=== PATIENT | male | born 1935 | race Caucasian/White ===

== ENCOUNTER 2021-04-05 08:14 | Outpatient (REF) | payer MEDICARE, SELFPAY ==
[2021-04-05 11:16] LABS: MANUAL DIFF FLAG NO
[2021-04-05 11:41] LABS: Basophils Absolute Auto 0.1 X10*3/uL (0.0-0.2); Basophils Percent Auto 0.8 % (0-2); Eosinophils Absolute Auto 0.3 X10*3/uL (0.0-0.4); Eosinophils Percent Auto 4.5 % (0-4); Hematocrit 37.7 % (42-52); Hemoglobin 12.7 g/dl (14.0-18.0); Imm Gran Abs Auto 0.01 X10*3/uL (0.00-0.03); Imm Gran Pct Auto 0.2 % (0.0-0.4); Lymphocytes Absolute Auto 1.7 X10*3/uL (1.2-4.9); Lymphocytes Percent Auto 27.6 % (20-40); Mean Corpuscular HGB Conc 33.7 g/dl (31.0-36.0); Mean Corpuscular Hemoglobin 31.8 pg (27.0-33.0); Mean Corpuscular Volume 94.5 fL (80-98); Mean Platelet Volume 10.9 fL (9.4-12.4); Monocytes Absolute Auto 0.6 X10*3/uL (0.1-1.2); Monocytes Percent Auto 9.4 % (2-11); Neutrophils Absolute Auto 3.6 X10*3/uL (2.0-8.3); Neutrophils Percent Auto 57.5 % (45-73); Platelet Count 252 X10*3/uL (160-400); Red Blood Count 3.99 X10*6/uL (4.60-5.80); White Blood Count 6.2 X10*3/uL (4.8-10.8)
[2021-04-05 12:04] LABS: Alanine Aminotransferase 12 U/L (0-40); Alkaline Phosphatase 57 U/L (39-117); Anion Gap 13 (12-20); Aspartate Amino Transferase 16 U/L (5-37); Bilirubin Total 0.7 mg/dL (0.0-1.0); Blood Urea Nitrogen 16 mg/dL (9-16); Calcium 9.2 mg/dL (8.4-10.2); Carbon Dioxide 24 mmol/L (22-29); Chloride 109 mmol/L (96-108); Cholesterol 197 mg/dL; Estimated Glomerular Filt Rate > 60; Glucose Fasting 86 mg/dL (60-99); HDL Cholesterol 75 mg/dL; LDL Cholesterol Calculated 116 mg/dl; Potassium 4.3 mmol/L (3.3-5.1); Sodium 142 mmol/L (135-145); Total Protein 6.5 g/dL (6.5-8.0); Triglycerides 33 mg/dL
[2021-04-05 12:09] LABS: TSH reflex Free T4 1.92 uIU/mL (0.32-4.0)
[2021-04-05 12:52] LABS: Folate 11.7 ng/mL (> or = 4.0); Vitamin B12 210 pg/mL (200-900)
== END 2021-04-05 08:15 | disposition home or self-care (01) ==
LOC: HO.HMGCLDS 08:14
PROVIDERS: Physician Assistant; PCP Internal Medicine; Visit Provider Internal Medicine
DX: K21.9 Gastro-esophageal reflux disease without esophagitis (principal); I10 Essential (primary) hypertension
CPT/HCPCS: 36415; 80053; 80061; 82607; 82746; 84443; 85025

== ENCOUNTER 2021-04-07 09:27 | Outpatient (REF) | payer MEDICARE, SELFPAY ==
[2021-04-07 11:39] LABS: Creatinine Urine 160.85 mg/dL
== END 2021-04-07 09:28 | disposition home or self-care (01) ==
LOC: HO.HMGCLNP 09:27
PROVIDERS: Visit Provider Physician Assistant
DX: I10 Essential (primary) hypertension (principal)
CPT/HCPCS: 82043

== ENCOUNTER 2021-05-22 13:28 | Outpatient (REF) | payer MEDICARE, SELFPAY ==
[2021-05-22 16:35] LABS: Folate 18.5 ng/mL (> or = 4.0); Vitamin B12 456 pg/mL (200-900)
== END 2021-05-22 13:29 | disposition home or self-care (01) ==
LOC: HO.HMGCLDS 13:28
PROVIDERS: PCP Internal Medicine; Visit Provider Internal Medicine
DX: C18.9 Malignant neoplasm of colon, unspecified (principal)
CPT/HCPCS: 36415; 82607; 82746

== ENCOUNTER 2021-11-16 14:30 | Outpatient (REF) | payer MEDICARE, SELFPAY ==
[2021-11-16 14:55] LABS: MANUAL DIFF FLAG NO
[2021-11-16 15:02] LABS: Basophils Absolute Auto 0.1 X10*3/uL (0.0-0.2); Basophils Percent Auto 0.6 % (0-2); Eosinophils Absolute Auto 0.2 X10*3/uL (0.0-0.4); Eosinophils Percent Auto 2.6 % (0-4); Hematocrit 38.5 % (42.0-52.0); Hemoglobin 12.8 g/dl (14.0-18.0); Imm Gran Abs Auto 0.02 X10*3/uL (0.00-0.03); Imm Gran Pct Auto 0.3 % (0.0-0.4); Immature Retic Fraction 6.4 % (2.3-13.4); Lymphocytes Percent Auto 25.3 % (20-40); Mean Corpuscular HGB Conc 33.2 g/dl (31.0-36.0); Mean Corpuscular Hemoglobin 32.5 pg (27.0-33.0); Mean Corpuscular Volume 97.7 fL (80.0-98.0); Mean Platelet Volume 10.1 fL (9.4-12.4); Monocytes Absolute Auto 0.7 X10*3/uL (0.1-1.2); Monocytes Percent Auto 9.2 % (2-11); Neutrophils Absolute Auto 4.8 x10*3/uL (2.0-8.3); Platelet Count 229 X10*3/uL (160-400); Red Blood Count 3.94 X10*6/uL (4.60-5.80); Red Cell Distribution Width 14.6 % (11.0-16.0); Reticulocyte Percent 1.4 % (0.5-1.8); Reticulocytes Absolute 0.054 X10*6/uL (0.026-0.095); White Blood Count 7.7 X10*3/uL (4.8-10.8)
[2021-11-16 15:34] LABS: Iron 70 mcg/dL (45-160); Percent Iron Saturation 21 % (15-50); Total Iron Binding Capacity 326 mcg/dL (228-428); Unsaturated Iron Binding 256 ug/dL
[2021-11-16 15:55] LABS: Ferritin 54 ng/mL (20-250)
[2021-11-16 16:22] LABS: Folate 12.4 ng/mL (> or = 4.0); Vitamin B12 871 pg/mL (200-900)
== END 2021-11-16 14:31 | disposition home or self-care (01) ==
LOC: HO.LAB 14:30
PROVIDERS: PCP Internal Medicine; Visit Provider Internal Medicine
DX: D64.9 Anemia, unspecified (principal); C18.9 Malignant neoplasm of colon, unspecified
CPT/HCPCS: 36415; 82378; 82607; 82728; 82746; 83540; 85025; 85045

== ENCOUNTER 2022-01-01 15:44 | Outpatient (REF) | payer MEDICARE, SELFPAY ==
--- NOTE | ~2022-01-01 | XR_ITS ---
EXAMINATION: XR CHEST CLINICAL INFORMATION: Shortness of breath COMPARISON: None TECHNIQUE: 2 views of the chest were obtained. FINDINGS: No significant abnormality is noted involving the heart, lungs, mediastinum, bony thorax or soft tissues. There is a right azygos lobe noted. XR/XR chest 2V IMPRESSION: Unremarkable chest examination.
[2022-01-01 16:50] LABS: Hematocrit 38.4 % (42.0-52.0); Hemoglobin 12.7 g/dl (14.0-18.0); Mean Corpuscular HGB Conc 33.1 g/dl (31.0-36.0); Mean Corpuscular Hemoglobin 32.1 pg (27.0-33.0); Mean Platelet Volume 10.6 fL (9.4-12.4); Platelet Count 245 X10*3/uL (160-400); Red Blood Count 3.96 X10*6/uL (4.60-5.80); Red Cell Distribution Width 14.6 % (11.0-16.0); White Blood Count 7.1 X10*3/uL (4.8-10.8)
[2022-01-01 17:25] LABS: Anion Gap 14 (12-20); Blood Urea Nitrogen 20 mg/dL (9-16); Calcium 9.5 mg/dL (8.4-10.2); Carbon Dioxide 25 mmol/L (22-29); Chloride 106 mmol/L (96-108); Estimated Glomerular Filt Rate > 60; Glucose Random 87 mg/dL (60-115); Iron 71 mcg/dL (45-160); Potassium 4.6 mmol/L (3.3-5.1); Sodium 140 mmol/L (135-145)
[2022-01-01 17:55] LABS: Percent Iron Saturation 22 % (15-50); Total Iron Binding Capacity 328 mcg/dL (228-428); Unsaturated Iron Binding 257 ug/dL
== END 2022-01-01 15:45 | disposition home or self-care (01) ==
LOC: HO.XRAY 15:44
PROVIDERS: PCP Internal Medicine; Visit Provider Physician Assistant
DX: R06.02 Shortness of breath (principal); R07.89 Other chest pain; D50.9 Iron deficiency anemia, unspecified
CPT/HCPCS: 36415; 71046; 80048; 83540; 85027

== ENCOUNTER 2022-10-24 10:21 | Outpatient (REF) | payer MEDICARE, SELFPAY ==
--- NOTE | ~2022-10-24 | XR_ITS ---
EXAMINATION: XR CHEST CLINICAL INFORMATION: Wheezing COMPARISON: 01/01/2022 TECHNIQUE: 2 views of the chest were obtained. FINDINGS: There is a new rounded area of patchy density seen in the right upper lobe along with some more prominent tree-in-bud type opacities in the right upper lobe just superior and medial to this. Findings suggest inflammatory disease. Heart size normal. No pleural effusions. No evidence of CHF. Bilateral pleural-parenchymal scarring is again seen. XR/XR chest 2V IMPRESSION: Right upper lobe inflammatory disease. Follow-up after treatment is recommended to document resolution.
== END 2022-10-24 10:22 | disposition home or self-care (01) ==
LOC: HO.HMGCX 10:21
PROVIDERS: PCP Internal Medicine; Visit Provider Nurse Practitioner Family
DX: R05.9 Cough, unspecified (principal); R06.2 Wheezing
CPT/HCPCS: 71046

== ENCOUNTER 2023-05-08 10:57 | Outpatient (AMB) | payer MEDICARE, SELFPAY ==
--- NOTE | 2023-05-08 11:01 | MHC.OFFVIS ---
Intake Vital Signs 05/08/23 11:02 Height 5 ft 11 in Weight 150 lb 5.684 oz BMI 21.0 BP 122/70 Blood Pressure Location Lt brachial Position Sitting Pulse 66 Intake Visit Reasons: [employer]/ Po/ Cardiomyopathy, unspecified Intake Note: NPV w/ EKG Cab Driver Required: No Accompanied by: Self / Same As Patient Allergies No Known Allergies [No Known Allergies*] Allergy (Verified 05/08/23 11:04) Medication List - Last Reconciled 05/08/23 by Edmundo Basurto MD carvedilol 3.125 mg PO BID clotrimazole-betamethasone 1-0.05 % 1 appl topical BID lisinopril 40 mg PO DAILY omeprazole 20 mg PO DAILY spironolactone 25 mg PO DAILY vitamins A,C,O-eyzo-rreduy 2,148 mcg-113 mg-45 mg-17.4mg (PreserVision AREDS) 1 tab PO BID 90 days HPI HPI Comments History of Present Illness Details Andrés is here for consultation regarding coronary artery disease. It seems that he has been seen at [facility] a few times but would like to switch. History of type 2 NSTEMI few months back in the setting of pneumonia. 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 he seems to be on reasonable medications for this. From the cardiac standpoint, he has got absolutely no symptoms. Denies any chest pains or shortness of breath or in fact anything cardiac sounding. States he is feeling fine. [facility] Medical History (Updated 05/08/23 @ 11:31 by Edmundo Basurto MD) Atherosclerotic cardiovascular disease BPH (benign prostatic hyperplasia) Colon cancer GERD (gastroesophageal reflux disease) Heart failure with reduced ejection fraction Hypercholesterolemia Hypertension Thoracic cyst TIA (transient ischemic attack) Vitamin D deficiency Wheezing Surgical History History of cholecystectomy History of colectomy Family History Father Medical history unknown Mother Hypertension Sister Breast cancer Social History (Updated 05/08/23 @ 11:06 by Judie Diana) Housing: House Alcohol intake: current Alcohol intake frequency: 0-2 drinks per day Patient Tobacco Use Status: Former Tobacco user Tobacco use type: Cigarette Years Smoked: Quit 21 years old e-Cigarette/Vaping Use: Never Used Second Hand Smoke Exposure: No Current occupational status: retired Cognitive needs: No Hearing needs: No Vision needs: Yes Review of Systems Const Denies weakness Eyes Denies loss of vision ENT Denies dizziness Card Denies chest pain, Denies chest pain with activity, Denies syncope, Denies rapid heart rate, Denies pedal edema, Denies edema, Denies leg edema, Denies lightheadedness, Denies palpitations, Denies dyspnea, Denies dyspnea on exertion and Denies orthopnea Resp Denies cough, Denies dyspnea, Denies dyspnea on exertion and Denies wheezing GI Denies hematochezia and Denies change in stool character Denies hematuria, Denies dysuria and Denies urinary frequency Musc Denies abnormal gait, Denies muscle cramps, Denies muscle weakness, Denies numbness, Denies radiating pain into limb and Denies tingling Skin/Breast Denies nail changes and Denies rash Neuro Denies Abnormal speech present, Denies abnormal gait, Denies dizziness, Denies syncope, Denies loss of vision, Denies memory loss, Denies numbness, Denies tingling and Denies weakness Psych Denies depression and Denies memory loss Endo Denies palpitations Aller/Immun Denies wheezing Physical Exam Vital Signs: Last Vital Signs Pulse 66 05/08/23 11:02 BP 122/70 05/08/23 11:02 BMI result Body Mass Index 21.0 Const General: comfortable and no acute distress Orientation/consciousness: patient oriented x3 HEENT Other: Unremarkable Head: Yes normal to inspection Neck Neck: Yes normal visual inspection Chest Chest palpation & inspection: normal inspection of the chest Resp Auscultation: clear to auscultation bilaterally Cardio Palpation: normal PMI Heart sounds: S1 normal heart sound present, S2 normal heart sound present, no gallops, no murmurs and no rubs GI Palpation (GI): Soft to palpation Back/Spine/Pelvis Other: unremarkable Skin General skin exam: no rashes or lesions noted Neuro General: patient oriented x3 Speech: No Abnormal speech present Extrem General: Yes normal to inspection Psych Mental Status: mental status grossly normal Office Procedures EKG Details: EKG with sinus rhythm; 66/Min; old inferior and lateral infarct; right bundle-branch block. [id number], Complete Assessment & Plan Assessment & Plan (1) Atherosclerotic cardiovascular disease: Code(s): I25.10 - Atherosclerotic heart disease of [place] coronary artery without angina pectoris (2) Cardiomyopathy: Code(s): I42.9 - Cardiomyopathy, unspecified Plan Echocardiogram from [facility] with severely reduced LVEF; inferolateral as well as basal inferior aneurysmal; lateral wall akinetic. Remaining segments moderate to severely hypokinetic. Mild mitral regurgitation. Does not appear that he underwent any ischemic workup as patient apparently did not want cardiac catheterization. With regard to medications, he is on carvedilol and lisinopril but the doses seem to be different. The last office note from [facility] shows carvedilol 12.5 mg without frequency but today's dosage shows 3.125 b.i.d.. Also the [facility] no shows atorvastatin 80 mg but nothing in today's list. They need to be reconciled. Will need to get a repeat echocardiogram. Then need to discuss ischemic evaluation. Follow-up in a few weeks time. Coding Level of Care Code New Pt Level 4 (51817) Diagnoses Atherosclerotic cardiovascular disease I25.10 Cardiomyopathy I42.9 CPT Codes EKG - CPT: 98964-[id number], Complete ([id number])
[2023-05-08 11:02] VITALS: BP 122/70; PULSE 66; BMI 21.0
== END 2023-05-08 11:38 | disposition home or self-care (01) ==
PROVIDERS: Visit Provider Internal Medicine
DX: I25.10 Atherosclerotic heart disease of native coronary artery without angina pectoris (principal); I42.9 Cardiomyopathy, unspecified
CPT/HCPCS: 93010; 99204

== ENCOUNTER → 2023-05-08 10:57 | Outpatient (BNVA) | payer MEDICARE, SELFPAY | PROVIDERS: Visit Provider Internal Medicine | DX: I25.10 Atherosclerotic heart disease of native coronary artery without angina pectoris (principal); I42.9 Cardiomyopathy, unspecified | CPT/HCPCS: 93005; 99202 ==

== ENCOUNTER 2023-05-10 08:29 | Outpatient (REF) | payer MEDICARE, SELFPAY ==
[2023-05-10 11:09] LABS: MANUAL DIFF FLAG NO
[2023-05-10 11:31] LABS: Basophils Absolute Auto 0.1 X10*3/uL (0.0-0.2); Basophils Percent Auto 0.9 % (0-2); Eosinophils Absolute Auto 0.4 X10*3/uL (0.0-0.4); Eosinophils Percent Auto 6.9 % (0-4); Hematocrit 37.5 % (42.0-52.0); Hemoglobin 12.8 g/dl (14.0-18.0); Imm Gran Abs Auto 0.02 X10*3/uL (0.00-0.03); Imm Gran Pct Auto 0.3 % (0.0-0.4); Lymphocytes Absolute Auto 1.7 X10*3/uL (1.2-4.9); Lymphocytes Percent Auto 29.4 % (20-40); Mean Corpuscular HGB Conc 34.1 g/dl (31.0-36.0); Mean Corpuscular Hemoglobin 33.2 pg (27.0-33.0); Mean Corpuscular Volume 97.2 fL (80.0-98.0); Mean Platelet Volume 11.5 fL (9.4-12.4); Monocytes Absolute Auto 0.6 X10*3/uL (0.1-1.2); Monocytes Percent Auto 10.6 % (2-11); Neutrophils Percent Auto 51.9 % (45-73); Platelet Count 199 X10*3/uL (160-400); Red Blood Count 3.86 X10*6/uL (4.60-5.80); White Blood Count 5.8 X10*3/uL (4.8-10.8)
[2023-05-10 11:37] LABS: Estimated Average Glucose 100 mg/dL; Hemoglobin A1c % 5.1 %
[2023-05-10 12:13] LABS: Alanine Aminotransferase 15 U/L (0-40); Albumin Level 4.1 g/dL (3.5-5.0); Alkaline Phosphatase 52 U/L (39-117); Anion Gap 18 (12-20); Aspartate Amino Transferase 18 U/L (5-37); B Type Natriuretic Peptide 467 pg/mL (<100); Bilirubin Total 0.6 mg/dL (0.0-1.0); Blood Urea Nitrogen 20 mg/dL (9-16); Calcium 9.8 mg/dL (8.4-10.2); Carbon Dioxide 21 mmol/L (22-29); Chloride 105 mmol/L (96-108); Cholesterol 188 mg/dL; Estimated Glomerular Filt Rate > 60; Free T4 (Free Thyroxine) 0.82 ng/dL (0.71-1.85); Glucose Random 91 mg/dL (60-115); HDL Cholesterol 71 mg/dL; LDL Cholesterol Calculated 110 mg/dl; Magnesium 2.1 mg/dL (1.6-2.6); Phosphorus 3.4 mg/dL (2.7-4.5); Potassium 4.7 mmol/L (3.3-5.1); Sodium 139 mmol/L (135-145); Thyroid Stimulating Hormone 2.35 uIU/mL (0.32-4.0); Total Protein 7.1 g/dL (6.5-8.0); Triglycerides 38 mg/dL
[2023-05-10 12:24] LABS: Folate 9.1 ng/mL (> or = 4.0); Vitamin B12 370 pg/mL (200-900)
== END 2023-05-10 08:30 | disposition home or self-care (01) ==
LOC: HO.HMGCLDS 08:29
PROVIDERS: PCP Internal Medicine; Visit Provider Internal Medicine
DX: E78.00 Pure hypercholesterolemia, unspecified (principal); I50.20 Unspecified systolic (congestive) heart failure; R73.9 Hyperglycemia, unspecified
CPT/HCPCS: 36415; 80053; 80061; 82607; 82746; 83036; 83735; 83880; 84100; 84439; 84443; 85025

== ENCOUNTER 2023-05-14 09:40 | Outpatient (AMB) | payer MEDICARE, SELFPAY ==
[2023-05-14 09:45] VITALS: BP 120/68; PULSE 67; O2SAT 98; BMI 21.4
--- NOTE | 2023-05-14 09:45 | MHC.PC.OV ---
Vital Signs 05/14/23 09:45 Height 5 ft 10 in Weight 149 lb BMI 21.4 BP 120/68 Blood Pressure Location Lt brachial Position Sitting Pulse 67 Pulse Source Pulse Oximeter Pulse Oximetry (%) 98 Oxygen Delivery Method Room Air Intake Visit Reasons: Cardiomyopathy. Allergies No Known Allergies [No Known Allergies*] Allergy (Verified 05/14/23 09:45) Medication List - Last Reconciled 05/14/23 by Js Allison MD atorvastatin 40 mg PO QPM carvedilol 12.5 mg PO BID clotrimazole-betamethasone 1-0.05 % 1 appl topical BID lisinopril 40 mg PO DAILY omeprazole 20 mg PO DAILY spironolactone 25 mg PO DAILY vitamins A,C,V-jsfp-bqfzfh 2,148 mcg-113 mg-45 mg-17.4mg (PreserVision AREDS) 1 tab PO BID 90 days Tobacco use date assessed: 12/07/22 Fall risk assessment: 2 + Falls in past year Last assessed Fall Risk: 05/14/23 Dental Screening Dental Screen Date: 05/14/23 Did you have a dental visit in the last 12 months?: Yes Did you have a dental problem in the last 6 months where you did not have access to dental care?: No Was dental information given to patient?: Patient has dentist HPI Cardiomyopathy. HPI Details 88-year-old male with a history of cardiomyopathy congestive heart failure hypercholesterolemia hypertension GERD last seen in March 2023 patient is here for follow-up patient has met with cardiology May 08 history of coronary artery disease in the setting of pneumonia from the cardiology notes confusion regarding medications.PAtient has fallen a few times blames sneakers, decline cane. as for cholesterol was just started on lipitor 40 mg - will need retesting cholesterol 3 months. ecvho repeat under cardiolkogy [facility] Medical History (Updated 05/08/23 @ 11:31 by Edmundo Basurto MD) Atherosclerotic cardiovascular disease BPH (benign prostatic hyperplasia) Colon cancer GERD (gastroesophageal reflux disease) Heart failure with reduced ejection fraction Hypercholesterolemia Hypertension Thoracic cyst TIA (transient ischemic attack) Vitamin D deficiency Wheezing Surgical History History of cholecystectomy History of colectomy Family History Father Medical history unknown Mother Hypertension Sister Breast cancer Social History (Updated 05/08/23 @ 11:06 by Judie Diana) Housing: House Alcohol intake: current Alcohol intake frequency: 0-2 drinks per day Patient Tobacco Use Status: Former Tobacco user Tobacco use type: Cigarette Years Smoked: Quit 21 years old e-Cigarette/Vaping Use: Never Used Second Hand Smoke Exposure: No Current occupational status: retired Cognitive needs: No Hearing needs: No Vision needs: Yes Questionnaire PHQ-9 Over the last 2 weeks, how often have you been bothered by any of the following problems? 1. Little interest or pleasure in doing things: not at all 2. Feeling down, depressed, or hopeless: not at all 3. Trouble falling or staying asleep, or sleeping too much: not at all 4. Feeling tired or having little energy: not at all 5. Poor appetite or overeating: not at all 6. Feeling bad about yourself - or that you are a failure or have let yourself or your family down: not at all 7. Trouble concentrating on things, such as reading the newspaper or watching television: not at all 8. Moving or speaking so slowly that other people could have noticed. Or the opposite - being so fidgety or restless that you have been moving around a lot more than usual: not at all 9. Thoughts that you would be better off or of hurting yourself in some way: not at all Total score: 0 Depression Screening Interpretation: Negative Source: Developed by Drs. Walter Forrester, Nichole Amaral, Jaylen Morris and colleagues, with an educational kannan from [employer]. Thrive Questionnaire Date Thrive assessed: 12/07/22 AUDIT C Alcohol Use Questionnaire (AUDIT-C) 1. How often do you have a drink containing alcohol?: 4 or more times a week 2. How many drinks containing alcohol do you have on a typical day when you are drinking?: 1 or 2 3. How often do you have six or more drinks on one occasion?: Never Total Score: 4 DAVID-7 AMB Questionnaire DAVID-7 Date DAVID - 7 assessed: 12/07/22 Source: Developed by Drs. Walter Forrester, Nichole Amaral, Jaylen Morris and colleagues, with an educational kannan from [employer]. Physical exam (Primary Care) Vital Signs: Last Vital Signs Pulse 67 05/14/23 09:45 BP 120/68 05/14/23 09:45 Pulse Ox 98 05/14/23 09:45 Oxygen Delivery Method Room Air 05/14/23 09:45 BMI result Body Mass Index 21.4 Tobacco/Smoking Status: Tobacco use Status Tobacco use date assessed 12/07/22 05/14/23 09:46 Patient Tobacco Use Status Former Tobacco user 05/14/23 09:46 Tobacco use type Cigarette 05/14/23 09:46 e-Cigarette/Vaping Use Never Used 05/14/23 09:46 PHQ-9: PHQ-9 Score PHQ-9: Total score 0 05/14/23 09:46 Depression Screening Interpretation: Negative Thrive Assessment: Date of Thrive Assessment Date Thrive assessed 12/07/22 05/14/23 09:46 Const General: alert; No acute distress Eyes Conjunctivae: conjunctivae normal Resp Auscultation: clear to auscultation bilaterally Cardio Rate: regular rate Rhythm: regular rhythm GI Inspection: Yes normal to inspection Extrem General: Yes normal to inspection and No edema Assessment and Plan Assessment & Plan (1) Atherosclerotic cardiovascular disease: Code(s): I25.10 - Atherosclerotic heart disease of [place] coronary artery without angina pectoris Plan: Control the cholesterol, weight, blood pressure (2) Cardiomyopathy: Code(s): I42.9 - Cardiomyopathy, unspecified Plan: Continue with present medication (3) Heart failure with reduced ejection fraction: Code(s): I50.20 - Unspecified systolic (congestive) heart failure Plan: Weigh daily and continue with present medication (4) Anemia: Code(s): D64.9 - Anemia, unspecified Plan: Stable (5) Hypercholesterolemia: Code(s): E78.00 - Pure hypercholesterolemia, unspecified Plan: Avoid fried foods, chicken skin, eggs, butter margarine, pastries and meat. Be it pork or beef they have a lot of cholesterol LDL goal of less than 70 and triglyceride of less than 150 (6) BPH (benign prostatic hyperplasia): Code(s): N40.0 - Benign prostatic hyperplasia without lower urinary tract symptoms Qualifiers: Lower urinary tract symptom presence: symptoms absent Qualified Code(s): N40.0 - Benign prostatic hyperplasia without lower urinary tract symptoms Plan: Continue to monitor (7) Hypertension: Code(s): I10 - Essential (primary) hypertension Qualifiers: Hypertension type: essential hypertension Qualified Code(s): I10 - Essential (primary) hypertension Plan: Continue with blood pressure medication. Decrease salt intake and exercise patient is on lisinopril 40 mg once a day spironolactone 25 mg once a day carvedilol 12.5 mg twice a day (8) GERD (gastroesophageal reflux disease): Code(s): K21.9 - Gastro-esophageal reflux disease without esophagitis Qualifiers: Esophagitis presence: without esophagitis Qualified Code(s): K21.9 - Gastro-esophageal reflux disease without esophagitis Plan: Avoid the foods that causes that usually spicy foods, tomato products, juices, coffee, soda and foods that your sensitive to. After eating do not lie down, allow 3-4 hours before in lie down. And keep the head of bed above 30 degrees to avoid the acid from going up. Orders: Orders Comprehensive Met. Panel 3 Months E78.00 - Pure hypercholesterolemia, unspecified Lipid Panel 3 Months E78.00 - Pure hypercholesterolemia, unspecified Coding Level of Care Code Est Pt Level 4 (59697) Diagnoses Atherosclerotic cardiovascular disease I25.10 Cardiomyopathy I42.9 Heart failure with reduced ejection fraction I50.20 Anemia D64.9 Hypercholesterolemia E78.00 BPH (benign prostatic hyperplasia) N40.0 Lower urinary tract symptom presence: symptoms absent Hypertension I10 Hypertension type: essential hypertension GERD (gastroesophageal reflux disease) K21.9 Esophagitis presence: without esophagitis
== END 2023-05-14 10:46 | disposition home or self-care (01) ==
PROVIDERS: PCP Internal Medicine; Visit Provider Internal Medicine
DX: I42.9 Cardiomyopathy, unspecified (principal); I50.20 Unspecified systolic (congestive) heart failure; I10 Essential (primary) hypertension; K21.9 Gastro-esophageal reflux disease without esophagitis; I25.10 Atherosclerotic heart disease of native coronary artery without angina pectoris; D64.9 Anemia, unspecified; E78.00 Pure hypercholesterolemia, unspecified; N40.0 Benign prostatic hyperplasia without lower urinary tract symptoms
CPT/HCPCS: 99214

== ENCOUNTER 2023-07-04 08:34 | Outpatient (AMB) | payer MEDICARE, SELFPAY ==
[2023-07-04 08:40] VITALS: BP 136/62; PULSE 61; BMI 22.0
--- NOTE | 2023-07-04 08:40 | MHC.OFFVIS ---
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 Locking Required: No Accompanied by: Self / Same As Patient Allergies No Known Allergies [No Known Allergies*] Allergy (Verified 07/04/23 08:42) Medication List - Last Reconciled 07/04/23 by Edmundo Basurto MD aspirin 81 mg PO DAILY atorvastatin 40 mg PO QPM carvedilol 12.5 mg PO BID clotrimazole-betamethasone 1-0.05 % 1 appl topical BID lisinopril 40 mg PO DAILY omeprazole 20 mg PO DAILY spironolactone 25 mg PO DAILY vitamins A,C,A-fjlb-bllrar 2,148 mcg-113 mg-45 mg-17.4mg (PreserVision AREDS) 1 tab PO BID 90 days HPI HPI Comments History of Present Illness Details Andrés returns for follow-up. Recently seen in consultation regarding coronary disease. It seems that he has been seen at [facility] a few times but would like to switch. History of type 2 NSTEMI few months back in the setting of pneumonia. 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 he seems to be on reasonable medications for this. From the cardiac standpoint, he has got absolutely no symptoms. Denies any chest pains or shortness of breath or in fact anything cardiac sounding. States he is feeling fine. Per notes, he was recommended cardiac catheterization but patient was not willing at the time. When I have discussed about that today he states he does not recall that and if necessary he may consider pursuing. [facility] Medical History (Updated 07/04/23 @ 08:51 by Edmundo Basurto MD) Atherosclerotic cardiovascular disease Heart failure with reduced ejection fraction Wheezing Vitamin D deficiency Thoracic cyst TIA (transient ischemic attack) Colon cancer Hypercholesterolemia BPH (benign prostatic hyperplasia) Hypertension GERD (gastroesophageal reflux disease) Surgical History History of colectomy History of cholecystectomy Family History Father Medical history unknown Mother Hypertension Sister Breast cancer Social History Housing: House Alcohol intake: current Alcohol intake frequency: 0-2 drinks per day Patient Tobacco Use Status: Former Tobacco user Tobacco use type: Cigarette Years Smoked: Quit 21 years old e-Cigarette/Vaping Use: Never Used Second Hand Smoke Exposure: No Current occupational status: retired Cognitive needs: No Hearing needs: No Vision needs: Yes Review of Systems Const Denies weakness ENT Denies dizziness Card Denies chest pain, Denies chest pain with activity, Denies syncope, Denies rapid heart rate, Denies pedal edema, Denies edema, Denies leg edema, Denies lightheadedness, Denies palpitations, Denies dyspnea, Denies dyspnea on exertion and Denies orthopnea Resp Denies cough, Denies dyspnea and Denies dyspnea on exertion GI Denies hematochezia and Denies change in stool character Musc Denies abnormal gait, Denies muscle cramps, Denies muscle weakness, Denies numbness, Denies radiating pain into limb and Denies tingling Neuro Denies abnormal gait, Denies dizziness, Denies syncope, Denies numbness, Denies tingling and Denies weakness Endo Denies palpitations Physical Exam Vital Signs: Last Vital Signs Pulse 61 07/04/23 08:40 BP 136/62 07/04/23 08:40 BMI result Body Mass Index 22.0 Const General: comfortable and no acute distress Orientation/consciousness: patient oriented x3 HEENT Other: Unremarkable Head: Yes normal to inspection Neck Neck: Yes normal visual inspection Chest Chest palpation & inspection: normal inspection of the chest Resp Auscultation: clear to auscultation bilaterally Cardio Palpation: normal PMI Heart sounds: S1 normal heart sound present, S2 normal heart sound present, no gallops, no murmurs and no rubs GI Palpation (GI): Soft to palpation Back/Spine/Pelvis Other: unremarkable Skin General skin exam: no rashes or lesions noted Neuro General: patient oriented x3 Extrem General: Yes normal to inspection Psych Mental Status: mental status grossly normal Assessment & Plan Assessment & Plan (1) Atherosclerotic cardiovascular disease: Code(s): I25.10 - Atherosclerotic heart disease of [place] coronary artery without angina pectoris (2) Cardiomyopathy: Code(s): I42.9 - Cardiomyopathy, unspecified Qualifiers: Cardiomyopathy type: ischemic Qualified Code(s): I25.5 - Ischemic cardiomyopathy Plan Echocardiogram from [facility] with severely reduced LVEF; inferolateral as well as basal inferior aneurysmal; lateral wall akinetic. Remaining segments moderate to severely hypokinetic. Mild mitral regurgitation. Does not appear that he underwent any ischemic workup as patient apparently did not want cardiac catheterization at that time. Would like to repeat echocardiogram to reassess. Unless there is any major improvement from that time, still think cardiac catheterization is very reasonable. We discussed about this today and he is more amenable. If not at least stress perfusion imaging. For medication, he is listed to be on carvedilol, lisinopril, spironolactone and statins. S reasonable regimen for his age and may continue. Will review the repeat echocardiogram and plan further care. Coding Level of Care Code Est Pt Level 4 (88771) Diagnoses Atherosclerotic cardiovascular disease I25.10 Ischemic cardiomyopathy I25.5 Cardiomyopathy type: ischemic
== END 2023-07-04 08:56 | disposition home or self-care (01) ==
PROVIDERS: PCP Internal Medicine; Visit Provider Internal Medicine
DX: I25.10 Atherosclerotic heart disease of native coronary artery without angina pectoris (principal); I25.5 Ischemic cardiomyopathy
CPT/HCPCS: 99214

== ENCOUNTER → 2023-07-04 08:34 | Outpatient (BNVA) | payer MEDICARE, SELFPAY | PROVIDERS: PCP Internal Medicine; Visit Provider Internal Medicine | DX: I25.10 Atherosclerotic heart disease of native coronary artery without angina pectoris (principal); I25.5 Ischemic cardiomyopathy | CPT/HCPCS: 99212 ==

== ENCOUNTER → 2023-07-30 14:46 | Outpatient (REF) | payer MEDICARE, SELFPAY ==
--- NOTE | 2023-07-30 14:48 | CA_ITS ---
Transthoracic Echocardiogram Patient (Last, First, Middle): Andrés Garcia A Gender: Male Date of : 1935 Age: 88 Procedure Date: 07/30/2023 Procedure Type: Transthoracic Echocardiogram Location: OP Height: 177.8 cm Weight: 68.04 kg BSA: 1.85 m2 Heart Rate: 64 bpm BP: 136 / 72 mmHg Steel Burner: SB Referring MD: Edmundo Basurto MD Symptoms: I42.9 - Cardiomyopathy, unspecified Study Quality: Adequate ECG Rhythm: Sinus Conclusions: - The left ventricular systolic function is severely decreased. The calculated ejection fraction is 26% by biplane method. - The basal inferior, mid inferior, mid anterolateral, and mid inferolateral segments are akinetic. - The basal inferolateral segment is dyskinetic. - No obvious valvular pathology seen on this study. Findings Procedure Information Contrast agent, definity, is being given per protocol without apparent complications. Left Ventricle Normal left ventricular cavity size. The left ventricular systolic function is severely decreased. The calculated ejection fraction is 26% by biplane method. There is evidence of regional wall motion abnormalities. Evidence suggests grade I (mild) diastolic dysfunction. There is moderate septal and moderate basal asymmetric hypertrophy. Wall Motion Rest Echo Findings The basal inferior, mid inferior, mid anterolateral, and mid inferolateral segments are akinetic. The basal inferolateral segment is dyskinetic. Atria Both atria are normal in size. Aortic Valve There is a normal trileaflet aortic valve. There is mild calcification of the aortic valve. There is no aortic valve stenosis. There is trace (trivial) aortic valve regurgitation. Mitral Valve The mitral valve appears normal. There is no mitral valve regurgitation. There is no mitral valve stenosis. Pulmonic Valve The pulmonic valve is likely normal. There is trace pulmonic valve regurgitation. Tricuspid Valve There is trace tricuspid valve regurgitation. There is no evidence of pulmonary hypertension. Great Vessels The asc aorta is normal in size. Small plaque is seen in the sino tubular ridge. Venous The inferior vena cava is normal in size and collapses greater than 50% with inspiration. Pericardium/Pleural There is no evidence of pericardial effusion. Prior Study Comparison No prior study available for comparison. Recommendations, Care & Conclusions No obvious valvular pathology seen on this study. Measurements 2D Linear Measurements IVSd: 1.32 0.6-0.9/0.6-1.0 cm LVIDd: 5.29 3.9-5.3/4.2-5.9 cm LVIDd Index: 2.86 2.4-3.2/2.2-3.1 cm/m2 LVIDs: 4.46 2.0-3.6 cm LVPWd: 0.48 0.7-1.1 cm Ao Root: 3.30 2.1-3.5 cm LA Diam: 4.50 2.7-3.8/3.0-4.0 cm LAIDs Index: 2.43 1.5-2.3 cm/m2 LV Mass: 216.23 67-162/88-224 g LV Mass Index: 116.88 43-95/49-115 g/m2 LVOT Diam: 2.00 3.0+(-)1.3 cm 2D Systolic Function EF 4C: 27.00 >55% EF 2C: 22.50 >55% EF BiP: 26.30 >55% Mitral Valve MV VTI: 0.30 MV Pk Toby: 0.88 MV Mn Toby: 0.60 MV Pk Grad: 3.00 MV Mn Grad: 2.00 MV Pk E: 0.86 MV PK A: 0.82 MV Decel Time: 175.00 E/A: 1.00 E'Lateral: 5.00 E'Medial: 4.46 E/E' Med: 19.20 E/E' Lat: 17.10 PHT: 51.00 MVA PHT: 4.31 MVA Continuity: 2.00 Decel [place]: 4.89 Aortic Valve AoV Pk Toby: 1.32 AoV Mn Toby: 0.92 AoV VTI: 0.29 AoV Pk Grad: 7.00 Aov Mn Grad: 4.00 MARGARET Cont.VTI: 2.10 LVOT LVOT Pk Toby: 0.95 LVOT Mn Toby: 0.60 LVOT VTI: 0.19 LVOT Pk Grad: 4.00 LVOT Mn Grad: 2.00 LVOT Diam: 2.00 LVOT Area: 3.14 Diastolic Function MV Pk E: 0.86 MV Pk A: 0.82 E/A: 1.00 E'Medial: 4.46 E/E' Med: 19.20 E' Laterial: 5.00 E/E' Lat: 17.10 Right Ventricle TAPSE (mm): 15.30 TVS' Toby: 9.79 Tricuspid Valve RA Press: 8.00 Great Vessels Aorta Ao Root-2D: 3.30 2.0-3.7 cm Ao Asc: 3.70 2.1-3.4 cm Pulmonary Veins Pulm Vein S/D 1.40 Pulmonary Valve PV Pk Toby: 0.67 Peak PV Grad: 2.00 Updated in Other Vendor System with Status of Final Edmundo Basurto MD electronically signed on 08/01/2023 3:14:44 PM with status of Final
== END ==
LOC: HO.CARD 14:46
PROVIDERS: PCP Internal Medicine; Visit Provider Internal Medicine
DX: I42.9 Cardiomyopathy, unspecified (principal)
CPT/HCPCS: 93306; Q9957

== ENCOUNTER → 2023-07-30 14:48 | Outpatient (BNV) | payer MEDICARE, SELFPAY | PROVIDERS: PCP Internal Medicine; Visit Provider Internal Medicine | DX: I35.8 Other nonrheumatic aortic valve disorders (principal); I42.9 Cardiomyopathy, unspecified | CPT/HCPCS: 93306 ==

== ENCOUNTER 2023-08-13 08:23 | Outpatient (AMB) | payer MEDICARE, SELFPAY ==
--- NOTE | 2023-08-13 08:37 | A.OFFVIS_ITS ---
Intake Vital Signs 08/13/23 08:49 Height 5 ft 10 in Weight 155 lb 3.287 oz BMI 22.3 BP 126/68 Blood Pressure Location Lt brachial Position Sitting Pulse 70 Pulse Source Pulse Oximeter Pulse Oximetry (%) 98 Oxygen Delivery Method Room Air Intake Visit Reasons: f/u after echo Intake Note: Pt presents to the office today for a follow up after echo. Pt states he is feeling well. Pt denies any chest pain or shortness of breath. Allergies No Known Allergies [No Known Allergies*] Allergy (Verified 08/13/23 08:52) Medication List - Last Reconciled 08/13/23 by Belia Bolaños NP-C aspirin 81 mg PO DAILY atorvastatin 40 mg PO QPM carvedilol 12.5 mg PO BID clotrimazole-betamethasone 1-0.05 % 1 appl topical BID lisinopril 40 mg PO DAILY omeprazole 20 mg PO DAILY spironolactone 25 mg PO DAILY vitamins A,C,Y-vpgx-mybvmr 2,148 mcg-113 mg-45 mg-17.4mg (PreserVision AREDS) 1 tab PO BID 90 days HPI f/u after echo HPI Details Andrés is an 88-year-old male with past medical history of hypertension, hyperlipidemia, cardiomyopathy, coronary artery disease who presents for follow-up after recent echocardiogram. Today he reports that he has been feeling generally well. He denies having any chest discomfort at rest or with a activity. No shortness of breath, PND, orthopnea or edema. No lightheadedness, presyncope, syncope, falls. He does all the housework as his is disabled. He is taking his medications as directed. [facility] Medical History Atherosclerotic cardiovascular disease Heart failure with reduced ejection fraction Wheezing Vitamin D deficiency Thoracic cyst TIA (transient ischemic attack) Colon cancer Hypercholesterolemia BPH (benign prostatic hyperplasia) Hypertension GERD (gastroesophageal reflux disease) Surgical History History of colectomy History of cholecystectomy Family History Father Medical history unknown Mother Hypertension Sister Breast cancer Social History Housing: House Alcohol intake: current Alcohol intake frequency: 0-2 drinks per day Patient Tobacco Use Status: Former Tobacco user Tobacco use type: Cigarette Years Smoked: Quit 21 years old e-Cigarette/Vaping Use: Never Used Second Hand Smoke Exposure: No Current occupational status: retired Cognitive needs: No Hearing needs: No Vision needs: Yes Review of Systems Const Details: takes a nap each day All systems reviewed & are unremarkable except as noted in HPI and below Card Denies chest pain and Denies dyspnea on exertion Resp Denies dyspnea on exertion Physical Exam Vital Signs: Last Vital Signs Pulse 70 08/13/23 08:49 BP 126/68 08/13/23 08:49 Pulse Ox 98 08/13/23 08:49 Oxygen Delivery Method Room Air 08/13/23 08:49 BMI result Body Mass Index 22.3 Const General: cooperative, healthy appearing, comfortable and no acute distress Orientation/consciousness: patient oriented x3 Neck Neck: Yes normal visual inspection Resp Effort & Inspection: normal respiratory effort Auscultation: clear to auscultation bilaterally, no crackles, no rales, no rhonchi and no wheezes Cardio Jugular venous distension: no JVD Rate: regular rate Rhythm: regular rhythm Heart sounds: S1 normal heart sound present, S2 normal heart sound present, no murmurs and no rubs Neuro General: patient oriented x3 Extrem General: Yes normal to inspection Psych Appearance: grossly normal Mental Status: mental status grossly normal Speech and movement: Normal speech and movement present Assessment & Plan Assessment & Plan (1) Atherosclerotic cardiovascular disease: Code(s): I25.10 - Atherosclerotic heart disease of [place] coronary artery without angina pectoris Plan: History of secondary NSTEMI several months ago in the setting of pneumonia. 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 cardiac catheterization was recommended however notes indicate he was not willing at that time. He recently was seen for cardiology consult in our office. A repeat echocardiogram was done on 07/30/2023 showing EF 26%, basal inferior, mid inferior, mid anterior lateral and mid inferior lateral segments are akinetic, basal inferior lateral segment is dyskinetic. On examination today he does not appear to have decompensated heart failure. He denies symptoms of chest discomfort and shortness of breath. With his wall motion abnormality in reduced EF he has presumed coronary artery disease. He is on daily aspirin, moderate dose statin, carvedilol, lisinopril and Aldactone. Benefits of cardiac catheterization reviewed with him. Risks of the procedure including ME, stroke, CLAIRE, bleeding, infection discussed. He is willing to proceed at this time. Will order preprocedure labs, diagnostic cardiac catheterization. Signs and symptoms of angina reviewed. Cardiology follow-up 2 weeks post procedure. (2) Cardiomyopathy: Code(s): I42.9 - Cardiomyopathy, unspecified Qualifiers: Cardiomyopathy type: ischemic Qualified Code(s): I25.5 - Ischemic cardiomyopathy Plan: Ischemic cardiomyopathy. No signs of heart failure on examination. Cardiac catheterization being planned as above. Continue carvedilol and lisinopril for neurohormonal modulation. He is on Aldactone. Not requiring other diuretics at this time. (3) Heart failure with reduced ejection fraction: Code(s): I50.20 - Unspecified systolic (congestive) heart failure Plan: As above (4) Hypertension: Code(s): I10 - Essential (primary) hypertension Qualifiers: Hypertension type: essential hypertension Qualified Code(s): I10 - Essential (primary) hypertension Plan: Well controlled at present. No med changes made today Orders: Orders Complete Blood Count Auto Diff Today I25.10 - Atherosclerotic heart disease of [place] coronary artery without angina pectoris, I42.9 - Cardiomyopathy, unspecified, I50.20 - Unspecified systolic (congestive) heart failure Cardiac Cath LT Diagnostic Today I25.10 - Atherosclerotic heart disease of [place] coronary artery without angina pectoris, I42.9 - Cardiomyopathy, unspecified, I50.20 - Unspecified systolic (congestive) heart failure Basic Metabolic Panel Today I25.10 - Atherosclerotic heart disease of [place] coronary artery without angina pectoris, I42.9 - Cardiomyopathy, unspecified, I50.20 - Unspecified systolic (congestive) heart failure Prothrombin Time INR Today I25.10 - Atherosclerotic heart disease of [place] coronary artery without angina pectoris, I42.9 - Cardiomyopathy, unspecified, I50.20 - Unspecified systolic (congestive) heart failure Coding Level of Care Code Est Pt Level 4 (10441) Diagnoses Atherosclerotic cardiovascular disease I25.10 Ischemic cardiomyopathy I25.5 Cardiomyopathy type: ischemic Heart failure with reduced ejection fraction I50.20 Essential hypertension I10 Hypertension type: essential hypertension Time Spent (min) 30
[2023-08-13 08:49] VITALS: BP 126/68; PULSE 70; O2SAT 98; BMI 22.3
== END 2023-08-13 09:28 | disposition home or self-care (01) ==
PROVIDERS: PCP Internal Medicine; Visit Provider Nurse Practitioner Family
DX: I25.10 Atherosclerotic heart disease of native coronary artery without angina pectoris (principal); I25.5 Ischemic cardiomyopathy; I50.20 Unspecified systolic (congestive) heart failure; I10 Essential (primary) hypertension
CPT/HCPCS: 99214

== ENCOUNTER 2023-08-13 08:23 | Outpatient (REF) | payer MEDICARE, SELFPAY ==
[2023-08-13 09:48] LABS: MANUAL DIFF FLAG NO
[2023-08-13 09:50] LABS: Basophils Absolute Auto 0.1 X10*3/uL (0.0-0.2); Basophils Percent Auto 0.8 % (0-2); Eosinophils Absolute Auto 0.3 X10*3/uL (0.0-0.4); Eosinophils Percent Auto 4.7 % (0-4); Hematocrit 38.2 % (42.0-52.0); Hemoglobin 13.2 g/dl (14.0-18.0); Imm Gran Abs Auto 0.02 X10*3/uL (0.00-0.03); Imm Gran Pct Auto 0.3 % (0.0-0.4); Lymphocytes Absolute Auto 1.7 X10*3/uL (1.2-4.9); Lymphocytes Percent Auto 26.4 % (20-40); Mean Corpuscular HGB Conc 34.6 g/dl (31.0-36.0); Mean Corpuscular Hemoglobin 33.2 pg (27.0-33.0); Mean Corpuscular Volume 96.2 fL (80.0-98.0); Mean Platelet Volume 10.4 fL (9.4-12.4); Monocytes Absolute Auto 0.7 X10*3/uL (0.1-1.2); Monocytes Percent Auto 10.6 % (2-11); Neutrophils Absolute Auto 3.7 x10*3/uL (2.0-8.3); Neutrophils Percent Auto 57.2 % (45-73); Platelet Count 172 X10*3/uL (160-400); Red Blood Count 3.97 X10*6/uL (4.60-5.80); Red Cell Distribution Width 14.4 % (11.0-16.0); White Blood Count 6.4 X10*3/uL (4.8-10.8)
[2023-08-13 10:04] LABS: Alanine Aminotransferase 24 U/L (0-40); Albumin Level 4.3 g/dL (3.5-5.0); Alkaline Phosphatase 87 U/L (39-117); Anion Gap 16 (12-20); Aspartate Amino Transferase 26 U/L (5-37); Bilirubin Total 0.6 mg/dL (0.0-1.0); Blood Urea Nitrogen 12 mg/dL (9-16); Calcium 9.8 mg/dL (8.4-10.2); Carbon Dioxide 22 mmol/L (22-29); Chloride 108 mmol/L (96-108); Cholesterol 149 mg/dL (<200); Estimated Glomerular Filt Rate > 60; Glucose Random 92 mg/dL (60-115); HDL Cholesterol 74 mg/dL (>40); LDL Cholesterol Calculated 66 mg/dL (<100); Potassium 3.8 mmol/L (3.3-5.1); Sodium 142 mmol/L (135-145); Total Protein 7.4 g/dL (6.5-8.0); Triglycerides 47 mg/dL (<150)
[2023-08-13 10:09] LABS: Prothrombin Time 12.3 SEC (11.1-13.3)
== END 2023-08-13 08:24 | disposition home or self-care (01) ==
LOC: HO.LAB 08:23
PROVIDERS: PCP Internal Medicine; Visit Provider Nurse Practitioner Family
DX: I25.10 Atherosclerotic heart disease of native coronary artery without angina pectoris (principal); I25.5 Ischemic cardiomyopathy; I11.0 Hypertensive heart disease with heart failure; I50.20 Unspecified systolic (congestive) heart failure; E78.00 Pure hypercholesterolemia, unspecified; Z79.82 Long term (current) use of aspirin; Z79.899 Other long term (current) drug therapy
CPT/HCPCS: 36415; 80053; 80061; 85025; 85610; 99212

== ENCOUNTER 2023-08-20 08:23 | Outpatient (AMB) | payer MEDICARE, SELFPAY ==
[2023-08-20 08:38] VITALS: BP 108/58; PULSE 59; O2SAT 97; BMI 21.4
--- NOTE | 2023-08-20 08:38 | A.OFFPC_ITS ---
Vital Signs 08/20/23 08:38 Height 5 ft 10 in Weight 149 lb BMI 21.4 BP 108/58 L Blood Pressure Location Lt brachial Position Sitting Pulse 59 Pulse Source Pulse Oximeter Pulse Oximetry (%) 97 Oxygen Delivery Method Room Air Intake Visit Reasons: Cardiomyopathy, hypertension CHD/CAD Allergies No Known Allergies [No Known Allergies*] Allergy (Verified 08/20/23 08:38) Medication List - Last Reconciled 08/20/23 by Js Allison MD aspirin 81 mg PO DAILY atorvastatin 40 mg PO QPM carvedilol 12.5 mg PO BID clotrimazole-betamethasone 1-0.05 % 1 appl topical BID lisinopril 40 mg PO DAILY omeprazole 20 mg PO DAILY spironolactone 25 mg PO DAILY tamsulosin (Flomax) 0.4 mg PO BEDTIME vitamins A,C,V-wbry-juinyb 2,148 mcg-113 mg-45 mg-17.4mg (PreserVision AREDS) 1 tab PO BID 90 days Tobacco use date assessed: 12/07/22 Fall risk assessment: No Falls in past year Last assessed Fall Risk: 08/20/23 Dental Screening Dental Screen Date: 08/20/23 Did you have a dental visit in the last 12 months?: Yes Did you have a dental problem in the last 6 months where you did not have access to dental care?: No Was dental information given to patient?: Patient has dentist HPI Cardiomyopathy, hypertension CHD/CAD HPI Details 88-year-old male with atherosclerotic ca rdiovascular disease with cardiomyopathy congestive heart failure chronic anemia hypercholesterolemia BPH hypertension GERD last seen in May 2023. Seen cardiology 08/13/2023 after echo 07/30/2023 EF 26% basal inferior mid inferior mid anterior lateral and mid inferior lateral segments akinetic basal inferior lateral segment dyskinetic. With reduced EF cardiac catheterization is planned. Patient also follows up with urology for the BPH and urinary retention on Flomax- states has a schedule patient has been doing fine with no nausea no vomiting no chest pains no shortness of breath no bowel bladder symptoms. [facility] Medical History Atherosclerotic cardiovascular disease Heart failure with reduced ejection fraction Wheezing Vitamin D deficiency Thoracic cyst TIA (transient ischemic attack) Colon cancer Hypercholesterolemia BPH (benign prostatic hyperplasia) Hypertension GERD (gastroesophageal reflux disease) Surgical History History of colectomy History of cholecystectomy Family History Father Medical history unknown Mother Hypertension Sister Breast cancer Social History Housing: House Alcohol intake: current Alcohol intake frequency: 0-2 drinks per day Patient Tobacco Use Status: Former Tobacco user Tobacco use type: Cigarette Years Smoked: Quit 21 years old e-Cigarette/Vaping Use: Never Used Second Hand Smoke Exposure: No Current occupational status: retired Cognitive needs: No Hearing needs: No Vision needs: Yes Questionnaire PHQ-9 Over the last 2 weeks, how often have you been bothered by any of the following problems? 1. Little interest or pleasure in doing things: not at all 2. Feeling down, depressed, or hopeless: not at all 3. Trouble falling or staying asleep, or sleeping too much: not at all 4. Feeling tired or having little energy: not at all 5. Poor appetite or overeating: not at all 6. Feeling bad about yourself - or that you are a failure or have let yourself or your family down: not at all 7. Trouble concentrating on things, such as reading the newspaper or watching television: not at all 8. Moving or speaking so slowly that other people could have noticed. Or the opposite - being so fidgety or restless that you have been moving around a lot more than usual: not at all 9. Thoughts that you would be better off or of hurting yourself in some way: not at all Total score: 0 Depression Screening Interpretation: Negative Depression Screening Done: Yes Source: Developed by Drs. Walter Forrester, Nichole Amaral, Jaylen Morris and colleagues, with an educational kannan from [employer]. Thrive Questionnaire Date Thrive assessed: 12/07/22 AUDIT C Alcohol Use Questionnaire (AUDIT-C) 1. How often do you have a drink containing alcohol?: 4 or more times a week 2. How many drinks containing alcohol do you have on a typical day when you are drinking?: 1 or 2 3. How often do you have six or more drinks on one occasion?: Never Total Score: 4 DAVID-7 AMB Questionnaire DAVID-7 Date DAVID - 7 assessed: 12/07/22 Source: Developed by Drs. Walter Forrester, Nichole Amaral, Jaylen Morris and colleagues, with an educational kannan from [employer]. Physical exam (Primary Care) Vital Signs: Last Vital Signs Pulse 59 08/20/23 08:38 BP 108/58 L 08/20/23 08:38 Pulse Ox 97 08/20/23 08:38 Oxygen Delivery Method Room Air 08/20/23 08:38 BMI result Body Mass Index 21.4 Tobacco/Smoking Status: Tobacco use Status Tobacco use date assessed 12/07/22 08/20/23 08:43 Patient Tobacco Use Status Former Tobacco user 08/20/23 08:43 Tobacco use type Cigarette 08/20/23 08:43 e-Cigarette/Vaping Use Never Used 08/20/23 08:43 PHQ-9: PHQ-9 Score PHQ-9: Total score 0 08/20/23 08:43 Depression Screening Interpretation: Negative Thrive Assessment: Date of Thrive Assessment Date Thrive assessed 12/07/22 08/20/23 08:43 Const General: alert; No acute distress Eyes Conjunctivae: conjunctivae normal Resp Auscultation: clear to auscultation bilaterally Cardio Rate: regular rate Rhythm: regular rhythm GI Inspection: Yes normal to inspection Extrem General: Yes normal to inspection and No edema Assessment and Plan Assessment & Plan (1) Cardiomyopathy: Code(s): I42.9 - Cardiomyopathy, unspecified Qualifiers: Cardiomyopathy type: ischemic Qualified Code(s): I25.5 - Ischemic cardiomyopathy Plan: Patient has a planned cardiac catheterization and follows up with Cardiology (2) Atherosclerotic cardiovascular disease: Code(s): I25.10 - Atherosclerotic heart disease of [place] coronary artery without angina pectoris Plan: Control the cholesterol, weight, blood pressure continue with aspirin 81 mg once a day (3) Heart failure with reduced ejection fraction: Code(s): I50.20 - Unspecified systolic (congestive) heart failure Plan: Stable on spironolactone 25 mg once a day carvedilol 12.5 mg twice a day (4) Anemia: Code(s): D64.9 - Anemia, unspecified Plan: Stable (5) Hypercholesterolemia: Code(s): E78.00 - Pure hypercholesterolemia, unspecified Plan: Avoid fried foods, chicken skin, eggs, butter margarine, pastries and meat. Be it pork or beef they have a lot of cholesterol LDL goal of less than 70 and triglyceride of less than 150. Patient on atorvastatin 40 mg once a day (6) BPH (benign prostatic hyperplasia): Code(s): N40.0 - Benign prostatic hyperplasia without lower urinary tract symptoms Qualifiers: Lower urinary tract symptom presence: symptoms absent Qualified Code (s): N40.0 - Benign prostatic hyperplasia without lower urinary tract symptoms Plan: Patient follows up with urology (7) Hypertension: Code(s): I10 - Essential (primary) hypertension Qualifiers: Hypertension type: essential hypertension Qualified Code(s): I10 - Essential (primary) hypertension Plan: Continue with blood pressure medication. Decrease salt intake and exercise on spironolactone lisinopril carvedilol (8) GERD (gastroesophageal reflux disease): Code(s): K21.9 - Gastro-esophageal reflux disease without esophagitis Qualifiers: Esophagitis presence: without esophagitis Qualified Code(s): K21.9 - Gastro-esophageal reflux disease without esophagitis Plan: Avoid the foods that causes that usually spicy foods, tomato products, juices, coffee, soda and foods that your sensitive to. After eating do not lie down, allow 3-4 hours before in lie down. And keep the head of bed above 30 degrees to avoid the acid from going up. Medications: New tamsulosin (Flomax) 0.4 mg PO BEDTIME 30 caps 0RF N40.0 - Benign prostatic hyperplasia without lower urinary tract symptoms Coding Level of Care Code Est Pt Level 4 (01881) Diagnoses Ischemic cardiomyopathy I25.5 Cardiomyopathy type: ischemic Atherosclerotic cardiovascular disease I25.10 Heart failure with reduced ejection fraction I50.20 Anemia D64.9 Hypercholesterolemia E78.00 Benign prostatic hyperplasia without lower urinary tract symptoms N40.0 Lower urinary tract symptom presence: symptoms absent Essential hypertension I10 Hypertension type: essential hypertension Gastroesophageal reflux disease without esophagitis K21.9 Esophagitis presence: without esophagitis
== END 2023-08-20 08:59 | disposition home or self-care (01) ==
PROVIDERS: PCP Internal Medicine; Visit Provider Internal Medicine
DX: I25.5 Ischemic cardiomyopathy (principal); I25.10 Atherosclerotic heart disease of native coronary artery without angina pectoris; I11.0 Hypertensive heart disease with heart failure; I50.20 Unspecified systolic (congestive) heart failure; D64.9 Anemia, unspecified; E78.00 Pure hypercholesterolemia, unspecified; N40.0 Benign prostatic hyperplasia without lower urinary tract symptoms; K21.9 Gastro-esophageal reflux disease without esophagitis
CPT/HCPCS: 99214

== ENCOUNTER → 2023-08-29 23:59 | Outpatient (BNV) | payer MEDICARE, SELFPAY | PROVIDERS: PCP Internal Medicine; Visit Provider Internal Medicine Cardiovascular Disease | DX: I20.89 Other forms of angina pectoris (principal); I42.9 Cardiomyopathy, unspecified | CPT/HCPCS: 92928; 92929; 92978; 93458; 99152 ==

== ENCOUNTER 2023-09-12 12:52 | Outpatient (AMB) | payer MEDICARE, SELFPAY ==
[2023-09-12 13:09] VITALS: BP 120/62; PULSE 64; BMI 22.1
--- NOTE | 2023-09-12 13:09 | A.OFFVIS_ITS ---
Intake Vital Signs 09/12/23 13:09 Height 5 ft 10 in Weight 154 lb 5.177 oz BMI 22.1 BP 120/62 Blood Pressure Location Lt brachial Position Sitting Pulse 64 Pulse Source Pulse Oximeter Intake Visit Reasons: 2 wk s/p cath Allergies No Known Allergies [No Known Allergies*] Allergy (Verified 09/12/23 13:11) Medication List - Last Reconciled 09/12/23 by Belia Bolaños NP-C aspirin 81 mg PO DAILY atorvastatin 40 mg PO QPM carvedilol 12.5 mg PO BID clotrimazole-betamethasone 1-0.05 % 1 appl topical BID lisinopril 40 mg PO DAILY meclizine 25 mg PO TID omeprazole 20 mg PO DAILY spironolactone 25 mg PO DAILY tamsulosin (Flomax) 0.4 mg PO BEDTIME vitamins A,C,U-ehkz-uldwjw 2,148 mcg-113 mg-45 mg-17.4mg (PreserVision AREDS) 1 tab PO BID 90 days HPI 2 wk s/p cath HPI Details Andrés is an 88-year-old male with past medical history of hypertension, hyperlipidemia, cardiomyopathy, CAD who presents for follow-up after recent cardiac catheterization and stenting. Today he reports he has been feeling well since his procedure. His right radial catheterization site feels good. He has not had any chest discomfort at rest or with activity. No shortness of breath, PND, orthopnea or edema. No lightheadedness, presyncope, syncope, falls. Taking medications as directed. No bleeding issues reported. His is disabled so he does most of the housework which he is tolerating well. He declines cardiac rehab [facility] Medical History Atherosclerotic cardiovascular disease Heart failure with reduced ejection fraction Wheezing Vitamin D deficiency Thoracic cyst TIA (transient ischemic attack) Colon cancer Hypercholesterolemia BPH (benign prostatic hyperplasia) Hypertension GERD (gastroesophageal reflux disease) Surgical History History of colectomy History of cholecystectomy Family History Father Medical history unknown Mother Hypertension Sister Breast cancer Social History Housing: House Alcohol intake: current Alcohol intake frequency: 0-2 drinks per day Patient Tobacco Use Status: Former Tobacco user Tobacco use type: Cigarette Years Smoked: Quit 21 years old e-Cigarette/Vaping Use: Never Used Second Hand Smoke Exposure: No Current occupational status: retired Cognitive needs: No Hearing needs: No Vision needs: Yes Review of Systems Const All systems reviewed & are unremarkable except as noted in HPI and below ENT Denies dizziness Card Denies chest pain, Denies chest pain at rest, Denies chest pain with activity, Denies rapid heart rate, Denies pedal edema, Denies edema, Denies leg edema, Denies lightheadedness, Denies palpitations, Denies dyspnea, Denies dyspnea on exertion and Denies orthopnea Resp Denies cough, Denies dyspnea and Denies dyspnea on exertion GI Denies hematochezia and Denies change in stool character Musc Denies abnormal gait, Denies limited range of motion, Denies muscle cramps, Denies muscle weakness, Denies numbness, Denies radiating pain into limb, Denies stiffness and Denies tingling Neuro Denies abnormal gait, Denies dizziness, Denies numbness and Denies tingling Endo Denies palpitations Physical Exam Vital Signs: Last Vital Signs Pulse 64 09/12/23 13:09 BP 120/62 09/12/23 13:09 BMI result Body Mass Index 22.1 Const General: cooperative, healthy appearing, comfortable and no acute distress Orientation/consciousness: patient oriented x3 Neck Neck: Yes normal visual inspection Resp Effort & Inspection: normal respiratory effort Auscultation: clear to auscultation bilaterally, no crackles, no rales, no rhonchi and no wheezes Cardio Jugular venous distension: no JVD Rate: regular rate Rhythm: regular rhythm Heart sounds: S1 normal heart sound present, S2 normal heart sound present, no murmurs and no rubs Neuro General: patient oriented x3 Extrem Other: right radial cath site healing well. Easily palp radial pulse. Hand assessment normal. General: Yes normal to inspection Psych Appearance: grossly normal Mental Status: mental status grossly normal Speech and movement: Normal speech and movement present Assessment & Plan Assessment & Plan (1) Atherosclerotic cardiovascular disease: Code(s): I25.10 - Atherosclerotic heart disease of [place] coronary artery without angina pectoris Plan: History of secondary NSTEMI several months ago in the setting of pneumonia. Echocardiogram at that time showed significant abnormalities including severe LV dysfunction, inferior and inferior lateral aneurysmal changes suggesting prior [place]. cardiac catheterization was recommended however notes indicate he was not willing at that time. He recently was seen for cardiology consult in our office. A repeat echocardiogram was done on 07/30/2023 showing EF 26%, basal inferior, mid inferior, mid anterior lateral and mid inferior lateral segments are akinetic, basal inferior lateral segment is dyskinetic. He then underwent cardiac catheterization on 08/29/2023 showing significant multivessel coronary artery disease. He did receive stents to the left main into the LAD and 1st diagonal. He has residual [employer] of the left circumflex and residual proximal RCA 80% stenosis. Today he denies any anginal sounding symptoms. He reports good activity tolerance with his normal ADLs and housework. Right radial catheterization site healing well. He declines cardiac rehab. He will continue on daily aspirin indefinitely. Continue Brilinta uninterrupted for at least 1 year. If co-pay on Brilinta becomes too high will plan to change him to Plavix following loading dose. Continue atorvastatin with ideal LDL goal less than 70. Continue carvedilol, lisinopril and Aldactone. Signs and symptoms of angina reviewed. Cardiology follow-up 2 months, sooner if needed (2) Cardiomyopathy: Code(s): I42.9 - Cardiomyopathy, unspecified Qualifiers: Cardiomyopathy type: ischemic Qualified Code(s): I25.5 - Ischemic cardiomyopathy Plan: Ischemic cardiomyopathy. No signs of heart failure on examination. Cardiac catheterization as above. Continue carvedilol and lisinopril for neurohormonal modulation. He is on Aldactone. Not requiring other diuretics at this time. Will plan for limited echo in a few months to reassess EF. (3) Heart failure with reduced ejection fraction: Code(s): I50.20 - Unspecified systolic (congestive) heart failure Plan: As above (4) Hypertension: Code(s): I10 - Essential (primary) hypertension Qualifiers: Hypertension type: essential hypertension Qualified Code(s): I10 - Essential (primary) hypertension Plan: Well controlled at present. No med changes made today Coding Level of Care Code Est Pt Level 4 (74892) Diagnoses Atherosclerotic cardiovascular disease I25.10 Ischemic cardiomyopathy I25.5 Cardiomyopathy type: ischemic Heart failure with reduced ejection fraction I50.20 Essential hypertension I10 Hypertension type: essential hypertension Time Spent (min) 28
== END 2023-09-12 13:41 | disposition home or self-care (01) ==
PROVIDERS: PCP Internal Medicine; Visit Provider Nurse Practitioner Family
DX: I25.10 Atherosclerotic heart disease of native coronary artery without angina pectoris (principal); I25.5 Ischemic cardiomyopathy; I50.20 Unspecified systolic (congestive) heart failure; I10 Essential (primary) hypertension
CPT/HCPCS: 99214

== ENCOUNTER → 2023-09-12 12:52 | Outpatient (BNVA) | payer MEDICARE, SELFPAY | PROVIDERS: PCP Internal Medicine; Visit Provider Nurse Practitioner Family | DX: I25.10 Atherosclerotic heart disease of native coronary artery without angina pectoris (principal); I25.5 Ischemic cardiomyopathy; I11.0 Hypertensive heart disease with heart failure; I50.20 Unspecified systolic (congestive) heart failure; E78.5 Hyperlipidemia, unspecified; Z98.890 Other specified postprocedural states; Z95.5 Presence of coronary angioplasty implant and graft | CPT/HCPCS: 99212 ==

== ENCOUNTER 2023-09-24 08:37 | Outpatient (AMB) | payer MEDICARE, SELFPAY ==
[2023-09-24 08:41] VITALS: BP 122/68; PULSE 65; O2SAT 100; BMI 21.7
--- NOTE | 2023-09-24 08:41 | A.OFFVIS_ITS ---
Intake Vital Signs 09/24/23 08:41 Height 5 ft 10 in Weight 151 lb 0.8 oz BMI 21.7 BP 122/68 Blood Pressure Location Lt brachial Position Sitting Pulse 65 Pulse Source Pulse Oximeter Pulse Oximetry (%) 100 Oxygen Delivery Method Room Air Intake Visit Reasons: [facility] G0439 Gm/[employer] Required: No Allergies No Known Allergies [No Known Allergies*] Allergy (Verified 09/24/23 09:06) Medication List - Last Reconciled 09/24/23 by BENITO Friend aspirin 81 mg PO DAILY atorvastatin 40 mg PO QPM carvedilol 12.5 mg PO BID clotrimazole-betamethasone 1-0.05 % 1 appl topical BID lisinopril 40 mg PO DAILY meclizine 25 mg PO TID omeprazole 20 mg PO DAILY spironolactone 25 mg PO DAILY tamsulosin (Flomax) 0.4 mg PO BEDTIME vitamins A,C,E-dfde-mrbdtu 2,148 mcg-113 mg-45 mg-17.4mg (PreserVision AREDS) 1 tab PO BID 90 days HPI V G0439 HPI Details Patient is an 88-year-old male who presents today for subsequent wellness visit. Patient of Dr. Allison. Patient is up-to-date with his health preventative screenings and immunizations. [place] of care was reviewed with the patient and he was provided with a scree rose marie schedule. End of life planning was discussed with the patient and he was provided with healthcare proxy and MOLST forms. [facility] Medical History (Updated 09/24/23 @ 09:19 by BENITO Friend) Medicare annual wellness visit, initial Atherosclerotic cardiovascular disease Heart failure with reduced ejection fraction Wheezing Vitamin D deficiency Thoracic cyst TIA (transient ischemic attack) Colon cancer Hypercholesterolemia BPH (benign prostatic hyperplasia) Hypertension GERD (gastroesophageal reflux disease) Surgical History History of colectomy History of cholecystectomy Family History Father Medical history unknown Mother Hypertension Sister Breast cancer Social History Housing: House Alcohol intake: current Alcohol intake frequency: 0-2 drinks per day Patient Tobacco Use Status: Former Tobacco user Tobacco use type: Cigarette Years Smoked: Quit 21 years old e-Cigarette/Vaping Use: Never Used Second Hand Smoke Exposure: No Current occupational status: retired Cognitive needs: No Hearing needs: No Vision needs: Yes Questionnaire Medicare Wellness Checkup What is your age?: 80 or older What gender do you identify with?: male During the past 4 weeks, how much have you been bothered by emotional problems such as feeling anxious, depressed, irritable, sad or downhearted, and blue?: not at all During the past 4 weeks, has your physical & emotional health limited your social activities with family, friends, neighbors, or groups?: not at all During the past 4 weeks, how much bodily pain have you generally had?: no pain During the past 4 weeks, was someone available to help you if you needed & wanted help?: yes, as much as I wanted During the past 4 weeks, what was the hardest physical activity you could do for at least 2 minutes?: moderate Can you get to places out of walking distance without help? (For eg., can you travel alone on buses, taxis or drive your car?): Yes Can you go shopping for groceries or clothes without someone's help?: Yes Can you prepare your own meals?: Yes Can you do your housework without help?: Yes Because of any health problems, do you need the help of another person with your personal care needs such as eating, bathing, dressing or getting around the house?: No Can you handle your own money without help?: Yes During the past 4 weeks, how would you rate your health in general?: very good During the past 4 weeks how have things been going for you?: very well; could hardly better Are you having difficulties driving your car?: no Do you always fasten your seat belt when you are in a car?: yes, usually During past 4 weeks, have you been bothered by the following: never: Sexual problems?, Trouble eating well?, Teeth or denture problems? and Problems using the telephone?, seldom: Falling or dizzy when standing up and sometimes: Tiredness or fatigue? Have you fallen 2 or more times in the past year?: Yes Are you afraid of falling?: No Are you a smoker?: no During the past 4 weeks, how many drinks of wine, beer, or other alcoholic beverages did you have?: 10 or more per week Do you exercise for about 20 minutes 3 or more times a week?: no, I usually do not exercise this much Have you been given information to help with the following?: no: Hazards in your house that might hurt you? and no: Keeping track of your medications? How often do you have trouble taking medicines the way you have been told to take them?: I always take medicine as prescribed How confident are you that you can control & manage most of your health problems?: very confident What is your race?: White Mini Mental State Exam (MMSE) Orientation What is the (year) (season) (date) (day) (month)?: year, season, date, day and month Score Score: 5 Activity of Daily Living Bathing - sponge bath, tub bath or shower: receives no assistance (gets in/out by self, if usual bathing means Dressing - getting clothes from closets & drawers, including inner/outer garments & fasteners.: gets clothes & gets completely dressed without help Toileting - going to the 'toilet room' for urine/bowel elimination & cleaning self/arranging clothes: goes to toilet room, cleans self, arranges clothes without help Transfer: moves in & out of bed and chair without help (may use support object) Continence: controls urination/bowel movements completely by self Feeding: feeds self without help Total Score: 0 Information obtained from: patient Using telephone: independent Traveling: independent Shopping: independent Preparing meals: independent Housework: independent Taking medicine: independent Managing money: independent PHQ-9 Over the last 2 weeks, how often have you been bothered by any of the following problems? 1. Little interest or pleasure in doing things: not at all 2. Feeling down, depressed, or hopeless: not at all 3. Trouble falling or staying asleep, or sleeping too much: not at all 4. Feeling tired or having little energy: not at all 5. Poor appetite or overeating: not at all 6. Feeling bad about yourself - or that you are a failure or have let yourself or your family down: not at all 7. Trouble concentrating on things, such as reading the newspaper or watching television: not at all 8. Moving or speaking so slowly that other people could have noticed. Or the opposite - being so fidgety or restless that you have been moving around a lot more than usual: not at all 9. Thoughts that you would be better off or of hurting yourself in some way: not at all Total score: 0 Depression Screening Interpretation: Negative Depression Screening Done: Yes 75308 - PHQ-9 Billing: Yes Source: Developed by Drs. Walter Forrester, Nichole Amaral, Jaylen Morris and colleagues, with an educational kannan from [employer]. Physical Exam Vital Signs: Last Vital Signs Pulse 65 09/24/23 08:41 BP 122/68 09/24/23 08:41 Pulse Ox 100 09/24/23 08:41 Oxygen Delivery Method Room Air 09/24/23 08:41 BMI result Body Mass Index 21.7 Const General: cooperative and no acute distress Orientation/consciousness: patient oriented x3 HEENT Other: Whisper test: pass Neuro Other: Balance: Normal Get up and walk: able to Romberg: negative Tandem gait: unable to General: patient oriented x3 Assessment & Plan Assessment & Plan (1) Hypercholesterolemia: Code(s): E78.00 - Pure hypercholesterolemia, unspecified Plan: Low-cholesterol diet Continue current treatment (2) BPH (benign prostatic hyperplasia): Code(s): N40.0 - Benign prostatic hyperplasia without lower urinary tract symptoms Qualifiers: Lower urinary tract symptom presence: symptoms absent Qualified Code(s): N40.0 - Benign prostatic hyperplasia without lower urinary tract symptoms Plan: Continue to follow-up with urology On tamsulosin 0.4 mg at bedtime (3) Hypertension: Code(s): I10 - Essential (primary) hypertension Qualifiers: Hypertension type: essential hypertension Qualified Code(s): I10 - Essential (primary) hypertension Plan: Goal BP equal or less than 140/90 Continue current treatment Low-sodium diet (4) GERD (gastroesophageal reflux disease): Code(s): K21.9 - Gastro-esophageal reflux disease without esophagitis Qualifiers: Esophagitis presence: without esophagitis Qualified Code(s): K21.9 - Gastro-esophageal reflux disease without esophagitis Plan: Omeprazole 20 mg daily Avoid GERD trigger foods Do not lay down 2-3 hours after evening meal (5) Adult general medical exam: Code(s): Z00.00 - Encounter for general adult medical examination without abnormal findings Plan: Repeat in 1 year (6) Atherosclerotic cardiovascular disease: Code(s): I25.10 - Atherosclerotic heart disease of [place] coronary artery without angina pectoris Plan: Continue to follow-up with [facility] (7) Cardiomyopathy: Code(s): I42.9 - Cardiomyopathy, unspecified Qualifiers: Cardiomyopathy type: ischemic Qualified Code(s): I25.5 - Ischemic cardiomyopathy Plan: Same as above (8) Heart failure with reduced ejection fraction: Code(s): I50.20 - Unspecified systolic (congestive) heart failure Plan: Same as above (9) Colon cancer: Comment: 2007 Dr. Freddy Payne 2014, December 2015, January 2017 Code(s): C18.9 - Malignant neoplasm of colon, unspecified Plan: Continue to follow-up with surgeon Dr. Hayes Quality Reporting (2019) Depression/Bipolar (159/160/161/177) PHQ-9: Total score: 0 Coding Level of Care Code Medicare Subsequent (G0439) Diagnoses Hypercholesterolemia E78.00 Benign prostatic hyperplasia without lower urinary tract symptoms N40.0 Lower urinary tract symptom presence: symptoms absent Essential hypertension I10 Hypertension type: essential hypertension Gastroesophageal reflux disease without esophagitis K21.9 Esophagitis presence: without esophagitis Adult general medical exam Z00.00 Atherosclerotic cardiovascular disease I25.10 Ischemic cardiomyopathy I25.5 Cardiomyopathy type: ischemic Heart failure with reduced ejection fraction I50.20 Colon cancer C18.9 CPT Codes Advance Care Planning - Time spent: 1-15 minutes, not on file ([id number]) Advance Care Planning Advance Care Planning discussion: Exists, not on file Date of discussion: 09/24/23 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
== END 2023-09-24 09:19 | disposition home or self-care (01) ==
PROVIDERS: Visit Provider Nurse Practitioner Family
DX: Z00.00 Encounter for general adult medical examination without abnormal findings (principal); I50.20 Unspecified systolic (congestive) heart failure; C18.9 Malignant neoplasm of colon, unspecified; E78.00 Pure hypercholesterolemia, unspecified; N40.0 Benign prostatic hyperplasia without lower urinary tract symptoms; I10 Essential (primary) hypertension; K21.9 Gastro-esophageal reflux disease without esophagitis; I25.10 Atherosclerotic heart disease of native coronary artery without angina pectoris; I25.5 Ischemic cardiomyopathy
CPT/HCPCS: 1124F; G0439

== ENCOUNTER 2023-11-26 08:11 | Outpatient (AMB) | payer MEDICARE, SELFPAY ==
--- NOTE | 2023-11-26 08:33 | MHC.PC.OV ---
Vital Signs 11/26/23 08:34 Height 5 ft 10 in Weight 158 lb BMI 22.7 BP 110/72 Blood Pressure Location Lt brachial Position Sitting Pulse 61 Pulse Source Pulse Oximeter Pulse Oximetry (%) 99 Oxygen Delivery Method Room Air Intake Visit Reasons: cad [employer] Required: No Allergies No Known Allergies [No Known Allergies*] Allergy (Verified 11/26/23 08:35) Tobacco use date assessed: 11/26/23 Fall risk assessment: No Falls in past year Last assessed Fall Risk: 11/26/23 Dental Screening Dental Screen Date: 11/26/23 HPI cad HPI Details 88-year-old male with a history of coronary artery disease cardiomyopathy congestive heart failure chronic anemia hypercholesterolemia hypertension GERD BPH last seen in August 2023 patient is here for follow-up. Review of the notes in September was seen by the nurse practitioner for an annual well visit. August though was seen by Cardiology status post catheterization July 2023 echocardiogram EF 26% basal inferior mid inferior mid anterolateral and mid inferior lateral segments akinetic basal inferior lateral segment is dyskinetic. Cardiac catheterization August 2023 multivessel coronary artery disease stents to the left main into the LAD and 1st diagonal. Residual chronic total occlusion of the left circumflex and proximal residual RCA 80% stenosis. Declines cardiac rehab on aspirin continued Brilinta continue with carvedilol lisinopril and Aldactone. [facility] Medical History (Updated 11/26/23 @ 08:41 by Js lAlison MD) Medicare annual wellness visit, initial Atherosclerotic cardiovascular disease Heart failure with reduced ejection fraction Wheezing Vitamin D deficiency Thoracic cyst TIA (transient ischemic attack) Colon cancer Hypercholesterolemia BPH (benign prostatic hyperplasia) Hypertension GERD (gastroesophageal reflux disease) Surgical History History of colectomy History of cholecystectomy Family History Father Medical history unknown Mother Hypertension Sister Breast cancer Social History Housing: House Alcohol intake: current Alcohol intake frequency: 0-2 drinks per day Patient Tobacco Use Status: Former Tobacco user Tobacco use type: Cigarette Years Smoked: Quit 21 years old e-Cigarette/Vaping Use: Never Used Second Hand Smoke Exposure: No Current occupational status: retired Cognitive needs: No Hearing needs: No Vision needs: Yes Questionnaire PHQ-9 Over the last 2 weeks, how often have you been bothered by any of the following problems? 1. Little interest or pleasure in doing things: not at all 2. Feeling down, depressed, or hopeless: not at all 3. Trouble falling or staying asleep, or sleeping too much: not at all 4. Feeling tired or having little energy: not at all 5. Poor appetite or overeating: not at all 6. Feeling bad about yourself - or that you are a failure or have let yourself or your family down: not at all 7. Trouble concentrating on things, such as reading the newspaper or watching television: not at all 8. Moving or speaking so slowly that other people could have noticed. Or the opposite - being so fidgety or restless that you have been moving around a lot more than usual: not at all 9. Thoughts that you would be better off or of hurting yourself in some way: not at all Total score: 0 Depression Screening Interpretation: Negative Depression Screening Done: Yes 89507 - PHQ-9 Billing: Yes Source: Developed by Drs. Walter Forrester, Nichole Amaral, Jaylen Morris and colleagues, with an educational kannan from [employer]. Thrive Questionnaire Date Thrive assessed: 11/26/23 I am a: Patient What is your living situation today?: I have a steady place to live Within the past 12 months, did the food you bought not last and you didn't have the money to get more?: Never true Within the past 12 months, did you worry whether your food would run out before you got money to buy more?: Never true Do you have trouble paying for medicines?: No Do you have trouble getting transportation to medical appointments?: No Do you have trouble paying your heating and electricity bill?: No Do you have trouble taking care of your child, family member or friend?: No Do you have trouble with day-to-day activities such as bathing, preparing meals, shopping, managing finances, etc.?: No Are you currently unemployed and looking for a job?: No Are you interested in more education?: No Please select the resources that you would like help with: None THRIVE Score: 0 AUDIT C Alcohol Use Questionnaire (AUDIT-C) 1. How often do you have a drink containing alcohol?: 4 or more times a week 2. How many drinks containing alcohol do you have on a typical day when you are drinking?: 1 or 2 3. How often do you have six or more drinks on one occasion?: Never Total Score: 4 DAVID-7 AMB Questionnaire DAVID-7 Date DAVID - 7 assessed: 11/26/23 Source: Developed by Drs. Walter Forrester, Nichole Amaral, Jaylen Morris and colleagues, with an educational kannan from [employer]. Physical exam (Primary Care) Vital Signs: Last Vital Signs Pulse 61 11/26/23 08:34 BP 110/72 11/26/23 08:34 Pulse Ox 99 11/26/23 08:34 Oxygen Delivery Method Room Air 11/26/23 08:34 BMI result Body Mass Index 22.7 Tobacco/Smoking Status: Tobacco use Status Tobacco use date assessed 11/26/23 11/26/23 08:38 Patient Tobacco Use Status Former Tobacco user 11/26/23 08:38 Tobacco use type Cigarette 11/26/23 08:38 e-Cigarette/Vaping Use Never Used 11/26/23 08:38 PHQ-9: PHQ-9 Score PHQ-9: Total score 0 11/26/23 08:38 Depression Screening Interpretation: Negative Thrive Assessment: Date of Thrive Assessment Date Thrive assessed 11/26/23 11/26/23 08:38 Const General: alert; No acute distress Eyes Conjunctivae: conjunctivae normal Resp Auscultation: clear to auscultation bilaterally Cardio Rate: regular rate Rhythm: regular rhythm GI Inspection: Yes normal to inspection Extrem General: Yes normal to inspection and No edema Assessment and Plan Assessment & Plan (1) Atherosclerotic cardiovascular disease: Comment: Cardiac catheterization August 2023 Code(s): I25.10 - Atherosclerotic heart disease of [place] coronary artery without angina pectoris Plan: Control the cholesterol, weight, blood pressure, continue with aspirin 81 mg once a day and August started on Brilinta 1 year (2) Cardiomyopathy: Code(s): I42.9 - Cardiomyopathy, unspecified Qualifiers: Cardiomyopathy type: ischemic Qualified Code(s): I25.5 - Ischemic cardiomyopathy Plan: Continue to follow up with Cardiology continue with spironolactone 25 mg once a day furosemide 20 mg once a day (3) Hypercholesterolemia: Code(s): E78.00 - Pure hypercholesterolemia, unspecified Plan: Avoid fried foods, chicken skin, eggs, butter margarine, pastries and meat. Be it pork or beef they have a lot of cholesterol LDL goal of less than July last blood work presently on atorvastatin 40 mg once a day (4) Hypertension: Code(s): I10 - Essential (primary) hypertension Qualifiers: Hypertension type: essential hypertension Qualified Code(s): I10 - Essential (primary) hypertension Plan: Continue with blood pressure medication. Decrease salt intake and exercise patient takes carvedilol 12.5 mg twice a day lisinopril 40 mg once a day (5) GERD (gastroesophageal reflux disease): Code(s): K21.9 - Gastro-esophageal reflux disease without esophagitis Qualifiers: Esophagitis presence: without esophagitis Qualified Code(s): K21.9 - Gastro-esophageal reflux disease without esophagitis Plan: Avoid the foods that causes that usually spicy foods, tomato products, juices, coffee, soda and foods that your sensitive to. After eating do not lie down, allow 3-4 hours before in lie down. And keep the head of bed above 30 degrees to avoid the acid from going up. (6) BPH (benign prostatic hyperplasia): Code(s): N40.0 - Benign prostatic hyperplasia without lower urinary tract symptoms Qualifiers: Lower urinary tract symptom presence: symptoms absent Qualified Code(s): N40.0 - Benign prostatic hyperplasia without lower urinary tract symptoms Plan: Continue with tamsulosin Orders: Orders Magnesium Today I25.10 - Atherosclerotic heart disease of [place] coronary artery without angina pectoris IRON PROFILE Today I25.10 - Atherosclerotic heart disease of [place] coronary artery without angina pectoris Ferritin Today I25.10 - Atherosclerotic heart disease of [place] coronary artery without angina pectoris Complete Blood Count Auto Diff Today I25.10 - Atherosclerotic heart disease of [place] coronary artery without angina pectoris Comprehensive Met. Panel Today I25.10 - Atherosclerotic heart disease of [place] coronary artery without angina pectoris Free T4 (Free Thyroxine) Today I25.10 - Atherosclerotic heart disease of [place] coronary artery without angina pectoris Thyroid Stimulating Hormone Today I25.10 - Atherosclerotic heart disease of [place] coronary artery without angina pectoris Vitamin B12 and Folate Today I25.10 - Atherosclerotic heart disease of [place] coronary artery without angina pectoris Reticulocyte Count Today I25.10 - Atherosclerotic heart disease of [place] coronary artery without angina pectoris Lipid Panel Today E78.00 - Pure hypercholesterolemia, unspecified, I25.10 - Atherosclerotic heart disease of [place] coronary artery without angina pectoris Medications: New ticagrelor (Brilinta) 90 mg PO BID 180 tabs 0RF I25.10 - Atherosclerotic heart disease of [place] coronary artery without angina pectoris Refilled furosemide 20 mg PO DAILY 90 tabs 2RF I25.10 - Atherosclerotic heart disease of [place] coronary artery without angina pectoris Coding Level of Care Code Est Pt Level 4 (59737) Diagnoses Atherosclerotic cardiovascular disease I25.10 Ischemic cardiomyopathy I25.5 Cardiomyopathy type: ischemic Hypercholesterolemia E78.00 Essential hypertension I10 Hypertension type: essential hypertension Gastroesophageal reflux disease without esophagitis K21.9 Esophagitis presence: without esophagitis Benign prostatic hyperplasia without lower urinary tract symptoms N40.0 Lower urinary tract symptom presence: symptoms absent
[2023-11-26 08:34] VITALS: BP 110/72; PULSE 61; O2SAT 99; BMI 22.7
== END 2023-11-26 09:00 | disposition home or self-care (01) ==
PROVIDERS: PCP Internal Medicine; Visit Provider Internal Medicine
DX: I25.10 Atherosclerotic heart disease of native coronary artery without angina pectoris (principal); I25.5 Ischemic cardiomyopathy; E78.00 Pure hypercholesterolemia, unspecified; I10 Essential (primary) hypertension; K21.9 Gastro-esophageal reflux disease without esophagitis; N40.0 Benign prostatic hyperplasia without lower urinary tract symptoms
CPT/HCPCS: 99214

== ENCOUNTER 2023-12-10 12:50 | Outpatient (AMB) | payer MEDICARE, SELFPAY ==
[2023-12-10 13:09] VITALS: BP 120/62; PULSE 58; BMI 22.6
--- NOTE | 2023-12-10 13:09 | MHC.OFFVIS ---
Intake Vital Signs 12/10/23 13:09 Height 5 ft 10 in Weight 157 lb 6.561 oz BMI 22.6 BP 120/62 Blood Pressure Location Lt brachial Position Sitting Pulse 58 Pulse Source Pulse Oximeter Intake Visit Reasons: 3 mth fu Wiring Technician Required: No Allergies No Known Allergies [No Known Allergies*] Allergy (Verified 12/10/23 13:12) Medication List - Last Reconciled 12/10/23 by CHRISSY Abel aspirin 81 mg PO DAILY atorvastatin 40 mg PO QPM carvedilol 12.5 mg PO BID clotrimazole-betamethasone 1-0.05 % 1 appl topical BID furosemide 20 mg PO DAILY lisinopril 40 mg PO DAILY meclizine 25 mg PO TID omeprazole 20 mg PO DAILY spironolactone 25 mg PO DAILY tamsulosin (Flomax) 0.4 mg PO BEDTIME ticagrelor (Brilinta) 90 mg PO BID vitamins A,C,Z-kyck-bhtyri 2,148 mcg-113 mg-45 mg-17.4mg (PreserVision AREDS) 1 tab PO BID 90 days HPI 3 mth fu HPI Details Andrés is an 88-year-old male with past medical history of hypertension, hyperlipidemia, cardiomyopathy, CAD, stents to the left main into the LAD and 1st diagonal with residual proximal RCA stenosis and 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 Today he reports he has been doing well since his last visit in August. Denies any chest discomfort at rest or with activity. No shortness of breath, palpitations, lightheadedness, presyncope, syncope, PND, orthopnea or edema. Reports good activity tolerance. He continues all normal ADLs. 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 Takes all his meds as directed. [facility] Medical History (Updated 11/26/23 @ 08:41 by Js Allison MD) Medicare annual wellness visit, initial Atherosclerotic cardiovascular disease Heart failure with reduced ejection fraction Wheezing Vitamin D deficiency Thoracic cyst TIA (transient ischemic attack) Colon cancer Hypercholesterolemia BPH (benign prostatic hyperplasia) Hypertension GERD (gastroesophageal reflux disease) Surgical History History of colectomy History of cholecystectomy Family History Father Medical history unknown Mother Hypertension Sister Breast cancer Social History Housing: House Alcohol intake: current Alcohol intake frequency: 0-2 drinks per day Patient Tobacco Use Status: Former Tobacco user Tobacco use type: Cigarette Years Smoked: Quit 21 years old e-Cigarette/Vaping Use: Never Used Second Hand Smoke Exposure: No Current occupational status: retired Cognitive needs: No Hearing needs: No Vision needs: Yes Review of Systems Const All systems reviewed & are unremarkable except as noted in HPI and below ENT Denies dizziness Card Denies chest pain, Denies chest pain at rest, Denies chest pain with activity, Denies rapid heart rate, Denies pedal edema, Denies edema, Denies leg edema, Denies lightheadedness, Denies palpitations, Denies dyspnea, Denies dyspnea on exertion and Denies orthopnea Resp Denies cough, Denies dyspnea and Denies dyspnea on exertion GI Denies hematochezia and Denies change in stool character Musc Denies abnormal gait, Denies limited range of motion, Denies muscle cramps, Denies muscle weakness, Denies numbness, Denies radiating pain into limb, Denies stiffness and Denies tingling Neuro Denies abnormal gait, Denies dizziness, Denies numbness and Denies tingling Endo Denies palpitations Physical Exam Vital Signs: Last Vital Signs Pulse 58 12/10/23 13:09 BP 120/62 12/10/23 13:09 BMI result Body Mass Index 22.6 Const General: cooperative, healthy appearing, comfortable and no acute distress Orientation/consciousness: patient oriented x3 Neck Neck: Yes normal visual inspection and Yes no JVD Resp Effort & Inspection: normal respiratory effort Auscultation: clear to auscultation bilaterally, no crackles, no rales, no rhonchi and no wheezes Cardio Jugular venous distension: no JVD Rate: regular rate Rhythm: regular rhythm Heart sounds: S1 normal heart sound present, S2 normal heart sound present, no murmurs and no rubs Neuro General: patient oriented x3 Extrem General: Yes normal to inspection, No no pedal edema and No calf tenderness Psych Appearance: grossly normal Mental Status: mental status grossly normal Speech and movement: Normal speech and movement present Assessment & Plan Assessment & Plan (1) Atherosclerotic cardiovascular disease: Comment: Cardiac catheterization August 2023 Code(s): I25.10 - Atherosclerotic heart disease of [place] coronary artery without angina pectoris Plan: [place] of secondary [place] [facility] [place] the setting of [place]. 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 Cardiac catheterization was recommended however notes indicate he was not willing at that time. A repeat echocardiogram was done on 07/30/2023 showing EF 26%, basal inferior, mid inferior, mid anterior lateral and mid inferior lateral segments are akinetic, basal inferior lateral segment is dyskinetic. He then underwent cardiac catheterization on 08/29/2023 showing significant multivessel coronary artery disease. He did receive stents to the left main into the LAD and 1st diagonal. He has residual KEY WORKER of the left circumflex and residual proximal RCA 80% stenosis. He has done well since that time. Today he denies any anginal sounding symptoms. He reports good activity tolerance with his normal ADLs and housework. He will continue on daily aspirin indefinitely. Continue Brilinta uninterrupted for at least 1 year. Continue atorvastatin with ideal LDL goal less than 70. Labs done 08/13/2023 showed LDL 66. Continue carvedilol, lisinopril and Aldactone. Signs and symptoms of angina reviewed. Cardiology follow-up 4 months, sooner if needed (2) Cardiomyopathy: Code(s): I42.9 - Cardiomyopathy, unspecified Qualifiers: Cardiomyopathy type: ischemic Qualified Code(s): I25.5 - Ischemic cardiomyopathy Plan: Ischemic cardiomyopathy. No signs of heart failure on examination. Cardiac catheterization as above. Continue carvedilol and lisinopril for neurohormonal modulation. He is on Aldactone. Vital signs well controlled. Not requiring other diuretics at this time. Labs 08/13/2023 showed potassium 3.8, creatinine 0.72. Will check limited echo to re-evaluate EF and wall motion. Plan to call him with results (3) Heart failure with reduced ejection fraction: Code(s): I50.20 - Unspecified systolic (congestive) heart failure Plan: As above. Stable at present (4) Hypertension: Code(s): I10 - Essential (primary) hypertension Qualifiers: Hypertension type: essential hypertension Qualified Code(s): I10 - Essential (primary) hypertension Plan: Well controlled at present. No med changes made today Plan Time spent on chart review, documentation, interview and assessment Orders: Orders CA echo limited Today I42.9 - Cardiomyopathy, unspecified Coding Level of Care Code Est Pt Level 4 (72245) Diagnoses Atherosclerotic cardiovascular disease I25.10 Ischemic cardiomyopathy I25.5 Cardiomyopathy type: ischemic Heart failure with reduced ejection fraction I50.20 Essential hypertension I10 Hypertension type: essential hypertension Time Spent (min) 28
== END 2023-12-10 13:33 | disposition home or self-care (01) ==
PROVIDERS: PCP Internal Medicine; Visit Provider Nurse Practitioner Family
DX: I25.10 Atherosclerotic heart disease of native coronary artery without angina pectoris (principal); I25.5 Ischemic cardiomyopathy; I50.20 Unspecified systolic (congestive) heart failure; I10 Essential (primary) hypertension
CPT/HCPCS: 99214

== ENCOUNTER → 2023-12-10 12:50 | Outpatient (BNVA) | payer MEDICARE, SELFPAY | PROVIDERS: PCP Internal Medicine; Visit Provider Nurse Practitioner Family | DX: I25.10 Atherosclerotic heart disease of native coronary artery without angina pectoris (principal); I11.0 Hypertensive heart disease with heart failure; I50.20 Unspecified systolic (congestive) heart failure; I25.5 Ischemic cardiomyopathy | CPT/HCPCS: 99212 ==

== ENCOUNTER → 2024-01-20 09:48 | Outpatient (REF) | payer MEDICARE, SELFPAY ==
--- NOTE | 2024-01-20 10:15 | CA_ITS ---
Transthoracic Echocardiogram Patient (Last, First, Middle): Andrés Garcia A Gender: Male Date of : 1935 Age: 88 Procedure Date: 01/20/2024 Procedure Type: Transthoracic Echocardiogram Location: OP Height: 177.8 cm Weight: 69.4 kg BSA: 1.86 m2 Heart Rate: bpm BP: 130 / 70 mmHg Doctor Osteopathic: WING Saavedra MD: Belia LOWE Drug Clerk: Rick Redd MD Symptoms: I42.9 - Cardiomyopathy, unspecified Study Quality: Fair w/Contrast ECG Rhythm: Bradycardia Conclusions: - Zfuf-ge-xxzyjouy LV systolic dysfunction with LVEF of 40-45% with underlying regional wall motion abnormality consistent with ischemic cardiomyopathy Findings Procedure Information Contrast agent, definity, is being given per protocol without apparent complications. Left Ventricle Normal left ventricular cavity size. The left ventricular systolic function is mild to moderately decreased. The visually estimated ejection fraction is between 40-45%. Spectral Doppler is indicative of an impaired relaxation filling pattern. Wall Motion Rest Echo Findings The basal inferior, mid inferior, apical septum, and basal inferoseptal segments are hypokinetic. The inferolateral wall and basal anterolateral segment are akinetic. All other scored wall segments showed normal motion. Prior Study Comparison Changes noted compared to prior study dated: 07/30/2023. LV systolic function has improved Measurements 2D Linear Measurements IVSd: 1.01 0.6-0.9/0.6-1.0 cm LVIDd: 5.54 3.9-5.3/4.2-5.9 cm LVIDd Index: 2.98 2.4-3.2/2.2-3.1 cm/m2 LVIDs: 4.79 2.0-3.6 cm LVPWd: 0.85 0.7-1.1 cm LV Mass: 243.92 67-162/88-224 g LV Mass Index: 131.14 43-95/49-115 g/m2 LVOT Diam: 2.00 3.0+(-)1.3 cm 2D Systolic Function EF 4C: 52.20 >55% EF 2C: 31.90 >55% EF BiP: 42.00 >55% Mitral Valve MV Pk E: 0.78 MV PK A: 0.89 MV Decel Time: 226.00 E/A: 0.90 E'Lateral: 5.22 E'Medial: 5.00 E/E' Med: 15.60 E/E' Lat: 14.90 PHT: 66.00 MVA PHT: 3.33 Decel Pender: 3.45 LVOT LVOT Pk Toby: 0.80 LVOT Mn Toby: 0.52 LVOT VTI: 0.20 LVOT Pk Grad: 3.00 LVOT Mn Grad: 1.00 LVOT Diam: 2.00 LVOT Area: 3.14 Diastolic Function MV Pk E: 0.78 MV Pk A: 0.89 E/A: 0.90 E'Medial: 5.00 E/E' Med: 15.60 E' Laterial: 5.22 E/E' Lat: 14.90 Updated in Other Vendor System with Status of Final Rick Redd MD electronically signed on 01/20/2024 2:36:54 PM with status of Final
== END ==
LOC: HO.CARD 09:48
PROVIDERS: PCP Internal Medicine; Visit Provider Nurse Practitioner Family
DX: I42.9 Cardiomyopathy, unspecified (principal)
CPT/HCPCS: 93308; Q9957

== ENCOUNTER → 2024-01-20 10:15 | Outpatient (BNV) | payer MEDICARE, SELFPAY | PROVIDERS: PCP Internal Medicine; Visit Provider Internal Medicine Cardiovascular Disease | DX: I25.5 Ischemic cardiomyopathy (principal) | CPT/HCPCS: 93308; 93321 ==

== ENCOUNTER 2024-03-04 08:35 | Outpatient (AMB) | payer MEDICARE, SELFPAY ==
[2024-03-04 08:39] VITALS: BP 110/62; PULSE 59; O2SAT 96; BMI 22.7
--- NOTE | 2024-03-04 08:39 | A.OFFPC_ITS ---
Vital Signs 03/04/24 08:39 Height 5 ft 10 in Weight 158 lb BMI 22.7 BP 110/62 Blood Pressure Location Lt brachial Position Sitting Pulse 59 Pulse Source Pulse Oximeter Pulse Oximetry (%) 96 Oxygen Delivery Method Room Air Intake Visit Reasons: cardiomyopathy, cad Allergies No Known Allergies [No Known Allergies*] Allergy (Verified 03/04/24 08:39) Medication List - Last Reconciled 03/04/24 by Js Allison MD aspirin 81 mg PO DAILY atorvastatin 40 mg PO QPM carvedilol 12.5 mg PO BID clotrimazole-betamethasone 1-0.05 % 1 appl topical BID furosemide 20 mg PO DAILY lisinopril 40 mg PO DAILY meclizine 25 mg PO TID 90 days omeprazole 20 mg PO DAILY spironolactone 25 mg PO DAILY tamsulosin (Flomax) 0.4 mg PO BEDTIME ticagrelor (Brilinta) 90 mg PO BID vitamins A,C,Y-dbfb-cabvmy 2,148 mcg-113 mg-45 mg-17.4mg (PreserVision AREDS) 1 tab PO BID 90 days Tobacco use date assessed: 11/26/23 Fall risk assessment: 1 Fall in past year Last assessed Fall Risk: 03/04/24 Dental Screening Dental Screen Date: 03/04/24 Did you have a dental visit in the last 12 months?: Yes Did you have a dental problem in the last 6 months where you did not have access to dental care?: No Was dental information given to patient?: Patient has dentist HPI cardiomyopathy, cad HPI Details 88-year-old male with coronary artery di sease cardiomyopathy hypertension hypercholesterolemia BPH last seen in November 2023. History of colon cancer hemicolectomy in 2017, coronary artery disease with heart failure ejection fraction 15 20% drug-eluting stent LAD coming in transient right arm weakness CTA 25% stenosis right internal carotid 40% stenosis left internal probable 50% stenosis and dominant left vertebral diagnosis of TIA left middle cerebral artery advised continue with aspirin and Plavix followed by aspirin after 30 days. Echocardiogram January 2024- [id number] LV systolic dysfunction with LVEF of 40-45% with underlying regional wall motion abnormality consistent with ischemic cardiomyopathy Cardiology notes November 2023 non-STEMI November in the setting of pneumonia was advised to have an catheterization 4 weeks ago fell fell back on the stairs backwards complains still having R shoulder pain. PFSH Medical History (Updated 03/04/24 @ 09:27 by Js Allison MD) Medicare annual wellness visit, initial Atherosclerotic cardiovascular disease Heart failure with reduced ejection fraction Wheezing Vitamin D deficiency Thoracic cyst TIA (transient ischemic attack) Colon cancer Hypercholesterolemia BPH (benign prostatic hyperplasia) Hypertension GERD (gastroesophageal reflux disease) Surgical History History of colectomy History of cholecystectomy Family History Father Medical history unknown Mother Hypertension Sister Breast cancer Social History Housing: House Alcohol intake: current Alcohol intake frequency: 0-2 drinks per day Patient Tobacco Use Status: Former Tobacco user Tobacco use type: Cigarette Years Smoked: Quit 21 years old e-Cigarette/Vaping Use: Never Used Second Hand Smoke Exposure: No Current occupational status: retired Cognitive needs: No Hearing needs: No Vision needs: Yes Questionnaire PHQ-9 Over the last 2 weeks, how often have you been bothered by any of the following problems? 1. Little interest or pleasure in doing things: not at all 2. Feeling down, depressed, or hopeless: not at all 3. Trouble falling or staying asleep, or sleeping too much: not at all 4. Feeling tired or having little energy: not at all 5. Poor appetite or overeating: not at all 6. Feeling bad about yourself - or that you are a failure or have let yourself or your family down: not at all 7. Trouble concentrating on things, such as reading the newspaper or watching television: not at all 8. Moving or speaking so slowly that other people could have noticed. Or the opposite - being so fidgety or restless that you have been moving around a lot more than usual: not at all 9. Thoughts that you would be better off or of hurting yourself in some way: not at all Total score: 0 Depression Screening Interpretation: Negative Depression Screening Done: Yes 75176 - PHQ-9 Billing: Yes Source: Developed by Drs. Walter Forrester, Nichole Amaral, Jaylen Morris and colleagues, with an educational kannan from [employer]. Thrive Questionnaire Date Thrive assessed: 11/26/23 AUDIT C Alcohol Use Questionnaire (AUDIT-C) 1. How often do you have a drink containing alcohol?: 4 or more times a week 2. How many drinks containing alcohol do you have on a typical day when you are drinking?: 1 or 2 3. How often do you have six or more drinks on one occasion?: Never Total Score: 4 DAVID-7 AMB Questionnaire DAVID-7 Date DAVID - 7 assessed: 11/26/23 Source: Developed by Drs. Walter Forrester, Nichole Amaral, Jaylen Morris and colleagues, with an educational kannan from [employer]. Physical exam (Primary Care) Vital Signs: Last Vital Signs Pulse 59 03/04/24 08:39 BP 110/62 03/04/24 08:39 Pulse Ox 96 03/04/24 08:39 Oxygen Delivery Method Room Air 03/04/24 08:39 BMI result Body Mass Index 22.7 Tobacco/Smoking Status: Tobacco use Status Tobacco use date assessed 11/26/23 03/04/24 08:46 Patient Tobacco Use Status Former Tobacco user 03/04/24 08:46 Tobacco use type Cigarette 03/04/24 08:46 e-Cigarette/Vaping Use Never Used 03/04/24 08:46 PHQ-9: PHQ-9 Score PHQ-9: Total score 0 03/04/24 08:46 Depression Screening Interpretation: Negative Thrive Assessment: Date of Thrive Assessment Date Thrive assessed 11/26/23 03/04/24 08:46 Const General: alert; No acute distress Eyes Conjunctivae: conjunctivae normal Resp Auscultation: clear to auscultation bilaterally Cardio Rate: regular rate Rhythm: regular rhythm GI Inspection: Yes normal to inspection Neuro Other: Right arm elevation limited to 90 degrees patient does have complain on the an lateral posterior area but no swelling no redness patient is not able to elevate the right leg due to pain on the groin area no swelling or redness noted Extrem General: Yes normal to inspection and No edema Assessment and Plan Assessment & Plan (1) Atherosclerotic cardiovascular disease: Comment: Cardiac catheterization August 2023 Code(s): I25.10 - Atherosclerotic heart disease of [place] coronary artery without angina pectoris Plan: Control the cholesterol, weight, blood pressure continue with aspirin and patient has been placed on Brilinta(concern that this was held by patient) (2) TIA (transient ischemic attack): Comment: December 2023 right arm weakness Code(s): G45.9 - Transient cerebral ischemic attack, unspecified Plan: Continue with aspirin and Plavix(for 30 days) then aspirin every day indefinitely (3) Cardiomyopathy: Code(s): I42.9 - Cardiomyopathy, unspecified Qualifiers: Cardiomyopathy type: ischemic Qualified Code(s): I25.5 - Ischemic cardiomyopathy Plan: Continue to follow-up with cardiology EF from last echocardiogram 40-45%. (4) Hypercholesterolemia: Code(s): E78.00 - Pure hypercholesterolemia, unspecified Plan: Avoid fried foods, chicken skin, eggs, butter margarine, pastries and meat. Be it pork or beef they have a lot of cholesterol LDL goal of less than 60 October last blood work (5) Hypertension: Code(s): I10 - Essential (primary) hypertension Qualifiers: Hypertension type: essential hypertension Qualified Code(s): I10 - Essential (primary) hypertension Plan: Continue with blood pressure medication. Decrease salt intake and exercise spironolactone 25 mg once a day lisinopril 40 mg once a day carvedilol 12.5 mg twice a day (6) GERD (gastroesophageal reflux disease): Code(s): K21.9 - Gastro-esophageal reflux disease without esophagitis Qualifiers: Esophagitis presence: without esophagitis Qualified Code(s): K21.9 - Gastro-esophageal reflux disease without esophagitis Plan: Avoid the foods that causes that usually spicy foods, tomato products, juices, coffee, soda and foods that your sensitive to. After eating do not lie down, allow 3-4 hours before in lie down. And keep the head of bed above 30 degrees to avoid the acid from going up. (7) Right leg weakness: Code(s): R29.898 - Other symptoms and signs involving the musculoskeletal system (8) Shoulder pain, right: Code(s): M25.511 - Pain in right shoulder Orders: Orders XR shoulder RT min 2V Today M25.511 - Pain in right shoulder XR hip RT w PEL1V Today R29.898 - Other symptoms and signs involving the musculoskeletal system PT Evaluation and Treatment Today M25.511 - Pain in right shoulder, R29.898 - Other symptoms and signs involving the musculoskeletal system Medications: Refilled ticagrelor (Brilinta) 90 mg PO BID 180 tabs 0RF I25.10 - Atherosclerotic heart disease of [place] coronary artery without angina pectoris ticagrelor (Brilinta) 90 mg PO BID 180 tabs 0RF I25.10 - Atherosclerotic heart disease of [place] coronary artery without angina pectoris Coding Level of Care Code Est Pt Level 4 (14772) Diagnoses Atherosclerotic cardiovascular disease I25.10 TIA (transient ischemic attack) G45.9 Ischemic cardiomyopathy I25.5 Cardiomyopathy type: ischemic Hypercholesterolemia E78.00 Essential hypertension I10 Hypertension type: essential hypertension Gastroesophageal reflux disease without esophagitis K21.9 Esophagitis presence: without esophagitis Right leg weakness R29.898 Shoulder pain, right M25.511
== END 2024-03-04 09:39 | disposition home or self-care (01) ==
PROVIDERS: PCP Internal Medicine; Visit Provider Internal Medicine
DX: I25.10 Atherosclerotic heart disease of native coronary artery without angina pectoris (principal); G45.9 Transient cerebral ischemic attack, unspecified; I25.5 Ischemic cardiomyopathy; E78.00 Pure hypercholesterolemia, unspecified; I10 Essential (primary) hypertension; K21.9 Gastro-esophageal reflux disease without esophagitis; R29.898 Other symptoms and signs involving the musculoskeletal system; M25.511 Pain in right shoulder
CPT/HCPCS: 99214

== ENCOUNTER 2024-03-04 09:48 | Outpatient (REF) | payer MEDICARE, SELFPAY ==
--- NOTE | ~2024-03-04 | XR_ITS ---
EXAMINATION: XR SHOULDER, RIGHT CLINICAL INFORMATION: Pain in right shoulder, patient states he fell down stairs. COMPARISON: Chest 10/24/2022. TECHNIQUE: Four views of the right shoulder. FINDINGS: The bones are diffusely demineralized. Degenerative changes on limited views of the upper thoracic spine. Acromioclavicular and glenohumeral alignment is preserved. Evaluation of the acromioclavicular joint limited due to overlying bony structures. Mild hypertrophic change along the inferior aspect of the glenohumeral joint. No abnormal soft tissue calcifications identified adjacent to the humeral head to suggest rotator cuff pathology. XR/XR shoulder RT min 2V IMPRESSION: Mild degenerative changes. Additional imaging with CT scan or MRI should be considered for better visualization as these modalities are much more sensitive for detection of fracture or other underlying pathology.
--- NOTE | ~2024-03-04 | XR_ITS ---
EXAMINATION: XR HIP, RIGHT CLINICAL INFORMATION: Patient states he fell down the stairs, pain COMPARISON: None available. TECHNIQUE: 2 AP views of the pelvis as well as AP and lateral views of the right FINDINGS: The bones are diffusely demineralized. Degenerative changes in the imaged spine. Bilateral sacroiliac joints are maintained. Mild degenerative changes in the right hip with joint space narrowing and hypertrophic change. Left hip joint preserved on AP views. XR/XR hip RT w PEL1V IMPRESSION: Mild degenerative changes in the right hip . Additional imaging with CT scan or MRI should be considered for further evaluation if there is clinical concern for fracture or other underlying pathology.
== END 2024-03-04 09:49 | disposition home or self-care (01) ==
LOC: HO.XRAY 09:48
PROVIDERS: PCP Internal Medicine; Visit Provider Internal Medicine
DX: M25.511 Pain in right shoulder (principal); R29.898 Other symptoms and signs involving the musculoskeletal system
CPT/HCPCS: 73030; 73502

== ENCOUNTER 2024-03-15 18:47 | Inpatient (IN) | payer MEDICARE, SELFPAY ==
--- NOTE | ~2024-03-15 | MR_ITS ---
EXAMINATION: MR BRAIN WITHOUT CONTRAST CLINICAL INFORMATION: Question transient ischemic attack. COMPARISON: CT angiogram of the head and neck 03/15/2024. TECHNIQUE: MRI of the brain was obtained using routine sequences without contrast. FINDINGS: There numerous foci of T2 FLAIR signal hyperintensity within the periventricular white matter. No acute territorial infarct. No pathological magnetic susceptibility artifact. Intracranial vascular flow voids are grossly maintained. There is no intracranial mass effect or midline shift. No abnormal extra-axial collection. Lateral and third ventricles are proportionate to the subarachnoid spaces. No hydrocephalus. Midline structures including the cervicomedullary junction are normal. No acute bone marrow signal changes. There is no mastoid middle ear effusion. No active paranasal sinus disease. Globes and orbits are symmetric. MR/MR head/brain wo con IMPRESSION: There are numerous chronic small vessel ischemic changes within the periventricular white matter. Otherwise unremarkable examination. No evidence of acute territorial infarct or hemorrhage.
--- NOTE | ~2024-03-15 | CT_ITS ---
EXAMINATION: CT HEAD WITHOUT CONTRAST CT ANGIOGRAM HEAD CT ANGIOGRAM NECK CLINICAL INFORMATION: Reason for Exam aphasia, R Mouth droop, R arm weakness, resolved COMPARISON: None. TECHNIQUE: Initial noncontrast gas substation operator imaging of the head and neck was performed. Noncontrast head CT was also performed. Test bolus sequences followed by intravenous administration 70 mL of Omnipaque 350. Helical imaging was performed in the axial plane from the aortic arch to the skull vertex. Delayed postcontrast imaging of the head was also performed. The data was processed at the hyperbaric technologist's workstation for generation of MIP sequences. Angled MIPs and volume rendered reformatted images were also generated at an offline 3D workstation. Stenoses are assessed in accordance with Jain et al. Quantification of Carotid Stenosis on CT Angiography. AJR 2006. 27(1):13-19. [address] CT examination was performed using dose optimization techniques as appropriate, variously including the following: *Automated exposure control *Adjustment of mA and/or kV according to patient size (this includes techniques or standardized protocols for targeted exams where dose is matched to indication/reason for exam; i.e. extremities or head) *Use of iterative reconstruction technique DLP: 2568 mGy-cm FINDINGS: CT HEAD: There is no evidence of acute intracranial hemorrhage. No mass-effect or ventricular shift is noted. No acute, territorial loss of clifford-white differentiation. No abnormal intracranial enhancement is visualized. Generalized cerebral volume loss with associated ventricular and sulcal prominence. Periventricular and subcortical white matter hypodensity is nonspecific but likely represents chronic microvascular ischemic change. No depressed calvarial fracture. Bilateral intraocular lens replacements. The paranasal sinuses are essentially clear. Soft tissue in the left external auditory canal, likely cerumen. The mastoid air cells are well-aerated. Intracranial atherosclerotic calcification is noted. CTA HEAD: Anterior circulation: Right internal carotid artery: Atherosclerosis without flow-limiting stenosis. Right middle cerebral artery: No hemodynamically significant stenosis. Right anterior cerebral artery: No hemodynamically significant stenosis. Left internal carotid artery: Atherosclerosis without flow-limiting stenosis. Left middle cerebral artery: No hemodynamically significant stenosis. Left anterior cerebral artery: No hemodynamically significant stenosis. Posterior circulation: Right vertebral artery: Hypoplastic. Mild stenosis in the distal V4 segment with preserved flow. Left vertebral artery: Dominant. Patent. Basilar artery: No hemodynamically significant stenosis. Right posterior cerebral artery: origin. Patent. Left posterior cerebral artery: Mild to moderate narrowing in the P3 segment. No high flow vascular malformation or significant aneurysmal dilatation is visualized. The major dural venous sinuses are grossly within normal limits given arterial technique. CTA NECK: Aortic arch: Normal anatomy. Right common carotid artery: No hemodynamically significant stenosis. Right proximal internal carotid artery: Atherosclerosis without flow-limiting stenosis. Right mid/distal internal carotid artery: No hemodynamically significant stenosis. Left common carotid artery: No hemodynamically significant stenosis. Left proximal internal carotid artery: Calcified and noncalcified atherosclerosis with up to 55-60% luminal narrowing. Left mid/distal internal carotid artery: No hemodynamically significant stenosis. Right vertebral artery: No hemodynamically significant stenosis. Left vertebral artery: Dominant. Prominent tortuosity in the proximal V1 segment with moderate stenosis. Otherwise patent. CT NECK: Right upper lobe azygos fissure. Degenerative changes of the cervical spine. CT/CT angio head neck IMPRESSION: CT HEAD: No acute intracranial hemorrhage or territorial loss of clifford-white differentiation. CTA NECK: Calcified and noncalcified atherosclerosis in the proximal left internal carotid artery with up to 55-60% luminal narrowing. Prominent tortuosity of the dominant left vertebral artery proximal V1 segment with moderate stenosis. CTA HEAD: No proximal vessel occlusion or high-grade stenosis.
--- NOTE | 2024-03-15 18:56 | ECG_ITS ---
Test Reason : QUESTION OF STROKE Blood Pressure : / mmHG Vent. Rate : 072 BPM Atrial Rate : 072 BPM P-R Int : 142 ms QRS Dur : 138 ms QT Int : 442 ms P-R-T Axes : 036 043 060 degrees QTc Int : 483 ms Normal sinus rhythm Right bundle branch block Possible Lateral infarct , age undetermined Inferior infarct , age undetermined Abnormal ECG When compared with ECG of 06-JUN-2010 10:08, QRS voltage has decreased Borderline criteria for Lateral infarct are now Present Inferior infarct is now Present Nonspecific T wave abnormality now evident in Anterolateral leads Referred By: Natividad Randall Electronically Signed By:NICHOLE BELLO MD
--- NOTE | 2024-03-15 18:57 | ED.NEUROSD ---
HPI - Neuro Symptoms/Deficit General Chief Complaint: Neuro Symptoms/Deficit Stated Complaint: Stroke alert, was a 2 and now a zero, LKWT 1820 Time Seen by Provider: 03/15/24 18:53 Source: patient and EMS Mode of arrival: EMS Limitations: no limitations History of Present Illness ED Provider: Dr. Natividad Randall HPI Narrative: Patient comes to the emergency room by ambulance. About 30 minutes prior to arrival, patient was in a restaurant with his , patient had sudden onset of right-sided mouth drooping, unable to move his right arm, aphasia. According to EMS, patient's symptoms resolved within 10 minutes. By the time that the patient arrived to the ED, patient was completely asymptomatic. Patient states he has had TIAs in the past. Patient is not on blood thinners but does take Brilinta for coronary stents that he had placed a few weeks ago. Related Data Home Medications ?Medication ?Instructions ?Recorded ?Confirmed spironolactone 25 mg tablet 25 mg PO DAILY 03/18/23 03/04/24 aspirin 81 mg chewable tablet 81 mg PO DAILY 07/04/23 03/04/24 Previous Rx's ?Medication ?Instructions ?Recorded vitamins A,C,U-qkyr-slyxnt 2,148 1 tab PO BID 90 days #180 tabs 05/17/21 mcg-113 mg-45 mg-17.4 mg tablet (PreserVision AREDS) clotrimazole-betamethasone 1 1 appl topical BID #15 grams 11/14/22 %-0.05 % topical cream atorvastatin 40 mg tablet 40 mg PO QPM #90 tabs 05/08/23 tamsulosin 0.4 mg capsule (Flomax) 0.4 mg PO BEDTIME #30 caps 08/20/23 omeprazole 20 mg capsule,delayed 20 mg PO DAILY #90 caps 08/21/23 release furosemide 20 mg tablet 20 mg PO DAILY #90 tabs 11/26/23 lisinopril 40 mg tablet 40 mg PO DAILY #90 tabs 01/07/24 meclizine 25 mg tablet 25 mg PO TID 90 days #270 tabs 01/29/24 carvedilol 12.5 mg tablet 12.5 mg PO BID #180 tabs 02/27/24 ticagrelor 90 mg tablet (Brilinta) 90 mg PO BID #180 tabs 03/04/24 Allergies Allergy/AdvReac Type Severity Reaction Status Date / Time No Known Allergies Allergy Verified 03/15/24 19:46 [No Known Allergies*] Review of Systems Review of Systems: Constitutional : No Weight loss, No Fever, No Chills, No Night Sweats, No Fatigue, No Malaise ENT/Mouth : No Hearing loss, No Ear Pain, No Nasal Congestion, No Sinus Pain, No Hoarseness, No sore throat, No Rhinorrhea, No Swallowing Difficulty Eyes: No Eye Pain, No Swelling, No Redness, No Foreign Body, No Discharge, No Vision Changes Cardiovascular : No Chest Pain, No SOB, No Dyspnea on Exertion, No Orthopnea, No Edema, No Palpitations Respiratory : No Cough, No Sputum, No Wheezing, No Smoke Exposure, No Dyspnea Gastrointestinal : No Nausea, No Vomiting, No Diarrhea, No Constipation, No abdominal Pain, No Hematochezia, No Melena Genitourinary : no irregular bleeding, No Dysuria, No Urinary Frequency, No Hematuria, No Urinary Incontinence, No Urgency, No Flank Pain, No Urinary Flow Changes, No Hesitancy Musculoskeletal : No joint pain, No Myalgias, No Joint Swelling Skin : No Skin Lesions, No rash Neuro : Earlier today, patient had right-sided mouth droop, right arm weakness, resolved within 10 minutes Psych : No Anxiety/Panic, No Depression, No SI/HI/AH/VH, No Social Issues, Heme/Lymph: No Bruising, No Bleeding,No Lymphadenopathy Endocrine : No Polyuria, No Polydipsia, No Temperature Intolerance PMFSH Past Medical History Medical History Medicare annual wellness visit, initial Atherosclerotic cardiovascular disease Heart failure with reduced ejection fraction Wheezing Vitamin D deficiency Thoracic cyst TIA (transient ischemic attack) Colon cancer Hypercholesterolemia BPH (benign prostatic hyperplasia) Hypertension GERD (gastroesophageal reflux disease) Surgical History History of colectomy History of cholecystectomy Family History Family History Father Medical history unknown Mother Hypertension Sister Breast cancer Social History Social History Housing: House Alcohol intake: current Alcohol intake frequency: 0-2 drinks per day Patient Tobacco Use Status: Former Tobacco user Tobacco use type: Cigarette Years Smoked: Quit 21 years old Smoked in Last 30 Days: No e-Cigarette/Vaping Use: Never Used Second Hand Smoke Exposure: No Use of substances other than those prescribed or required for medical reasons: No Advance Directives: No Advance Directives Information Provided: No Do you have a plan to hurt others: No Plan Current occupational status: retired Cognitive needs: No Hearing needs: No Vision needs: Yes Physical Exam Vital Signs: Vital Signs: Last Vital Signs Temp 97.4 F 03/15/24 19:41 Pulse 71 03/15/24 20:03 Resp 20 03/15/24 20:03 BP 100/46 L 03/15/24 20:03 Pulse Ox 98 03/15/24 20:03 O2 Del Method Room Air 03/15/24 20:03 BMI result Body Mass Index 24.9 Const: Other: Appearance: Alert. Oriented X3. No acute distress. Eyes: Pupils equal, round and reactive to light. ENT: Pharynx normal. Neck: Normal inspection. Neck supple. No lymph nodes noted. No crepitus CVS: Normal heart rate and rhythm. Pulses normal. Normal S1 and S2 Respiratory: No respiratory distress. Breath sounds normal. No Wheezing. No rales Abdomen: Soft and nontender. No rigidity. No distention. Skin: Skin warm and dry. Normal skin color. Normal skin turgor. Extremities: No lower extremity edema. No Lacerations. No Rash Neuro: Oriented X 3. No motor deficit. No sensory deficit. Moving all extremities. No slurred speech. CN 2 through 12 grossly intact Psych: calm, cooperative, normal affect Course Course Course Narrative: -given the patient's descriptions of events, patient likely had a TIA. -NIH score 0 on arrival -patient's CT and CTA pending. -patient is not a thrombolytic candidate since patient is asymptomatic with an NIH score of 0 Medications Administered Discontinued Medications Generic Name Dose Route Start Last Admin Trade Name Freq PRN Reason Stop Dose Admin Iohexol 70 ml 03/15/24 19:10 03/15/24 19:11 Iohexol 350 Mg/Ml 100 Ml Infus..Btl IV 03/15/24 19:11 70 ml ONCE ONE Administration Medical Decision Making Medical Decision Making [facility] Narrative: -my interpretation of labs: No significant abnormalities in hematology and chemistry, troponin negative -my interpretation of CT scan, no obvious bleeding or thrombus -radiology report, no acute intracranial hemorrhage or territorial loss of clifford water differentiation, no vessel occlusion or high-grade stenosis. CTA of the neck shows calcified and noncalcified atherosclerosis in the proximal left internal carotid artery with up to 55-60% luminal narrowing -vitals are stable -I discussed the patient with Dr. Ramírez, patient being admitted Differential Diagnosis Differential Diagnoses: The differential diagnosis associated with the presentation includes (TIA, CVA, hypoglycemia) Admission/Observation Consideration of admission/observation: Escalation of care including admission/observation considered Consult Healthcare Provider Management of the patient was discussed with: Hospitalist Lab Data MDM Lab Attestation statement: I reviewed the patient's lab results. 03/15/24 19:34 03/15/24 19:34 Labs: Lab Results 03/15/24 Range/Units 19:34 WBC 5.5 (4.8-10.8) X10*3/uL RBC 3.26 L (4.60-5.80) X10*6/uL Hgb 10.5 L D (14.0-18.0) g/dl Hct 31.4 L (42.0-52.0) % MCV 96.3 (80.0-98.0) fL MCH 32.2 (27.0-33.0) pg MCHC 33.4 (31.0-36.0) g/dl RDW 14.3 (11.0-16.0) % Plt Count 304 D (160-400) X10*3/uL MPV 9.8 (9.4-12.4) fL Immature Gran % (Auto) 0.2 (0.0-0.4) % Neut % (Auto) 62.6 (45-73) % Lymph % (Auto) 20.7 (20-40) % [place] % (Auto) 12.0 H (2-11) % Eos % (Auto) 3.6 (0-4) % Baso % (Auto) 0.9 (0-2) % Lymph # (Auto) 1.1 L (1.2-4.9) X10*3/uL [place] # (Auto) 0.7 (0.1-1.2) X10*3/uL Eos # (Auto) 0.2 (0.0-0.4) X10*3/uL Baso # (Auto) 0.1 (0.0-0.2) X10*3/uL Abs Immat Gran (auto) 0.01 (0.00-0.03) X10*3/uL Absolute Neuts (auto) 3.5 (2.0-8.3) x10*3/uL Absolute Nucleated RBC 0.000 (0.0-0.012) X10*3/uL Nucleated RBC % (auto) 0.0 (0.0-0.2) /100WBC PT 13.9 H (11.1-13.3) SEC INR 1.1 (0.9-1.1) Sodium 139 (135-145) mmol/L Potassium 3.9 (3.3-5.1) mmol/L Chloride 107 (96-108) mmol/L Carbon Dioxide 21 L (22-29) mmol/L Anion Gap 15 (12-20) BUN 18 H (9-16) mg/dL Creatinine 0.86 (0.5-1.4) mg/dL Estim Creat Clear Calc 63.6 Estimated GFR > 60 Random Glucose 102 (60-115) mg/dL Calcium 9.1 D (8.4-10.2) mg/dL Magnesium 1.9 (1.6-2.6) mg/dL Total Bilirubin 0.5 (0.0-1.0) mg/dL Direct Bilirubin 0.3 (0.0-0.5) mg/dL AST 16 (5-37) U/L ALT 12 (0-40) U/L Alkaline Phosphatase 86 (39-117) U/L Troponin I High Sens 10.9 (<3.5-35.0) ng/L Total Protein 6.3 L (6.5-8.0) g/dL Albumin 3.2 L (3.5-5.0) g/dL Ethyl Alcohol 51 mg/dL Independent Interpretation I performed an independent interpretation of an: CT Scan Radiology Impression Discussion of test interpretation with radiology: I have reviewed the radiologist's reading. Radiologist Impression: CT HEAD: There is no evidence of acute intracranial hemorrhage. No mass-effect or ventricular shift is noted. No acute, territorial loss of clifford-white differentiation. No abnormal intracranial enhancement is visualized. Generalized cerebral volume loss with associated ventricular and sulcal prominence. Periventricular and subcortical white matter hypodensity is nonspecific but likely represents chronic microvascular ischemic change. No depressed calvarial fracture. Bilateral intraocular lens replacements. The paranasal sinuses are essentially clear. Soft tissue in the left external auditory canal, likely cerumen. The mastoid air cells are well-aerated. Intracranial atherosclerotic calcification is noted. CTA HEAD: Anterior circulation: Right internal carotid artery: Atherosclerosis without flow-limiting stenosis. Right middle cerebral artery: No hemodynamically significant stenosis. Right anterior cerebral artery: No hemodynamically significant stenosis. Left internal carotid artery: Atherosclerosis without flow-limiting stenosis. Left middle cerebral artery: No hemodynamically significant stenosis. Left anterior cerebral artery: No hemodynamically significant stenosis. Posterior circulation: Right vertebral artery: Hypoplastic. Mild stenosis in the distal V4 segment with preserved flow. Left vertebral artery: Dominant. Patent. Basilar artery: No hemodynamically significant stenosis. Right posterior cerebral artery: origin. Patent. Left posterior cerebral artery: Mild to moderate narrowing in the P3 segment. No high flow vascular malformation or significant aneurysmal dilatation is visualized. The major dural venous sinuses are grossly within normal limits given arterial technique. CTA NECK: Aortic arch: Normal anatomy. Right common carotid artery: No hemodynamically significant stenosis. Right proximal internal carotid artery: Atherosclerosis without flow-limiting stenosis. Right mid/distal internal carotid artery: No hemodynamically significant stenosis. Left common carotid artery: No hemodynamically significant stenosis. Left proximal internal carotid artery: Calcified and noncalcified atherosclerosis with up to 55-60% luminal narrowing. Left mid/distal internal carotid artery: No hemodynamically significant stenosis. Right vertebral artery: No hemodynamically significant stenosis. Left vertebral artery: Dominant. Prominent tortuosity in the proximal V1 segment with moderate stenosis. Otherwise patent. CT NECK: Right upper lobe azygos fissure. Degenerative changes of the cervical spine. CT/CT angio head neck IMPRESSION: CT HEAD: No acute intracranial hemorrhage or territorial loss of clifford-white differentiation. CTA NECK: Calcified and noncalcified atherosclerosis in the proximal left internal carotid artery with up to 55-60% luminal narrowing. Prominent tortuosity of the dominant left vertebral artery proximal V1 segment with moderate stenosis. CTA HEAD: No proximal vessel occlusion or high-grade stenosis. NIH Stroke Scale Internal: Initial- Upon Arrival Level of Consciousness: Alert Level of Consciousness Questions: Answers both questions correctly Level of Consciousness Commands: Performs both tasks correctly Best Gaze: Normal Visual: No visual loss Facial Palsy: Normal Motor Arm (Right): No drift Motor Arm (Left): No drift Motor Leg (Right): No drift Motor Leg (Left): No drift Limb Ataxia: Absent Sensory: Normal Best Language: No aphasia Dysarthia: Normal Extinction and Inattention: No abnormality Score: 0 Critical Care Time Critical Care Time Critical Care Time: Yes Total Critical Care Time: 75 Attestation: I have personally provided critical care time. Time includes review of lab data, radiology results, discussion with consultants, and monitoring for potential decompensation. Intervention performed as documented. Discharge Plan Discharge Clinical Impression: Brain TIA Patient Disposition: Admitted As Inpatient Prescriptions: No Action PreserVision AREDS 7,160 unit- 113 mg-100 unit tablet 1 tab PO BID 90 Days Qty: 180 2RF Rx Instructions: administer with AM and PM meals clotrimazole-betamethasone 1-0.05 % cream 1 appl topical BID Qty: 15 2RF atorvastatin 40 mg tablet 40 mg PO QPM Qty: 90 3RF omeprazole 20 mg capsule,delayed release(DR/EC) 20 mg PO DAILY Qty: 90 3RF lisinopril 40 mg tablet 40 mg PO DAILY Qty: 90 0RF meclizine 25 mg tablet 25 mg PO TID 90 Days Qty: 270 0RF carvedilol 12.5 mg tablet 12.5 mg PO BID Qty: 180 0RF Rx Instructions: must administer with a meal/food furosemide 20 mg tablet 20 mg PO DAILY Qty: 90 2RF Brilinta 90 mg tablet 90 mg PO BID Qty: 180 0RF spironolactone 25 mg tablet 25 mg PO DAILY tamsulosin [Flomax] 0.4 mg capsule 0.4 mg PO BEDTIME Qty: 30 0RF aspirin 81 mg tablet,chewable 81 mg PO DAILY Print Language: Wolof
[2024-03-15] MEDS: iohexoL 350 MG/ML 100 ML INFUS..BTL 70 ML IV (19:11)
[2024-03-15 19:39] VITALS: BMI 22.4
[2024-03-15 19:40] LABS: MANUAL DIFF FLAG NO
[2024-03-15 19:41] VITALS: BP 102/66; PULSE 74; RESP 16; TEMP 36.3; O2SAT 97; BMI 24.9
[2024-03-15 19:42] LABS: Basophils Absolute Auto 0.1 X10*3/uL (0.0-0.2); Basophils Percent Auto 0.9 % (0-2); Eosinophils Absolute Auto 0.2 X10*3/uL (0.0-0.4); Eosinophils Percent Auto 3.6 % (0-4); Hematocrit 31.4 % (42.0-52.0); Hemoglobin 10.5 g/dl (14.0-18.0); Imm Gran Abs Auto 0.01 X10*3/uL (0.00-0.03); Imm Gran Pct Auto 0.2 % (0.0-0.4); Lymphocytes Absolute Auto 1.1 X10*3/uL (1.2-4.9); Lymphocytes Percent Auto 20.7 % (20-40); Mean Corpuscular HGB Conc 33.4 g/dl (31.0-36.0); Mean Corpuscular Hemoglobin 32.2 pg (27.0-33.0); Mean Corpuscular Volume 96.3 fL (80.0-98.0); Mean Platelet Volume 9.8 fL (9.4-12.4); Monocytes Absolute Auto 0.7 X10*3/uL (0.1-1.2); Neutrophils Absolute Auto 3.5 x10*3/uL (2.0-8.3); Neutrophils Percent Auto 62.6 % (45-73); Platelet Count 304 X10*3/uL (160-400); Red Blood Count 3.26 X10*6/uL (4.60-5.80); Red Cell Distribution Width 14.3 % (11.0-16.0); White Blood Count 5.5 X10*3/uL (4.8-10.8)
[2024-03-15 19:43] VITALS: BP 148/112; PULSE 85; O2SAT 95
[2024-03-15 19:48] LABS: INTERNATIONAL NORM RATIO 1.1 (0.9-1.1); Prothrombin Time 13.9 SEC (11.1-13.3)
[2024-03-15 20:03] VITALS: BP 100/46; PULSE 71; RESP 20; O2SAT 98
--- NOTE | 2024-03-15 20:07 | PC.NURSE ---
patient arrived via ems and went direct to ct scan where IV was placed, currently a&ox3, vss, vehicle monitor technician intact, nsr on monitor, pt neuro currently intact- no deficits noted, family at bedside, call awng within reach, will continue to monitor
[2024-03-15 20:11] LABS: Alanine Aminotransferase 12 U/L (0-40); Albumin Level 3.2 g/dL (3.5-5.0); Alkaline Phosphatase 86 U/L (39-117); Anion Gap 15 (12-20); Aspartate Amino Transferase 16 U/L (5-37); Bilirubin Direct 0.3 mg/dL (0.0-0.5); Bilirubin Total 0.5 mg/dL (0.0-1.0); Blood Urea Nitrogen 18 mg/dL (9-16); Calcium 9.1 mg/dL (8.4-10.2); Carbon Dioxide 21 mmol/L (22-29); Chloride 107 mmol/L (96-108); Creatinine Clr Calc Pharmacy 63.6; Estimated Glomerular Filt Rate > 60; Ethanol 51 mg/dL; Glucose Random 102 mg/dL (60-115); Magnesium 1.9 mg/dL (1.6-2.6); Potassium 3.9 mmol/L (3.3-5.1); Sodium 139 mmol/L (135-145); Total Protein 6.3 g/dL (6.5-8.0)
[2024-03-15 20:19] LABS: Troponin-I High Sensitivity 10.9 ng/L (<3.5-35.0)
--- NOTE | 2024-03-15 21:54 | P.HPHOSP_ITS ---
History of Present Illness Date of Service: 03/15/24 Attending physician on admission: Carly Malagon Chief Complaint: Right-sided deficits Pt is an 88-year-old male with a PMH significant for CAD s/p stenting of LAD, ischemic cardiomyopathy, NSTEMI, HFrEF, HTN, GERD, BPH, and hx of colon cancer s/p hemicolectomy in 2017 who presents to the ED for evaluation of right-sided deficits. Pt was out to dinner with his daughter and when they witnessed pt experiencing marked right-sided facial droop, aphasia, and a fixed stare. Daughter states patient appeared ?almost comatose. EMS arrived and noted right-sided deficits, including right arm paralysis. Episode lasted 10-15 minutes before resolving. No postictal state noted. Patient was back to baseline by the time he arrived to the ED. patient was recently hospitalized on 02/18/2024 at [facility] for right arm weakness concerning for TIA. At that time patient had fallen down the stairs and landed on his right side. Workup at [facility] included CT of head, CTA of head/neck, and MRI which were all negative for acute stroke. Patient, however, has experienced continued right-sided upper and lower extremity pain since that incident. Otherwise, currently patient has no acute medical complaints. Denies headache or acute vision changes. No numbness, tingling, or weakness in upper or lower extremities bilaterally. No dysarthria, difficulty word finding, or trouble swallowing. Denies shortness of breath. No chest pain/pressure, palpitations. Of note, [facility] noted on 02/18/2024 patient had not been taking his aspirin or Brilinta due to insurance issues. However, patient states he has been compliant with all of his medications since then, including dual antiplatelet therapy and statin. In the ED pt was hemodynamically stable. Labs were grossly unremarkable and around baseline for patient. No leukocytosis. No significant electrolyte abnormalities. Renal and hepatic function baseline. Troponin WNL at 10.9. CT of head found no acute intracranial hemorrhage or territorial loss of clifford-white differentiation. CTA of head found no proximal vessel occlusion or high-grade stenosis. CTA of neck found calcified and noncalcified atherosclerosis and proximal left internal carotid artery with up to 55-60% luminal narrowing. Also found prominent tortuosity of the dominant left vertebral artery proximal V1 segment with moderate stenosis. EKG demonstrated normal sinus rhythm with RBBB without significant ST elevations or depressions. Pt will be admitted to the hospital under observation for right sided deficits concerning for TIA. Review of Systems 2 Review of Systems: Right-sided facial droop Aphasia Right arm weakness Denies headache No acute vision changes No numbness or tingling in extremities Denies chest pain/pressure, palpitations No fever, chills, nausea, vomiting, abdominal pain Denies shortness of breath or difficulty breathing [facility] Medical History Medicare annual wellness visit, initial Atherosclerotic cardiovascular disease Heart failure with reduced ejection fraction Wheezing Vitamin D deficiency Thoracic cyst TIA (transient ischemic attack) Colon cancer Hypercholesterolemia BPH (benign prostatic hyperplasia) Hypertension GERD (gastroesophageal reflux disease) Family History Father Medical history unknown Mother Hypertension Sister Breast cancer Surgical History History of colectomy History of cholecystectomy Social History Housing: House Alcohol intake: current Alcohol intake frequency: 0-2 drinks per day Patient Tobacco Use Status: Former Tobacco user Tobacco use type: Cigarette Years Smoked: Quit 21 years old Smoked in Last 30 Days: No e-Cigarette/Vaping Use: Never Used Second Hand Smoke Exposure: No Use of substances other than those prescribed or required for medical reasons: No Advance Directives: No Advance Directives Information Provided: No Do you have a plan to hurt others: No Plan Current occupational status: retired Cognitive needs: No Hearing needs: No Vision needs: Yes Meds Allergies Allergy/AdvReac Type Severity Reaction Status Date / Time No Known Allergies Allergy Verified 03/15/24 19:46 [No Known Allergies*] Home Medications ?Medication ?Instructions ?Recorded ?Confirmed ?Last Taken ?Type spironolactone 25 mg tablet 25 mg PO DAILY 03/18/23 03/04/24 Unknown History aspirin 81 mg chewable tablet 81 mg PO DAILY 07/04/23 03/04/24 Unknown History Physical Exam 2 Vital Signs and Narrative: Vital Signs: Last Vital Signs Temp 97.4 F 03/15/24 19:41 Pulse 71 03/15/24 20:03 Resp 20 03/15/24 20:03 BP 100/46 L 03/15/24 20:03 Pulse Ox 98 03/15/24 20:03 O2 Del Method Room Air 03/15/24 20:03 BMI result Body Mass Index 24.9 Constitutional: Alert, in no acute distress. Mental Status: Oriented to person, place and time. Eyes: Pupils are equal, round, and reactive to light. Ear, Nose, and Throat: Oropharynx clear, mucous membranes moist. Ears and nose without deformities. Trachea midline. Respiratory: Clear to auscultation bilaterally. No wheezing, rales, or rhonchi. Cardiovascular: S1, S2 regular. No murmurs, rubs, or gallops. Gastrointestinal: Abdomen soft, non-tender, non-distended. Normal bowel sounds. Neurologic: Cranial nerves II-XII are grossly intact bilaterally. No focal neurological deficits. Moves all extremities spontaneously. Preserved strength and sensation to light touch of upper and lower extremities bilaterally. No pronator drift noted. Face full and symmetrical. Skin: Warm, dry. Extremities: No edema. Psychiatric: Normal mood and affect. Results Labs 03/15/24 19:34 03/15/24 19:34 Labs: Laboratory Results - last 24 hr 03/15/24 19:34 MCV 96.3 MCH 32.2 MCHC 33.4 RDW 14.3 Plt Count 304 D MPV 9.8 Immature Gran % (Auto) 0.2 Neut % (Auto) 62.6 Lymph % (Auto) 20.7 [place] % (Auto) 12.0 H Eos % (Auto) 3.6 Baso % (Auto) 0.9 Lymph # (Auto) 1.1 L [place] # (Auto) 0.7 Eos # (Auto) 0.2 Baso # (Auto) 0.1 Abs Immat Gran (auto) 0.01 Absolute Neuts (auto) 3.5 Absolute Nucleated RBC 0.000 Nucleated RBC % (auto) 0.0 PT 13.9 H INR 1.1 Anion Gap 15 Estim Creat Clear Calc 63.6 Estimated GFR > 60 Random Glucose 102 Calcium 9.1 D Magnesium 1.9 Total Bilirubin 0.5 Direct Bilirubin 0.3 AST 16 ALT 12 Alkaline Phosphatase 86 Troponin I High Sens 10.9 Total Protein 6.3 L Albumin 3.2 L Ethyl Alcohol 51 Imaging Radiologist's Impressions: Impressions Head/Neck CTA 03/15/24 19:21 IMPRESSION: CT HEAD: No acute intracranial hemorrhage or territorial loss of clifford-white differentiation. CTA NECK: Calcified and noncalcified atherosclerosis in the proximal left internal carotid artery with up to 55-60% luminal narrowing. Prominent tortuosity of the dominant left vertebral artery proximal V1 segment with moderate stenosis. CTA HEAD: No proximal vessel occlusion or high-grade stenosis. Assessment and Plan (1) Facial droop: Status: Acute (2) Right arm weakness: Status: Acute Plan Pt is an 88-year-old male with a PMH significant for CAD s/p stenting of LAD, ischemic cardiomyopathy, NSTEMI, HFrEF, HTN, GERD, BPH, and hx of colon cancer s/p hemicolectomy in 2017 who presents to the ED for evaluation of right-sided deficits. Pt will be admitted to the hospital under observation for right sided deficits concerning for TIA. Right-sided deficits Patient with right-sided facial droop, upper extremity weakness, aphasia, and unresponsiveness x10-15 minutes Witnessed by family and EMS Symptoms have now resolved, no focal deficits noted, patient now back to baseline Concerning for TIA CT of head negative for intracranial pathology; CTA of head negative for proximal vessel occlusion or high-grade stenosis CTA of neck with atherosclerosis of left internal carotid artery with up to 55- 60% luminal narrowing, and moderate stenosis to left vertebral artery Echocardiogram on 01/20/2024 found [id number] LV systolic dysfunction with LVEF of 40-45% with likely ischemic cardiomyopathy Continue aspirin, statin Will get MRI of head/brain Lipid panel PT/OT evaluation Neurology consult Monitor on telemetry CAD Continue dual antiplatelet therapy, statin HTN Continue carvedilol, lisinopril HFrEF Not in acute exacerbation Patient clinically appears euvolemic Continue spironolactone, furosemide GERD PPI BPH Continue tamsulosin Full Code Attending:?Dr. Ramírez DVT Prophylaxis: Lovenox Med red pending Patient admitted to hospital under observation for further evaluation right- sided deficits concern for TIA. Patient require close cardiac monitoring, additional workup including MRI of head/brain, and Neurology consultation. Quality Stroke Does the patient have a stroke diagnosis?: No Reason for No Anti-thrombotic by Day Two: Contraindicated (Symptoms resolved prior to arrival to ED.) VTE Prior VTE?: No VTE Risk Level:: Medical - moderate - high VTE Device Contraindication: Treatment Not Indicated VTE Drug Contraindication: N/A - Med Ordered
[2024-03-15 23:46] LABS: Cholesterol 122 mg/dL (<200); HDL Cholesterol 43 mg/dL (>40); LDL Cholesterol Calculated 71 mg/dL (<100); Triglycerides 40 mg/dL (<150)
[2024-03-16] MEDS: 0.9 % Sodium Chloride Flush 3 ML SYRINGE IVFLUSH ×3 (00:20→15:37)
[2024-03-16] MEDS: Ticagrelor 90 MG TABLET PO ×3 (02:09→23:17)
[2024-03-16] MEDS: Atorvastatin Calcium 40 MG TABLET PO ×2 (02:09→23:18)
[2024-03-16 04:08] LABS: Appearance Urine Clear; Color Urine Yellow; Glucose Urine UA Negative (Negative); Leukocyte Esterase Urine Negative (Negative); Nitrite Urine Negative (Negative); Specific Gravity - Urine >= 1.030 (1.005-1.025); Urine Blood Negative (Negative); Urine Ketones Trace mg/dL (Negative); Urine Protein Negative (Neg-Trace)
[2024-03-16 06:17] VITALS: BP 128/58; PULSE 72; RESP 13; TEMP 36.7; O2SAT 97
--- NOTE | 2024-03-16 06:42 | PC.NURSE ---
Patient is alert and oriented x3, VSS. Patient denies any pain. Patient passed bedside nursing swallow eval, no focal neurological deficits noted. Patient is able to make his needs know, call wang in patient's reach.
[2024-03-16 08:00] VITALS: BP 124/61; PULSE 71; RESP 15; TEMP 36.7; O2SAT 97
[2024-03-16] MEDS: Aspirin 81 MG TAB.CHEW PO (08:36)
[2024-03-16] MEDS: Enoxaparin Sodium 40 MG/0.4 ML SYRINGE SUBCUT (08:37)
--- NOTE | 2024-03-16 08:43 | PC.NURSE ---
Pt alert and oriented, breathing even and unlabored. Denies pain or weakness. Negative for any unilateral weakness, slurred speech or facial droop. NSR on cardiac montior.
--- NOTE | 2024-03-16 10:06 | PM.NEUROCN ---
History of Present Illness Data of Consult Service Date: 03/16/24 Primary Care Provider: Js Allison MD [facility] Reason for consult: TIA 89 years old man with multiple underlying medical issues including coronary artery disease came to hospital after he was noted to be confused right-sided weakness and difficulty speaking. He said that he remembered sitting in a restaurant and then waking up in ambulance. He did not know what happened. Apparently he was noted to have right-sided weakness and difficulty speaking and was brought to hospital. Initial head CT did not reveal any acute abnormality. His examination is improved but after he arrived in hospital. Review of Systems Review of Systems: No recent cold or flu-like illness. [facility] Past Medical History Medical History Medicare annual wellness visit, initial Atherosclerotic cardiovascular disease Heart failure with reduced ejection fraction Wheezing Vitamin D deficiency Thoracic cyst TIA (transient ischemic attack) Colon cancer Hypercholesterolemia BPH (benign prostatic hyperplasia) Hypertension GERD (gastroesophageal reflux disease) Family History Family History Father Medical history unknown Mother Hypertension Sister Breast cancer Surgical History Surgical History History of colectomy History of cholecystectomy Social History Social History Housing: House Alcohol intake: current Alcohol intake frequency: 0-2 drinks per day Patient Tobacco Use Status: Former Tobacco user Tobacco use type: Cigarette Years Smoked: Quit 21 years old Smoked in Last 30 Days: No e-Cigarette/Vaping Use: Never Used Second Hand Smoke Exposure: No Use of substances other than those prescribed or required for medical reasons: No Advance Directives: No Advance Directives Information Provided: No Do you have a plan to hurt others: No Plan Nutrition Risks: No Nutritional Risk Current occupational status: retired Cognitive needs: No Hearing needs: No Vision needs: Yes Meds Allergies Allergy/AdvReac Type Severity Reaction Status Date / Time No Known Allergies Allergy Verified 03/15/24 19:46 [No Known Allergies*] Active Medications: Current Medications Acetaminophen (Acetaminophen 325 Mg Tablet) 650 mg PO Q6H PRN PRN Reason: Pain, Mild (Pain Scale 1-3) Aspirin (Aspirin 81 Mg Tab.Chew) 81 mg PO DAILY [facility] Last Admin: 03/16/24 08:36 Dose: 81 mg Atorvastatin Calcium (Atorvastatin Calcium 40 Mg Tablet) 40 mg PO BEDTIME [facility] Last Admin: 03/16/24 02:09 Dose: 40 mg Benzonatate (Benzonatate 100 Mg Capsule) 100 mg PO TID PRN PRN Reason: Cough Docusate Sodium (Docusate Sodium 100 Mg Capsule) 100 mg PO DAILY PRN PRN Reason: Constipation Enoxaparin Sodium (Enoxaparin Sodium 40 Mg/0.4 Ml Syringe) 40 mg SUBCUT Q24H [facility] Last Admin: 03/16/24 08:37 Dose: 40 mg Melatonin (Melatonin 3 Mg Tablet) 6 mg PO BEDTIME PRN PRN Reason: Insomnia Ondansetron HCl (Ondansetron Hcl 4 Mg/2 Ml Vial) 4 mg IVPUSH Q8H PRN PRN Reason: Nausea and Vomiting Sodium Chloride (0.9 % Sodium Chloride Flush 3 Ml Syringe) 3 ml IVFLUSH QSHIFT [facility] Last Admin: 03/16/24 08:36 Dose: 3 ml Ticagrelor (Ticagrelor 90 Mg Tablet) 90 mg PO BID [facility] Last Admin: 03/16/24 08:36 Dose: 90 mg Home Medications ?Medication ?Instructions ?Recorded ?Confirmed ?Last Taken ?Type spironolactone 25 mg tablet 25 mg PO DAILY 03/18/23 03/04/24 Unknown History aspirin 81 mg chewable tablet 81 mg PO DAILY 07/04/23 03/04/24 Unknown History Physical Exam Vital Signs: Vital Signs: Last Vital Signs Temp 98.0 F 03/16/24 08:00 Pulse 71 03/16/24 08:00 Resp 15 03/16/24 08:00 BP 124/61 03/16/24 08:00 Pulse Ox 97 03/16/24 08:00 O2 Del Method Room Air 03/16/24 08:00 BMI result Body Mass Index 24.9 Neuro: Other: He is alert and awake with normal spontaneity of speech fluency comprehension and affect. There is mild right-sided facial weakness. Otherwise no focal weakness is noted. Plantars are flexor. Speech is normal. Visual bautista are full. Results Labs 03/15/24 19:34 03/15/24 19:34 Labs: Short CBC 03/15/24 Range/Units 19:34 WBC 5.5 (4.8-10.8) X10*3/uL Hgb 10.5 L D (14.0-18.0) g/dl Hct 31.4 L (42.0-52.0) % Plt Count 304 D (160-400) X10*3/uL BMP 03/15/24 19:34 Sodium 139 Potassium 3.9 Chloride 107 Carbon Dioxide 21 L BUN 18 H Creatinine 0.86 Calcium 9.1 D Liver Function 03/15/24 Range/Units 19:34 Total Bilirubin 0.5 (0.0-1.0) mg/dL Direct Bilirubin 0.3 (0.0-0.5) mg/dL AST 16 (5-37) U/L ALT 12 (0-40) U/L Alkaline Phosphatase 86 (39-117) U/L Albumin 3.2 L (3.5-5.0) g/dL Urine 03/16/24 Range/Units 04:01 Urine Color Yellow Urine Appearance Clear Urine pH 5.0 (5.0-9.0) Ur Specific [place] >= 1.030 H (1.005-1.025) Urine Protein Negative (Neg-Trace) mg/dL Urine Glucose (UA) Negative (Negative) mg/dL Noncontrast head CT revealed [id number] diffuse cerebral atrophy in some microvascular ischemic changes. Assessment and Plan (1) Seizure disorder: Status: Acute Probably seizure disorder resulting in episode of right-sided weakness and difficulty speaking, which she did not remember. I recommend obtaining an EEG. Procedures Date of Service Date of Service: 03/16/24
--- NOTE | 2024-03-16 12:02 | MHC.CM.PN ---
CM spoke with /Oly @ listed #; per Oly, Patient has Dementia and is very forgetful and confused at times.CM addressed RICE with and original will be mailed to and a copy will be placed on the chart. Patient lives in a house with his and he was not using DME, but he, wall walks. believes that Patient would refuse STR but would accept home services from [facility]. Patient may benefit from a PT Eval to assist with disposition. CM has initiated and will follow foe dc planning. PCP is Dr. Js rojas and believes Daughter/Jessica is the HCP.
--- NOTE | 2024-03-16 12:17 | MHC.CM.PN ---
PER TRISHA REED CM, Patient has been switched from OBSERVATION to INPATIENT; CM addressed IMM with /Oly at listed # and will mail original to her and a copy will be placed on the chart.
[2024-03-16 12:28] VITALS: BP 128/63; PULSE 73; RESP 13; TEMP 36.8; O2SAT 99
--- NOTE | 2024-03-16 12:42 | PHA.MEDREC ---
Pharmacy Consult ? Medication Reconciliation Pharmacy has completed the medication reconciliation. spoke with patient to confirm medications. He was able to verify them after saying the names to him. Patient reports he took his morning medications today. He was unsure about spironolactone and tamsulosin, they are not on claim history and [facility] reports [facility]osin was last filled in July 2023 and spironolactone last filled February 2023. Will try to contact family to make sure. will update list and notify provider if need be.
--- NOTE | 2024-03-16 14:26 | P.PNIM_ITS ---
Subjective Subjective Date of Service: 03/16/24 Review of Systems Follow up TIA symptoms no residual symptoms Physical Exam 2 Vital Signs: Vital Signs: Last Vital Signs Temp 98.3 F 03/16/24 12:28 Pulse 73 03/16/24 12:28 Resp 13 03/16/24 12:28 BP 128/63 03/16/24 12:28 Pulse Ox 99 03/16/24 12:28 O2 Del Method Room Air 03/16/24 12:28 BMI result Body Mass Index 24.9 Appearing in no acute distress lung sounds are clear to auscultation heart regular rate rhythm, clear S1, S2 positive bowel sounds, abdomen is soft, nontender neuro patient is alert x3, no focal deficits Objective Data Active Medications Acetaminophen (Acetaminophen 325 Mg Tablet) 650 mg PO Q6H PRN PRN Reason: Pain, Mild (Pain Scale 1-3) Aspirin (Aspirin 81 Mg Tab.Chew) 81 mg PO DAILY [facility] Last Admin: 03/16/24 08:36 Dose: 81 mg Documented By: GUILLERMO Atorvastatin Calcium (Atorvastatin Calcium 40 Mg Tablet) 40 mg PO BEDTIME [facility] Last Admin: 03/16/24 02:09 Dose: 40 mg Documented By: TREMAYNE Benzonatate (Benzonatate 100 Mg Capsule) 100 mg PO TID PRN PRN Reason: Cough Docusate Sodium (Docusate Sodium 100 Mg Capsule) 100 mg PO DAILY PRN PRN Reason: Constipation Enoxaparin Sodium (Enoxaparin Sodium 40 Mg/0.4 Ml Syringe) 40 mg SUBCUT Q24H [facility] Last Admin: 03/16/24 08:37 Dose: 40 mg Documented By: GUILLERMO Melatonin (Melatonin 3 Mg Tablet) 6 mg PO BEDTIME PRN PRN Reason: Insomnia Ondansetron HCl (Ondansetron Hcl 4 Mg/2 Ml Vial) 4 mg IVPUSH Q8H PRN PRN Reason: Nausea and Vomiting Sodium Chloride (0.9 % Sodium Chloride Flush 3 Ml Syringe) 3 ml IVFLUSH QSHIFT [facility] Last Admin: 03/16/24 08:36 Dose: 3 ml Documented By: GUILLERMO Ticagrelor (Ticagrelor 90 Mg Tablet) 90 mg PO BID [facility] Last Admin: 03/16/24 08:36 Dose: 90 mg Documented By: GUILLERMO Labs 03/15/24 19:34 03/15/24 19:34 Labs: Laboratory Results - last 24 hr 03/15/24 03/16/24 19:34 04:01 MCV 96.3 MCH 32.2 MCHC 33.4 RDW 14.3 Plt Count 304 D MPV 9.8 Immature Gran % (Auto) 0.2 Neut % (Auto) 62.6 Lymph % (Auto) 20.7 [place] % (Auto) 12.0 H Eos % (Auto) 3.6 Baso % (Auto) 0.9 Lymph # (Auto) 1.1 L [place] # (Auto) 0.7 Eos # (Auto) 0.2 Baso # (Auto) 0.1 Abs Immat Gran (auto) 0.01 Absolute Neuts (auto) 3.5 Absolute Nucleated RBC 0.000 Nucleated RBC % (auto) 0.0 PT 13.9 H INR 1.1 Anion Gap 15 Estim Creat Clear Calc 63.6 Estimated GFR > 60 Random Glucose 102 Calcium 9.1 D Magnesium 1.9 Total Bilirubin 0.5 Direct Bilirubin 0.3 AST 16 ALT 12 Alkaline Phosphatase 86 Troponin I High Sens 10.9 Total Protein 6.3 L Albumin 3.2 L Triglycerides 40 Cholesterol 122 LDL Cholesterol, Calc 71 HDL Cholesterol 43 Urine Color Yellow Urine Appearance Clear Urine pH 5.0 Ur Specific [place] >= 1.030 H Urine Protein Negative Urine Glucose (UA) Negative Urine Ketones Trace Urine Blood Negative Urine Nitrite Negative Ur Leukocyte Esterase Negative Ethyl Alcohol 51 Assessment and Plan (1) Right arm weakness: Status: Acute (2) Brain TIA: Status: Acute Plan Pt is an 88-year-old male with a PMH significant for CAD s/p stenting of LAD, ischemic cardiomyopathy, NSTEMI, HFrEF, HTN, GERD, BPH, and hx of colon cancer s/p hemicolectomy in 2016 who presents to the ED for evaluation of right-sided deficits. Pt will be admitted to the hospital under observation for right sided deficits concerning for TIA. Right-sided deficits Concerning for TIA Symptoms have now resolved, no focal deficits noted CTA of neck with atherosclerosis of left internal carotid artery with up to 55- 60% luminal narrowing, and moderate stenosis to left vertebral artery Echocardiogram on 01/20/2024 found [id number] LV systolic dysfunction with LVEF of 40-45% with likely ischemic cardiomyopathy MRI showing chronic small-vessel ischemic changes with no evidence of acute infarction Continue aspirin, statin PT rec home with services Neurology consult> probably seizure disorder, obtain EEG CAD Continue dual antiplatelet therapy, statin HTN Continue carvedilol, lisinopril HFrEF Not in acute exacerbation Patient clinically appears euvolemic Continue spironolactone, furosemide GERD PPI BPH Continue tamsulosin Full Code Attending:?Dr. Hancock DVT Prophylaxis: Lovenox Patient admitted to hospital under observation for further evaluation right- sided deficits concern for TIA. Patient require close cardiac monitoring, additional workup including MRI of head/brain, and Neurology consultation. Quality Stroke Does the patient have a stroke diagnosis?: No Reason for No Anti-thrombotic by Day Two: Contraindicated (Symptoms resolved prior to arrival to ED.) VTE Prior VTE?: No VTE Risk Level:: Medical - moderate - high VTE Device Contraindication: Treatment Not Indicated VTE Drug Contraindication: N/A - Med Ordered
[2024-03-16 18:49] VITALS: BP 123/61; PULSE 72; RESP 18; TEMP 36.3; O2SAT 95
[2024-03-16 19:59] VITALS: BP 108/52; PULSE 74; RESP 16; TEMP 36.7; O2SAT 99
--- NOTE | 2024-03-17 | EEG_ITS ---
FINDINGS: The waking background activity consists of a low voltage 9 to 10 hertz alpha frequency intermixed with intermittent slowing of 4 to 5 hertz at moderate voltage from the right parietooccipital region. Occasional sharp transient sustained from the right parietal region. Photic stimulation is without activation. Hyperventilation was omitted. IMPRESSION: This is EEG is considered abnormal due to intermittent slowing and occasional sharp transients seen predominantly from the right parietal area that may indicate an underlying area of structural abnormality with a seizure potential. Clinical correlation is suggested. MD MITCHELL Mccloud/KRYSTIN / [phone]
[2024-03-17 01:14] VITALS: BP 157/90; PULSE 79; RESP 20; TEMP 36.8; O2SAT 97
[2024-03-17 05:50] VITALS: BP 116/57; PULSE 72; RESP 20; TEMP 36.8; O2SAT 97
[2024-03-17 08:09] VITALS: BP 122/69; PULSE 87; RESP 16; O2SAT 97
[2024-03-17 09:10] VITALS: BP 121/63; PULSE 85; RESP 17; O2SAT 95
[2024-03-17] MEDS: 0.9 % Sodium Chloride Flush 3 ML SYRINGE IVFLUSH ×2 (09:12)
[2024-03-17] MEDS: Enoxaparin Sodium 40 MG/0.4 ML SYRINGE SUBCUT (09:12)
[2024-03-17] MEDS: Ticagrelor 90 MG TABLET PO (09:12)
[2024-03-17] MEDS: Aspirin 81 MG TAB.CHEW PO (09:12)
--- NOTE | 2024-03-17 13:08 | P.DS_ITS ---
DS: Providers Provider Date of Service: 03/17/24 Date of admission: 03/15/24 23:28 Primary care physician: Js Allison MD Consults: 03/15/24 23:31 Consult to Neurology Routine Consulting Provider: [facility] Reason for consultation: Right-sided deficits now resolved, ?TIA DS: Diagnosis Discharge Diagnosis (1) Right arm weakness: Status: Acute (2) Brain TIA: Status: Acute DS: Summary Hospital Course Hospital Course: History and physical as per admitting provider. Pt is an 88-year-old male with a PMH significant for CAD s/p stenting of LAD, ischemic cardiomyopathy, NSTEMI, HFrEF, HTN, GERD, BPH, and hx of colon cancer s/p hemicolectomy in 2017 who presents to the ED for evaluation of right-sided deficits. Pt was out to dinner with his daughter and when they witnessed pt experiencing marked right- sided facial droop, aphasia, and a fixed stare. Daughter states patient appeared ?almost comatose. EMS arrived and noted right-sided deficits, including right arm paralysis. Episode lasted 10-15 minutes before resolving. No postictal state noted. Patient was back to baseline by the time he arrived to the ED. patient was recently hospitalized on 02/18/2024 at [facility] for right arm weakness concerning for TIA. At that time patient had fallen down the stairs and landed on his right side. Workup at [facility] included CT of head, CTA of head/neck, and MRI which were all negative for acute stroke. Patient, however, has experienced continued right-sided upper and lower extremity pain since that incident. Otherwise, currently patient has no acute medical complaints. Denies headache or acute vision changes. No numbness, tingling, or weakness in upper or lower extremities bilaterally. No dysarthria, difficulty word finding, or trouble swallowing. Denies shortness of breath. No chest pain/pressure, palpitations. Of note, [facility] noted on 02/18/2024 patient had not been taking his aspirin or Brilinta due to insurance issues. However, patient states he has been compliant with all of his medications since then, including dual antiplatelet therapy and statin. In the ED pt was hemodynamically stable. Labs were grossly unremarkable and around baseline for patient. No leukocytosis. No significant electrolyte abnormalities. Renal and hepatic function baseline. Troponin WNL at 10.9. CT of head found no acute intracranial hemorrhage or territorial loss of clifford-white differentiation. CTA of head found no proximal vessel occlusion or high-grade stenosis. CTA of neck found calcified and noncalcified atherosclerosis and proximal left internal carotid artery with up to 55-60% luminal narrowing. Also found prominent tortuosity of the dominant left vertebral artery proximal V1 segment with moderate stenosis. EKG demonstrated normal sinus rhythm with RBBB without significant ST elevations or depressions. Pt will be admitted to the hospital under observation for right sided deficits concerning for TIA. 89-year-old man treated for symptoms of right-sided deficits concerning initially for TIA. His symptoms resolved. He had multiple diagnostic tests including MRI which was negative for acute infarction, just showing chronic small-vessel ischemic changes. Head and neck CTA showed atherosclerosis of the left internal artery with 55-60% luminal narrowing. Echocardiogram from January showed [id number] LV systolic dysfunction with history of ischemic cardiomyopathy. He was continued on aspirin and statin. He was seen by Physical therapy who recommended home with services. He was also seen by N eurology who thought his symptoms may be related to seizure disorder but recommended an outpatient EEG. During the patient's hospitalization he had no other symptoms that he had described on admission. Patient will be followed up in Neurology in the office to schedule the EEG. He is agreeable for discharge home. Coronary artery disease. Continue to antiplatelet therapy and statin Hypertension. Continue carvedilol and lisinopril Heart failure with reduced ejection fraction. No exacerbation during hospitalization. The patient euvolemic. Continue spironolactone and furosemide GERD. Continue PPI BPH. Continue tamsulosin Time Attestation Discharge Coordination Time (in mins): 35 Quality: Safe Use of Opioids Does Pt have an Active Cancer Diagnosis on the Problem List?: No Quality: Stroke Does the patient have a stroke diagnosis?: No Physical Exam Vital Signs: Vital Signs: Last Vital Signs Temp 98.2 F 03/17/24 05:50 Pulse 85 03/17/24 09:10 Resp 17 03/17/24 09:10 BP 121/63 03/17/24 09:10 Pulse Ox 95 03/17/24 09:10 O2 Del Method Room Air 03/17/24 09:10 BMI result Body Mass Index 24.9 Appearing in no acute distress head is normocephalic atraumatic eyes pupils are PERRLA sclera is anicteric mouth throat mucous membranes are intact and moist neck is supple no lymphadenopathy, no JVD noted lung sounds are clear to auscultation heart regular rate rhythm, clear S1, S2 positive bowel sounds, abdomen is soft, nontender neuro patient is alert x3, no focal deficits Discharge Plan Discharge Anticipated Discharge Date/Time: 03/17/24 12:45 Patient Disposition: Home, Self-Care Discharge Diagnosis: Right sided weakness possible seizure Referrals: Joanna Liu MD [Physician] - 1 Week (EEG ) Po,Js Carrero MD [Primary Care Provider] - 1 Week Discharge Medications: Continued atorvastatin 40 mg tablet 40 mg PO QPM Qty: 90 3RF omeprazole 20 mg capsule,delayed release(DR/EC) 20 mg PO DAILY Qty: 90 3RF lisinopril 40 mg tablet 40 mg PO DAILY Qty: 90 0RF carvedilol 12.5 mg tablet 12.5 mg PO BID Qty: 180 0RF Rx Instructions: must administer with a meal/food aspirin 81 mg tablet,delayed release (DR/EC) 81 mg PO DAILY cholecalciferol (vitamin D3) 1,250 mcg (50,000 unit) capsule 1,250 mcg PO FR meclizine 25 mg tablet 25 mg PO TID PRN (Reason: Dizziness) furosemide 20 mg tablet 20 mg PO DAILY Qty: 90 2RF Brilinta 90 mg tablet 90 mg PO BID Qty: 180 0RF Discharge Orders: Discharge Order (Routine); Ordered 03/17/24 Ordered By: Clarita Lawton Diet: Advance to usual diet Activity on Discharge: As tolerated Stand Alone Forms: Patient Portal Discharge page Print Language: Sudanese Care Plan Goals: Schedule an appointment with neurology to follow up for EEG Health Concerns: Right sided deficit/weakness, possible seizure Plan of Treatment: Follow up with primary care provider as needed Take all medications as prescribed Assessment: see discharge summary
--- NOTE | 2024-03-17 13:09 | MHC.CM.PN ---
Patient has been medically cleared for dc to home today, self care.Last IMM addressed yesterday.
[2024-03-17 14:55] VITALS: BP 119/57; PULSE 75; RESP 16; O2SAT 100
--- NOTE | 2024-03-17 15:08 | PC.NURSE ---
PT OFF UNIT TO RECEIVE EEG
[2024-03-17 17:45] VITALS: BP 133/67; PULSE 86; RESP 15; TEMP 36.7; O2SAT 99
== END 2024-03-17 19:22 | disposition home or self-care (01) | DRG 101 ==
LOC: HO.ED 20:34 → HO.EDOVER 23:44
PROVIDERS: Admitting Provider Student in an Organized Health Care Education/Training Program; Emergency Provider Emergency Medicine; PCP Internal Medicine; Visit Provider Nurse Practitioner Acute Care
DX: G40.909 Epilepsy, unspecified, not intractable, without status epilepticus (principal); G81.91 Hemiplegia, unspecified affecting right dominant side; I50.22 Chronic systolic (congestive) heart failure; I25.10 Atherosclerotic heart disease of native coronary artery without angina pectoris; K21.9 Gastro-esophageal reflux disease without esophagitis; N40.0 Benign prostatic hyperplasia without lower urinary tract symptoms; I11.0 Hypertensive heart disease with heart failure; Z87.891 Personal history of nicotine dependence; Z79.82 Long term (current) use of aspirin; Z79.899 Other long term (current) drug therapy
CPT/HCPCS: 36415; 70496; 70498; 70551; 80048; 80061; 80076; 80307; 81003; 83735; 84484; 85025; 85610; 93005; 95816; 97116; 97161; 97165; 99222; 99285; J1650; Q9967

== ENCOUNTER → 2024-03-15 18:56 | Outpatient (BNV) | payer MEDICARE, SELFPAY | PROVIDERS: Admitting Provider Student in an Organized Health Care Education/Training Program; Emergency Provider Emergency Medicine; PCP Internal Medicine; Visit Provider Internal Medicine Cardiovascular Disease | DX: I45.10 Unspecified right bundle-branch block (principal); R94.31 Abnormal electrocardiogram [ECG] [EKG] | CPT/HCPCS: 93010 ==

== ENCOUNTER → 2024-03-15 23:28 | Outpatient (BNV) | payer MEDICARE, SELFPAY | PROVIDERS: Admitting Provider Student in an Organized Health Care Education/Training Program; Emergency Provider Emergency Medicine; PCP Internal Medicine; Visit Provider Nurse Practitioner Acute Care | DX: R29.810 Facial weakness (principal); R29.898 Other symptoms and signs involving the musculoskeletal system | CPT/HCPCS: 99222; 99232; 99239 ==

== ENCOUNTER → 2024-03-15 23:28 | Outpatient (BNV) | payer MEDICARE, SELFPAY | PROVIDERS: Admitting Provider Student in an Organized Health Care Education/Training Program; Emergency Provider Emergency Medicine; PCP Internal Medicine; Visit Provider Psychiatry & Neurology Neurology | DX: G40.909 Epilepsy, unspecified, not intractable, without status epilepticus (principal) | CPT/HCPCS: 99222 ==

== ENCOUNTER 2024-04-08 09:02 | Outpatient (AMB) | payer MEDICARE, SELFPAY ==
[2024-04-08 09:08] VITALS: BP 100/58; PULSE 77; BMI 20.9
--- NOTE | 2024-04-08 09:08 | MHC.OFFVIS ---
Vital Signs 04/08/24 09:08 Height 5 ft 10 in Weight 145 lb 8.081 oz BMI 20.9 BP 100/58 L Blood Pressure Location Lt brachial Position Sitting Pulse 77 Pulse Source Pulse Oximeter Intake Visit Reasons: 4 mth s/p echo Allergies No Known Allergies [No Known Allergies*] Allergy (Verified 03/15/24 19:46) Medication List - Last Reconciled 04/08/24 by Edmundo Basurto MD aspirin 81 mg PO DAILY atorvastatin 40 mg PO QPM carvedilol 12.5 mg PO BID cholecalciferol (vitamin D3) 1,250 mcg PO FR furosemide 20 mg PO DAILY lisinopril 40 mg PO DAILY meclizine 25 mg PO TID PRN omeprazole 20 mg PO DAILY ticagrelor (Brilinta) 90 mg PO BID HPI Comments Details: Andrés returns for follow-up regarding coronary artery disease. In the past, he had type 2 NSTEMI during pneumonia and was hospitalized at [facility]. Subsequently, started seeing us and underwent cardiac catheterization with PCI to left main into LAD. Overall, no clear-cut anginal-type symptoms. According daughter who came for appointment, main concern is that he sleeps a lot. Blood pressure is also lower side. Apparently he had a stroke/TIA type event few weeks back. Prior to that, apparently he was not taking his medications regularly probably from forgetfulness. Now more compliant as the daughter is helping. [facility] Medical History Medicare annual wellness visit, initial Atherosclerotic cardiovascular disease Heart failure with reduced ejection fraction Wheezing Vitamin D deficiency Thoracic cyst TIA (transient ischemic attack) Colon cancer Hypercholesterolemia BPH (benign prostatic hyperplasia) Hypertension GERD (gastroesophageal reflux disease) Surgical History History of colectomy History of cholecystectomy Family History Father Medical history unknown Mother Hypertension Sister Breast cancer Social History Housing: House Alcohol intake: current Alcohol intake frequency: 0-2 drinks per day Patient Tobacco Use Status: Former Tobacco user Tobacco use type: Cigarette Years Smoked: Quit 21 years old e-Cigarette/Vaping Use: Never Used Second Hand Smoke Exposure: No service: Yes Current occupational status: retired Cognitive needs: No Hearing needs: No Vision needs: Yes Review of Systems Const Denies weakness ENT Denies dizziness Card Denies chest pain, Denies chest pain with activity, Denies syncope, Denies rapid heart rate, Denies pedal edema, Denies edema, Denies leg edema, Denies lightheadedness, Denies palpitations, Reports dyspnea, Reports dyspnea on exertion and Reports orthopnea Resp Denies cough, Reports dyspnea and Reports dyspnea on exertion GI Denies hematochezia and Denies change in stool character Musc Denies abnormal gait, Denies muscle cramps, Denies muscle weakness, Denies numbness, Denies radiating pain into limb and Denies tingling Neuro Denies abnormal gait, Denies dizziness, Denies syncope, Denies numbness, Denies tingling and Denies weakness Endo Denies palpitations Physical Exam Vital Signs: Last Vital Signs Pulse 77 04/08/24 09:08 BP 100/58 L 04/08/24 09:08 BMI result Body Mass Index 20.9 Const General: comfortable and no acute distress Orientation/consciousness: patient oriented x3 HEENT Other: Unremarkable Head: Yes normal to inspection Neck Neck: Yes normal visual inspection Chest Chest palpation & inspection: normal inspection of the chest Resp Auscultation: clear to auscultation bilaterally Cardio Palpation: normal PMI Heart sounds: S1 normal heart sound present, S2 normal heart sound present, no gallops, no murmurs and no rubs GI Palpation (GI): Soft to palpation Back/Spine/Pelvis Other: unremarkable Skin General skin exam: no rashes or lesions noted Neuro General: patient oriented x3 Extrem General: Yes normal to inspection Psych Mental Status: mental status grossly normal Assessment & Plan Assessment & Plan (1) Atherosclerotic cardiovascular disease: Comment: Cardiac catheterization August 2023 Code(s): I25.10 - Atherosclerotic heart disease of [place] coronary artery without angina pectoris Category: Medical Plan: Cardiac catheterization 08/2023-PCI of left main to LAD. Occluded ostial circumflex with [id number] collaterals. Large 1st diagonal with 80% mid vessel stenosis. Ostial nondominant right coronary artery with 80-85% stenosis. It seems he was not compliant and probably forgetful with meds but more recently taking them. Continue long-term aspirin. Brilinta at least for 1 year and possibly longer. May be switched to Plavix in the future. Continue statins. Lipids well controlled. Clinically, no angina. (2) Cardiomyopathy: Code(s): I42.9 - Cardiomyopathy, unspecified Category: Medical Qualifiers: Cardiomyopathy type: ischemic Qualified Code(s): I25.5 - Ischemic cardiomyopathy Plan: In the recent echocardiogram, LVEF is 40-45% with wall motion abnormalities consistent with underlying CAD. Due to sleepiness and lowish blood pressures, cut back on the lisinopril to 20 mg daily. Continue carvedilol without changes. Stop Lasix as there are no heart failure symptoms or signs. Plan Due to symptoms of sleepiness, forgetfulness, nonspecific fatigue etc, recommend seeing Neurology again assess for any dementia. Daughter agrees with plan. Medications: New lisinopril 20 mg PO DAILY 90 tabs 3RF Discontinued furosemide Discontinued Reason: Doctor's Order 20 mg PO DAILY 90 tabs 2RF I25.10 - Atherosclerotic heart disease of [place] coronary artery without angina pectoris lisinopril Discontinued Reason: Doctor's Order 40 mg PO DAILY 90 tabs 0RF I10 - Essential (primary) hypertension Coding Level of Care Code Est Pt Level 4 (24926) Diagnoses Atherosclerotic cardiovascular disease I25.10 Ischemic cardiomyopathy I25.5 Cardiomyopathy type: ischemic
== END 2024-04-08 09:39 | disposition home or self-care (01) ==
PROVIDERS: PCP Internal Medicine; Visit Provider Internal Medicine
DX: I25.10 Atherosclerotic heart disease of native coronary artery without angina pectoris (principal); I25.5 Ischemic cardiomyopathy
CPT/HCPCS: 99214

== ENCOUNTER → 2024-04-08 09:02 | Outpatient (BNVA) | payer MEDICARE, SELFPAY | PROVIDERS: PCP Internal Medicine; Visit Provider Internal Medicine | DX: I25.10 Atherosclerotic heart disease of native coronary artery without angina pectoris (principal); I25.5 Ischemic cardiomyopathy; I10 Essential (primary) hypertension; Z86.73 Personal history of transient ischemic attack (TIA), and cerebral infarction without residual deficits | CPT/HCPCS: 99212 ==

== ENCOUNTER 2024-04-10 08:00 | Outpatient (AMB) | payer MEDICARE, SELFPAY ==
[2024-04-10 08:02] VITALS: BP 78/46; PULSE 82; O2SAT 95; BMI 20.5
--- NOTE | 2024-04-10 08:02 | A.OFFPC_ITS ---
Vital Signs 04/10/24 08:02 Height 5 ft 10 in Weight 143 lb 0.4 oz BMI 20.5 BP 78/46 L Blood Pressure Location Lt brachial Position Sitting Pulse 82 Pulse Source Pulse Oximeter Pulse Oximetry (%) 95 Oxygen Delivery Method Room Air Intake Visit Reasons: hdf Intake Note: Patient is here for hospital discharge follow up. Patient was discharged from [facility] on 03/17/2024 Allergies No Known Allergies [No Known Allergies*] Allergy (Verified 04/10/24 08:33) Medication List - Last Reconciled 04/10/24 by Adriana Pérez PA-C aspirin 81 mg PO DAILY atorvastatin 40 mg PO QPM carvedilol 12.5 mg PO BID cholecalciferol (vitamin D3) 1,250 mcg PO FR lisinopril 20 mg PO DAILY meclizine 25 mg PO TID PRN omeprazole 20 mg PO DAILY ticagrelor (Brilinta) 90 mg PO BID Tobacco use date assessed: 11/26/23 Fall risk assessment: No Falls in past year Last assessed Fall Risk: 04/10/24 Dental Screening Dental Screen Date: 03/04/24 HPI hdf HPI Details 89 year old male with history of hyperte nsion, GERD, hypercholesterolemia, BPH, colon cancer s/p hemicolectomy 2016, and coronary artery disease with heart failure ejection fraction 40-45% last seen by Dr. Allison 03/04/24 coming in for hospital discharge follow up. Patient presented to the ED 03/15/24 after having facial droop and aphasia, CT without any acute abnormalities and the patient was admitted for monitoring. Seen by neurology inpatient and was recommended to have outpatient EEG as they were suspicious of seizure disorder. EEG done 03/19/24:? Considered abnormal due to intermittent slowing and occasional sharp transients seen predominantly from the right parietal area that may indicate an underlying area of structural abnormality with a seizure potential. Clinical correlation needed. Saw cardiology 04/08/24: Lisinopril was decreased to 20 mg daily due to low BP, continued on carvedilol and discontinue Lasix as no symptoms of heart failure. Concerns for forgetfulness and sleepiness recommend follow-up with Neurology. Booked for appointment in May. Patient is accompanied by his daughter who is concerned he has been very tired and sleeps most of the day. She also mentions his appetite has been decreased and he has some generalized weakness. Per Cardiology patient was to have decreased lisinopril to 20 mg a day but has been continuing on his 40 mg daily. Denies any exertional chest pain or shortness of breath and no focal weaknesses. [facility] Medical History Medicare annual wellness visit, initial Atherosclerotic cardiovascular disease Heart failure with reduced ejection fraction Wheezing Vitamin D deficiency Thoracic cyst TIA (transient ischemic attack) Colon cancer Hypercholesterolemia BPH (benign prostatic hyperplasia) Hypertension GERD (gastroesophageal reflux disease) Surgical History History of colectomy History of cholecystectomy Family History Father Medical history unknown Mother Hypertension Sister Breast cancer Social History Housing: House Alcohol intake: current Alcohol intake frequency: 0-2 drinks per day Patient Tobacco Use Status: Former Tobacco user Tobacco use type: Cigarette Years Smoked: Quit 21 years old e-Cigarette/Vaping Use: Never Used Second Hand Smoke Exposure: No service: Yes Current occupational status: retired Cognitive needs: No Hearing needs: No Vision needs: Yes Questionnaire Thrive Questionnaire Date Thrive assessed: 03/16/24 AUDIT C Alcohol Use Questionnaire (AUDIT-C) 1. How often do you have a drink containing alcohol?: 4 or more times a week 2. How many drinks containing alcohol do you have on a typical day when you are drinking?: 1 or 2 3. How often do you have six or more drinks on one occasion?: Never Total Score: 4 DAVID-7 AMB Questionnaire DAVID-7 Date DAVID - 7 assessed: 11/26/23 Source: Developed by Drs. Wlater Forrester, Nichole Amaral, Jaylen Morris and colleagues, with an educational kannan from [employer] (Social Influence Quotient). Review of Systems Const Denies body aches, Reports daytime sleepiness and Denies fever(s) Eyes Reports no additional complaints and Denies change in vision ENT Reports Normal hearing present, Denies dizziness, Denies nasal congestion, Denies tinnitus and Denies sore throat Card Denies chest pain, Denies chest pain with activity, Denies syncope, Denies rapid heart rate and Denies edema Resp Details: mild intermittent shortness of breath Denies cough and Denies hemoptysis GI Denies change in stool character, Denies diarrhea, Denies nausea and Denies vomiting Musc Details: Right shoulder pain from a previous fall Skin/Breast Reports system reviewed and no additional complaints, except as documented Neuro Reports Normal hearing present, Reports Abnormal speech present, Denies confusion, Denies dizziness and Denies syncope Psych Reports no additional complaints and Denies confusion Romie/Lymph Reports no additional complaints Physical exam (Primary Care) Vital Signs: Last Vital Signs Pulse 82 04/10/24 08:02 BP 78/46 L 04/10/24 08:02 Pulse Ox 95 04/10/24 08:02 Oxygen Delivery Method Room Air 04/10/24 08:02 BMI result Body Mass Index 20.5 Tobacco/Smoking Status: Tobacco use Status Tobacco use date assessed 11/26/23 04/10/24 08:02 Patient Tobacco Use Status Former Tobacco user 04/10/24 08:02 Tobacco use type Cigarette 04/10/24 08:02 e-Cigarette/Vaping Use Never Used 04/10/24 08:02 Thrive Assessment: Date of Thrive Assessment Date Thrive assessed 03/16/24 04/10/24 08:02 Const General: cooperative, healthy appearing, comfortable, alert and awake; No confusion Orientation/consciousness: patient oriented x3 and No confusion HENMT Head: Yes normal to inspection Ears: hearing grossly normal bilaterally Face and sinus: Yes normal facial exam and Yes face symmetric Mouth: tongue normal Eyes General: appearance normal, both eyes and all related structures Conjunctivae: conjunctivae normal Sclerae: sclerae normal Pupils: Equal, round and reactive pupils present and Pupil accommodation reflex normal EOM: EOMs intact bilaterally Neck Neck: Yes normal visual inspection and Yes full ROM Resp Effort & Inspection: normal respiratory effort and no cough Auscultation: clear to auscultation bilaterally, no crackles, no rales, no rhonchi and no wheezes Cardio Rate: regular rate Rhythm: regular rhythm Heart sounds: S1 normal heart sound present and S2 normal heart sound present Peripheral pulses: radial pulses present Skin General skin exam: no rashes or lesions noted Neuro General: patient oriented x3 and No confusion Cranial nerves: Yes CN's II-XII intact bilaterally, Yes Equal, round and reactive pupils present, Yes Normal hearing present and Yes Ability to bilaterally elevate shoulders present Cognition (Neuro): normal cognition Speech: Abnormal speech present Gait exam (Neuro): Normal gait present Extrem Other: Right shoulder with full ROM. no arm weakness appreciated bilaterally General: Yes normal to inspection and Yes full ROM Psych Mental Status: mental status grossly normal Speech and movement: Normal speech and movement present Affect: normal affect Thought process: Normal thought process present Assessment and Plan Assessment & Plan (1) Anemia: Code(s): D64.9 - Anemia, unspecified Qualifiers: Anemia type: unspecified type Qualified Code(s): D64.9 - Anemia, u nspecified Plan: Patient's last blood work showed hemoglobin of 10.5 which is below his baseline. He has had fatigue and mild shortness of breath, denies any blood in stool, vomiting blood, or any other blood loss. We will order for iron studies but in the meantime was prescribed iron with vitamin-C. Advised that iron may cause constipation and patient can take Colace [id number] as needed. (2) Heart failure with reduced ejection fraction: Code(s): I50.20 - Unspecified systolic (congestive) heart failure Plan: Last echo showed ejection fraction of 40-45% with wall motion abnormalities. Patient follows with Cardiology, last seen 04/08/2024. Per cardiology advised to decrease lisinopril from 40 mg to 20 mg due to low blood pressure and fatigue, and continue carvedilol as prescribed, and to discontinue Lasix at this time as there are no signs of fluid overload or heart failure. (3) Hypertension: Code(s): I10 - Essential (primary) hypertension Qualifiers: Hypertension type: essential hypertension Qualified Code(s): I10 - Essential (primary) hypertension Plan: Blood pressure is low in the office today. Patient was advised by Cardiology to decrease lisinopril which he has not done yet. Advised to start taking the lisinopril 20 mg. Also advised patient to take blood pressure at home and counseled patient on acceptable range of blood pressure. Patient will reach out if blood pressures are continuously out of range. (4) TIA (transient ischemic attack): Comment: December 2023 right arm weakness Code(s): G45.9 - Transient cerebral ischemic attack, unspecified Plan: Patient was recently discharged from the hospital this March rule out TIA versus seizure. Was seen by Neurology inpatient who believed his presentation was more consistent with a seizure. EEG done which showed potential for seizure activity, will follow up with Neurology May 2024. In the meantime patient was counseled on red flag symptoms of stroke and seizure. Brilinta refilled. Plan Thank you for allowing me to participate in the care of this patient. I personally spent 45 minutes reviewing, examining and charting on this patient. Orders: Orders IRON PROFILE 11/26/23 I25.10 - Atherosclerotic heart disease of [place] coronary artery without angina pectoris IRON PROFILE Today D64.9 - Anemia, unspecified Medications: New ferrous sulfate 325 mg PO DAILY 30 tabs 1RF ascorbate calcium (vitamin C) 500 mg PO DAILY 30 tabs 1RF Refilled ticagrelor (Brilinta) 90 mg PO BID 180 tabs 3RF I25.10 - Atherosclerotic heart disease of [place] coronary artery without angina pectoris Coding Level of Care Code Est Pt Level 4 (27729) Diagnoses Anemia, unspecified type D64.9 Anemia type: unspecified type Heart failure with reduced ejection fraction I50.20 Essential hypertension I10 Hypertension type: essential hypertension TIA (transient ischemic attack) G45.9
== END 2024-04-10 10:07 | disposition home or self-care (01) ==
PROVIDERS: PCP Internal Medicine
DX: D64.9 Anemia, unspecified (principal); I11.0 Hypertensive heart disease with heart failure; I50.20 Unspecified systolic (congestive) heart failure; G45.9 Transient cerebral ischemic attack, unspecified
CPT/HCPCS: 99214

== ENCOUNTER 2024-04-14 18:36 | Inpatient (IN) | payer MEDICARE, SELFPAY ==
--- NOTE | ~2024-04-14 | XR_ITS ---
EXAMINATION: XR CHEST CLINICAL INFORMATION: AMS COMPARISON: Chest 01/01/2022 TECHNIQUE: Frontal view of the chest was obtained. FINDINGS: No significant abnormality is noted involving the heart, lungs, mediastinum, bony thorax or soft tissues. There is slight increased sclerosis along the right anterior fourth costochondral junction similar to previous study. XR/XR chest 1V IMPRESSION: No acute cardiopulmonary process seen.
--- NOTE | ~2024-04-14 | CT_ITS ---
EXAMINATION: CT HEAD WITHOUT CONTRAST CLINICAL INFORMATION: New onset seizure. COMPARISON: MRI brain 03/16/2024 TECHNIQUE: Contiguous axial imaging was performed from the skull base to vertex without intravenous administration of contrast. This CT examination was performed using dose optimization techniques as appropriate, variously including the following: *Automated exposure control *Adjustment of mA and/or kV according to patient size (this includes techniques or standardized protocols for targeted exams where dose is matched to indication/reason for exam; i.e. extremities or head) *Use of iterative reconstruction technique DLP: 771 mGy-cm FINDINGS: There is no acute intra-axial, extra-axial bleed, masses or midline shift. There is no acute infarction in evolution. The lateral ventricles are symmetrical but enlarged. There is mild periventricular hypodensity in both cerebral hemispheres without mass effect. Bone windows reveal no calvarial abnormality. There is no scalp soft tissue abnormality. Bilateral paranasal sinuses and mastoid air cells are well-aerated. CT/CT head/brain wo IV con IMPRESSION: No acute intracranial process seen. Age-related cerebral volume loss with chronic small vessel ischemic changes in both cerebral hemispheres.
--- NOTE | 2024-04-14 18:45 | ECG_ITS ---
Test Reason : WEAKNESS Blood Pressure : / mmHG Vent. Rate : 086 BPM Atrial Rate : 086 BPM P-R Int : 154 ms QRS Dur : 154 ms QT Int : 400 ms P-R-T Axes : 037 048 -11 degrees QTc Int : 478 ms Sinus rhythm with occasional Premature ventricular complexes Right bundle branch block Lateral infarct (cited on or before 15-MAR-2024) Inferior infarct (cited on or before 15-MAR-2024) Abnormal ECG When compared with ECG of 15-MAR-2024 19:54, Premature ventricular complexes are now Present Nonspecific T wave abnormality, improved in Lateral leads Referred By: Lico Toribio Electronically Signed By:DAVID STEVE
[2024-04-14 19:09] VITALS: BP 90/50; BP 93/49; PULSE 80; PULSE 90; RESP 16; TEMP 36.3; O2SAT 98; BMI 21.2
[2024-04-14] MEDS: 0.9 % Sodium Chloride 1,000 ML 999 ML IV (19:14)
[2024-04-14 19:51] LABS: MANUAL DIFF FLAG NO
[2024-04-14 19:55] LABS: Basophils Absolute Auto 0.1 X10*3/uL (0.0-0.2); Basophils Percent Auto 0.6 % (0-2); Eosinophils Absolute Auto 0.2 X10*3/uL (0.0-0.4); Eosinophils Percent Auto 1.6 % (0-4); Hematocrit 33.5 % (42.0-52.0); Hemoglobin 11.7 g/dl (14.0-18.0); Imm Gran Abs Auto 0.05 X10*3/uL (0.00-0.03); Imm Gran Pct Auto 0.5 % (0.0-0.4); Lymphocytes Absolute Auto 0.8 X10*3/uL (1.2-4.9); Lymphocytes Percent Auto 6.9 % (20-40); Mean Corpuscular HGB Conc 34.9 g/dl (31.0-36.0); Mean Corpuscular Hemoglobin 32.1 pg (27.0-33.0); Mean Platelet Volume 9.4 fL (9.4-12.4); Monocytes Absolute Auto 1.1 X10*3/uL (0.1-1.2); Monocytes Percent Auto 9.8 % (2-11); Neutrophils Absolute Auto 8.8 x10*3/uL (2.0-8.3); Neutrophils Percent Auto 80.6 % (45-73); Platelet Count 439 X10*3/uL (160-400); Red Blood Count 3.64 X10*6/uL (4.60-5.80); Red Cell Distribution Width 14.4 % (11.0-16.0); White Blood Count 10.9 X10*3/uL (4.8-10.8)
--- NOTE | 2024-04-14 20:04 | ED_ITS ---
HPI - Weakness General Chief complaint: Weakness Stated complaint: WEAK,LETHARGIC X 2 DAYS Time Seen by Provider: 04/14/24 18:42 Source: patient, family and EMS Mode of arrival: EMS Limitations: altered mental status History of Present Illness ED Provider: kyree CONTEH Narrative: Patient 89 years old with history of coronary disease status post PCI left main LAD 09/05 on chronic Brilinta treatment for 1 year since then was admitted here on 03/16 for TIA symptoms with right-sided weakness workup was negative plan for EEG to rule out seizures since then patient was doing okay had dinner earlier today and while sitting had a blank feces stopped responding does not know what happened does not remember how he came to the hospital no tonic-clonic activity were noticed by the family but had a blank stare patient is on Lasix 20 mg daily not on potassium tablets Related Data Home Medications ?Medication ?Instructions ?Recorded ?Confirmed aspirin 81 mg tablet,delayed 81 mg PO DAILY 03/16/24 04/08/24 release cholecalciferol (vitamin D3) 1,250 1,250 mcg PO FR 03/16/24 04/10/24 mcg (50,000 unit) capsule meclizine 25 mg tablet 25 mg PO TID PRN Dizziness 03/16/24 04/08/24 Previous Rx's ?Medication ?Instructions ?Recorded atorvastatin 40 mg tablet 40 mg PO QPM #90 tabs 05/08/23 omeprazole 20 mg capsule,delayed 20 mg PO DAILY #90 caps 08/21/23 release carvedilol 12.5 mg tablet 12.5 mg PO BID #180 tabs 03/26/24 lisinopril 20 mg tablet 20 mg PO DAILY #90 tabs 04/08/24 ascorbate calcium (vitamin C) 500 500 mg PO DAILY #30 tabs 04/10/24 mg tablet ferrous sulfate 325 mg (65 mg 325 mg PO DAILY #30 tabs 04/10/24 iron) tablet ticagrelor 90 mg tablet (Brilinta) 90 mg PO BID #180 tabs 04/10/24 Allergies Allergy/AdvReac Type Severity Reaction Status Date / Time No Known Allergies Allergy Verified 04/14/24 19:12 [No Known Allergies*] Review of Systems 2 Review of Systems: Yes all other systems are reviewed and are negative PMFSH Past Medical History Medical History Medicare annual wellness visit, initial Atherosclerotic cardiovascular disease Heart failure with reduced ejection fraction Wheezing Vitamin D deficiency Thoracic cyst TIA (transient ischemic attack) Colon cancer Hypercholesterolemia BPH (benign prostatic hyperplasia) Hypertension GERD (gastroesophageal reflux disease) Surgical History History of colectomy History of cholecystectomy Family History Family History Father Medical history unknown Mother Hypertension Sister Breast cancer Social History Social History Housing: House Alcohol intake: current Alcohol intake frequency: does not drink Patient Tobacco Use Status: Former Tobacco user Tobacco use type: Cigarette Years Smoked: Quit 21 years old Smoked in Last 30 Days: No e-Cigarette/Vaping Use: Never Used Second Hand Smoke Exposure: No Use of substances other than those prescribed or required for medical reasons: No Advance Directives: No Advance Directives Information Provided: No service: Yes Current occupational status: retired Cognitive needs: No Hearing needs: No Vision needs: Yes Physical Exam 2 Vital Signs: Vital Signs: Last Vital Signs Temp 98 F 04/14/24 20:36 Pulse 66 04/15/24 00:06 Resp 20 04/15/24 00:06 BP 104/54 L 04/15/24 00:06 Pulse Ox 97 04/15/24 00:06 O2 Del Method Room Air 04/15/24 00:06 BMI result Body Mass Index 21.2 Appearance: Alert. Oriented X3. No acute distress. Eyes: PERRLA, No Nystagmus ENT: Pharynx normal. Oral Mucosa dry Neck: Normal inspection. Neck supple. CVS: Normal heart rate and rhythm. Pulses normal. Respiratory: No respiratory distress. Equal air entry bilateral, no wheezing/rales/rhonchi Abdomen: Soft and nontender. Bowel sounds are present, no mass palpable, no CVA tenderness Skin: Skin warm and dry. Normal skin color. Normal skin turgor. Extremities: No lower extremity edema. No calf tenderness Neuro: Oriented X 3. No motor deficit. No sensory deficit.No cerebellar signs , cranial nerves II-XII intact Medications Administered Generic Name Dose Route Start Last Admin Trade Name Freq PRN Reason Stop Dose Admin Enoxaparin Sodium 40 mg 04/14/24 22:15 04/14/24 22:32 Enoxaparin Sodium 40 Mg/0.4 Ml Syringe SUBCUT 40 mg Q24H IVY Administration Sodium Chloride 3 ml 04/15/24 00:00 04/15/24 00:00 0.9 % Sodium Chloride Flush 3 Ml Syringe IVFLUSH Not Given QSHIFT IVY Discontinued Medications Generic Name Dose Route Start Last Admin Trade Name Freq PRN Reason Stop Dose Admin Sodium Chloride 1,000 mls @ 999 mls/hr 04/14/24 18:45 04/14/24 20:57 Ns IV 04/14/24 19:45 Infused .Q1H1M ONE Infusion Potassium Chloride 10 meq in 100 mls @ 100 mls/hr 04/14/24 20:30 04/14/24 23:42 Potassium Chloride/H20 IV 04/14/24 22:29 Infused Q1H IVY Infusion Potassium Chloride 10 meq in 100 mls @ 100 mls/hr 04/14/24 22:45 04/15/24 01:07 Potassium Chloride/H20 IV 04/15/24 00:44 100 mls/hr Q1H IVY Administration Magnesium Sulfate 2 gm in 50 mls @ 25 mls/hr 04/14/24 22:11 04/15/24 00:30 Magnesium Sulfate/H2o IV 04/15/24 00:10 Infused ONCE ONE Infusion Sodium Chloride 500 mls @ 500 mls/hr 04/14/24 23:45 04/15/24 00:45 Ns IV 04/15/24 00:44 Infused .Q1H IVY Infusion Potassium Chloride 20 meq 04/14/24 20:23 04/14/24 20:40 Potassium Chloride Er 20 Meq Tab.Er.Prt PO 04/14/24 20:24 20 meq ONCE ONE Administration Potassium Chloride 40 meq 04/14/24 22:08 04/14/24 22:32 Potassium Chloride Packet 20 Meq Packet PO 04/14/24 22:09 40 meq ONCE ONE Administration Medical Decision Making Medical Decision Making MDM Narrative: Patient with acute confusion and weakness possible seizure/metabolic encephalopathy/UTI Differential Diagnosis Differential Diagnoses: The differential diagnosis associated with the presentation includes UTI/to encephalopathy/seizure/CVA Admission/Observation Consideration of admission/observation: Escalation of care including admission/observation considered Consult Healthcare Provider Management of the patient was discussed with: Hospitalist Lab Data MDM Lab Attestation statement: I reviewed the patient's lab results. 04/14/24 19:47 04/14/24 19:47 Labs: Lab Results 04/14/24 Range/Units 19:47 WBC 10.9 H (4.8-10.8) X10*3/uL RBC 3.64 L (4.60-5.80) X10*6/uL Hgb 11.7 L (14.0-18.0) g/dl Hct 33.5 L (42.0-52.0) % MCV 92.0 (80.0-98.0) fL MCH 32.1 (27.0-33.0) pg MCHC 34.9 (31.0-36.0) g/dl RDW 14.4 (11.0-16.0) % Plt Count 439 H D (160-400) X10*3/uL MPV 9.4 (9.4-12.4) fL Immature Gran % (Auto) 0.5 H (0.0-0.4) % Neut % (Auto) 80.6 H (45-73) % Lymph % (Auto) 6.9 L (20-40) % [place] % (Auto) 9.8 (2-11) % Eos % (Auto) 1.6 (0-4) % Baso % (Auto) 0.6 (0-2) % Lymph # (Auto) 0.8 L (1.2-4.9) X10*3/uL [place] # (Auto) 1.1 (0.1-1.2) X10*3/uL Eos # (Auto) 0.2 (0.0-0.4) X10*3/uL Baso # (Auto) 0.1 (0.0-0.2) X10*3/uL Abs Immat Gran (auto) 0.05 H (0.00-0.03) X10*3/uL Absolute Neuts (auto) 8.8 H (2.0-8.3) x10*3/uL Absolute Nucleated RBC 0.000 (0.0-0.012) X10*3/uL Nucleated RBC % (auto) 0.0 (0.0-0.2) /100WBC Sodium 140 (135-145) mmol/L Potassium 2.5 L* D (3.3-5.1) mmol/L Chloride 109 H (96-108) mmol/L Carbon Dioxide 21 L (22-29) mmol/L Anion Gap 12 (12-20) BUN 15 (9-16) mg/dL Creatinine 0.64 (0.5-1.4) mg/dL Estim Creat Clear Calc 76.9 Estimated GFR > 60 Random Glucose 119 H (60-115) mg/dL Calcium 7.7 L D (8.4-10.2) mg/dL Magnesium 1.5 L (1.6-2.6) mg/dL Total Bilirubin 0.5 (0.0-1.0) mg/dL AST 28 (5-37) U/L ALT 28 (0-40) U/L Alkaline Phosphatase 86 (39-117) U/L Total Protein 5.7 L (6.5-8.0) g/dL Albumin 2.6 L (3.5-5.0) g/dL Independent Interpretation I performed an independent interpretation of an: EKG and CT Scan Interpretation: Normal sinus rhythm heart rate 86 beats per minute right bundle-branch block PVCs nonspecific STT wave change no acute ischemia Radiology Impression Discussion of test interpretation with radiology: I have reviewed the radiologist's reading. Critical Care Time Critical Care Time Critical Care Time: Yes Total Critical Care Time: 55 Attestation: The patient was critically ill with a high probability of imminent or life threatening deterioration. I spent greater than ?60??minutes of discontinuous time evaluating the patient,delivering critical care at the bedside, discussing and evaluating pertinent data with consultants. Critical care time does not include time spent performing separately billable procedures or teaching. Total time spent performing critical care was 55???minutes. Discharge Plan Discharge Clinical Impression: Hypokalemia Patient Disposition: Admitted As Inpatient
--- NOTE | 2024-04-14 20:06 | PC.NURSE ---
pt biba reporting increased falls; dizziness/lethargy/general weakness. pt denies extremity pain/NUÑEZ/neck pain/cp/sob/n/v/d. pt is axox4, states was using a cane, needing walker now. on arrival pt changed to hospital gown placed on heart monitor. ekg and labs obtained. ivf infusing per mar. no focal deficits noted. pt is speaking full clear sentences. on daughters arrival to ed daughter states pt had an episode lasting approx 10 min of pt being disoriented/unsure of where he was then becoming absent and not answering questions. on ems arrival pt was back to baseline. -loc per daughter. no seizure activity noticed by family. daughter points out slight facial droop which is not baseline. Dr. Toribio made aware.
[2024-04-14 20:24] LABS: Alanine Aminotransferase 28 U/L (0-40); Albumin Level 2.6 g/dL (3.5-5.0); Alkaline Phosphatase 86 U/L (39-117); Anion Gap 12 (12-20); Aspartate Amino Transferase 28 U/L (5-37); Bilirubin Total 0.5 mg/dL (0.0-1.0); Blood Urea Nitrogen 15 mg/dL (9-16); Calcium 7.7 mg/dL (8.4-10.2); Carbon Dioxide 21 mmol/L (22-29); Chloride 109 mmol/L (96-108); Creatinine Clr Calc Pharmacy 76.9; Estimated Glomerular Filt Rate > 60; Glucose Random 119 mg/dL (60-115); Magnesium 1.5 mg/dL (1.6-2.6); Potassium 2.5 mmol/L (3.3-5.1); Sodium 140 mmol/L (135-145); Total Protein 5.7 g/dL (6.5-8.0)
[2024-04-14 20:36] VITALS: BP 105/50; PULSE 84; RESP 14; TEMP 36.6; O2SAT 98
[2024-04-14] MEDS: Potassium Chloride/H20 10 MEQ/100 ML PIGGYBACK 100 MEQ IV ×3 (20:36→23:42)
[2024-04-14] MEDS: Potassium Chloride ER 20 MEQ TAB.ER.PRT PO (20:40)
--- NOTE | 2024-04-14 20:40 | PC.NURSE ---
pt passed swallow eval. po potassium given per dec pt tolerated well.
--- NOTE | 2024-04-14 21:14 | PC.NURSE ---
20g iv to L. hand infiltrated, iv potassium paused. heat pack applied to hand. aware. pt is difficult MD amador to obtain u/s iv.
--- NOTE | 2024-04-14 21:49 | PC.NURSE ---
unable to establish u/s iv per . EJ placed to R. neck. iv potassium started per dec.
--- NOTE | 2024-04-14 22:13 | PM.IMHP ---
History of Present Illness Date of Service: 04/14/24 Chief Complaint: Weakness, falls This is a 89-year-old male with pertinent history of CAD status post PCI, ischemic cardiomyopathy and congestive heart failure with reduced ejection fraction, BPH, gastroesophageal reflux disease, hypertension, history of colon cancer status post hemicolectomy in 2017 who was brought to the emergency department for evaluation of falls and weakness. As per the daughter who was present earlier, patient had an episode of blank staring after dinner when he was not responding to verbal stimulus. This lasted for about 10 minutes. This has never happened before. No jerking movement of extremities. Patient did not lose consciousness. Daughter was concerned that patient might have had a seizure. The patient does not remember this episode. He states that he has been having weakness of his legs that has been ongoing for many weeks. He has been frequently falling with least one fall per week. He denies any complaints at the time of my evaluation. No fever, chills, chest discomfort, palpitations, shortness of breath, abdominal pain, no changes in urinary or bowel habits. In the emergency department, potassium was found to be low and repleted. Review of Systems Constitutional: Constitutional: Reports malaise, Reports poor appetite and Reports weakness Cardiovascular: Cardiovascular: Reports no additional cardiovascular complaints Respiratory: Respiratory: Reports no additional respiratory complaints Gastrointestinal: Gastrointestinal: Reports no additional gastrointestinal complaints Genitourinary: Genitourinary: Reports no additional male genitourinary complaints Neurologic: Reports weakness [facility] Medical History Medicare annual wellness visit, initial Atherosclerotic cardiovascular disease Heart failure with reduced ejection fraction Wheezing Vitamin D deficiency Thoracic cyst TIA (transient ischemic attack) Colon cancer Hypercholesterolemia BPH (benign prostatic hyperplasia) Hypertension GERD (gastroesophageal reflux disease) Family History Father Medical history unknown Mother Hypertension Sister Breast cancer Surgical History History of colectomy History of cholecystectomy Social History Housing: House Alcohol intake: current Alcohol intake frequency: 0-2 drinks per day Patient Tobacco Use Status: Former Tobacco user Tobacco use type: Cigarette Years Smoked: Quit 21 years old e-Cigarette/Vaping Use: Never Used Second Hand Smoke Exposure: No Advance Directives: No Advance Directives Information Provided: No service: Yes Current occupational status: retired Cognitive needs: No Hearing needs: No Vision needs: Yes Meds Allergies Allergy/AdvReac Type Severity Reaction Status Date / Time No Known Allergies Allergy Verified 04/14/24 19:12 [No Known Allergies*] Active Medications: Current Medications Potassium Chloride (Potassium Chloride/H20) 10 meq in 100 mls @ 100 mls/hr IV Q1H IVY Stop: 04/14/24 22:29 Last Infusion: 04/14/24 21:49 Dose: 100 mls/hr Potassium Chloride (Potassium Chloride/H20) 10 meq in 100 mls @ 100 mls/hr IV Q1H IVY Stop: 04/15/24 00:44 Potassium Chloride (Potassium Chloride Packet 20 Meq Packet) 40 meq PO ONCE ONE Stop: 04/14/24 22:09 Home Medications ?Medication ?Instructions ?Recorded ?Confirmed ?Last Taken ?Type aspirin 81 mg tablet,delayed 81 mg PO DAILY 03/16/24 04/08/24 Unknown History release cholecalciferol (vitamin D3) 1,250 1,250 mcg PO FR 03/16/24 04/10/24 03/13/24 History mcg (50,000 unit) capsule meclizine 25 mg tablet 25 mg PO TID PRN Dizziness 03/16/24 04/08/24 Unknown History Physical Exam Vital Signs and Narrative: Vital Signs: Last Vital Signs Temp 98 F 04/14/24 20:36 Pulse 84 04/14/24 20:36 Resp 14 04/14/24 20:36 BP 105/50 L 04/14/24 20:36 Pulse Ox 98 04/14/24 20:36 O2 Del Method Room Air 04/14/24 20:36 BMI result Body Mass Index 21.2 Elderly male lying in bed in no distress Neck supple, no JVD Regular rate and rhythm, S1-S2 heard Regular breath sounds bilaterally, no wheezing or crackles appreciated Abdomen soft nontender, no guarding, no rigidity Patient is awake, alert and oriented to self, place, time and person ; no focal motor weakness, no pronator drift, no facial droop Psych: Normal mood No pedal edema Results Labs 04/14/24 19:47 04/14/24 19:47 Labs: Laboratory Results - last 24 hr 04/14/24 19:47 MCV 92.0 MCH 32.1 MCHC 34.9 RDW 14.4 Plt Count 439 H D MPV 9.4 Immature Gran % (Auto) 0.5 H Neut % (Auto) 80.6 H Lymph % (Auto) 6.9 L [place] % (Auto) 9.8 Eos % (Auto) 1.6 Baso % (Auto) 0.6 Lymph # (Auto) 0.8 L [place] # (Auto) 1.1 Eos # (Auto) 0.2 Baso # (Auto) 0.1 Abs Immat Gran (auto) 0.05 H Absolute Neuts (auto) 8.8 H Absolute Nucleated RBC 0.000 Nucleated RBC % (auto) 0.0 Anion Gap 12 Estim Creat Clear Calc 76.9 Estimated GFR > 60 Random Glucose 119 H Calcium 7.7 L D Magnesium 1.5 L Total Bilirubin 0.5 AST 28 ALT 28 Alkaline Phosphatase 86 Total Protein 5.7 L Albumin 2.6 L Imaging Radiologist's Impressions: Impressions Chest X-Ray 04/14/24 18:59 IMPRESSION: No acute cardiopulmonary process seen. Head CT 04/14/24 20:23 IMPRESSION: No acute intracranial process seen. Age-related cerebral volume loss with chronic small vessel ischemic changes in both cerebral hemispheres. Assessment and Plan (1) Hypokalemia: Status: Acute (2) Generalized weakness: Status: Acute (3) Frequent falls: Status: Acute Plan This is a 89-year-old male with pertinent history of CAD status post PCI, ischemic cardiomyopathy and congestive heart failure with reduced ejection fraction, BPH, gastroesophageal reflux disease, hypertension, history of colon cancer status post hemicolectomy in 2017 who was brought to the emergency department for evaluation of falls and weakness. #. Hypokalemia and hypomagnesemia: Likely due to diuresis. Repleted #. Generalized weakness, likely due to debility. Monitor for improvement with electrolyte repletion as above. Will also check B12. Consulting Physical therapy to evaluate and treat #. ?Seizure episode, non clonic tonic: Obtaining EEG and consulting Neurology #. CAD status post PCI: On aspirin, Brilinta and high-intensity statin #. Systolic heart failure: On beta-rishi, SHELDON inhibitor and furosemide Med rec pending DVT prophylaxis: Lovenox Full code Quality Stroke Does the patient have a stroke diagnosis?: No VTE Prior VTE?: No VTE Risk Level:: Medical - moderate - high VTE Device Contraindication: Treatment Not Indicated VTE Drug Contraindication: N/A - Med Ordered
[2024-04-14] MEDS: Magnesium Sulfate/H2O 2 GM/50 ML PIGGYBACK IV (22:28)
[2024-04-14] MEDS: Enoxaparin Sodium 40 MG/0.4 ML SYRINGE SUBCUT (22:32)
[2024-04-14] MEDS: Potassium Chloride Packet 20 MEQ PACKET 40 MEQ PO (22:32)
[2024-04-14] MEDS: 0.9 % Sodium Chloride 500 ML IV (23:42)
--- NOTE | 2024-04-14 23:43 | PC.NURSE ---
pt is arousable to name. bp 80/43. md aware. 500ml ns bolus infusing per order. 3rd iv potassium infusing.
[2024-04-15] VITALS (8 sets, daily range): BP systolic 103–138; BP diastolic 54–61; PULSE 66–79; RESP 12–20; TEMP 36.2–37.1; O2SAT 96–100; BMI 20.4
--- NOTE | 2024-04-15 | EEG_ITS ---
FINDINGS: Waking background activity consists of low voltage fast frequency seen diffusely intermixed with low voltage 9 hertz intermittent posterior alpha. Drowsiness is characterized by diffuse theta slowing and low-voltage delta from the background. Some scattered theta has moderate voltage 6 hertz seen from the posterior quadrant symptomatically. Photic stimulation is without activation. Hyperventilation is omitted. IMPRESSION: This EEG is considered mildly abnormal due to mild diffuse scattered slowing intermittently. No epileptiform discharges are seen. This correlates with a mild encephalopathic process without any paroxysmal features. Clinical correlation is suggested. MD MITCHELL Mccloud/KRYSTIN / [id number]
[2024-04-15] MEDS: Potassium Chloride/H20 10 MEQ/100 ML PIGGYBACK 100 MEQ IV (01:07)
[2024-04-15 04:56] LABS: MANUAL DIFF FLAG NO
[2024-04-15 04:58] LABS: Basophils Absolute Auto 0.1 X10*3/uL (0.0-0.2); Basophils Percent Auto 0.5 % (0-2); Eosinophils Absolute Auto 0.2 X10*3/uL (0.0-0.4); Eosinophils Percent Auto 1.7 % (0-4); Hemoglobin 10.5 g/dl (14.0-18.0); Imm Gran Abs Auto 0.05 X10*3/uL (0.00-0.03); Imm Gran Pct Auto 0.5 % (0.0-0.4); Lymphocytes Absolute Auto 1.3 X10*3/uL (1.2-4.9); Lymphocytes Percent Auto 12.5 % (20-40); Mean Corpuscular HGB Conc 33.9 g/dl (31.0-36.0); Mean Corpuscular Hemoglobin 31.9 pg (27.0-33.0); Mean Corpuscular Volume 94.2 fL (80.0-98.0); Mean Platelet Volume 9.3 fL (9.4-12.4); Monocytes Absolute Auto 1.1 X10*3/uL (0.1-1.2); Monocytes Percent Auto 10.2 % (2-11); Neutrophils Absolute Auto 7.9 x10*3/uL (2.0-8.3); Neutrophils Percent Auto 74.6 % (45-73); Platelet Count 421 X10*3/uL (160-400); Red Blood Count 3.29 X10*6/uL (4.60-5.80); Red Cell Distribution Width 14.6 % (11.0-16.0); White Blood Count 10.5 X10*3/uL (4.8-10.8)
[2024-04-15 05:20] LABS: Appearance Urine Clear; Color Urine Yellow; Glucose Urine UA Negative (Negative); Leukocyte Esterase Urine Negative (Negative); Nitrite Urine Negative (Negative); PH 5.5 (5.0-9.0); Specific Gravity - Urine 1.015 (1.005-1.025); Urine Blood Negative (Negative); Urine Ketones Trace mg/dL (Negative); Urine Protein Negative (Neg-Trace)
[2024-04-15 05:24] LABS: Anion Gap 11 (12-20); Blood Urea Nitrogen 15 mg/dL (9-16); Calcium 8.7 mg/dL (8.4-10.2); Carbon Dioxide 24 mmol/L (22-29); Chloride 107 mmol/L (96-108); Creatinine Clr Calc Pharmacy 70.3; Estimated Glomerular Filt Rate > 60; Glucose Random 101 mg/dL (60-115); Magnesium 2.5 mg/dL (1.6-2.6); Potassium 4.1 mmol/L (3.3-5.1); Sodium 138 mmol/L (135-145)
--- NOTE | 2024-04-15 07:42 | PC.NURSE ---
PT at bedside to evaluate patient.
--- NOTE | 2024-04-15 08:56 | PHA.MEDREC ---
Pharmacy Consult ? Medication Reconciliation Pharmacy has completed the medication reconciliation. Pt has AMS, spoke with daughter, Jessica who had a med list. She confirmed all meds, he takes Vitamin D every Saturday, and received both AM and PM doses at home yesterday 04/14.
[2024-04-15] MEDS: 0.9 % Sodium Chloride Flush 3 ML SYRINGE IVFLUSH ×2 (09:23→16:27)
--- NOTE | 2024-04-15 10:14 | PM.NEUROCN ---
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 EEG showing some right parietal slowing and sharp discharges possible c/w partial Sz. He was brought to the emergency department for evaluation of falls and weakness. As per the daughter he had an episode of blank staring after dinner when he was not responding to verbal stimulus. This lasted for about 10 minutes. This has never happened before. No jerking movement of extremities. Patient did not lose consciousness. Daughter was concerned that patient might have had a seizure. The patient does not remember this episode. He states that he has been having weakness of his legs that has been ongoing for many weeks. He has been frequently falling with least one fall per week. He denies any complaints at the time of my evaluation and is back to his mental baseline. No fever, chills, chest discomfort, palpitations, shortness of breath, abdominal pain, no changes in urinary or bowel habits. [facility] Past Medical History Medical History Medicare annual wellness visit, initial Atherosclerotic cardiovascular disease Heart failure with reduced ejection fraction Wheezing Vitamin D deficiency Thoracic cyst TIA (transient ischemic attack) Colon cancer Hypercholesterolemia BPH (benign prostatic hyperplasia) Hypertension GERD (gastroesophageal reflux disease) Family History Family History Father Medical history unknown Mother Hypertension Sister Breast cancer Surgical History Surgical History History of colectomy History of cholecystectomy Social History Social History Housing: House Alcohol intake: current Alcohol intake frequency: does not drink Patient Tobacco Use Status: Former Tobacco user Tobacco use type: Cigarette Years Smoked: Quit 21 years old Smoked in Last 30 Days: No e-Cigarette/Vaping Use: Never Used Second Hand Smoke Exposure: No Use of substances other than those prescribed or required for medical reasons: No Advance Directives: No Advance Directives Information Provided: No service: Yes Current occupational status: retired Cognitive needs: No Hearing needs: No Vision needs: Yes Meds Allergies Allergy/AdvReac Type Severity Reaction Status Date / Time No Known Allergies Allergy Verified 04/14/24 19:12 [No Known Allergies*] Active Medications: Current Medications Acetaminophen (Acetaminophen 325 Mg Tablet) 650 mg PO Q6H PRN PRN Reason: Pain, Mild (Pain Scale 1-3), fever or headache Calcium Carbonate (Calcium Carbonate 750 Mg Tab.Chew) 750 mg PO Q4H PRN PRN Reason: Heartburn Enoxaparin Sodium (Enoxaparin Sodium 40 Mg/0.4 Ml Syringe) 40 mg SUBCUT Q24H [facility] Last Admin: 04/14/24 22:32 Dose: 40 mg Magnesium Hydroxide (Milk Of Magnesia 30 Ml Oral.Susp) 30 ml PO DAILY PRN PRN Reason: Constipation Melatonin (Melatonin 3 Mg Tablet) 6 mg PO BEDTIME PRN PRN Reason: Insomnia Ondansetron HCl (Ondansetron Hcl 4 Mg/2 Ml Vial) 4 mg IVPUSH Q8H PRN PRN Reason: Nausea and Vomiting Sodium Chloride (0.9 % Sodium Chloride Flush 3 Ml Syringe) 3 ml IVFLUSH QSHIFT [facility] Last Admin: 04/15/24 00:00 Dose: Not Given Home Medications ?Medication ?Instructions ?Recorded ?Confirmed ?Last Taken ?Type aspirin 81 mg tablet,delayed 81 mg PO DAILY 03/16/24 04/15/24 04/14/24 History release cholecalciferol (vitamin D3) 1,250 1,250 mcg PO FR 03/16/24 04/15/24 04/14/24 History mcg (50,000 unit) capsule meclizine 25 mg tablet 25 mg PO TID PRN Dizziness 03/16/24 04/15/24 04/14/24 History acetaminophen 325 mg tablet 650 mg PO Q6H PRN Pain 04/15/24 04/15/24 04/14/24 History atorvastatin 40 mg tablet 40 mg PO BEDTIME 04/15/24 04/15/24 04/14/24 History carvedilol 12.5 mg tablet 12.5 mg PO BIDWM 04/15/24 04/15/24 04/14/24 History clopidogrel 75 mg tablet 75 mg PO DAILY 04/15/24 04/15/24 04/14/24 History furosemide 20 mg tablet 20 mg PO DAILY 04/15/24 04/15/24 04/14/24 History omeprazole 20 mg capsule,delayed 20 mg PO DAILY@0630 04/15/24 04/15/24 04/14/24 History release Physical Exam Vital Signs: Vital Signs: Last Vital Signs Temp 98.6 F 04/15/24 05:10 Pulse 66 04/15/24 07:50 Resp 12 04/15/24 05:10 BP 114/59 L 04/15/24 07:50 Pulse Ox 96 04/15/24 07:50 O2 Del Method Room Air 04/15/24 05:10 BMI result Body Mass Index 21.2 Neuro: Other: He is alert and oriented x3 with normal speech and language functions. He does not remember this episode that he had but says that his daughter told him that he was blank and not responding. His cranial nerves II through XII are normal. Muscle tone and strength are normal in all 4 extremities, deep tendon reflexes symmetrical. Plantar response are flexor. Neck is supple. Results Labs 04/15/24 04:40 04/15/24 04:40 Labs: Short CBC 04/14/24 04/15/24 Range/Units 19:47 04:40 WBC 10.9 H 10.5 (4.8-10.8) X10*3/uL Hgb 11.7 L 10.5 L (14.0-18.0) g/dl Hct 33.5 L 31.0 L (42.0-52.0) % Plt Count 439 H D 421 H (160-400) X10*3/uL BMP 04/14/24 04/15/24 19:47 04:40 Sodium 140 138 Potassium 2.5 L* D 4.1 D Chloride 109 H 107 Carbon Dioxide 21 L 24 BUN 15 15 Creatinine 0.64 0.70 Calcium 7.7 L D 8.7 D Liver Function 04/14/24 Range/Units 19:47 Total Bilirubin 0.5 (0.0-1.0) mg/dL AST 28 (5-37) U/L ALT 28 (0-40) U/L Alkaline Phosphatase 86 (39-117) U/L Albumin 2.6 L (3.5-5.0) g/dL Urine 04/15/24 Range/Units 05:14 Urine Color Yellow Urine Appearance Clear Urine pH 5.5 (5.0-9.0) Ur Specific [place] 1.015 (1.005-1.025) Urine Protein Negative (Neg-Trace) mg/dL Urine Glucose (UA) Negative (Negative) mg/dL Assessment and Plan (1) 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 A similar episode occurred in the beginning of April when he was admitted here. EEG at that time showed some right parietal episodes of slowing and sharp transients consistent with a seizure disorder. EEG on this visit is currently being done. Recommendations: Start levetiracetam 500 mg twice a day Procedures Date of Service Date of Service: 04/15/24
--- NOTE | 2024-04-15 10:22 | PC.NURSE ---
Pt taken to EEG.
[2024-04-15 10:53] LABS: Folate 6.2 ng/mL (> or = 4.0); Vitamin B12 632 pg/mL (200-900)
--- NOTE | 2024-04-15 11:45 | MHC.CM.PN ---
Addendum entered by Mally Cabral 04/15/24 11:49: PT EVAL COMPLETE, HOME SERVICES RECOMMENDED REFERRAL MADE TO NA Original Note: PT WITH DEMENTIA, CM ATTEMPTED TO CONTACT PTS X 2 CALLS WENT DIRECTLY TO VM MESSAGE LEFT REQUESTING A RETURN CALL AND DELIVERING OBSERVATION NOTICE PER PTS RECENT ADMISSION, HE LIVES AT HOME WITH HIS AND HAS NO FORMAL SERVICES AND NO DME COPY OF HCP REQUESTED DURING HIS 04/10/24 ADMISSION PCP: KATHERIN NELSON DCP TBD PENDING PT EVAL HOME WITH SERVICES VS STR TRANSPORT TBD BY DISPOSITION
--- NOTE | 2024-04-15 15:45 | P.PNIM_ITS ---
Subjective Subjective Date of Service: 04/15/24 Interval History: no further staring episodes notes jaw/face tight/sore no headache Review of Systems Review of Systems: Yes all other systems are reviewed and are negative Physical Exam 2 Vital Signs: Vital Signs: Last Vital Signs Temp 97.2 F 04/15/24 13:14 Pulse 74 04/15/24 13:14 Resp 18 04/15/24 13:14 BP 130/60 04/15/24 13:14 Pulse Ox 99 04/15/24 13:14 O2 Del Method Room Air 04/15/24 13:14 BMI result Body Mass Index 20.4 Gen: in no acute distress HEENT: sclera anicteric, moist mucus membranes Neck: supple Lungs: clear to auscultation bilaterally Heart: regular rate and rhythm, no murmurs Abd: soft, non-tender, non-distended Ext: no edema Skin: warm/well-perfused Neuro: alert and oriented x3, no focal findings Psych: appropriate affect Objective Data Active Medications Acetaminophen (Acetaminophen 325 Mg Tablet) 650 mg PO Q6H PRN PRN Reason: Pain, Mild (Pain Scale 1-3), fever or headache Ascorbic Acid (Ascorbic Acid 500 Mg Tablet) 500 mg PO DAILY [facility] Aspirin (Aspirin Enteric Coated 81 Mg Tablet.) 81 mg PO DAILY IVY Atorvastatin Calcium (Atorvastatin Calcium 40 Mg Tablet) 40 mg PO BEDTIME IVY Calcium Carbonate (Calcium Carbonate 750 Mg Tab.Chew) 750 mg PO Q4H PRN PRN Reason: Heartburn Carvedilol (Carvedilol 12.5 Mg Tablet) 12.5 mg PO BIDWM [facility]; Protocol Enoxaparin Sodium (Enoxaparin Sodium 40 Mg/0.4 Ml Syringe) 40 mg SUBCUT Q24H [facility] Last Admin: 04/14/24 22:32 Dose: 40 mg Documented By: MEG Ferrous Sulfate (Ferrous Sulfate 324 Mg Tablet.) 324 mg PO DAILY IVY Furosemide (Furosemide 20 Mg Tablet) 20 mg PO DAILY IVY; Protocol Levetiracetam (Levetiracetam 500 Mg Tablet) 500 mg PO BID IVY Lisinopril (Lisinopril 20 Mg Tablet) 20 mg PO DAILY IVY; Protocol Magnesium Hydroxide (Milk Of Magnesia 30 Ml Oral.Susp) 30 ml PO DAILY PRN PRN Reason: Constipation Meclizine HCl (Meclizine Hcl 25 Mg Tablet) 25 mg PO TID PRN PRN Reason: Dizziness Melatonin (Melatonin 3 Mg Tablet) 6 mg PO BEDTIME PRN PRN Reason: Insomnia Non-Formulary Medication (Cholecalciferol (Vitamin D3)) 1,250 mcg PO FR [facility] Omeprazole (Omeprazole 20 Mg Capsule.Dr) 20 mg PO DAILY@0630 [facility] Ondansetron HCl (Ondansetron Hcl 4 Mg/2 Ml Vial) 4 mg IVPUSH Q8H PRN PRN Reason: Nausea and Vomiting Sodium Chloride (0.9 % Sodium Chloride Flush 3 Ml Syringe) 3 ml IVFLUSH QSHIFT [facility] Last Admin: 04/15/24 09:23 Dose: 3 ml Documented By: BRIA Ticagrelor (Ticagrelor 90 Mg Tablet) 90 mg PO BID [facility] Labs 04/15/24 04:40 04/15/24 04:40 Labs: Laboratory Results - last 24 hr 04/14/24 04/15/24 04/15/24 19:47 04:40 05:14 MCV 92.0 94.2 MCH 32.1 31.9 MCHC 34.9 33.9 RDW 14.4 14.6 Plt Count 439 H D 421 H MPV 9.4 9.3 L Immature Gran % (Auto) 0.5 H 0.5 H Neut % (Auto) 80.6 H 74.6 H Lymph % (Auto) 6.9 L 12.5 L [place] % (Auto) 9.8 10.2 Eos % (Auto) 1.6 1.7 Baso % (Auto) 0.6 0.5 Lymph # (Auto) 0.8 L 1.3 [place] # (Auto) 1.1 1.1 Eos # (Auto) 0.2 0.2 Baso # (Auto) 0.1 0.1 Abs Immat Gran (auto) 0.05 H 0.05 H Absolute Neuts (auto) 8.8 H 7.9 Absolute Nucleated RBC 0.000 0.000 Nucleated RBC % (auto) 0.0 0.0 Anion Gap 12 11 L Estim Creat Clear Calc 76.9 70.3 Estimated GFR > 60 > 60 Random Glucose 119 H 101 Calcium 7.7 L D 8.7 D Magnesium 1.5 L 2.5 Total Bilirubin 0.5 AST 28 ALT 28 Alkaline Phosphatase 86 Total Protein 5.7 L Albumin 2.6 L Vitamin B12 Folate Urine Color Yellow Urine Appearance Clear Urine pH 5.5 Ur Specific [place] 1.015 Urine Protein Negative Urine Glucose (UA) Negative Urine Ketones Trace Urine Blood Negative Urine Nitrite Negative Ur Leukocyte Esterase Negative 04/15/24 09:24 MCV MCH MCHC RDW Plt Count MPV Immature Gran % (Auto) Neut % (Auto) Lymph % (Auto) [place] % (Auto) Eos % (Auto) Baso % (Auto) Lymph # (Auto) [place] # (Auto) Eos # (Auto) Baso # (Auto) Abs Immat Gran (auto) Absolute Neuts (auto) Absolute Nucleated RBC Nucleated RBC % (auto) Anion Gap Estim Creat Clear Calc Estimated GFR Random Glucose Calcium Magnesium Total Bilirubin AST ALT Alkaline Phosphatase Total Protein Albumin Vitamin B12 632 Folate 6.2 Urine Color Urine Appearance Urine pH Ur Specific [place] Urine Protein Urine Glucose (UA) Urine Ketones Urine Blood Urine Nitrite Ur Leukocyte Esterase Assessment and Plan (1) 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 ] - will start levetiracetam 500 mg bid as per Neurology consultation hypoK hypoMg - repleted; recheck levels in AM with resumption of furosemide chronic HFrEF - carvedilol, lisinopril, furosemide CAD - DAPT, statin GERD - PPI VTE ppx - LMWH Total time managing care of this patient today: 35 minutes. Quality Stroke Does the patient have a stroke diagnosis?: No VTE Prior VTE?: No VTE Risk Level:: Medical - moderate - high VTE Device Contraindication: Treatment Not Indicated VTE Drug Contraindication: N/A - Med Ordered
[2024-04-15] MEDS: levETIRAcetam 500 MG TABLET PO ×2 (16:27→20:21)
[2024-04-15] MEDS: carvediloL 12.5 MG TABLET PO (16:27)
[2024-04-15] MEDS: LORazepam 2 MG/ML VIAL 0.5 MG IVPUSH (18:46)
[2024-04-15] MEDS: Atorvastatin Calcium 40 MG TABLET PO (20:21)
[2024-04-15] MEDS: Ticagrelor 90 MG TABLET PO (20:21)
[2024-04-15] MEDS: Melatonin 3 MG TABLET 6 MG PO (20:21)
[2024-04-15] MEDS: Enoxaparin Sodium 40 MG/0.4 ML SYRINGE SUBCUT (22:38)
[2024-04-16] MEDS: 0.9 % Sodium Chloride Flush 3 ML SYRINGE IVFLUSH ×2 (00:06→22:10)
[2024-04-16 02:48] VITALS: BP 104/51; PULSE 71; RESP 16; TEMP 36.1; O2SAT 98
[2024-04-16 06:56] VITALS: BP 100/52; PULSE 77; RESP 18; TEMP 36.7; O2SAT 98
[2024-04-16 08:50] LABS: Anion Gap 14 (12-20); Blood Urea Nitrogen 12 mg/dL (9-16); Calcium 8.8 mg/dL (8.4-10.2); Carbon Dioxide 21 mmol/L (22-29); Chloride 105 mmol/L (96-108); Creatinine Clr Calc Pharmacy 79.1; Estimated Glomerular Filt Rate > 60; Glucose Random 93 mg/dL (60-115); Magnesium 2.2 mg/dL (1.6-2.6); Potassium 4.1 mmol/L (3.3-5.1); Sodium 136 mmol/L (135-145)
[2024-04-16] MEDS: Aspirin Enteric Coated 81 MG TABLET.DR PO (09:33)
[2024-04-16] MEDS: Ferrous Sulfate 324 MG TABLET.DR PO (09:33)
[2024-04-16] MEDS: Ticagrelor 90 MG TABLET PO ×2 (09:33→22:05)
[2024-04-16] MEDS: levETIRAcetam 500 MG TABLET PO ×2 (09:33→22:05)
[2024-04-16] MEDS: Furosemide 20 MG TABLET PO (09:33)
[2024-04-16] MEDS: carvediloL 12.5 MG TABLET PO ×2 (09:33→17:03)
[2024-04-16] MEDS: Ascorbic Acid 500 MG TABLET PO (09:33)
--- NOTE | 2024-04-16 11:33 | P.F2F_ITS ---
Service Date Service Date: 04/16/24 Encounter Date of encounter: 04/16/24 Reasons for Services Signs and symptoms assessed: Impaired Standing Balance,Muscle Weakness Reason for group home: neurological assessment Reason for physical therapy: home safety and mobility, therapeutic exercises, gait/transfer training, assess need for DME, ADL training and energy conservation MD Overseeing Care: Js Allison Homebound: Leaving the home is medically contraindicated at this time without the asist of a device and/or another person due th the listed conditions above and below. Reason homebound: unsteady gait / fall risk Homebound supporting statement: Bed Mobility, Transfer Training,Gait Training,Stair Training, Therapeutic Activities, Therapeutic Exercise, Patient Education, Safety,Balance Certification: Based on the above findings, I certify that this patient is confined to the home and needs intermittent group home care, physical therapy and/or speech therapy, or continues to need occupational therapy. The patient is under my care, and I have initiated the establishment of the plan of care. The patient will be followed by a physician who will periodically review the plan of care. Time Spent With Patient Time: Total time managing care of this patient today ____ minutes.
--- NOTE | 2024-04-16 11:51 | PM.DS ---
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: Status: Acute (2) Hypokalemia: Status: Acute (3) Hypomagnesemia: Status: Acute (4) GERD (gastroesophageal reflux disease): Status: Acute DS: Summary Hospital Course Hospital Course: From the history and physical by the admitting hospitalist, Radhaaaliyah Schumacher, 04/14/24: This is a 89-year-old male with pertinent history of CAD status post PCI, ischemic cardiomyopathy and congestive heart failure with reduced ejection fraction, BPH, gastroesophageal reflux disease, hypertension, history of colon cancer status post hemicolectomy in 2017 who was brought to the emergency department for evaluation of falls and weakness. As per the daughter who was present earlier, patient had an episode of blank staring after dinner when he was not responding to verbal stimulus. This lasted for about 10 minutes. This has never happened before. No jerking movement of extremities. Patient did not lose consciousness. Daughter was concerned that patient might have had a seizure. The patient does not remember this episode. He states that he has been having weakness of his legs that has been ongoing for many weeks. He has been frequently falling with least one fall per week. He denies any complaints at the time of my evaluation. No fever, chills, chest discomfort, palpitations, shortness of breath, abdominal pain, no changes in urinary or bowel habits. In the emergency department, potassium was found to be low and repleted. 89yo M with CAD s/p PCI, ischemic CM, HFrEF, GERD, HTN, and hx colon CA s/p hemicolectomy presenting with staring episode concerning for seizure, falls, and multiple electrolyte abnormalities. Potassium and magnesium were repleted to normal and remained normal on recheck. Neurology was consulted. Prior EEG 03/17/24 suggestive of seizure disorder [showed intermittent slowing and occasional sharp transients seen predominantly from the right parietal area that may indicate an underlying area of structural abnormality with a seizure potential. ]. At the neurologist's recommendation, started levetiracetam 500 mg bid. He was seen by PT and home services with PT through [facility] were recommended. Due to several weeks of postprandial coughing, he was seen by [facility]. All aspects of swallowing were normal. It is quite possible that his GERD is causing the symptoms, so omeprazole was increased from 20 mg daily to 20 mg bid. He should follow up with Primary Care in 1-2 weeks and with Neurology in 2-4 weeks. Time Attestation Discharge Coordination Time (in mins): 35 Quality: Safe Use of Opioids Does Pt have an Active Cancer Diagnosis on the Problem List?: No Quality: Stroke Does the patient have a stroke diagnosis?: No Physical Exam Vital Signs: Vital Signs: Temp Pulse Resp BP Pulse Ox O2 Del Method 97.6 F 76 14 127/58 L 96 Room Air 04/17/24 08:00 04/17/24 08:32 04/17/24 08:00 04/17/24 09:03 04/17/24 08:00 04/17/24 08:00 Body Mass Index 20.4 Gen: in no acute distress HEENT: sclera anicteric, moist mucus membranes Neck: supple Lungs: clear to auscultation bilaterally Heart: regular rate and rhythm, no murmurs Abd: soft, non-tender, non-distended Ext: no edema Skin: warm/well-perfused Neuro: alert and oriented x3, no focal findings Psych: appropriate affect DS: Data Data Completed and Pending Completed studies during hospitalization [Text1]: Laboratory Results WBC 10.5 X10*3/uL (4.8-10.8) 04/15/24 04:40 RBC 3.29 X10*6/uL (4.60-5.80) L 04/15/24 04:40 Hgb 10.5 g/dl (14.0-18.0) L 04/15/24 04:40 Hct 31.0 % (42.0-52.0) L 04/15/24 04:40 MCV 94.2 fL (80.0-98.0) 04/15/24 04:40 MCH 31.9 pg (27.0-33.0) 04/15/24 04:40 MCHC 33.9 g/dl (31.0-36.0) 04/15/24 04:40 RDW 14.6 % (11.0-16.0) 04/15/24 04:40 Plt Count 421 X10*3/uL (160-400) H 04/15/24 04:40 MPV 9.3 fL (9.4-12.4) L 04/15/24 04:40 Immature Gran % (Auto) 0.5 % (0.0-0.4) H 04/15/24 04:40 Neut % (Auto) 74.6 % (45-73) H 04/15/24 04:40 Lymph % (Auto) 12.5 % (20-40) L 04/15/24 04:40 [place] % (Auto) 10.2 % (2-11) 04/15/24 04:40 Eos % (Auto) 1.7 % (0-4) 04/15/24 04:40 Baso % (Auto) 0.5 % (0-2) 04/15/24 04:40 Lymph # (Auto) 1.3 X10*3/uL (1.2-4.9) 04/15/24 04:40 [place] # (Auto) 1.1 X10*3/uL (0.1-1.2) 04/15/24 04:40 Eos # (Auto) 0.2 X10*3/uL (0.0-0.4) 04/15/24 04:40 Baso # (Auto) 0.1 X10*3/uL (0.0-0.2) 04/15/24 04:40 Abs Immat Gran (auto) 0.05 X10*3/uL (0.00-0.03) H 04/15/24 04:40 Absolute Neuts (auto) 7.9 x10*3/uL (2.0-8.3) 04/15/24 04:40 Absolute Nucleated RBC 0.000 X10*3/uL (0.0-0.012) 04/15/24 04:40 Nucleated RBC % (auto) 0.0 /100WBC (0.0-0.2) 04/15/24 04:40 Sodium 136 mmol/L (135-145) 04/16/24 07:28 Potassium 4.1 mmol/L (3.3-5.1) 04/16/24 07:28 Chloride 105 mmol/L (96-108) 04/16/24 07:28 Carbon Dioxide 21 mmol/L (22-29) L 04/16/24 07:28 Anion Gap 14 (12-20) 04/16/24 07:28 BUN 12 mg/dL (9-16) 04/16/24 07:28 Creatinine 0.60 mg/dL (0.5-1.4) 04/16/24 07:28 Estim Creat Clear Calc 79.1 04/16/24 07:28 Estimated GFR > 60 04/16/24 07:28 Random Glucose 93 mg/dL (60-115) 04/16/24 07:28 Calcium 8.8 mg/dL (8.4-10.2) 04/16/24 07:28 Magnesium 2.2 mg/dL (1.6-2.6) 04/16/24 07:28 Total Bilirubin 0.5 mg/dL (0.0-1.0) 04/14/24 19:47 AST 28 U/L (5-37) 04/14/24 19:47 ALT 28 U/L (0-40) 04/14/24 19:47 Alkaline Phosphatase 86 U/L (39-117) 04/14/24 19:47 Total Protein 5.7 g/dL (6.5-8.0) L 04/14/24 19:47 Albumin 2.6 g/dL (3.5-5.0) L 04/14/24 19:47 Vitamin B12 632 pg/mL (200-900) 04/15/24 09:24 Folate 6.2 ng/mL (> or = 4.0) 04/15/24 09:24 Urine Color Yellow 04/15/24 05:14 Urine Appearance Clear 04/15/24 05:14 Urine pH 5.5 (5.0-9.0) 04/15/24 05:14 Ur Specific [place] 1.015 (1.005-1.025) 04/15/24 05:14 Urine Protein Negative mg/dL (Neg-Trace) 04/15/24 05:14 Urine Glucose (UA) Negative mg/dL (Negative) 04/15/24 05:14 Urine Ketones Trace mg/dL (Negative) 04/15/24 05:14 Urine Blood Negative (Negative) 04/15/24 05:14 Urine Nitrite Negative (Negative) 04/15/24 05:14 Ur Leukocyte Esterase Negative (Negative) 04/15/24 05:14 Impressions Chest X-Ray 04/14/24 18:59 IMPRESSION: No acute cardiopulmonary process seen. Head CT 04/14/24 20:23 IMPRESSION: No acute intracranial process seen. Age-related cerebral volume loss with chronic small vessel ischemic changes in both cerebral hemispheres. Discharge Plan Discharge Anticipated Discharge Date/Time: 04/16/24 11:30 Patient Disposition: Home Health Service Discharge Diagnosis: complex partial seizure GERD Referrals: Tony Kirk MD [Physician] - 2 Weeks Po,Js Carrero MD [Primary Care Provider] - 1 Week Discharge Medications: New levetiracetam 500 mg Tablet 500 mg PO BID Qty: 60 0RF (DME) walker [facility] [place] See Rx Instructions .Route Qty: 1 0RF Rx Instructions: As directed omeprazole 20 mg Capsule,Delayed Release(Dr/Ec) 20 mg PO BID@0630,1630 Qty: 60 0RF Rx Instructions: increased from prior dose of 20 mg daily Continued aspirin 81 mg tablet,delayed release (DR/EC) 81 mg PO DAILY cholecalciferol (vitamin D3) 1,250 mcg (50,000 unit) capsule 1,250 mcg PO FR meclizine 25 mg tablet 25 mg PO TID PRN (Reason: Dizziness) atorvastatin 40 mg tablet 40 mg PO BEDTIME acetaminophen 325 mg Tablet 650 mg PO Q6H PRN (Reason: Pain) furosemide 20 mg tablet 20 mg PO DAILY carvedilol 12.5 mg tablet 12.5 mg PO BIDWM Rx Instructions: must administer with a meal/food Brilinta 90 mg tablet 90 mg PO BID Qty: 180 3RF ferrous sulfate 325 mg (65 mg iron) tablet 325 mg PO DAILY Qty: 30 1RF ascorbate calcium (vitamin C) 500 mg tablet 500 mg PO DAILY Qty: 30 1RF lisinopril 20 mg tablet 20 mg PO DAILY Qty: 90 3RF Discontinued clopidogrel 75 mg tablet 75 mg PO DAILY omeprazole 20 mg capsule,delayed release(DR/EC) 20 mg PO DAILY@0630 Discharge Orders: Discharge Order (Routine); Ordered 04/17/24 Ordered By: Chelsea Pena Diet: Advance to usual diet Activity on Discharge: As tolerated Stand Alone Forms: Patient Portal Discharge page Print Language: Danish Care Plan Goals: seizure control relief of GERD Health Concerns: complex partial seizure GERD Plan of Treatment: take levetiracetam 500 mg twice daily follow up with [facility] [place] Neurology in 2 weeks no driving or operating heavy machinery increase omeprazole 20 mg from once daily to twice daily GERD precautions Please follow up with your primary care doctor within 1 week. Return to the hospital if you experience recurrent or worsening symptoms. Assessment: See Discharge Summary. Patient Instructions: Levetiracetam (By mouth), Gastroesophageal Reflux Disease (DC), New-Onset Seizure in Adults (ED)
--- NOTE | 2024-04-16 14:26 | HO.PM.IMPN ---
Subjective Subjective Date of Service: 04/16/24 Interval History: Very sleepy today though readily arousable. No further staring episodes. Noted by family to cough after eating the last few weeks. Review of Systems Review of Systems: Yes all other systems are reviewed and are negative Physical Exam Vital Signs: Vital Signs: Last Vital Signs Temp 98.1 F 04/16/24 06:56 Pulse 77 04/16/24 06:56 Resp 18 04/16/24 06:56 BP 100/52 L 04/16/24 06:56 Pulse Ox 98 04/16/24 06:56 O2 Del Method Room Air 04/16/24 06:56 BMI result Body Mass Index 20.4 Gen: in no acute distress HEENT: sclera anicteric, moist mucus membranes Neck: supple Lungs: clear to auscultation bilaterally Heart: regular rate and rhythm, no murmurs Abd: soft, non-tender, non-distended Ext: no edema Skin: warm/well-perfused Neuro: alert and oriented x3, no focal findings Psych: appropriate affect Objective Data Active Medications Acetaminophen (Acetaminophen 325 Mg Tablet) 650 mg PO Q6H PRN PRN Reason: Pain, Mild (Pain Scale 1-3), fever or headache Ascorbic Acid (Ascorbic Acid 500 Mg Tablet) 500 mg PO DAILY [facility] Last Admin: 04/16/24 09:33 Dose: 500 mg Documented By: ALY Aspirin (Aspirin Enteric Coated 81 Mg Tablet.) 81 mg PO DAILY [facility] Last Admin: 04/16/24 09:33 Dose: 81 mg Documented By: ALY Atorvastatin Calcium (Atorvastatin Calcium 40 Mg Tablet) 40 mg PO BEDTIME [facility] Last Admin: 04/15/24 20:21 Dose: 40 mg Documented By: JOHN Calcium Carbonate (Calcium Carbonate 750 Mg Tab.Chew) 750 mg PO Q4H PRN PRN Reason: Heartburn Carvedilol (Carvedilol 12.5 Mg Tablet) 12.5 mg PO BIDWM [facility]; Protocol Last Admin: 04/16/24 09:33 Dose: 12.5 mg Documented By: ALY Enoxaparin Sodium (Enoxaparin Sodium 40 Mg/0.4 Ml Syringe) 40 mg SUBCUT Q24H [facility] Last Admin: 04/15/24 22:38 Dose: 40 mg Documented By: JOHN Ferrous Sulfate (Ferrous Sulfate 324 Mg Tablet.) 324 mg PO DAILY [facility] Last Admin: 04/16/24 09:33 Dose: 324 mg Documented By: ALY Furosemide (Furosemide 20 Mg Tablet) 20 mg PO DAILY [facility]; Protocol Last Admin: 04/16/24 09:33 Dose: 20 mg Documented By: ALY Levetiracetam (Levetiracetam 500 Mg Tablet) 500 mg PO BID [facility] Last Admin: 04/16/24 09:33 Dose: 500 mg Documented By: ALY Lisinopril (Lisinopril 20 Mg Tablet) 20 mg PO DAILY [facility]; Protocol Last Admin: 04/16/24 09:32 Dose: Not Given Documented By: ALY Non-Admin Reason: per md Magnesium Hydroxide (Milk Of Magnesia 30 Ml Oral.Susp) 30 ml PO DAILY PRN PRN Reason: Constipation Meclizine HCl (Meclizine Hcl 25 Mg Tablet) 25 mg PO TID PRN PRN Reason: Dizziness Melatonin (Melatonin 3 Mg Tablet) 6 mg PO BEDTIME PRN PRN Reason: Insomnia Last Admin: 04/15/24 20:21 Dose: 6 mg Documented By: JOHN Non-Formulary Medication (Cholecalciferol (Vitamin D3)) 1,250 mcg PO [facility] Omeprazole (Omeprazole 20 Mg Capsule.) 20 mg PO DAILY@0630 [facility] Last Admin: 04/16/24 05:57 Dose: Not Given Documented By: JOHN Non-Admin Reason: patient confused Ondansetron HCl (Ondansetron Hcl 4 Mg/2 Ml Vial) 4 mg IVPUSH Q8H PRN PRN Reason: Nausea and Vomiting Sodium Chloride (0.9 % Sodium Chloride Flush 3 Ml Syringe) 3 ml IVFLUSH QSHIFT [facility] Last Admin: 04/16/24 09:45 Dose: Not Given Documented By: ALY Non-Admin Reason: Previously Administered Ticagrelor (Ticagrelor 90 Mg Tablet) 90 mg PO BID [facility] Last Admin: 04/16/24 09:33 Dose: 90 mg Documented By: ALY Labs 04/15/24 04:40 04/16/24 07:28 Labs: Laboratory Results - last 24 hr 04/16/24 07:28 Anion Gap 14 Estim Creat Clear Calc 79.1 Estimated GFR > 60 Random Glucose 93 Calcium 8.8 Magnesium 2.2 Assessment and Plan (1) 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 Quality Stroke Does the patient have a stroke diagnosis?: No VTE Prior VTE?: No VTE Risk Level:: Medical - moderate - high VTE Device Contraindication: Treatment Not Indicated VTE Drug Contraindication: N/A - Med Ordered
[2024-04-16 15:03] VITALS: BP 100/58; PULSE 70; RESP 16; TEMP 36.2; O2SAT 93
[2024-04-16 19:00] VITALS: BP 117/56; PULSE 75; RESP 16; TEMP 36.7; O2SAT 94
[2024-04-16] MEDS: Atorvastatin Calcium 40 MG TABLET PO (22:05)
[2024-04-16] MEDS: Enoxaparin Sodium 40 MG/0.4 ML SYRINGE SUBCUT (22:05)
[2024-04-17 03:19] VITALS: BP 112/54; PULSE 89; RESP 18; TEMP 36.9; O2SAT 98
[2024-04-17] MEDS: Omeprazole 20 MG CAPSULE.DR PO (05:17)
[2024-04-17 08:00] VITALS: BP 127/58; PULSE 86; RESP 14; TEMP 36.4; O2SAT 96
[2024-04-17] MEDS: 0.9 % Sodium Chloride Flush 3 ML SYRINGE IVFLUSH (08:29)
[2024-04-17 08:32] VITALS: BP 127/58; PULSE 76
[2024-04-17] MEDS: levETIRAcetam 500 MG TABLET PO (08:32)
[2024-04-17] MEDS: Ferrous Sulfate 324 MG TABLET.DR PO (08:32)
[2024-04-17] MEDS: Ascorbic Acid 500 MG TABLET PO (08:32)
[2024-04-17] MEDS: Ticagrelor 90 MG TABLET PO (08:32)
[2024-04-17] MEDS: carvediloL 12.5 MG TABLET PO (08:32)
[2024-04-17] MEDS: Aspirin Enteric Coated 81 MG TABLET.DR PO (08:32)
[2024-04-17 08:33] VITALS: BP 127/58
[2024-04-17] MEDS: Furosemide 20 MG TABLET PO (08:33)
[2024-04-17 09:03] VITALS: BP 127/58
--- NOTE | 2024-04-17 13:45 | MHC.CM.PN ---
IMM 04/15/24 Patient is discharged to home with [facility]. He has arranged for transportation home.
== END 2024-04-17 13:37 | disposition home health service (06) | DRG 101 ==
LOC: HO.ED 19:31 → HO.EDOVER 22:17 → HO.S3 04-15 12:19
PROVIDERS: Admitting Provider Student in an Organized Health Care Education/Training Program; Emergency Provider Internal Medicine; PCP Internal Medicine; Visit Provider Family Medicine
DX: G40.209 Localization-related (focal) (partial) symptomatic epilepsy and epileptic syndromes with complex partial seizures, not intractable, without status epilepticus (principal); I50.22 Chronic systolic (congestive) heart failure; I11.0 Hypertensive heart disease with heart failure; E87.6 Hypokalemia; K21.9 Gastro-esophageal reflux disease without esophagitis; E83.42 Hypomagnesemia; I25.10 Atherosclerotic heart disease of native coronary artery without angina pectoris; I25.5 Ischemic cardiomyopathy; N40.0 Benign prostatic hyperplasia without lower urinary tract symptoms; Z85.038 Personal history of other malignant neoplasm of large intestine; Z95.5 Presence of coronary angioplasty implant and graft; Z87.891 Personal history of nicotine dependence; Z79.82 Long term (current) use of aspirin; Z79.899 Other long term (current) drug therapy
CPT/HCPCS: 36415; 70450; 71045; 80048; 80053; 81003; 82607; 82746; 83735; 85025; 93005; 95816; 97110; 97116; 97162; 99221; 99285; J1650; J2060; J3475; J3480

== ENCOUNTER → 2024-04-14 18:45 | Outpatient (BNV) | payer MEDICARE, SELFPAY | PROVIDERS: Admitting Provider Student in an Organized Health Care Education/Training Program; Emergency Provider Internal Medicine; PCP Internal Medicine; Visit Provider Internal Medicine | DX: R94.31 Abnormal electrocardiogram [ECG] [EKG] (principal) | CPT/HCPCS: 93010 ==

== ENCOUNTER → 2024-04-14 22:16 | Outpatient (BNV) | payer MEDICARE, SELFPAY | PROVIDERS: Admitting Provider Student in an Organized Health Care Education/Training Program; Emergency Provider Internal Medicine; PCP Internal Medicine; Visit Provider Student in an Organized Health Care Education/Training Program | DX: G40.209 Localization-related (focal) (partial) symptomatic epilepsy and epileptic syndromes with complex partial seizures, not intractable, without status epilepticus (principal); E87.6 Hypokalemia; E83.42 Hypomagnesemia; K21.9 Gastro-esophageal reflux disease without esophagitis | CPT/HCPCS: 99223; 99232; 99239; G0180 ==

== ENCOUNTER → 2024-04-15 10:45 | Outpatient (BNV) | payer MEDICARE, SELFPAY | PROVIDERS: Admitting Provider Student in an Organized Health Care Education/Training Program; Emergency Provider Internal Medicine; PCP Internal Medicine; Visit Provider Psychiatry & Neurology Neurology | DX: G40.209 Localization-related (focal) (partial) symptomatic epilepsy and epileptic syndromes with complex partial seizures, not intractable, without status epilepticus (principal) | CPT/HCPCS: 99222 ==

== ENCOUNTER 2024-04-27 08:00 | Outpatient (AMB) | payer MEDICARE, SELFPAY ==
[2024-04-27 08:01] VITALS: BP 98/52; PULSE 66; O2SAT 95; BMI 19.5
--- NOTE | 2024-04-27 08:01 | A.OFFPC_ITS ---
Vital Signs 04/27/24 08:01 Height 5 ft 10 in Weight 136 lb BMI 19.5 BP 98/52 L Blood Pressure Location Lt brachial Position Sitting Pulse 66 Pulse Source Pulse Oximeter Pulse Oximetry (%) 95 Oxygen Delivery Method Room Air Intake [place] [facility] [place] Allergies No Known Allergies [No Known Allergies*] Allergy (Verified 04/27/24 08:02) Medication List - Last Reconciled 04/27/24 by Adriana Pérez PA-C acetaminophen 650 mg PO Q6H PRN ascorbate calcium (vitamin C) 500 mg PO DAILY aspirin 81 mg PO DAILY atorvastatin 40 mg PO BEDTIME carvedilol 12.5 mg PO BIDWM cholecalciferol (vitamin D3) 1,250 mcg PO FR ferrous sulfate 325 mg PO DAILY furosemide 20 mg PO DAILY levetiracetam 500 mg PO BID lisinopril 20 mg PO DAILY meclizine 25 mg PO TID PRN omeprazole 20 mg PO BID@0630,1630 ticagrelor (Brilinta) 90 mg PO BID walker As directed Tobacco use date assessed: 11/26/23 Fall risk assessment: 1 Fall in past year (After seizure) Last assessed Fall Risk: 04/27/24 Dental Screening Dental Screen Date: 03/04/24 HPI [facility] [place] HPI Details 89 year old male with history of hyperte nsion, GERD, hypercholesterolemia, BPH, colon cancer s/p hemicolectomy 2016, and coronary artery disease with heart failure ejection fraction 40-45% last seen 04/10/24 coming in for hospital discharge follow up. Patient initially presented to the E D after the daughter witnessed an episode of blank staring and patient was not responding to verbal stimulus which lasted for about 10 minutes. Patient was admitted 04/15/2024 for monitoring. Prior EEG 03/17/2024 suggestive of seizure disorder. At recommendation of neurologist started on Keppra 500 mg b.i.d. Patient having postprandial coughing, cleared by [employer] and omeprazole increased to 20 mg b.i.d..? Discharged home 04/17/2024. VNA services 2 times a week for blood pressure checks. Daughter states patient had a fall in the bathroom 1 week ago without loss of consciousness or head strike and patient complaining of rib pain. Denies difficulty breathing or chest pain at this time. Daughter also reports excessive fatigue with weight loss and no appetite which has been ongoing for about a month. Patient states he does not feel like eating and does not feel hungry. Patient also reports dark stools which is new and can not recall when they began. Also endorses about a 10 lb weight loss. [facility] Medical History Medicare annual wellness visit, initial Atherosclerotic cardiovascular disease Heart failure with reduced ejection fraction Wheezing Vitamin D deficiency Thoracic cyst TIA (transient ischemic attack) Colon cancer Hypercholesterolemia BPH (benign prostatic hyperplasia) Hypertension GERD (gastroesophageal reflux disease) Surgical History History of colectomy History of cholecystectomy Family History Father Medical history unknown Mother Hypertension Sister Breast cancer Social History Household Members: Spouse Housing: House Do you presently have visiting nurse or other home services: No Alcohol intake: current Alcohol intake frequency: does not drink Patient Tobacco Use Status: Former Tobacco user Tobacco use type: Cigarette Years Smoked: Quit 21 years old e-Cigarette/Vaping Use: Never Used Second Hand Smoke Exposure: No service: No Current occupational status: retired Cognitive needs: No Hearing needs: No Vision needs: Yes Questionnaire PHQ-9 Over the last 2 weeks, how often have you been bothered by any of the following problems? 1. Little interest or pleasure in doing things: not at all 2. Feeling down, depressed, or hopeless: not at all 3. Trouble falling or staying asleep, or sleeping too much: not at all 4. Feeling tired or having little energy: not at all 5. Poor appetite or overeating: not at all 6. Feeling bad about yourself - or that you are a failure or have let yourself or your family down: not at all 7. Trouble concentrating on things, such as reading the newspaper or watching television: not at all 8. Moving or speaking so slowly that other people could have noticed. Or the opposite - being so fidgety or restless that you have been moving around a lot more than usual: not at all 9. Thoughts that you would be better off or of hurting yourself in some way: not at all Total score: 0 Depression Screening Interpretation: Negative Depression Screening Done: Yes 82022 - PHQ-9 Billing: Yes Source: Developed by Drs. Walter Forrester, Nichole Amaral, Jaylen Morris and colleagues, with an educational kannan from [employer]. Thrive Questionnaire Date Thrive assessed: 04/15/24 AUDIT C Alcohol Use Questionnaire (AUDIT-C) 1. How often do you have a drink containing alcohol?: 4 or more times a week 2. How many drinks containing alcohol do you have on a typical day when you are drinking?: 1 or 2 3. How often do you have six or more drinks on one occasion?: Never Total Score: 4 DAVID-7 AMB Questionnaire DAVID-7 Date DAVID - 7 assessed: 11/26/23 Source: Developed by Drs. Walter Forrester, Nichole Amaral, Jaylen Morris and colleagues, with an educational kannan from [employer]. Review of Systems Const Reports fatigue, Reports lethargy, Reports poor appetite, Reports weakness and Reports weight loss Eyes Reports no additional complaints ENT Reports no additional complaints Card Denies chest pain and Denies dyspnea Resp Denies cough and Denies dyspnea GI Denies abdominal pain and Reports melena Musc Details: mild rib pain Skin/Breast Reports system reviewed and no additional complaints, except as documented Neuro Reports no additional complaints and Reports weakness Endo Reports fatigue Physical exam (Primary Care) Vital Signs: Last Vital Signs Pulse 66 04/27/24 08:01 BP 98/52 L 04/27/24 08:01 Pulse Ox 95 04/27/24 08:01 Oxygen Delivery Method Room Air 04/27/24 08:01 BMI result Body Mass Index 19.5 Tobacco/Smoking Status: Tobacco use Status Tobacco use date assessed 11/26/23 04/27/24 08:09 Patient Tobacco Use Status Former Tobacco user 04/27/24 08:09 Tobacco use type Cigarette 04/27/24 08:09 e-Cigarette/Vaping Use Never Used 04/27/24 08:09 PHQ-9: PHQ-9 Score PHQ-9: Total score 0 04/27/24 08:09 Depression Screening Interpretation: Negative Thrive Assessment: Date of Thrive Assessment Date Thrive assessed 04/15/24 04/27/24 08:09 Const General: cooperative, no acute distress, lethargic and tired appearing Nutritional Appearance: underweight Orientation/consciousness: patient oriented x3 and lethargic Limitations: ambulation with walker HENMT Head: Yes normocephalic Ears: hearing grossly normal bilaterally General nose exam: Normal external nose present Eyes General: appearance normal, both eyes and all related structures Conjunctivae: conjunctivae normal Neck Neck: Yes full ROM and Yes no lymphadenopathy Resp Effort & Inspection: normal respiratory effort Auscultation: clear to auscultation bilaterally, no crackles, no rales, no rhonchi and no wheezes Cardio Rate: regular rate Rhythm: regular rhythm GI Inspection: Yes normal to inspection Skin General skin exam: no rashes or lesions noted and pallor Neuro General: patient oriented x3 Gait exam (Neuro): Normal gait present Extrem General: Yes normal to inspection, Yes full ROM and No edema Psych Affect: normal affect Attitude: cooperative Insight: Good insight present (Psych) Judgement: Good judgement present (Psych) Assessment and Plan Assessment & Plan (1) 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 Patient and daughter do not report any further episodes of seizures and no observed side effects from medication. Patient will be referred to Neurology for further management. (2) Dark stools: Code(s): R19.5 - Other fecal abnormalities Plan: Patient has been complaining of dark stools which is new and can not recall the start date. Patient did recently start taking iron oral supplements. With dark stools paired with low pressures and fatigue and weakness there is some concern for a GI bleed. Reported history of colorectal cancer. Recommended patient be taken to the ED. Patient is accompanied by daughter who will drive patient [place] [facility] [place]. Report was called over to ED. Discussed with Dr. Moreno who is in agreement. (3) Heart failure with reduced ejection fraction: Code(s): I50.20 - Unspecified systolic (congestive) heart failure Plan: Last echo showed ejection fraction of 40-45% with wall motion abnormalities. Patient follows with Cardiology, last seen 04/08/2024. Per cardiology advised to decrease lisinopril from 40 mg to 20 mg due to low blood pressure and fatigue, and continue carvedilol as prescribed, and to discontinue Lasix at this time as there are no signs of fluid overload or heart failure. (4) Hypertension: Code(s): I10 - Essential (primary) hypertension Qualifiers: Hypertension type: essential hypertension Qualified Code(s): I10 - Essential (primary) hypertension Plan: Blood pressure is low in the office today 98/52, when retaken 80/50. Patient has decrease lisinopril and has continued low blood pressures. Daughter states MARISOL has been checking blood pressures at home which have also been low. Patient also reporting weakness and fatigue. Recommend patient go to ER for low pressures and dark stools. Plan Thank you for allowing me to participate in the care of this patient. I personally spent 30 minutes reviewing, examining and charting on this patient. 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
== END 2024-04-27 08:45 | disposition home or self-care (01) ==
PROVIDERS: PCP Internal Medicine
DX: I11.0 Hypertensive heart disease with heart failure (principal); G40.209 Localization-related (focal) (partial) symptomatic epilepsy and epileptic syndromes with complex partial seizures, not intractable, without status epilepticus; I50.20 Unspecified systolic (congestive) heart failure; R19.5 Other fecal abnormalities
CPT/HCPCS: 99214

== ENCOUNTER 2024-04-27 08:48 | Emergency (ER) | payer MEDICARE, SELFPAY ==
--- NOTE | ~2024-04-27 | XR_ITS ---
EXAMINATION: XR CHEST CLINICAL INFORMATION: Cough. COMPARISON: Chest x-ray dated 04/14/2024. TECHNIQUE: 2 views of the chest were obtained. FINDINGS: EKG leads overlie the chest. The cardiomediastinal silhouette is within normal limits in size. Calcification of the aortic arch is seen. Lungs bilaterally are symmetrically expanded and clear. No focal consolidation, effusion or pneumothorax is seen. Mild degenerative changes in the midthoracic and upper lumbar spine seen. Right upper quadrant renato noted from prior cholecystectomy. XR/XR chest 2V IMPRESSION: No acute cardiopulmonary process.
--- NOTE | ~2024-04-27 | CT_ITS ---
EXAMINATION: CT CHEST, ABDOMEN AND PELVIS WITH CONTRAST CLINICAL INFORMATION: Left-sided rib pain post fall, cough Abdominal pain with weight loss and failure to thrive COMPARISON: Chest radiograph earlier today, ultrasound kidneys 12/07/2015 TECHNIQUE: Multidetector volumetric imaging was performed from the thoracic inlet through the pubic symphysis following administration of 85 mL of Omnipaque 350. Sagittal and coronal reformatted images were obtained on the technologist's workstation. This CT examination was performed using dose optimization techniques as appropriate, variously including the following: *Automated exposure control *Adjustment of mA and/or kV according to patient size (this includes techniques or standardized protocols for targeted exams where dose is matched to indication/reason for exam; i.e. extremities or head) *Use of iterative reconstruction technique DLP: 283 mGy-cm FINDINGS: CHEST: Lung: The lungs are clear without focal opacity or nodule. Mediastinum: The mediastinum is normal. The central vascular structures are unremarkable. No hilar or mediastinal lymphadenopathy. Coronary Artery Calcium: Extensive along with presumed coronary stents. Pericardium/Pleura: No significant effusion. No pleural mass or thickening. Chest Wall/Axilla: Unremarkable ABDOMEN/PELVIS: Peritoneal Space: No significant free air or free fluid identified. Liver, Gallbladder, Biliary Tree: The liver is normal in size, shape, and attenuation. No focal hepatic lesion or biliary ductal dilatation is present. Status post cholecystectomy. Pancreas: Unremarkable Spleen: Unremarkable Adrenal Glands: Unremarkable Kidneys and Ureters: The kidneys are normal in size, shape, and attenuation. No hydronephrosis, hydroureter, or calculi seen. No perinephric stranding. Bladder: Unremarkable Gastrointestinal Tract: A tiny hiatal hernia is present. Status post right hemicolectomy. The small and large bowel are unremarkable. No evidence of bowel obstruction. Abdominal Wall: No significant hernia is appreciated. Tiny epigastric hernia seen containing only fat. Lymph Nodes: No retroperitoneal lymphadenopathy. Vascular: Calcific atherosclerotic changes are present in the aorta and iliofemoral vessels. There is no evidence of an abdominal aortic aneurysm.. The IVC appears unremarkable. Incidental note made of a retroaortic left renal vein. PELVIC VISCERA: Mild BPH. Seminal vesicles appear normal. OSSEUS STRUCTURES: Moderate degenerative changes are noted in the spine. There is mild biconvex thoracolumbar scoliosis. No bony destructive lesions are seen. CT/CT abdomen pelvis w IV con IMPRESSION: 1. A cause for the patient's acute left-sided rib pain has not been found. No rib fractures are detected. 2. Cholecystectomy. 3. Right hemicolectomy. 4. Mild BPH. 5. Degenerative changes in the spine. 6. An occult malignancy to account for the patient's failure to thrive has not been found. Fleischner guidelines were followed.
[2024-04-27 09:02] VITALS: BP 95/45; PULSE 72; RESP 25; TEMP 36.7; O2SAT 100
--- NOTE | 2024-04-27 09:13 | ECG_ITS ---
Test Reason : weakness Blood Pressure : / mmHG Vent. Rate : 084 BPM Atrial Rate : 084 BPM P-R Int : 114 ms QRS Dur : 150 ms QT Int : 450 ms P-R-T Axes : 070 051 -07 degrees QTc Int : 531 ms Normal sinus rhythm Right bundle branch block Lateral infarct (cited on or before 15-MAR-2024) Inferior infarct (cited on or before 15-MAR-2024) Abnormal ECG When compared with ECG of 14-APR-2024 19:11, Premature ventricular complexes are no longer Present T wave inversion no longer evident in Anterior leads Referred By: Generic ED Physician Electronically Signed By:NICHOLE BELLO MD
[2024-04-27 09:48] LABS: OBS Int Ctl Valid YES; OBS1 NEGATIVE (NEGATIVE)
--- NOTE | 2024-04-27 09:53 | ED_ITS ---
HPI - Weakness General Chief complaint: Weakness Stated complaint: low bp sent in via pcp Time Seen by Provider: 04/27/24 09:19 Source: patient, family and old records reviewed Mode of arrival: ambulatory Limitations: no limitations History of Present Illness ED Provider: JUAN CONTEH Narrative: 89 yo male with PMH of GERD, TIA, partial complex seizures just diagnosed on keppra, anemia on Fe, CHF EF 40%, BPH, HLD, HTN, GERD, colon cancer s/p hemicolectomy, CAD s/p stents with ischemic cardiomyopathy on aspirin and brilinta who was sent over by PCP for low BPs and black stools. Daughter notes about 1 month of poor PO intake, decreased appetite fall and L rib injury 1 week ago did not get imaging done no head trauma reported. She notes he is having memory issues as well. He reports a recent cough. He denies pain but she notes a significant weight loss as well. Daughter states he sleeps all day MD Complaint: generalized weakness and lack of energy Onset (ago): month(s) (1) Duration: progressively worsening Location: generalized Migration: none Severity: severe Relieving factors: rest Exacerbating factors: movement and exertion Context: recent illness Associated symptoms: dark stools and loss of appetite Related Data Home Medications ?Medication ?Instructions ?Recorded ?Confirmed aspirin 81 mg tablet,delayed 81 mg PO DAILY 03/16/24 04/27/24 release cholecalciferol (vitamin D3) 1,250 1,250 mcg PO FR 03/16/24 04/27/24 mcg (50,000 unit) capsule meclizine 25 mg tablet 25 mg PO TID PRN Dizziness 03/16/24 04/27/24 acetaminophen 325 mg tablet 650 mg PO Q6H PRN Pain 04/15/24 04/27/24 atorvastatin 40 mg tablet 40 mg PO BEDTIME 04/15/24 04/27/24 carvedilol 12.5 mg tablet 12.5 mg PO BIDWM 04/15/24 04/27/24 furosemide 20 mg tablet 20 mg PO DAILY 04/15/24 04/27/24 Previous Rx's ?Medication ?Instructions ?Recorded lisinopril 20 mg tablet 20 mg PO DAILY #90 tabs 04/08/24 ascorbate calcium (vitamin C) 500 500 mg PO DAILY #30 tabs 04/10/24 mg tablet ferrous sulfate 325 mg (65 mg 325 mg PO DAILY #30 tabs 04/10/24 iron) tablet ticagrelor 90 mg tablet (Brilinta) 90 mg PO BID #180 tabs 04/10/24 levetiracetam 500 mg tablet 500 mg PO BID #60 tabs 04/16/24 walker #1 ea 04/16/24 omeprazole 20 mg capsule,delayed 20 mg PO BID@0630,1630 #60 caps 04/17/24 release Allergies Allergy/AdvReac Type Severity Reaction Status Date / Time No Known Allergies Allergy Verified 04/27/24 09:06 [No Known Allergies*] Review of Systems 2 Review of Systems: Constitutional : No Fever, No Chills, pos Fatigue, pos anorexa, pos fatigue ENT/Mouth : No sore throat, No Rhinorrhea Eyes: No Eye Pain, No Swelling, No Redness Cardiovascular : No Chest Pain, No SOB, No Dyspnea on Exertion Respiratory : No Cough, No Sputum Gastrointestinal : No Nausea, No Vomiting, No Diarrhea, No abdominal Pain, pos melena Genitourinary : No Dysuria, No Urinary Frequency, No Hematuria, Musculoskeletal : No joint pain, No Myalgias, No Joint Swelling Skin : No Skin Lesions, No rash Neuro : pos Weakness, No Numbness, No Dizziness, no Headache Psych : No Anxiety/Panic, No Depression All other systems reviewed and are negative [facility] Past Medical History Attestation statement: The following information was validated with the patient. Source: old records reviewed Medical History Medicare annual wellness visit, initial Atherosclerotic cardiovascular disease Heart failure with reduced ejection fraction Wheezing Vitamin D deficiency Thoracic cyst TIA (transient ischemic attack) Colon cancer Hypercholesterolemia BPH (benign prostatic hyperplasia) Hypertension GERD (gastroesophageal reflux disease) Surgical History History of colectomy History of cholecystectomy Family History Family History Father Medical history unknown Mother Hypertension Sister Breast cancer Social History Social History Household Members: Spouse Housing: House Do you presently have visiting nurse or other home services: No Alcohol intake: current Alcohol intake frequency: does not drink Patient Tobacco Use Status: Former Tobacco user Tobacco use type: Cigarette Years Smoked: Quit 21 years old e-Cigarette/Vaping Use: Never Used Second Hand Smoke Exposure: No Advance Directives: No Advance Directives Information Provided: No service: No Current occupational status: retired Cognitive needs: No Hearing needs: No Vision needs: Yes Physical Exam 2 Vital Signs: Vital Signs: Last Vital Signs Temp 98.0 F 04/27/24 09:02 Pulse 70 04/27/24 12:34 Resp 26 H 04/27/24 10:33 BP 97/50 L 04/27/24 12:34 Pulse Ox 97 04/27/24 12:34 O2 Del Method Room Air 04/27/24 10:33 BMI result Body Mass Index 20.0 Appearance: Alert. Oriented X3. No acute distress. Eyes: Pupils equal, round and reactive to light. ENT: Pharynx normal. Neck: Normal inspection. Neck supple. CVS: Normal heart rate and rhythm. Pulses normal. Respiratory: No respiratory distress. Breath sounds diminished left lower Chest: ttp along L ribs Abdomen: Soft and nontender. Rectal: dark stools Skin: Skin warm and dry. pale skin color. Normal skin turgor. Extremities: No lower extremity edema. Neuro: Oriented X 3. No motor deficit. No sensory deficit. Course Course Course Narrative: signed out to Dr. Toribio pending UA if negative may need STR Medications Administered Generic Name Dose Route Start Last Admin Trade Name Freq PRN Reason Stop Dose Admin Sodium Chloride 1,000 mls @ 80 mls/hr 04/27/24 09:45 04/27/24 10:43 Ns IVCONT 80 mls/hr .[id number] IVY Administration Discontinued Medications Generic Name Dose Route Start Last Admin Trade Name Freq PRN Reason Stop Dose Admin Magnesium Sulfate 2 gm in 50 mls @ 25 mls/hr 04/27/24 09:34 04/27/24 10:43 Magnesium Sulfate/H2o IV 04/27/24 11:33 25 mls/hr ONCE ONE Administration Iohexol 85 ml 04/27/24 11:49 04/27/24 11:49 Iohexol 350 Mg/Ml 100 Ml Infus..Btl IV 04/27/24 11:50 85 ml ONCE ONE Administration Pantoprazole Sodium 40 mg 04/27/24 09:34 04/27/24 10:43 Pantoprazole Sodium 40 Mg/10 Ml Vial IVPUSH 04/27/24 09:35 40 mg ONCE ONE Administration Medical Decision Making Medical Decision Making [facility] Narrative: 89 yo male with PMH of GERD, TIA, partial complex seizures just diagnosed on keppra, anemia on Fe, CHF EF 40%, BPH, HLD, HTN, GERD, colon cancer s/p hemicolectomy, CAD s/p stents with ischemic cardiomyopathy on aspirin and brilinta at this time will obtain H/H, type and screen, guiac study though could be Fe, IV protonix given EKG and qtc IV magnesium ordered. CT scans for mass, effusion/rib fracture ordered. Differential Diagnosis Differential Diagnoses: The differential diagnosis associated with the presentation includes UGIB, mass, FTT, rib fractures, effusion Admission/Observation Consideration of admission/observation: Escalation of care including admission/observation considered if UA negative there is no acute findings may need STR Lab Data [facility] Lab Attestation statement: I reviewed the patient's lab results. 04/27/24 10:34 04/27/24 10:34 Labs: Lab Results 04/27/24 04/27/24 04/27/24 Range/Units 09:34 10:34 11:17 WBC 10.8 (4.8-10.8) X10*3/uL RBC 3.60 L (4.60-5.80) X10*6/uL Hgb 11.4 L (14.0-18.0) g/dl Hct 33.7 L (42.0-52.0) % MCV 93.6 (80.0-98.0) fL MCH 31.7 (27.0-33.0) pg MCHC 33.8 (31.0-36.0) g/dl RDW 14.8 (11.0-16.0) % Plt Count 491 H (160-400) X10*3/uL MPV 9.6 (9.4-12.4) fL Immature Gran % (Auto) 0.6 H (0.0-0.4) % Neut % (Auto) 78.2 H (45-73) % Lymph % (Auto) 9.1 L (20-40) % [place] % (Auto) 10.0 (2-11) % Eos % (Auto) 1.5 (0-4) % Baso % (Auto) 0.6 (0-2) % Lymph # (Auto) 1.0 L (1.2-4.9) X10*3/uL [place] # (Auto) 1.1 (0.1-1.2) X10*3/uL Eos # (Auto) 0.2 (0.0-0.4) X10*3/uL Baso # (Auto) 0.1 (0.0-0.2) X10*3/uL Abs Immat Gran (auto) 0.06 H (0.00-0.03) X10*3/uL Absolute Neuts (auto) 8.4 H (2.0-8.3) x10*3/uL Absolute Nucleated RBC 0.000 (0.0-0.012) X10*3/uL Nucleated RBC % (auto) 0.0 (0.0-0.2) /100WBC PT 13.4 H (11.1-13.3) SEC INR 1.1 (0.9-1.1) Sodium 137 (135-145) mmol/L Potassium 3.9 (3.3-5.1) mmol/L Chloride 99 (96-108) mmol/L Carbon Dioxide 24 (22-29) mmol/L Anion Gap 18 (12-20) BUN 19 H (9-16) mg/dL Creatinine 0.76 (0.5-1.4) mg/dL Estim Creat Clear Calc 59.5 Estimated GFR > 60 Random Glucose 91 (60-115) mg/dL Calcium 9.0 (8.4-10.2) mg/dL Magnesium 2.0 (1.6-2.6) mg/dL Total Bilirubin 0.8 (0.0-1.0) mg/dL AST 32 (5-37) U/L ALT 27 (0-40) U/L Alkaline Phosphatase 111 (39-117) U/L Troponin I High Sens 13.0 (<3.5-35.0) ng/L Total Protein 7.6 (6.5-8.0) g/dL Albumin 3.1 L (3.5-5.0) g/dL Stool Occult Blood NEGATIVE (NEGATIVE) Influenza Type A (PCR) NEGATIVE (Negative) Influenza Type B (PCR) NEGATIVE (Negative) RSV RNA Qual (PCR) NEGATIVE (Negative) SARS-CoV-2 RNA (RT-PCR) NEGATIVE (Negative) Blood Type A Positive Antibody Screen NEGATIVE Independent Interpretation I performed an independent interpretation of an: EKG and CT Scan (no acute findings. ) Interpretation: Rate: 84 Rhythm: NSR [place]: normal Normal P waves. Normal MELISSA. RBBB ST T wave : no LAURENT, sloping ST T wave changes V2 and V3 ?low magnesium qTC: 531 prior studies: qtc more prolonged The study has been interpreted contemporaneously by me. . Independent Historian Clinical information obtained from an independent historian. History obtained from or confirmed by: Other (daughter) External Record Review External record reviewed: Inpatient record and Outpatient record Discharge Plan Discharge Clinical Impression: Adult failure to thrive Patient Disposition: Still a Patient Prescriptions: No Action aspirin 81 mg tablet,delayed release (DR/EC) 81 mg PO DAILY cholecalciferol (vitamin D3) 1,250 mcg (50,000 unit) capsule 1,250 mcg PO FR meclizine 25 mg tablet 25 mg PO TID PRN (Reason: Dizziness) atorvastatin 40 mg tablet 40 mg PO BEDTIME acetaminophen 325 mg Tablet 650 mg PO Q6H PRN (Reason: Pain) furosemide 20 mg tablet 20 mg PO DAILY carvedilol 12.5 mg tablet 12.5 mg PO BIDWM Rx Instructions: must administer with a meal/food levetiracetam 500 mg Tablet 500 mg PO BID Qty: 60 0RF [facility]DME[facility] See Rx Instructions .Route Qty: 1 0RF Rx Instructions: As directed omeprazole 20 mg Capsule,Delayed Release(Dr/Ec) 20 mg PO BID@0630,1630 Qty: 60 0RF Rx Instructions: increased from prior dose of 20 mg daily Brilinta 90 mg tablet 90 mg PO BID Qty: 180 3RF ferrous sulfate 325 mg (65 mg iron) tablet 325 mg PO DAILY Qty: 30 1RF ascorbate calcium (vitamin C) 500 mg tablet 500 mg PO DAILY Qty: 30 1RF lisinopril 20 mg tablet 20 mg PO DAILY Qty: 90 3RF Print Language: Togolese
[2024-04-27 10:25] LABS: Influenza A PCR NEGATIVE (Negative); Influenza B PCR NEGATIVE (Negative); Resp Syncy Virus RNA Qual PCR NEGATIVE (Negative); SARS COV2 PCR INHOUSE NEGATIVE (Negative)
[2024-04-27 10:33] VITALS: BP 100/46; PULSE 70; RESP 26; O2SAT 96
[2024-04-27 10:37] LABS: MANUAL DIFF FLAG NO
[2024-04-27 10:41] LABS: Basophils Absolute Auto 0.1 X10*3/uL (0.0-0.2); Basophils Percent Auto 0.6 % (0-2); Eosinophils Absolute Auto 0.2 X10*3/uL (0.0-0.4); Eosinophils Percent Auto 1.5 % (0-4); Hematocrit 33.7 % (42.0-52.0); Hemoglobin 11.4 g/dl (14.0-18.0); Imm Gran Abs Auto 0.06 X10*3/uL (0.00-0.03); Imm Gran Pct Auto 0.6 % (0.0-0.4); Lymphocytes Percent Auto 9.1 % (20-40); Mean Corpuscular HGB Conc 33.8 g/dl (31.0-36.0); Mean Corpuscular Hemoglobin 31.7 pg (27.0-33.0); Mean Corpuscular Volume 93.6 fL (80.0-98.0); Mean Platelet Volume 9.6 fL (9.4-12.4); Monocytes Absolute Auto 1.1 X10*3/uL (0.1-1.2); Neutrophils Absolute Auto 8.4 x10*3/uL (2.0-8.3); Neutrophils Percent Auto 78.2 % (45-73); Platelet Count 491 X10*3/uL (160-400); Red Cell Distribution Width 14.8 % (11.0-16.0); White Blood Count 10.8 X10*3/uL (4.8-10.8)
[2024-04-27] MEDS: Pantoprazole Sodium 40 MG/10 ML VIAL IVPUSH (10:43)
[2024-04-27] MEDS: 0.9 % Sodium Chloride 1,000 ML 80 ML IVCONT ×2 (10:43→21:28)
[2024-04-27] MEDS: Magnesium Sulfate/H2O 2 GM/50 ML PIGGYBACK IV (10:43)
--- NOTE | 2024-04-27 10:51 | PC.NURSE ---
PT IS A TOUGH STICK, DELAY IN OBTAINING BLOODWORK. US GUIDED PIV #20 PLACED IN R UPPER ARM.
[2024-04-27 10:55] LABS: INTERNATIONAL NORM RATIO 1.1 (0.9-1.1); Prothrombin Time 13.4 SEC (11.1-13.3)
[2024-04-27 10:56] LABS: Alanine Aminotransferase 27 U/L (0-40); Albumin Level 3.1 g/dL (3.5-5.0); Alkaline Phosphatase 111 U/L (39-117); Anion Gap 18 (12-20); Aspartate Amino Transferase 32 U/L (5-37); Bilirubin Total 0.8 mg/dL (0.0-1.0); Blood Urea Nitrogen 19 mg/dL (9-16); Carbon Dioxide 24 mmol/L (22-29); Chloride 99 mmol/L (96-108); Creatinine Clr Calc Pharmacy 59.5; Estimated Glomerular Filt Rate > 60; Glucose Random 91 mg/dL (60-115); Potassium 3.9 mmol/L (3.3-5.1); Sodium 137 mmol/L (135-145); Total Protein 7.6 g/dL (6.5-8.0)
[2024-04-27] MEDS: iohexoL 350 MG/ML 100 ML INFUS..BTL 85 ML IV (11:49)
[2024-04-27 12:34] VITALS: BP 97/50; PULSE 70; O2SAT 97
--- NOTE | 2024-04-27 13:19 | PC.NURSE ---
UA still needed, patient bladder scanned for 187 ccs, patient states he knows when he has to urinate, call wang and urinal given to patient, IVF still running will reassess once liter is complete.
[2024-04-27 14:20] LABS: Appearance Urine Clear; Color Urine Yellow; Glucose Urine UA Negative (Negative); Leukocyte Esterase Urine Negative (Negative); Nitrite Urine Negative (Negative); PH 5.5 (5.0-9.0); Specific Gravity - Urine >= 1.030 (1.005-1.025); Urine Blood Negative (Negative); Urine Ketones 40 mg/dL (Negative); Urine Protein Trace mg/dL (Neg-Trace)
[2024-04-27 14:46] VITALS: BP 105/57; PULSE 77; RESP 12; O2SAT 97
--- NOTE | 2024-04-27 14:56 | PC.NURSE ---
UA obtained, negative, provider made aware.
[2024-04-27 16:11] VITALS: BP 126/64; PULSE 66; RESP 17; O2SAT 97
--- NOTE | 2024-04-27 17:30 | MHC.CM.ED ---
Addendum entered by Latricia Robles 04/27/24 18:10: HCP completed. Copies given. Uploaded into [facility] and [facility]. Original Note: CM recieved consult from Dr. Toribio. CM met with patient. Pt is alert to self, place and somewhat to situation. Pt has some memory issues. Pt lives with his in their home. Pt denies any home help or VNA. States his daughter helps him, Uses a walker. Feels safe at home. Pt states he and his daughter cook and he cleans. States his also has bad Legs and uses a walker. Pt hesitant to have PT, as he is not sure it will help him, but he is agreeable to having PT complete an evaluation. Pt is aware he will remain in the ED overnight. Pt thinks he may have a HCP, but tells CM it would be his and his daughter. CM spoke with his daughter, Jessica Waggoner ([phone]). She tells me she is concerned about both of her parents living at home. Feels they are safe now, but they are isolated [place] the [place]. They both use walker. She provides meals twice a day. They are both able to complete ADL's independently. Daughter tells CM the [facility] comes twice a week and her father was supposed to have a home PT evaluation tomorrow. She is agreeable to a PT evaluation tomorrow at [facility]. Spoke at length about home services, [facility], private pay and assisted living. Daughter tells CM she is in conversation with [facility] in [place] about her parents living there. CM stressed that they may be good candidates for assisted living. She tells me they do have the funds. CM spoke with provider and RN. PT and diet order placed. Pt will be moved to overflow. CM will obtain HCP. No referrals placed at this time. D/C plan: possible home PT with [facility]. CM will follow for discharge planning.
--- NOTE | 2024-04-27 18:34 | PC.NURSE ---
Report given to overflow RN, transport brought over w/ patient's walker.
--- NOTE | 2024-04-27 19:16 | PHA.MEDREC ---
Pharmacy Consult ? Medication Reconciliation Pharmacy has completed the medication reconciliation. Spoke to patient's daughter at bedside to confirm med list.
[2024-04-27 19:23] VITALS: BP 129/57; PULSE 76; RESP 20; TEMP 36.6; O2SAT 96
[2024-04-28 04:58] VITALS: BP 127/64; PULSE 80; RESP 16; TEMP 36.8; O2SAT 99
--- NOTE | 2024-04-28 05:51 | PC.NURSE ---
Assumed care of patient at 2300 , Patient is alert and oriented, offers no complaints at this time. 1 assist oob with urinal. Vitals stable , IVF infusing NS@80 through right upper arm. Warm blanket provided, callbell within reach.
[2024-04-28 07:50] VITALS: BP 127/64; PULSE 80; O2SAT 99
== END 2024-04-28 11:48 | disposition still patient (30) ==
PROVIDERS: Emergency Medicine; Emergency Provider Emergency Medicine; PCP Internal Medicine
DX: R62.7 Adult failure to thrive (principal); R26.81 Unsteadiness on feet; I45.10 Unspecified right bundle-branch block; R94.31 Abnormal electrocardiogram [ECG] [EKG]; R10.32 Left lower quadrant pain; R11.2 Nausea with vomiting, unspecified; Z03.818 Encounter for observation for suspected exposure to other biological agents ruled out; Z79.899 Other long term (current) drug therapy
CPT/HCPCS: 0241U; 36415; 71046; 71260; 74177; 80053; 81003; 82272; 83735; 84484; 85025; 85610; 86850; 86900; 86901; 93005; 96361; 96374; 96375; 97161; 99285; J2470; J3475; Q9967

== ENCOUNTER → 2024-04-27 09:13 | Outpatient (BNV) | payer MEDICARE, SELFPAY | PROVIDERS: Emergency Provider Internal Medicine; PCP Internal Medicine; Visit Provider Internal Medicine Cardiovascular Disease | DX: R94.31 Abnormal electrocardiogram [ECG] [EKG] (principal) | CPT/HCPCS: 93010 ==

== ENCOUNTER 2024-05-04 09:01 | Emergency (ER) | payer MEDICARE, SELFPAY ==
--- NOTE | ~2024-05-04 | CT_ITS ---
EXAMINATION: CT HEAD WITHOUT CONTRAST CLINICAL INFORMATION: Mechanical fall. Blunt head trauma without loss of consciousness, significant head injury and posttraumatic headache. COMPARISON: CT scan of brain on 04/14/2024 TECHNIQUE: Contiguous axial imaging was performed from the skull base to vertex without intravenous administration of contrast. This CT examination was performed using dose optimization techniques as appropriate, variously including the following: *Automated exposure control *Adjustment of mA and/or kV according to patient size (this includes techniques or standardized protocols for targeted exams where dose is matched to indication/reason for exam; i.e. extremities or head) *Use of iterative reconstruction technique DLP: 779 mGy-cm FINDINGS: Ventricles, sulci and cisterns are markedly dilated. Bilateral frontal subcortical and deep white matter, bilateral parietal periventricular white matter shows abnormal decrease in attenuation, extending to anterior right external capsule. There is no midline shift, no abnormal intra- or extra- axial fluid accumulation. Rodriguez and white matter differentiation is normal. Bone window images show no evidence of skull fracture. CT/CT head/brain wo IV con IMPRESSION: 1. 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 2. No intracranial hemorrhage or skull fracture is seen. 3. No evidence of space occupying lesion could be found. 4. The current plain CT scan of the brain shows no diagnostic evidence of acute cerebral infarction.
--- NOTE | ~2024-05-04 | CT_ITS ---
EXAMINATION: CT CERVICAL SPINE WITHOUT CONTRAST CLINICAL INFORMATION: Mechanical fall, neck injury and pain COMPARISON: CT angiogram of head and neck on 03/15/2024 TECHNIQUE: Multiple 2.0 mm axial images were obtained from base of skull to T1 levels without IV contrast enhancement. Sagittal and coronal 2.0 mm bone window images were reconstructed from axial image data. This CT examination was performed using dose optimization techniques as appropriate, variously including the following: *Automated exposure control *Adjustment of mA and/or kV according to patient size (this includes techniques or standardized protocols for targeted exams where dose is matched to indication/reason for exam; i.e. extremities or head) *Use of iterative reconstruction technique DLP: 325 mGy-cm FINDINGS: C1/C2: Bony structures are intact with normal alignment. There is no spinal stenosis. C2/C3: Bony structures are intact with normal alignment. There is no spinal stenosis. There is moderate asymmetric right C2/C3 neural foraminal stenosis. Bilateral apophyseal joints are intact with normal alignment. C3/C4: Bony structures are intact with normal alignment. There is no spinal stenosis. There is mild asymmetric right C3/C4 neural foraminal stenosis. Bilateral apophyseal joints are intact with normal alignment. C4/C5: Bony structures are intact with normal alignment. There is no spinal stenosis. Bilateral C4/C5 neuroforamina are patent. Bilateral apophyseal joints are intact with normal alignment. C5/C6: Bony structures are intact with normal alignment. There is no spinal stenosis. Bilateral C5/C6 neuroforamina are patent. Bilateral apophyseal joints are intact with normal alignment. C6/C7: Bony structures are intact with normal alignment. There is no spinal stenosis. Bilateral C6/C7 neuroforamina are patent. Bilateral apophyseal joints are intact with normal alignment. C7/T1: Bony structures are intact with normal alignment. There is no spinal stenosis. Bilateral C7/T1 neuroforamina are patent. Bilateral apophyseal joints are intact with normal alignment. Multilevel bilateral apophyseal joint and uncovertebral joint osteoarthritis with loss of joint space, sclerosis, facet hypertrophy and osteophytosis are seen. Unchanged azygos lobe is seen in right lung apex. CT/CT cervical spine wo IV con IMPRESSION: 1. No acute fracture or dislocation of the cervical spine. 2. Unchanged Multilevel bilateral apophyseal joint and uncovertebral joint osteoarthritis. 3. Unchanged Moderate asymmetric right C2/C3 neural foraminal stenosis. 4. Unchanged Mild asymmetric right C3/C4 neural foraminal stenosis. Fleischner guidelines were followed.
--- NOTE | ~2024-05-04 | CT_ITS ---
EXAM: Contrast-enhanced CT scan of the chest, abdomen, and pelvis. INDICATION: Fall. Rib and abdominal trauma. COMPARISON: CT chest, abdomen and pelvis 04/27/2024 TECHNIQUE: Multidetector helical imaging of the chest, abdomen, and pelvis was obtained from the thoracic inlet through the pubic symphysis following administration of 85 cc of Omnipaque 300 IV contrast. Coronal and sagittal reformatted images that were obtained were also reviewed. This CT examination was performed using dose optimization techniques as appropriate, variously including the following: *Automated exposure control *Adjustment of mA and/or kV according to patient size (this includes techniques or standardized protocols for targeted exams where dose is matched to indication/reason for exam; i.e. extremities or head) *Use of iterative reconstruction technique DLP: 833 mGy-cm FINDINGS: CHEST: Central airways are patent. Small filling defect along the right tracheal wall is nonspecific but statistically represents mucus. The lungs are adequately aerated. Emphysematous changes are noted. Azygous fissure is again incidentally noted. There is mild posterior pleural thickening bilaterally without gross effusion. There is mild biapical architectural distortion/scarring. There is some mild dependent atelectasis present. There is no lobar consolidation. No pleural effusion or pneumothorax. No suspicious pulmonary nodules. The heart is normal in size. Coronary artery calcifications are present. There is no pericardial effusion. Normal caliber thoracic aorta. No gross mediastinal or hilar lymphadenopathy. No pathologically enlarged axillary lymph nodes. ABDOMEN/PELVIS: The liver is normal in size. The gallbladder is surgically absent. The pancreas, spleen and adrenal glands are unremarkable. Symmetrically enhancing kidneys. There is no hydronephrosis of either kidney. Small to moderate-sized hiatal hernia is present. The stomach is decompressed. Normal caliber loops of small and large bowel. Unremarkable surgical changes consistent with partial right hemicolectomy. Normal caliber abdominal aorta demonstrating mild to moderate atherosclerotic disease. Retroaortic left renal vein. No gross retroperitoneal lymphadenopathy. The bladder is normal in appearance. The prostate gland is at the upper limits of normal in size. Small fat-containing right inguinal hernia present. No gross free pelvic fluid. No inguinal lymphadenopathy. OSSEOUS STRUCTURES Diffuse osteopenia. Degenerative changes of the spine. No compression deformity. No rib fracture. CT/CT abdomen pelvis w IV con IMPRESSION: No CT evidence for acute abnormality within the chest, abdomen or pelvis.
--- NOTE | ~2024-05-04 | XR_ITS ---
EXAMINATION: XR FEMUR, LEFT CLINICAL INFORMATION: Left leg pain COMPARISON: CT abdomen pelvis 05/04/2024 TECHNIQUE: AP and lateral views of the left femur were obtained. FINDINGS: Some minimal degenerative changes are seen in the hip with some mild lateral acetabular osteophytes. No pelvic or hip fracture is seen. Mild degenerative changes are seen in the visualized knee joint with narrowing of the medial compartment. The bones and soft tissues are otherwise unremarkable. No fracture. No osseous lesions. Incidental note made of vascular calcifications and a bladder filled with contrast media XR/XR femur LT 2V IMPRESSION: Mild degenerative changes in the hip and knee. No acute finding.
[2024-05-04 09:08] VITALS: BP 117/60; BP 122/57; PULSE 80; RESP 14; TEMP 36.9; O2SAT 97; BMI 20.1
--- NOTE | 2024-05-04 09:13 | ECG_ITS ---
Test Reason : fall Blood Pressure : / mmHG Vent. Rate : 080 BPM Atrial Rate : 080 BPM P-R Int : 152 ms QRS Dur : 140 ms QT Int : 430 ms P-R-T Axes : 067 035 015 degrees QTc Int : 495 ms Sinus rhythm with occasional Premature ventricular complexes Right bundle branch block Lateral infarct (cited on or before 15-MAR-2024) Inferior infarct (cited on or before 15-MAR-2024) Abnormal ECG When compared with ECG of 27-APR-2024 09:20, Premature ventricular complexes are now Present Referred By: Ervin Garcia Electronically Signed By:DAVID STEVE
[2024-05-04 09:15] VITALS: BP 122/57; PULSE 79; RESP 20; TEMP 36.9; O2SAT 97
--- NOTE | 2024-05-04 09:17 | ED_ITS ---
HPI - Fall General Chief Complaint: Fall Stated Complaint: Fall, Lac to head Time Seen by Provider: 05/04/24 09:06 Source: patient and EMS Mode of arrival: EMS Limitations: other (poor historian ) History of Present Illness ED Provider: Nai PUENTES HPI Narrative: This is an 89-year-old male history TIA, partial complex seizure disorder, arteriosclerotic cardiovascular disease, cardiomyopathy, heart failure with reduced ejection fraction, anemia, colon cancer, BPH, GERD, hypertension presenting to the emergency department status post rolling out of bed this morning, patient reports he rolled out of bed landed on his right side since then has been having a sore sensation to the right side of his body, when he fell he was unable to get up from the ground on his own, he did hit his head however he did not lose consciousness. He is on 2 antiplatelet medicines however no blood thinners. He denies preceding symptoms to fall. Does not think he had a seizure although he has seizure history. According to EMS family is concerned that he has been having failure to thrive for the past 2 months eating and drinking less than usual and more tired than usual. On arrival patient does also report he has a cut on his head from the fall. Bleeding controlled. NIH stroke scale is0 0 GCS 15 Related Data Home Medications ?Medication ?Instructions ?Recorded ?Confirmed aspirin 81 mg tablet,delayed 81 mg PO DAILY 03/16/24 04/27/24 release cholecalciferol (vitamin D3) 1,250 1,250 mcg PO FR 03/16/24 04/27/24 mcg (50,000 unit) capsule meclizine 25 mg tablet 25 mg PO TID PRN Dizziness 03/16/24 04/27/24 acetaminophen 325 mg tablet 352 mg PO Q6H PRN Pain 04/15/24 04/27/24 atorvastatin 40 mg tablet 40 mg PO BEDTIME 04/15/24 04/27/24 carvedilol 12.5 mg tablet 12.5 mg PO BIDWM 04/15/24 04/27/24 furosemide 20 mg tablet 20 mg PO DAILY 04/15/24 04/27/24 ticagrelor 90 mg tablet (Brilinta) 90 mg PO BID 04/27/24 04/27/24 Previous Rx's ?Medication ?Instructions ?Recorded lisinopril 20 mg tablet 20 mg PO DAILY #90 tabs 04/08/24 ascorbate calcium (vitamin C) 500 500 mg PO DAILY #30 tabs 04/10/24 mg tablet ferrous sulfate 325 mg (65 mg 325 mg PO DAILY #30 tabs 04/10/24 iron) tablet levetiracetam 500 mg tablet 500 mg PO BID #60 tabs 04/16/24 walker #1 ea 04/16/24 omeprazole 20 mg capsule,delayed 20 mg PO BID@0630,1630 #60 caps 04/17/24 release acetaminophen 325 mg capsule 650 mg (2 x 325 mg) PO Q6H PRN 05/04/24 (Tylenol) pain #30 caps Allergies Allergy/AdvReac Type Severity Reaction Status Date / Time No Known Allergies Allergy Verified 05/04/24 09:13 [No Known Allergies*] Review of Systems 2 Review of Systems: Yes all other systems are reviewed and are negative [facility] Past Medical History Attestation statement: The following information was validated with the patient. Source: old records reviewed and nursing notes reviewed Medical History Medicare annual wellness visit, initial Atherosclerotic cardiovascular disease Heart failure with reduced ejection fraction Wheezing Vitamin D deficiency Thoracic cyst TIA (transient ischemic attack) Colon cancer Hypercholesterolemia BPH (benign prostatic hyperplasia) Hypertension GERD (gastroesophageal reflux disease) Surgical History History of colectomy History of cholecystectomy Family History Family History Father Medical history unknown Mother Hypertension Sister Breast cancer Social History Social History Household Members: Spouse Housing: House Do you presently have visiting nurse or other home services: No Alcohol intake: current Alcohol intake frequency: does not drink Patient Tobacco Use Status: Former Tobacco user Tobacco use type: Cigarette Years Smoked: Quit 21 years old Smoked in Last 30 Days: No e-Cigarette/Vaping Use: Never Used Second Hand Smoke Exposure: No Use of substances other than those prescribed or required for medical reasons: No Advance Directives: No Advance Directives Information Provided: Yes Do you have a plan to hurt others: No Plan service: No Current occupational status: retired Cognitive needs: No Hearing needs: No Vision needs: Yes Physical Exam 2 Vital Signs: Vital Signs: Last Vital Signs Temp 97.9 F 05/04/24 10:23 Pulse 77 05/04/24 10:23 Resp 20 05/04/24 10:23 BP 125/64 05/04/24 10:23 Pulse Ox 97 05/04/24 10:23 O2 Del Method Room Air 05/04/24 10:23 BMI result Body Mass Index 20.1 vss Appearance: Alert.? Oriented X3.? No acute distress.? Head: Normocephalic, atraumatic, no step-offs or deformities + 1 cm abrasion to left frontal/lateral aspect of head not bleeding Eyes: Pupils equal, round and reactive to light.? Neck: Normal inspection.? Neck supple.? CVS: Normal heart rate and rhythm.? Pulses normal.? Respiratory: No respiratory distress.? Breath sounds normal.? Abdomen: Soft and nontender.? Skin: Skin warm and dry.? Normal skin color.? Normal skin turgor.? Extremities: No lower extremity edema.? No calf ttp. 4/5 strength to bilateral upper and lower extremities Back: No midline tenderness, no C-spine tenderness, full range of motion, no CVA tenderness bilaterally Neuro: Oriented X 3.? No motor deficit.? No sensory deficit. CN 2-12 intact Course Reevaluation(s) Reevaluation #1: CBC with a baseline normocytic anemia. Chemistry no acute findings meeting intervention. Total CPK 22, troponin 10.5, nonischemic EKG 2nd troponin pending. Unremarkable coags. CT chest, no evidence of acute abnormality in the chest, abdomen or pelvis. CT head and cervical spine still pending. Repeat troponin and urine also pending. Time: 11:52 Reevaluation #2: Repeat troponin 13.9, nonischemic EKG, no chest pain or shortness of breath. At some point patient did complain of left thigh pain when daughter was here, no overlying skin changes mild discomfort with palpation. X-ray of left femur ordered degenerative changes otherwise unremarkable. Time: 13:53 Reevaluation #3: UA without infection. Patient feeling well. Mild pain overlying left head abrasion. Likely concussion. Will give Tylenol. NIH stroke scale remains negative. Patient awake and alert. Plan at this time is discharge. Educated patient on diagnosis and treatment plan, answered all question, patient verbalizes understanding. At this time patient will be discharged home, advised to return with new or worsening symptoms. Educated on worrisome signs and symptoms and when to return. At this time I feel comfortable discharge home. Time: 15:12 Medications Administered Discontinued Medications Generic Name Dose Route Start Last Admin Trade Name Jolanta PRN Reason Stop Dose Admin Iohexol 85 ml 05/04/24 10:59 05/04/24 10:59 Iohexol 350 Mg/Ml 100 Ml Infus..Btl IV 05/04/24 11:00 85 ml ONCE ONE Administration Medical Decision Making Medical Decision Making [facility] Narrative: 0919 89 year old male presents s/p rolling out of bed this am has an abrasion to head and right sided pain throughout PE - abrasion to head otherwise unremarkable Will rule out traumatic injury to head, neck, chest, abdomen pelvis. Will rule out metabolic derangements, urinary infection, dysrhythmia. Less likely syncope or seizure unlikely stroke, posterior stroke. Plan labs, imaging, urine Differential Diagnosis Differential Diagnoses: The differential diagnosis associated with the presentation includes Will rule out traumatic injury to head, neck, chest, abdomen pelvis. Will rule out metabolic derangements, urinary infection, dysrhythmia. Less likely syncope or seizure unlikely stroke, posterior stroke. Admission/Observation Consideration of admission/observation: Escalation of care including admission/observation considered possible Lab Data [facility] Lab Attestation statement: I reviewed the patient's lab results. 05/04/24 09:29 05/04/24 09:29 Labs: Lab Results 05/04/24 05/04/24 05/04/24 Range/Units 09:29 12:00 14:58 WBC 9.2 (4.8-10.8) X10*3/uL RBC 2.99 L (4.60-5.80) X10*6/uL Hgb 9.6 L (14.0-18.0) g/dl Hct 27.7 L (42.0-52.0) % MCV 92.6 (80.0-98.0) fL MCH 32.1 (27.0-33.0) pg MCHC 34.7 (31.0-36.0) g/dl RDW 15.4 (11.0-16.0) % Plt Count 450 H (160-400) X10*3/uL MPV 9.5 (9.4-12.4) fL Immature Gran % (Auto) 0.4 (0.0-0.4) % Neut % (Auto) 74.6 H (45-73) % Lymph % (Auto) 9.1 L (20-40) % Josephine % (Auto) 12.1 H (2-11) % Eos % (Auto) 3.0 (0-4) % Baso % (Auto) 0.8 (0-2) % Lymph # (Auto) 0.8 L (1.2-4.9) X10*3/uL Josephine # (Auto) 1.1 (0.1-1.2) X10*3/uL Eos # (Auto) 0.3 (0.0-0.4) X10*3/uL Baso # (Auto) 0.1 (0.0-0.2) X10*3/uL Abs Immat Gran (auto) 0.04 H (0.00-0.03) X10*3/uL Absolute Neuts (auto) 6.8 (2.0-8.3) x10*3/uL Absolute Nucleated RBC 0.000 (0.0-0.012) X10*3/uL Nucleated RBC % (auto) 0.0 (0.0-0.2) /100WBC PT 14.2 H (11.1-13.3) SEC INR 1.2 H (0.9-1.1) Sodium 138 (135-145) mmol/L Potassium 3.5 (3.3-5.1) mmol/L Chloride 99 (96-108) mmol/L Carbon Dioxide 29 (22-29) mmol/L Anion Gap 14 (12-20) BUN 13 (9-16) mg/dL Creatinine 0.62 (0.5-1.4) mg/dL Estim Creat Clear Calc 75.6 Estimated GFR > 60 Random Glucose 104 (60-115) mg/dL Calcium 8.8 (8.4-10.2) mg/dL Magnesium 1.8 (1.6-2.6) mg/dL Total Bilirubin 0.7 (0.0-1.0) mg/dL AST 24 (5-37) U/L ALT 21 (0-40) U/L Alkaline Phosphatase 90 (39-117) U/L Total Creatine Kinase 22 L (38-174) U/L Troponin I High Sens 10.5 13.9 (<3.5-35.0) ng/L Total Protein 6.3 L (6.5-8.0) g/dL Albumin 2.6 L (3.5-5.0) g/dL Urine Color Dark Yellow Urine Appearance Clear Urine pH 6.5 (5.0-9.0) Ur Specific [place] >= 1.030 H (1.005-1.025) Urine Protein 30 (1+) H (Neg-Trace) mg/dL Urine Glucose (UA) Negative (Negative) mg/dL Urine Ketones 15 (Negative) mg/dL Urine Blood Negative (Negative) Urine Nitrite Negative (Negative) Ur Leukocyte Esterase Negative (Negative) Independent Interpretation I performed an independent interpretation of an: EKG (Vent. Rate : 080 BPM Atrial Rate : 080 BPM P-R Int : 152 ms QRS Dur : 140 ms QT Int : 430 ms P-R-T Axes : 067 035 015 degrees QTc Int : 495 ms Sinus rhythm with occasional Premature ventricular complexes Right bundle branch block Lateral infarct (cited on or before -) and CT Scan (CT/CT head/brain wo IV con IMPRESSION: 1. 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 2. No intracranial hemorrhage or skull fracture is seen. 3. No evidence of space occupying lesion could be found. 4. The cur) Interpretation: CT/CT chest w IV con IMPRESSION: No CT evidence for acute abnormality within the chest, abdomen or pelvis. XR/XR femur LT 2V IMPRESSION: Mild degenerative changes in the hip and knee. No acute finding. Radiology Impression Discussion of test interpretation with radiology: I have reviewed the radiologist's reading. External Record Review External record reviewed: Inpatient record, Office record, Outpatient record, Prior outpatient labs, Prior outpatient radiology, Primary care record and Outside ED record Chronic Conditions Patient?s care impacted by: Hypertension and Other (TIA, partial complex seizure disorder, arteriosclerotic cardiovascular disease, cardiomyopathy, heart failure with reduced ejection fraction, anemia, colon cancer, BPH, GERD, hypertension) Critical Care Time Critical Care Time Critical Care Time: No Discharge Plan Discharge Clinical Impression: Fall, Laceration of head, Concussion without loss of consciousness Patient Disposition: Home, Self-Care Instructions: Fall Prevention (ED), Head Laceration (ED) Additional Instructions: Take your medications as prescribed. If you were prescribed antibiotics today, it is important that you take your medication to their entirety, do not skip any doses, do not finish them early. Follow-up with your primary care provider this week. Return to the emergency department with new or worsening symptoms. Such as fevers, chills, chest pain, shortness of breath, nausea, vomiting, dizziness, headache, vision changes, lethargy In case of emergency call 911 Prescriptions: New acetaminophen [Tylenol] 325 mg capsule 650 mg PO Q6H PRN (Reason: pain) Qty: 30 0RF No Action aspirin 81 mg tablet,delayed release (DR/EC) 81 mg PO DAILY cholecalciferol (vitamin D3) 1,250 mcg (50,000 unit) capsule 1,250 mcg PO FR meclizine 25 mg tablet 25 mg PO TID PRN (Reason: Dizziness) atorvastatin 40 mg tablet 40 mg PO BEDTIME acetaminophen 325 mg Tablet 352 mg PO Q6H PRN (Reason: Pain) furosemide 20 mg tablet 20 mg PO DAILY carvedilol 12.5 mg tablet 12.5 mg PO BIDWM Rx Instructions: must administer with a meal/food levetiracetam 500 mg Tablet 500 mg PO BID Qty: 60 0RF (DME) [facility] [place] See Rx Instructions .Route Qty: 1 0RF Rx Instructions: As directed omeprazole 20 mg Capsule,Delayed Release(Dr/Ec) 20 mg PO BID@0630,1630 Qty: 60 0RF Rx Instructions: increased from prior dose of 20 mg daily Brilinta 90 mg tablet 90 mg PO BID ferrous sulfate 325 mg (65 mg iron) tablet 325 mg PO DAILY Qty: 30 1RF ascorbate calcium (vitamin C) 500 mg tablet 500 mg PO DAILY Qty: 30 1RF lisinopril 20 mg tablet 20 mg PO DAILY Qty: 90 3RF Referrals: Po,Js Carrero MD [Primary Care Provider] - 2 days Print Language: Turkish
[2024-05-04 09:34] LABS: MANUAL DIFF FLAG NO
[2024-05-04 09:37] LABS: Basophils Absolute Auto 0.1 X10*3/uL (0.0-0.2); Basophils Percent Auto 0.8 % (0-2); Eosinophils Absolute Auto 0.3 X10*3/uL (0.0-0.4); Hematocrit 27.7 % (42.0-52.0); Hemoglobin 9.6 g/dl (14.0-18.0); Imm Gran Abs Auto 0.04 X10*3/uL (0.00-0.03); Imm Gran Pct Auto 0.4 % (0.0-0.4); Lymphocytes Absolute Auto 0.8 X10*3/uL (1.2-4.9); Lymphocytes Percent Auto 9.1 % (20-40); Mean Corpuscular HGB Conc 34.7 g/dl (31.0-36.0); Mean Corpuscular Hemoglobin 32.1 pg (27.0-33.0); Mean Corpuscular Volume 92.6 fL (80.0-98.0); Mean Platelet Volume 9.5 fL (9.4-12.4); Monocytes Absolute Auto 1.1 X10*3/uL (0.1-1.2); Monocytes Percent Auto 12.1 % (2-11); Neutrophils Absolute Auto 6.8 x10*3/uL (2.0-8.3); Neutrophils Percent Auto 74.6 % (45-73); Platelet Count 450 X10*3/uL (160-400); Red Blood Count 2.99 X10*6/uL (4.60-5.80); Red Cell Distribution Width 15.4 % (11.0-16.0); White Blood Count 9.2 X10*3/uL (4.8-10.8)
[2024-05-04 09:43] LABS: INTERNATIONAL NORM RATIO 1.2 (0.9-1.1); Prothrombin Time 14.2 SEC (11.1-13.3)
--- NOTE | 2024-05-04 09:52 | PC.NURSE ---
Pt BIBA from home for a fall around 8am this morning. Pt states he rolled out of bed and landed on his right side, also hitting his head. -LOC, -Blood thiners, he does take two antiplatelet meds (clopidogrel and Brilinta). Pt was here on April 17 with ? seizures, he is now on seizure medications. Lac noted to left eye, cleaned and re-dressed. Per pt family, pt has had FTT starting 2 months ago (decreased appetite, increased lethargy) Pt a/ox4, respirations even and unlabored, lung sounds cta bilaterally, s1 and 2 heard, abdomen soft and non-tender, no edema in extremities, pt arrived in C-collar for safety. Pt denies dizziness, headache, visual disturbances, chest pain, or SOB. This RN asked pt if he has frequent falls at home, pt stated it happens more than it should . Pt walks with walker at home.
[2024-05-04 09:53] LABS: Alanine Aminotransferase 21 U/L (0-40); Albumin Level 2.6 g/dL (3.5-5.0); Alkaline Phosphatase 90 U/L (39-117); Anion Gap 14 (12-20); Aspartate Amino Transferase 24 U/L (5-37); Bilirubin Total 0.7 mg/dL (0.0-1.0); Blood Urea Nitrogen 13 mg/dL (9-16); Calcium 8.8 mg/dL (8.4-10.2); Carbon Dioxide 29 mmol/L (22-29); Chloride 99 mmol/L (96-108); Creatinine Clr Calc Pharmacy 75.6; Estimated Glomerular Filt Rate > 60; Glucose Random 104 mg/dL (60-115); Magnesium 1.8 mg/dL (1.6-2.6); Potassium 3.5 mmol/L (3.3-5.1); Sodium 138 mmol/L (135-145); Total Protein 6.3 g/dL (6.5-8.0)
[2024-05-04 09:59] LABS: Troponin-I High Sensitivity 10.5 ng/L (<3.5-35.0)
--- NOTE | 2024-05-04 09:59 | PC.NURSE ---
Pt resting in bed quietly, c-collar for safety, 20g IV in left forearm by EMS (intact, patent, no redness/pain at site), labs obtained and sent, call wang within reach, CT ordered.
[2024-05-04 10:23] VITALS: BP 125/64; PULSE 77; RESP 20; TEMP 36.6; O2SAT 97
[2024-05-04] MEDS: iohexoL 350 MG/ML 100 ML INFUS..BTL 85 ML IV (10:59)
[2024-05-04 12:28] LABS: Troponin-I High Sensitivity 13.9 ng/L (<3.5-35.0)
[2024-05-04 15:05] LABS: Appearance Urine Clear; Color Urine Dark Yellow; Glucose Urine UA Negative (Negative); Leukocyte Esterase Urine Negative (Negative); Nitrite Urine Negative (Negative); PH 6.5 (5.0-9.0); Specific Gravity - Urine >= 1.030 (1.005-1.025); UMIC TRIGGER UACC YES; Urine Blood Negative (Negative); Urine Ketones 15 mg/dL (Negative); Urine Protein 30 (1+) mg/dL (Neg-Trace)
[2024-05-04 15:18] LABS: Bacteria Urine None Seen (None Seen); Hyaline Casts Urine 0-2 /LPF (0-2); RBC Urine 0-2 /HPF (0-2); Squamous Epithelial Cell Urine 0-2 /HPF (0-2); WBC Urine 0-5 /HPF (0-5)
--- NOTE | 2024-05-04 15:20 | MHC.CM.ED ---
[facility]. Return referral made in [facility]. Patient will be d/c'd home.
[2024-05-04] MEDS: Acetaminophen 325 MG TABLET 650 MG PO (15:21)
[2024-05-04 15:56] VITALS: BP 120/74; PULSE 77; RESP 20; TEMP 36.8; O2SAT 97
[2024-05-04 15:57] VITALS: BP 120/74; PULSE 77; RESP 20; TEMP 36.8; O2SAT 97
== END 2024-05-04 15:58 | disposition home or self-care (01) ==
PROVIDERS: Physician Assistant; Emergency Provider Emergency Medicine; PCP Internal Medicine
DX: S01.91XA Laceration without foreign body of unspecified part of head, initial encounter (principal); S06.0X0A Concussion without loss of consciousness, initial encounter; R94.31 Abnormal electrocardiogram [ECG] [EKG]; I45.10 Unspecified right bundle-branch block; R06.02 Shortness of breath; M54.2 Cervicalgia; R51.9 Headache, unspecified; M79.605 Pain in left leg; R07.89 Other chest pain; W06.XXXA Fall from bed, initial encounter; Y93.89 Activity, other specified; Y92.092 Bedroom in other non-institutional residence as the place of occurrence of the external cause; Y99.8 Other external cause status; Z79.899 Other long term (current) drug therapy
CPT/HCPCS: 36415; 70450; 71260; 72125; 73552; 74177; 80053; 81001; 82550; 83735; 84484; 85025; 85610; 93005; 99284; 99285; Q9967

== ENCOUNTER → 2024-05-04 09:13 | Outpatient (BNV) | payer MEDICARE, SELFPAY | PROVIDERS: Emergency Provider Emergency Medicine; PCP Internal Medicine; Visit Provider Internal Medicine | DX: I49.3 Ventricular premature depolarization (principal) | CPT/HCPCS: 93010 ==

== ENCOUNTER 2024-05-18 11:12 | Outpatient (AMB) | payer MEDICARE, SELFPAY ==
[2024-05-18 11:14] VITALS: BP 88/60; PULSE 60; BMI 19.0
--- NOTE | 2024-05-18 11:14 | MHC.PC.OV ---
Vital Signs 05/18/24 11:14 Height 5 ft 10 in Weight 132 lb 7.965 oz BMI 19.0 BP 88/60 L Blood Pressure Location Rt brachial Position Sitting Pulse 60 Pulse Source Pulse Oximeter Oxygen Delivery Method Room Air Intake Visit Reasons: [facility]-05/05 Concussion/Fall Intake Note: Patient is here for hospital discharge follow up. Patient was discharged from [facility] [place] on 05/05/2024 fall General Worker Required: No Allergies No Known Allergies [No Known Allergies*] Allergy (Verified 05/18/24 11:15) Medication List - Last Reconciled 05/18/24 by EMERSON Jimenez-Jae acetaminophen (Tylenol) 650 mg (2 x 325 mg) PO Q6H PRN acetaminophen 352 mg PO Q6H PRN ascorbate calcium (vitamin C) 500 mg PO DAILY aspirin 81 mg PO DAILY atorvastatin 40 mg PO BEDTIME carvedilol 12.5 mg PO BIDWM cholecalciferol (vitamin D3) 1,250 mcg PO FR ferrous sulfate 325 mg PO DAILY furosemide 20 mg PO DAILY levetiracetam 500 mg PO BID lisinopril 20 mg PO DAILY meclizine 25 mg PO TID PRN mirtazapine 7.5 mg PO BEDTIME omeprazole 20 mg PO BID@0630,1630 ticagrelor (Brilinta) 90 mg PO BID walker As directed Tobacco use date assessed: 11/26/23 Fall risk assessment: No Falls in past year Last assessed Fall Risk: 05/18/24 Dental Screening Dental Screen Date: 03/04/24 HPI [facility]-05/05 Concussion/Fall HPI Details 89 year old male with history of hypertension, GERD, hypercholesterolemia, BPH, colon cancer s/p hemicolectomy 2016, and coronary artery disease with heart failure ejection fraction 40-45% last seen 05/06 coming in for hospital discharge follow up.? In review of the notes, patient was seen in [facility] 05/04/2024 after rolling out of bed and landing on his right side.? EKG, chest CT, CT head and cervical spine, x-ray of left femur, and blood work all within normal limits and patient was discharged home. Patient presents with his daughter who tells us that he has been improving at home. He has a VNA coming to take his blood pressure which have been around 110s systolic and 60-70 diastolic. Patient is not symptomatic with low blood pressures. He has also been improving his mobility and is able to ambulate without a walker at this time however still having difficulty eating and with fluid intake. He also mentions he is less fatigued. He does complain of head fullness and can not elaborate but denies any head pressure, vision changes, pain, or psychiatric issues. [facility] Medical History Medicare annual wellness visit, initial Atherosclerotic cardiovascular disease Heart failure with reduced ejection fraction Wheezing Vitamin D deficiency Thoracic cyst TIA (transient ischemic attack) Colon cancer Hypercholesterolemia BPH (benign prostatic hyperplasia) Hypertension GERD (gastroesophageal reflux disease) Surgical History History of colectomy History of cholecystectomy Family History Father Medical history unknown Mother Hypertension Sister Breast cancer Social History Household Members: Spouse Housing: House Do you presently have visiting nurse or other home services: No Alcohol intake: current Alcohol intake frequency: does not drink Patient Tobacco Use Status: Former Tobacco user Tobacco use type: Cigarette Years Smoked: Quit 21 years old e-Cigarette/Vaping Use: Never Used Second Hand Smoke Exposure: No service: No Current occupational status: retired Cognitive needs: No Hearing needs: No Vision needs: Yes Questionnaire Thrive Questionnaire Date Thrive assessed: 04/15/24 AUDIT C Alcohol Use Questionnaire (AUDIT-C) 1. How often do you have a drink containing alcohol?: 4 or more times a week 2. How many drinks containing alcohol do you have on a typical day when you are drinking?: 1 or 2 3. How often do you have six or more drinks on one occasion?: Never Total Score: 4 DAVID-7 AMB Questionnaire DAVID-7 Date DAVID - 7 assessed: 11/26/23 Source: Developed by Drs. Walter Forrester, Nichole Amaral, Jaylen Morris and colleagues, with an educational kannan from [employer]. Review of Systems Const Denies body aches, Denies chills, Denies fever(s), Denies headache(s) and Denies poor appetite Eyes Reports no additional complaints ENT Denies dysphagia, Denies dizziness, Denies headache(s) and Denies odynophagia Card Denies chest pain, Denies syncope, Denies edema, Denies irregular heart rhythm, Denies lightheadedness and Denies dyspnea Resp Denies cough and Denies dyspnea GI Denies abdominal pain, Denies constipation, Denies dysphagia, Denies diarrhea, Denies nausea, Denies odynophagia and Denies vomiting Reports no additional complaints Musc Reports no additional complaints and Denies abnormal gait Skin/Breast Reports system reviewed and no additional complaints, except as documented Neuro Denies abnormal gait, Denies dizziness, Denies syncope and Denies headache(s) Psych Reports no additional complaints Physical exam (Primary Care) Vital Signs: Last Vital Signs Pulse 60 05/18/24 11:14 BP 88/60 L 05/18/24 11:14 Oxygen Delivery Method Room Air 05/18/24 11:14 BMI result Body Mass Index 19.0 Tobacco/Smoking Status: Tobacco use Status Tobacco use date assessed 11/26/23 05/18/24 11:16 Patient Tobacco Use Status Former Tobacco user 05/18/24 11:16 Tobacco use type Cigarette 05/18/24 11:16 e-Cigarette/Vaping Use Never Used 05/18/24 11:16 Thrive Assessment: Date of Thrive Assessment Date Thrive assessed 04/15/24 05/18/24 11:16 Const General: cooperative, healthy appearing, comfortable and no acute distress Orientation/consciousness: patient oriented x3 HENMT Head: Yes normocephalic Ears: hearing grossly normal bilaterally General nose exam: Normal external nose present Eyes General: appearance normal, both eyes and all related structures Conjunctivae: conjunctivae normal Neck Neck: Yes full ROM and Yes no lymphadenopathy Resp Effort & Inspection: normal respiratory effort Auscultation: clear to auscultation bilaterally, no crackles, no rales, no rhonchi and no wheezes Cardio Rate: regular rate Rhythm: regular rhythm Skin General skin exam: no rashes or lesions noted Neuro General: patient oriented x3 Gait exam (Neuro): Normal gait present Extrem General: Yes normal to inspection, Yes full ROM and No edema Psych Affect: normal affect Attitude: cooperative Insight: Good insight present (Psych) Judgement: Good judgement present (Psych) Assessment and Plan Assessment & Plan (1) Weakness: Code(s): R53.1 - Weakness Plan: Mobility and fatigue have been improving at home and patient has been able to ambulate without a walker. He does work with VNA on mobility and was referred for PT. Patient has lack of appetite but does still eat, referred to diet and nutrition for recommendations on high caloric food. (2) Heart failure with reduced ejection fraction: Code(s): I50.20 - Unspecified systolic (congestive) heart failure Plan: Last echo showed ejection fraction of 40-45% with wall motion abnormalities. Patient follows with Cardiology, last seen 04/08/2024. Per cardiology advised to decrease lisinopril from 40 mg to 20 mg due to low blood pressure and fatigue, and continue carvedilol as prescribed, and to discontinue Lasix at this time as there are no signs of fluid overload or heart failure. (3) Hypertension: Code(s): I10 - Essential (primary) hypertension Qualifiers: Hypertension type: essential hypertension Qualified Code(s): I10 - Essential (primary) hypertension Plan: Blood pressure in the office was 88/60 today and patient was not symptomatic. Per daughter report he regularly has VNA services and she also takes his blood pressure daily which have been within normal range. We will reach out to Cardiology to ask about further reduction in lisinopril as his pressures remain low in the office. (4) Fullness in head: Code(s): R68.89 - Other general symptoms and signs Plan: Patient complains of fullness in head and can not elaborate on symptoms. This does not happen all day long and primarily when he is in the car. This could be related to motion sickness, advised patient to trial [id number] Dramamine naturals. This drain remain is a herbal supplement that should not interfere with daily medications. Plan This note was constructed using voice recognition software. While every effort has been made to ensure accuracy and advanced manufacturing associate, still areas may have been included sometimes these areas may affect the content or meeting of the given symptoms. Total time spent caring for the patient today was 30 minutes. This includes time spent before the visit reviewing the chart, time spent during the visit, and time spent after the visit and documentation. Orders: Referrals Nutrition/Dietitian Referral R62.7 - Adult failure to thrive Medications: Refilled ascorbate calcium (vitamin C) 500 mg PO DAILY 30 tabs 1RF levetiracetam 500 mg PO BID 60 tabs 0RF Coding Level of Care Code Est Pt Level 4 (07805) Diagnoses Weakness R53.1 Heart failure with reduced ejection fraction I50.20 Essential hypertension I10 Hypertension type: essential hypertension Fullness in head R68.89
== END 2024-05-18 11:58 | disposition home or self-care (01) ==
PROVIDERS: PCP Internal Medicine
DX: R53.1 Weakness (principal); I11.0 Hypertensive heart disease with heart failure; I50.20 Unspecified systolic (congestive) heart failure; R68.89 Other general symptoms and signs
CPT/HCPCS: 99214

== ENCOUNTER 2024-07-13 10:04 | Outpatient (AMB) | payer MEDICARE, SELFPAY ==
--- NOTE | 2024-07-13 10:06 | A.OFFVIS_ITS ---
Vital Signs 07/13/24 10:07 Height 5 ft 10 in Weight 137 lb 9.095 oz BMI 19.7 BP 94/48 L Blood Pressure Location Lt brachial Position Sitting Pulse 76 Intake Visit Reasons: 3 mth f/up Steel Grinder Required: No Accompanied by: Daughter Allergies No Known Allergies [No Known Allergies*] Allergy (Verified 05/18/24 11:15) Medication List - Last Reconciled 07/13/24 by Edmundo Basurto MD acetaminophen (Tylenol) 650 mg (2 x 325 mg) PO Q6H PRN ascorbate calcium (vitamin C) 500 mg PO DAILY aspirin 81 mg PO DAILY atorvastatin 40 mg PO BEDTIME carvedilol 12.5 mg PO BIDWM cholecalciferol (vitamin D3) 1,250 mcg PO FR furosemide 20 mg PO DAILY levetiracetam 250 mg PO BID lisinopril 10 mg PO DAILY meclizine 25 mg PO TID PRN mirtazapine 7.5 mg PO BEDTIME omeprazole 20 mg PO DAILY ticagrelor (Brilinta) 90 mg PO BID tanner As directed HPI Comments Details: Andrés returns for follow-up regarding coronary artery disease. In the past, he had type 2 NSTEMI during pneumonia and was hospitalized at [facility]. Subsequently, started seeing us and underwent cardiac catheterization with PCI to left main into LAD. From cardiac, he states he feels fine. No complaints like angina or shortness of breath. Still has low blood pressure issues. Accompanied by daughter. [facility] Medical History Medicare annual wellness visit, initial Atherosclerotic cardiovascular disease Heart failure with reduced ejection fraction Wheezing Vitamin D deficiency Thoracic cyst TIA (transient ischemic attack) Colon cancer Hypercholesterolemia BPH (benign prostatic hyperplasia) Hypertension GERD (gastroesophageal reflux disease) Surgical History History of colectomy History of cholecystectomy Family History Father Medical history unknown Mother Hypertension Sister Breast cancer Social History Household Members: Spouse Housing: House Do you presently have visiting nurse or other home services: No Alcohol intake: current Alcohol intake frequency: does not drink Patient Tobacco Use Status: Former Tobacco user Tobacco use type: Cigarette Years Smoked: Quit 21 years old e-Cigarette/Vaping Use: Never Used Second Hand Smoke Exposure: No service: No Current occupational status: retired Cognitive needs: No Hearing needs: No Vision needs: Yes Review of Systems Const Denies chills, Denies fatigue, Denies fever(s), Denies weight gain and Denies weight loss ENT Denies dizziness Card Denies chest pain, Denies leg edema, Denies lightheadedness, Denies palpitations, Denies dyspnea on exertion, Denies orthopnea and Denies other Resp Denies cough and Denies dyspnea on exertion GI Denies hematochezia and Denies change in stool character Musc Denies abnormal gait, Denies muscle weakness, Denies numbness, Denies radiating pain into limb and Denies tingling Neuro Denies abnormal gait, Denies dizziness, Denies numbness and Denies tingling Endo Denies fatigue and Denies palpitations Physical Exam Vital Signs: Last Vital Signs Pulse 76 07/13/24 10:07 BP 94/48 L 07/13/24 10:07 BMI result Body Mass Index 19.7 Const General: comfortable and no acute distress Orientation/consciousness: patient oriented x3 HEENT Other: Unremarkable Head: Yes normal to inspection Neck Neck: Yes normal visual inspection Chest Chest palpation & inspection: normal inspection of the chest Resp Auscultation: clear to auscultation bilaterally Cardio Palpation: normal PMI Heart sounds: S1 normal heart sound present, S2 normal heart sound present, no gallops, no murmurs and no rubs GI Palpation (GI): Soft to palpation Back/Spine/Pelvis Other: unremarkable Skin General skin exam: no rashes or lesions noted Neuro General: patient oriented x3 Extrem General: Yes normal to inspection Psych Mental Status: mental status grossly normal Assessment & Plan Assessment & Plan (1) Atherosclerotic cardiovascular disease: Code(s): I25.10 - Atherosclerotic heart disease of [place] coronary artery without angina pectoris Category: Medical Plan: Cardiac catheterization 08/2023-PCI of left main to LAD. Occluded ostial circumflex with [id number] collaterals. Large 1st diagonal with 80% mid vessel stenosis. Ostial nondominant right coronary artery with 80-85% stenosis. Continue long-term aspirin. Brilinta at least for 1 year. Continue statins. Lipids well controlled. Clinically, no angina. (2) Cardiomyopathy: Code(s): I42.9 - Cardiomyopathy, unspecified Category: Medical Qualifiers: Cardiomyopathy type: ischemic Qualified Code(s): I25.5 - Ischemic cardiomyopathy Plan: In the recent echocardiogram, LVEF is 40-45% with wall motion abnormalities consistent with underlying CAD. He remains on carvedilol/lisinopril. Meds will need to be cut back because of low blood pressure. Clinically, no heart failure symptoms or signs. (3) Hypotension (arterial): Code(s): I95.9 - Hypotension, unspecified Category: Medical Plan: May stop carvedilol. Advised daughter to check blood pressures for the next few days and report back to us in 1 week. If blood pressure rebounds, possibly use a small dose of metoprolol instead. Lisinopril dose has already been cut back. Plan Plan discussed with daughter. Orders: Orders CA echo transthoracic complete 3 Months Edmundo Basurto MD I25.5 - Ischemic cardiomyopathy Medications: Changed From levetiracetam 500 mg PO BID 180 tabs 0RF To levetiracetam 250 mg PO BID Adriana Pérez PA-C Coding Level of Care Code Est Pt Level 4 (24776) Diagnoses Atherosclerotic cardiovascular disease I25.10 Ischemic cardiomyopathy I25.5 Cardiomyopathy type: ischemic Hypotension (arterial) I95.9
[2024-07-13 10:07] VITALS: BP 94/48; PULSE 76; BMI 19.7
== END 2024-07-13 10:37 | disposition home or self-care (01) ==
PROVIDERS: PCP Internal Medicine; Visit Provider Internal Medicine
DX: I25.10 Atherosclerotic heart disease of native coronary artery without angina pectoris (principal); I25.5 Ischemic cardiomyopathy; I95.9 Hypotension, unspecified
CPT/HCPCS: 99214

== ENCOUNTER → 2024-07-13 10:04 | Outpatient (BNVA) | payer MEDICARE, SELFPAY | PROVIDERS: PCP Internal Medicine; Visit Provider Internal Medicine | DX: I25.10 Atherosclerotic heart disease of native coronary artery without angina pectoris (principal); I25.2 Old myocardial infarction; I25.5 Ischemic cardiomyopathy; I95.9 Hypotension, unspecified; Z87.891 Personal history of nicotine dependence | CPT/HCPCS: 99212 ==

== ENCOUNTER 2024-07-21 07:48 | Outpatient (AMB) | payer MEDICARE, SELFPAY ==
--- NOTE | 2024-07-21 08:39 | MHC.PC.OV ---
Vital Signs 07/21/24 08:40 07/21/24 08:57 Height 5 ft 10 in Weight 131 lb 8 oz BMI 18.9 BP 94/64 100/50 L Blood Pressure Location Lt brachial Lt brachial Position Sitting Sitting Intake Visit Reasons: 3mth f/u Intake Note: Patient is here to follow up on Heart failure, HNT. Sheet Rock Taper Required: No Community Associate: Present Accompanied by: Daughter Allergies No Known Allergies [No Known Allergies*] Allergy (Verified 07/21/24 08:39) Tobacco use date assessed: 07/21/24 Fall risk assessment: No Falls in past year Last assessed Fall Risk: 07/21/24 Dental Screening Dental Screen Date: 03/04/24 HPI 3mth f/u HPI Details 89-year-old male with multiple medical problems hypertension GERD BPH hypercholesterolemia history of colon cancer, congestive heart failure with cardiomyopathy coronary artery disease history of CVA coming in for follow-up. Last seen in May 18. Review of the notes has seen Cardiology in July 13 cardiac catheterization with PCI 09/02/2023 Natty 1 year recent echocardiogram EF of 40-45% was advised to stop carvedilol dose the low blood pressure and if blood pressure goes up may use metoprolol instead.. Received also ER note February 16 right arm weakness with a history of mechanical fall CT scan done showing bilateral lacunar infarcts the right side unchanged in 2007 left 1 is new since 2007 but favors old. Carotid ultrasound 25% right, 40% left.. April 2024 ER note rolling out of bed in the morning had it on and right side unable to get out bed did not lose consciousness diagnosis of concussion without loss of consciousness. Another ER note April 27 30 lb weight loss. April 17 admitted for falls and weakness diagnosis of complex partial seizure GERD placed on Keppra. April 08 cardiology evaluation patient has been forgetting meds and has been noncompliant. BP i check 100/50, their machine 107/57. Patient does not complain of any chest pains no shortness a breath has not fallen since the last time seen in the office and no nausea no vomiting no diarrhea or deny any diarrhea no problems with urinating and discussed about fluid intake and the patient does not drink much fluid except for 1 bottle. Advised to increase oral fluids eat 3 meals a day to get proteins and energy back. Will order for blood work [facility] Medical History Medicare annual wellness visit, initial Atherosclerotic cardiovascular disease Heart failure with reduced ejection fraction Wheezing Vitamin D deficiency Thoracic cyst TIA (transient ischemic attack) Colon cancer Hypercholesterolemia BPH (benign prostatic hyperplasia) Hypertension GERD (gastroesophageal reflux disease) Surgical History History of colectomy History of cholecystectomy Family History Father Medical history unknown Mother Hypertension Sister Breast cancer Social History Household Members: Spouse Housing: House Do you presently have visiting nurse or other home services: No Alcohol intake: current Alcohol intake frequency: does not drink Patient Tobacco Use Status: Former Tobacco user Tobacco use type: Cigarette Years Smoked: Quit 21 years old e-Cigarette/Vaping Use: Never Used Second Hand Smoke Exposure: No service: No Current occupational status: retired Cognitive needs: No Hearing needs: No Vision needs: Yes Questionnaire Thrive Questionnaire Date Thrive assessed: 04/15/24 Are you currently unemployed and looking for a job?: No DAVID-7 AMB Questionnaire DAVID-7 Date DAVID - 7 assessed: 11/26/23 Source: Developed by Drs. Walter Forrester, Nichole Amaral, Jaylen Morris and colleagues, with an educational kannan from [employer]. Physical exam (Primary Care) Vital Signs: Last Vital Signs BP 100/50 L 07/21/24 08:57 BMI result Body Mass Index 18.9 Tobacco/Smoking Status: Tobacco use Status Tobacco use date assessed 07/21/24 07/21/24 08:46 Patient Tobacco Use Status Former Tobacco user 07/21/24 08:46 Tobacco use type Cigarette 07/21/24 08:46 e-Cigarette/Vaping Use Never Used 07/21/24 08:46 Thrive Assessment: Date of Thrive Assessment Date Thrive assessed 04/15/24 07/21/24 08:46 Const General: alert; No acute distress Eyes Conjunctivae: conjunctivae normal Resp Auscultation: clear to auscultation bilaterally Cardio Rate: regular rate Rhythm: regular rhythm GI Inspection: Yes normal to inspection Extrem General: Yes normal to inspection and No edema Office Procedures Flu Questionnaire Does the patient have a severe egg allergy?: No Does the patient have severe life threatening allergies?: No Does the patient have a fever or illness today?: No Has the patient ever had Guillain-Quincy Syndrome?: No Has the patient ever had any past reaction to a flu shot?: No Immunizations Fluarix Triv [id number] (PF) 45 mcg (15 mcg x 3)/0.5 mL IM syringe Performing Provider: Js Allison MD [facility] [place] [facility] Administered by: Rita Patel LPN on 07/21/24 08:56 Dose Route Admin Location Dispensed Lot Number Expiration Date NDC Impact Retail Service Merchandiser 0.5 mL IM Left Deltoid 0.5 mL [id number] 04/12/25 [id number] [employer] VIS Given Date VIS Provided VIS Publication Date 07/21/24 Single Vaccine 21 Eligibility Eligibility Date Funding Source Not [facility] Eligible 07/21/24 Private Coding Level of Care Code Est Pt Level 4 (58650) Complex EM visit Add On G2211 Diagnoses Ischemic cardiomyopathy I25.5 Cardiomyopathy type: ischemic Essential hypertension I10 Hypertension type: essential hypertension Hypercholesterolemia E78.00 Atherosclerotic cardiovascular disease I25.10 Benign prostatic hyperplasia without lower urinary tract symptoms N40.0 Lower urinary tract symptom presence: symptoms absent Gastroesophageal reflux disease without esophagitis K21.9 Esophagitis presence: without esophagitis Heart failure with reduced ejection fraction I50.20 Malignant neoplasm of colon, unspecified part of colon C18.9 Colon location: unspecified part of colon Assessment & Plan Assessment & Plan (1) Cardiomyopathy: Code(s): I42.9 - Cardiomyopathy, unspecified Category: Medical Qualifiers: Cardiomyopathy type: ischemic Qualified Code(s): I25.5 - Ischemic cardiomyopathy Plan: Continue to follow-up with cardiology concern about low blood pressure and blood pressure medication has been decreased carvedilol has been stopped (2) Hypertension: Code(s): I10 - Essential (primary) hypertension Category: Medical Qualifiers: Hypertension type: essential hypertension Qualified Code(s): I10 - Essential (primary) hypertension Plan: Hypotension and medication adjustment done (3) Hypercholesterolemia: Code(s): E78.00 - Pure hypercholesterolemia, unspecified Category: Medical Plan: Avoid fried foods, chicken skin, eggs, butter margarine, pastries and meat. Be it pork or beef they have a lot of cholesterol continue with atorvastatin 40 mg once a day (4) Atherosclerotic cardiovascular disease: Comment: August 2023 Code(s): I25.10 - Atherosclerotic heart disease of [place] coronary artery without angina pectoris Category: Medical Plan: Control the cholesterol, weight, blood pressure, diabetes on aspirin and Brilinta (5) BPH (benign prostatic hyperplasia): Code(s): N40.0 - Benign prostatic hyperplasia without lower urinary tract symptoms Category: Medical Qualifiers: Lower urinary tract symptom presence: symptoms absent Qualified Code(s): N40.0 - Benign prostatic hyperplasia without lower urinary tract symptoms Plan: Presently stable and will continue to monitor (6) GERD (gastroesophageal reflux disease): Code(s): K21.9 - Gastro-esophageal reflux disease without esophagitis Category: Medical Qualifiers: Esophagitis presence: without esophagitis Qualified Code(s): K21.9 - Gastro-esophageal reflux disease without esophagitis Plan: Avoid the foods that causes that usually spicy foods, tomato products, juices, coffee, soda and foods that your sensitive to. After eating do not lie down, allow 3-4 hours before in lie down. And keep the head of bed above 30 degrees to avoid the acid from going up. (7) Heart failure with reduced ejection fraction: Code(s): I50.20 - Unspecified systolic (congestive) heart failure Category: Medical Plan: Continue with diuretics and need to monitor blood work (8) Colon cancer: Comment: 2007 Dr. Freddy Payne 2014, December 2015, January 2017 Code(s): C18.9 - Malignant neoplasm of colon, unspecified Category: Medical Qualifiers: Colon location: unspecified part of colon Qualified Code(s): C18.9 - Malignant neoplasm of colon, unspecified Plan: Continue to monitor Orders: Orders Influenza [id number] Immunization Today Z23 - Encounter for immunization Comprehensive Met. Panel Today I95.9 - Hypotension, unspecified Free T4 (Free Thyroxine) Today I95.9 - Hypotension, unspecified Thyroid Stimulating Hormone Today I95.9 - Hypotension, unspecified B Type Natriuretic Peptide Today I95.9 - Hypotension, unspecified Ferritin Today I95.9 - Hypotension, unspecified IRON PROFILE Today I95.9 - Hypotension, unspecified Complete Blood Count Auto Diff Today I95.9 - Hypotension, unspecified Lipid Panel Today E78.00 - Pure hypercholesterolemia, unspecified, I95.9 - Hypotension, unspecified Vitamin B12 and Folate Today I95.9 - Hypotension, unspecified Magnesium Today I95.9 - Hypotension, unspecified Phosphorus Today I95.9 - Hypotension, unspecified Reticulocyte Count Today I95.9 - Hypotension, unspecified Uric Acid Today I95.9 - Hypotension, unspecified Medications: Refilled ascorbate calcium (vitamin C) 500 mg PO DAILY 30 tabs 1RF
[2024-07-21 08:40] VITALS: BP 94/64; BMI 18.9
[2024-07-21 08:57] VITALS: BP 100/50
== END 2024-07-21 09:17 | disposition home or self-care (01) ==
PROVIDERS: PCP Internal Medicine; Visit Provider Internal Medicine
DX: I25.5 Ischemic cardiomyopathy (principal); I50.20 Unspecified systolic (congestive) heart failure; C18.9 Malignant neoplasm of colon, unspecified; I10 Essential (primary) hypertension; I25.10 Atherosclerotic heart disease of native coronary artery without angina pectoris; E78.00 Pure hypercholesterolemia, unspecified; N40.0 Benign prostatic hyperplasia without lower urinary tract symptoms; K21.9 Gastro-esophageal reflux disease without esophagitis; Z23 Encounter for immunization

== ENCOUNTER → 2024-07-21 07:48 | Outpatient (BNVA) | payer MEDICARE, SELFPAY | PROVIDERS: PCP Internal Medicine; Visit Provider Internal Medicine | DX: Z23 Encounter for immunization (principal); I25.5 Ischemic cardiomyopathy; E78.00 Pure hypercholesterolemia, unspecified; I25.10 Atherosclerotic heart disease of native coronary artery without angina pectoris; N40.0 Benign prostatic hyperplasia without lower urinary tract symptoms; K21.9 Gastro-esophageal reflux disease without esophagitis; I11.0 Hypertensive heart disease with heart failure; I50.20 Unspecified systolic (congestive) heart failure; C18.9 Malignant neoplasm of colon, unspecified | CPT/HCPCS: 90471; 90656; 99212 ==

== ENCOUNTER 2024-08-06 08:52 | Outpatient (REF) | payer MEDICARE, SELFPAY ==
[2024-08-06 09:38] LABS: MANUAL DIFF FLAG NO
[2024-08-06 09:49] LABS: Basophils Absolute Auto 0.1 X10*3/uL (0.0-0.2); Basophils Percent Auto 0.8 % (0-2); Eosinophils Absolute Auto 0.4 X10*3/uL (0.0-0.4); Eosinophils Percent Auto 5.7 % (0-4); Hematocrit 33.2 % (42.0-52.0); Imm Gran Abs Auto 0.03 X10*3/uL (0.00-0.03); Imm Gran Pct Auto 0.4 % (0.0-0.4); Immature Retic Fraction 7.6 % (2.3-13.4); Lymphocytes Absolute Auto 1.3 X10*3/uL (1.2-4.9); Lymphocytes Percent Auto 16.2 % (20-40); Mean Corpuscular HGB Conc 33.1 g/dl (31.0-36.0); Mean Corpuscular Hemoglobin 32.1 pg (27.0-33.0); Mean Corpuscular Volume 96.8 fL (80.0-98.0); Mean Platelet Volume 9.8 fL (9.4-12.4); Monocytes Absolute Auto 0.8 X10*3/uL (0.1-1.2); Monocytes Percent Auto 10.3 % (2-11); Neutrophils Absolute Auto 5.2 x10*3/uL (2.0-8.3); Neutrophils Percent Auto 66.6 % (45-73); Platelet Count 318 X10*3/uL (160-400); Red Blood Count 3.43 X10*6/uL (4.60-5.80); Red Cell Distribution Width 16.3 % (11.0-16.0); Retic HGB Equivalent 34.5 pg (30.0-35.0); Reticulocyte Percent 1.2 % (0.5-1.8); Reticulocytes Absolute 0.041 X10*6/uL (0.026-0.095); White Blood Count 7.8 X10*3/uL (4.8-10.8)
[2024-08-06 10:27] LABS: Alanine Aminotransferase 24 U/L (0-40); Albumin Level 3.7 g/dL (3.5-5.0); Alkaline Phosphatase 106 U/L (39-117); Anion Gap 10 (12-20); Aspartate Amino Transferase 28 U/L (5-37); Bilirubin Total 0.4 mg/dL (0.0-1.0); Blood Urea Nitrogen 24 mg/dL (9-16); Carbon Dioxide 31 mmol/L (22-29); Chloride 103 mmol/L (96-108); Cholesterol 123 mg/dL (<200); Estimated Glomerular Filt Rate > 60; Glucose Random 95 mg/dL (60-115); HDL Cholesterol 51 mg/dL (>40); Iron 80 mcg/dL (45-160); LDL Cholesterol Calculated 64 mg/dL (<100); Magnesium 2.1 mg/dL (1.6-2.6); Percent Iron Saturation 33 % (15-50); Phosphorus 3.4 mg/dL (2.7-4.5); Potassium 4.3 mmol/L (3.3-5.1); Sodium 140 mmol/L (135-145); Total Iron Binding Capacity 240 mcg/dL (228-428); Total Protein 7.1 g/dL (6.5-8.0); Triglycerides 40 mg/dL (<150); Unsaturated Iron Binding 160 ug/dL; Uric Acid 6.9 mg/dL (3.4-7.0)
[2024-08-06 10:37] LABS: Ferritin 274 ng/mL (20-250); Free T4 (Free Thyroxine) 0.78 ng/dL (0.71-1.85)
[2024-08-06 10:41] LABS: Thyroid Stimulating Hormone 2.49 uIU/mL (0.32-4.0)
[2024-08-06 10:56] LABS: B Type Natriuretic Peptide 322 pg/mL (<100); Folate 12.7 ng/mL (> or = 4.0); Vitamin B12 436 pg/mL (200-900)
== END 2024-08-06 08:53 | disposition home or self-care (01) ==
LOC: HO.LAB 08:52
PROVIDERS: Nurse Practitioner Family; PCP Internal Medicine; Visit Provider Internal Medicine
DX: I25.10 Atherosclerotic heart disease of native coronary artery without angina pectoris (principal); E78.00 Pure hypercholesterolemia, unspecified; I95.9 Hypotension, unspecified
CPT/HCPCS: 36415; 80053; 80061; 82607; 82728; 82746; 83540; 83735; 83880; 84100; 84439; 84443; 84550; 85025; 85045

== ENCOUNTER 2024-09-25 08:50 | Outpatient (AMB) | payer MEDICARE, SELFPAY ==
--- NOTE | 2024-09-25 08:52 | AM.OFFVISMDC ---
Intake Vital Signs 09/25/24 08:54 Height 5 ft 10 in Weight 140 lb BMI 20.1 BP 130/62 Blood Pressure Location Lt brachial Position Sitting Intake Visit Reasons: [facility] G0439 Intake Note: Patient is here for an Annual Wellness Visit. Allergist Immunologist Required: No Enforcement Officer: Enforcement Officer Present and Enforcement Officer offered & declined Accompanied by: Daughter Allergies No Known Allergies [No Known Allergies*] Allergy (Verified 09/25/24 09:22) Medication List - Last Reconciled 09/25/24 by Adriana Pérez PA-C acetaminophen (Tylenol) 650 mg (2 x 325 mg) PO Q6H PRN aspirin 81 mg PO DAILY atorvastatin 40 mg PO BEDTIME cholecalciferol (vitamin D3) 1,250 mcg PO FR furosemide 20 mg PO DAILY levetiracetam 250 mg PO ONCE lisinopril 10 mg PO DAILY meclizine 25 mg PO TID PRN mirtazapine 7.5 mg PO BEDTIME omeprazole 20 mg PO DAILY ticagrelor (Brilinta) 90 mg PO BID walker As directed HPI [facility] G0439 HPI Details 89-year-old male with past medical history of hypertension, GERD, BPH, hypercholesterolemia, history of colon cancer, congestive heart failure with cardiomyopathy, coronary artery disease, history of CVA last seen by Dr. Allison July 2024 coming in for annual wellness visit. Patient has been feeling generally well and has no acute concerns today. He has been following with Neurology and has been decreasing his Keppra and will have repeat EEG to see if Keppra is still needed. He also has echocardiogram scheduled in the coming weeks with cardiology appointment to follow. [facility] Medical History Medicare annual wellness visit, initial Atherosclerotic cardiovascular disease Heart failure with reduced ejection fraction Wheezing Vitamin D deficiency Thoracic cyst TIA (transient ischemic attack) Colon cancer Hypercholesterolemia BPH (benign prostatic hyperplasia) Hypertension GERD (gastroesophageal reflux disease) Surgical History History of colectomy History of cholecystectomy Family History Father Medical history unknown Mother Hypertension Sister Breast cancer Social History Household Members: Spouse Housing: House Do you presently have visiting nurse or other home services: No Alcohol intake: current Alcohol intake frequency: does not drink Patient Tobacco Use Status: Former Tobacco user Tobacco use type: Cigarette Years Smoked: Quit 21 years old e-Cigarette/Vaping Use: Never Used Second Hand Smoke Exposure: No service: No Current occupational status: retired Cognitive needs: No Hearing needs: No Vision needs: Yes Questionnaire Medicare Wellness Checkup What is your age?: 80 or older What gender do you identify with?: male During the past 4 weeks, how much have you been bothered by emotional problems such as feeling anxious, depressed, irritable, sad or downhearted, and blue?: not at all During the past 4 weeks, has your physical & emotional health limited your social activities with family, friends, neighbors, or groups?: not at all During the past 4 weeks, how much bodily pain have you generally had?: no pain During the past 4 weeks, was someone available to help you if you needed & wanted help?: yes, as much as I wanted During the past 4 weeks, what was the hardest physical activity you could do for at least 2 minutes?: moderate Can you get to places out of walking distance without help? (For eg., can you travel alone on buses, taxis or drive your car?): No Can you go shopping for groceries or clothes without someone's help?: No Can you prepare your own meals?: Yes Can you do your housework without help?: No Because of any health problems, do you need the help of another person with your personal care needs such as eating, bathing, dressing or getting around the house?: No Can you handle your own money without help?: Yes During the past 4 weeks, how would you rate your health in general?: very good During the past 4 weeks how have things been going for you?: pretty well Are you having difficulties driving your car?: not applicable, I don't use a car Do you always fasten your seat belt when you are in a car?: yes, usually During past 4 weeks, have you been bothered by the following: never: Falling or dizzy when standing up, Sexual problems?, Trouble eating well?, Teeth or denture problems? and Problems using the telephone? and sometimes: Tiredness or fatigue? Have you fallen 2 or more times in the past year?: Yes Are you afraid of falling?: No Are you a smoker?: no During the past 4 weeks, how many drinks of wine, beer, or other alcoholic beverages did you have?: 1 drink or less per week Do you exercise for about 20 minutes 3 or more times a week?: no, I usually do not exercise this much Have you been given information to help with the following?: yes: Keeping track of your medications? and no: Hazards in your house that might hurt you? How often do you have trouble taking medicines the way you have been told to take them?: sometimes I take medicine as prescribed How confident are you that you can control & manage most of your health problems?: very confident What is your race?: White Thrive Questionnaire Date Thrive assessed: 04/15/24 Are you currently unemployed and looking for a job?: No DAVID-7 AMB Questionnaire DAVID-7 Date DAVID - 7 assessed: 11/26/23 Source: Developed by Drs. Walter Forrester, Nichole Amaral, Jaylen Morris and colleagues, with an educational kannan from [employer]. Review of Systems Const Denies body aches, Denies fatigue, Denies fever(s), Denies frequent falls, Denies headache(s) and Denies weakness Eyes Reports no additional complaints and Denies change in vision ENT Details: decreased hearing Denies dysphagia, Denies dizziness, Denies facial pain, Denies headache(s), Denies nasal congestion and Denies odynophagia Card Denies chest pain, Denies syncope, Denies irregular heart rhythm, Denies leg edema, Denies lightheadedness and Denies dyspnea Resp Denies cough and Denies dyspnea GI Denies constipation, Denies dysphagia, Denies dyspepsia, Denies diarrhea, Denies nausea, Denies odynophagia and Denies vomiting Denies dysuria, Denies urinary frequency, Denies urinary hesitancy and Denies urinary urgency Musc Denies back pain and Denies myalgias Skin/Breast Reports system reviewed and no additional complaints, except as documented Neuro Denies dizziness, Denies syncope, Denies frequent falls, Denies headache(s) and Denies weakness Psych Reports no additional complaints Endo Denies fatigue Physical Exam Vital Signs: Last Vital Signs BP 130/62 12/13/24 08:54 BMI result Body Mass Index 20.1 Const General: cooperative, healthy appearing, comfortable and no acute distress Orientation/consciousness: patient oriented x3 HEENT Head: Yes normocephalic Ears: hearing grossly normal bilaterally, external ears normal, TM's normal bilaterally, EAC's normal and Abnormal EAC present cerumen impaction on the left and excessive cerumen on the right General nose exam: Normal external nose present Face and sinus: Yes normal facial exam and Yes sinuses nontender Mouth: Normal oral and palatal mucosa present and tongue normal Throat: Yes posterior oropharynx normal Eyes General: appearance normal, both eyes and all related structures Conjunctivae: conjunctivae normal Pupils: Equal, round and reactive pupils present EOM: EOMs intact bilaterally and No Nystagmus present Neck Neck: Yes normal visual inspection, Yes full ROM and Yes no lymphadenopathy Chest Chest palpation & inspection: normal inspection of the chest Resp Effort & Inspection: normal respiratory effort Auscultation: clear to auscultation bilaterally, no crackles, no rales, no rhonchi, no wheezes and breath sounds present Cardio Rate: regular rate Rhythm: regular rhythm Peripheral pulses: radial pulses present and dorsalis pedis present GI Inspection: Yes normal to inspection and No Abdominal wall edema Palpation (GI): Soft to palpation, not firm and nontender Auscultation: normal bowel sounds Rectal Exam - Male: Yes deferred General: Yes no CVA tenderness Back/Spine/Pelvis Back: no CVA tenderness Skin General skin exam: no rashes or lesions noted Neuro General: patient oriented x3 Cranial nerves: Yes Equal, round and reactive pupils present, Yes Midline tongue present, Yes Ability to bilaterally elevate shoulders present and No Nystagmus present Cognition (Neuro): normal cognition Gait exam (Neuro): Normal gait present Extrem General: Yes normal to inspection, Yes full ROM, No no pedal edema and No edema Psych Mental Status: mental status grossly normal Speech and movement: Normal speech and movement present Affect: normal affect Attitude: cooperative Thought process: Normal thought process present Insight: Good insight present (Psych) Judgement: Good judgement present (Psych) Assessment & Plan Assessment & Plan (1) Hypotension (arterial): Code(s): I95.9 - Hypotension, unspecified Plan: Patient normotensive on exam today 130/62. Continue on current medication regimen. (2) TIA (transient ischemic attack): Comment: 2007, December 2023 right arm weakness Code(s): G45.9 - Transient cerebral ischemic attack, unspecified Plan: Was previously working with PT/OT and was discharged. Has been doing well without these services and has slowed but normal gait. Continue on Brillinta and ASA and continue with good control of blood pressure, cholesterol and blood sugars. (3) Atherosclerotic cardiovascular disease: Comment: August 2023 Code(s): I25.10 - Atherosclerotic heart disease of [place] coronary artery without angina pectoris Plan: Continue with good control of blood pressure, blood sugars and cholesterol. (4) Cardiomyopathy: Code(s): I42.9 - Cardiomyopathy, unspecified Qualifiers: Cardiomyopathy type: ischemic Qualified Code(s): I25.5 - Ischemic cardiomyopathy Plan: Continue with good control of blood pressure, blood sugars and cholesterol. Has Echo scheduled for September. (5) Heart failure with reduced ejection fraction: Code(s): I50.20 - Unspecified systolic (congestive) heart failure Plan: Continue to limit fluid intake currently on furosemide. Denies any symptoms of heart failure at this time (6) Anemia: Code(s): D64.9 - Anemia, unspecified Qualifiers: Anemia type: unspecified type Qualified Code(s): D64.9 - Anemia, unspecified Plan: Continue to monitor blood work (7) Colon cancer: Comment: 2007 Dr. Freddy Payne 2014, December 2015, January 2017 Code(s): C18.9 - Malignant neoplasm of colon, unspecified Qualifiers: Colon location: unspecified part of colon Qualified Code(s): C18.9 - Malignant neoplasm of colon, unspecified Plan: Up-to-date on colonoscopies denies any dark or tarry stools at this time or bright red blood in the stool. (8) Hypercholesterolemia: Code(s): E78.00 - Pure hypercholesterolemia, unspecified Plan: Avoid foods that are high in cholesterol such as red meat, fried foods, eggs and baked goods. Triglyceride goal of less than 150 and LDL goal of less than 70. Continue on atorvastatin 40 mg (9) Hypertension: Code(s): I10 - Essential (primary) hypertension Qualifiers: Hypertension type: essential hypertension Qualified Code(s): I10 - Essential (primary) hypertension Plan: Continue on current blood pressure medication. Avoid salt intake and encourage healthy diet and regular exercise. Blood pressure at goal today 130/62 (10) GERD (gastroesophageal reflux disease): Code(s): K21.9 - Gastro-esophageal reflux disease without esophagitis Qualifiers: Esophagitis presence: without esophagitis Qualified Code(s): K21.9 - Gastro-esophageal reflux disease without esophagitis Plan: Avoid trigger foods such as citrus, tomato products, soda, caffeine, spicy foods and other foods that may be irritating to your stomach. Avoid laying flat 3-4 hours after eating and elevate the head of the bed 30 degrees to prevent acid from moving into the esophagus. Continue on omeprazole (11) BPH (benign prostatic hyperplasia): Code(s): N40.0 - Benign prostatic hyperplasia without lower urinary tract symptoms Qualifiers: Lower urinary tract symptom presence: symptoms absent Qualified Code(s): N40.0 - Benign prostatic hyperplasia without lower urinary tract symptoms Plan: No longer following with Urology continue on current medication. (12) Annual wellness visit: Code(s): Z00.00 - Encounter for general adult medical examination without abnormal findings Plan: Patient is up-to-date on all recommended routine screenings and vaccinations for his age. Encouraged healthy diet and regular exercise. [place] of care was reviewed with patient patient was provided with a written screening schedule. Healthcare proxy/ MOLST forms were reviewed with patient and has been completed previously (13) Decreased hearing: Code(s): H91.90 - Unspecified hearing loss, unspecified ear Plan: Advised patient to have ear flushing and referral placed for audiogram. 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 Will have repeat EEG performed by neurology and they are considering discontinuing Keppra. Plan This note was constructed using voice recognition software. While every effort has been made to ensure accuracy and blueprint reproducer, still areas may have been included sometimes these areas may affect the content or meeting of the given symptoms. Total time spent caring for the patient today was 30 minutes. This includes time spent before the visit reviewing the chart, time spent during the visit, and time spent after the visit and documentation. Orders: Referrals Speech and Hearing Referral H91.90 - Unspecified hearing loss, unspecified ear Coding Level of Care Code Medicare Subsequent (G0439) Diagnoses Hypotension (arterial) I95.9 TIA (transient ischemic attack) G45.9 Atherosclerotic cardiovascular disease I25.10 Ischemic cardiomyopathy I25.5 Cardiomyopathy type: ischemic Heart failure with reduced ejection fraction I50.20 Anemia, unspecified type D64.9 Anemia type: unspecified type Malignant neoplasm of colon, unspecified part of colon C18.9 Colon location: unspecified part of colon Hypercholesterolemia E78.00 Essential hypertension I10 Hypertension type: essential hypertension Gastroesophageal reflux disease without esophagitis K21.9 Esophagitis presence: without esophagitis Benign prostatic hyperplasia without lower urinary tract symptoms N40.0 Lower urinary tract symptom presence: symptoms absent Annual wellness visit Z00.00 Decreased hearing H91.90 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
[2024-09-25 08:54] VITALS: BP 130/62; BMI 20.1
--- OUTSIDE RECORDS SUMMARY | 2024-09-25 08:54 | XMS_ITS ---
Author Organization [facility] Address [address] [place] [address] Care Team Providers Care Criminalist Technician Name Role Phone Js Allison MD Primary Care Provider Samy Rivas Jr REASON FOR VISIT Patient presents today for gerd MEDICATIONS Medication SIG (Take, Route, Fr equency, Duration) Notes Start Date End Date Status Lisinopril 20 MG 1 tablet Orally Once a day Active Omeprazole 20 MG 1 capsule 30 minutes before morning meal Orally Once a day for 30 day(s) Active Carvedilol 6.25 MG TAKE 1 TABLET BY TWICE A DAY Oral for 90 Active Aspir-81 81 MG 1 tablet Orally Once a day Active Spironolactone 25 MG Oral for 90 Active Tamsulosin HCl 0.4 MG as directed Orally Active Encounters Encounter Location Date Provider Diagnosis [facility] [address] [place] [address] 04/20/2024 Samy Payne Jr PLAN OF TREATMENT No Information
--- OUTSIDE RECORDS SUMMARY | 2024-09-25 08:54 | XMS_ITS | Continuity of Care Document ---
Author Organization [facility] Address [address] [place] [id number]- Care Team Providers Care Pathology Assistant Name Role Phone Po Js PALMER Primary Care Physician [place] [facility] [place] - 09/[place]/24 [facility] [address] [place] [id number]- Attending Physician: Marija Barron MD Encounter Type: Pre Office Visit Allergies, Adverse Reactions, Alerts No Known Allergies Immunizations Given and Recorded Vaccine Date Status Refusal Reason influenza virus vaccine, inactivated 07/09/22 Moncho rded influenza virus vaccine, inactivated 08/21/21 Moncho rded influenza virus vaccine, inactivated 07/15/20 Moncho rded influenza virus vaccine, inactivated 07/30/19 Moncho rded influenza virus vaccine, inactivated 07/04/18 Moncho rded influenza virus vaccine, inactivated 08/12/17 Moncho rded influenza virus vaccine, inactivated 06/27/16 Moncho rded influenza virus vaccine, inactivated 06/07/16 Moncho rded influenza virus vaccine, inactivated 09/16/15 Moncho rded influenza virus vaccine, inactivated 08/17/15 Moncho rded SARS-CoV-2 (COVID-19) mRNA BNT-162b2 vac 07/17/21 Recorded SARS-CoV-2 (COVID-19) mRNA BNT-162b2 vac 12/17/20 Given SARS-CoV-2 (COVID-19) mRNA BNT-162b2 vac 11/26/20 Given pneumococcal 23-valent vaccine 07/30/19 Recorded tetanus-diphtheria toxoids (Td) 01/28/19 Recorded pneumococcal 13-valent vaccine 09/21/16 Recorded pneumococcal 13-valent vaccine 06/07/16 Recorded Medications acetaminophen 325 mg oral tablet 650 mg, By Mouth, Every 4 hours, PRN, Temperature Greater than 100.5, Refills 0, Maintenance, Pain , Mild, 11/22/22 2:51:00 PM EST, Partial fill upon patient request if the prescription is for a schedule II opioid drug. Start Date: 11/22/22 Status: Ordered Repeat number: 1 aspirin 81 mg oral delayed release tablet 81 mg, By Mouth, Daily, # 90 tablet, Refills 3, Tot. Refills 3, Maintenance, 02/19/24 3:28:00 PM EDT,Route to Pharmacy Electronically, [facility]/pharmacy #[id number], Partial fill upon patient request if the prescription is for a schedule II opioid drug., 178, cm, 02/18/24 7:36:00 EDT, Height, 73.1, kg, 02/17/24 20:04:00 EDT, Dry Weight Start Date: 02/19/24 Stop Date: 02/13/25 Status: Ordered Quantity: 90.0 Unit: tablet Repeat number: 4 atorvastatin 40 mg oral tablet 1 tablet = 40 mg, By Mouth, Daily, for prevention strke and heart and carotid disease, # 90 tablet,2 Refills, Maintenance, 02/19/24 3:29:00 PM EDT, Tablet, [facility]/pharmacy #[id number], Partial fill upon patient request if the prescription is for a schedule II opioid drug., 178, cm, 02/18/24 7:36:00 EDT, Height, 73.1, kg, 02/17/24 20:04:00 EDT, Dry Weight Start Date: 02/19/24 Stop Date: 11/15/24 Status: Ordered Quantity: 90.0 Unit: tablet Repeat number: 3 Brilinta (ticagrelor) 90 mg oral tablet TAKE 1 TABLET BY MOUTH TWICE A DAY Start Date: 07/01/24 Status: Ordered Repeat number: 1 carvedilol 12.5 mg oral tablet See Instructions, 1 tablet(12.5mg) By Mouth 2 times a day, [facility] note dose increase, # 60 tablet, Refills 2, Tot. Refills 2, Maintenance, 02/27/23 8:39:00 AM EDT, Instructions Replace Required Details, Route to Pharmacy Electronically, [facility]/pharmacy #[id number], Partial fill upon patient request if the prescription is for a schedule II opioid drug., 70.5, kg, 11/19/22 4:07:00 EST, Dry Weight Start Date: 02/27/23 Status: Ordered Quantity: 60.0 Unit: tablet Repeat number: 3 furosemide 20 mg oral tablet 20 mg, 1, tablet, By Mouth, Daily, # 30 tablet, Refills 0, Maintenance, 02/17/24 7:34:00 PM EDT, Partial fill upon patient request if the prescription is for a schedule II opioid drug. Start Date: 02/17/24 Status: Ordered Quantity: 30.0 Unit: tablet Repeat number: 1 furosemide 20 mg oral tablet TAKE 1 TABLET BY MOUTH EVERY DAY Start Date: 07/01/24 Status: Ordered Repeat number: 1 levETIRAcetam 500 mg oral tablet 1 tablet = 500 mg, TAKE 1 TABLET BY MOUTH TWICE A DAY Start Date: 07/01/24 Status: Ordered Repeat number: 1 lisinopril 40 mg oral tablet See Instructions, 0.5 TAB By Mouth Daily, 0 Refills, Maintenance, 02/17/24 7:34:00 PM EDT, Tablet, Partial fill upon patient request if the prescription is for a schedule II opioid drug. Start Date: 02/17/24 Status: Ordered Repeat number: 1 mirtazapine 7.5 mg oral tablet TAKE 1 TABLET BY MOUTH EVERYDAY AT BEDTIME Start Date: 07/01/24 Status: Ordered Repeat number: 1 omeprazole 20 mg oral delayed release tablet 1 tablet = 20 mg, By Mouth, Daily, # 30 tablet, 0 Refills, Maintenance, 11/19/22 12:13:00 AM EST, CR Tablet, Partial fill upon patient request if the prescription is for a schedule II opioid drug. Start Date: 11/19/22 Status: Ordered Quantity: 30.0 Unit: tablet Repeat number: 1 Plavix 75 mg oral tablet 75 mg, By Mouth, Daily, # 30 tablet, Refills 0, Tot. Refills 0, Maintenance, 02/18/24 8:36:00 AM EDT,Route to Pharmacy Electronically, [facility], Partial fill upon patient request if the prescription is for a schedule II opioid drug., 178, cm, 02/18/24 7:36:00 EDT, Height, 73.1, kg, 02/17/24 20:04:00 EDT, Dry Weight Start Date: 02/18/24 Stop Date: 03/19/24 Status: Ordered Quantity: 30.0 Unit: tablet Repeat number: 1 Vitamin D3 1000 intl units oral tablet 1 tablet = 25 mcg, By Mouth, Daily, # 90 tablet, 2 Refills, Maintenance, 07/01/24 12:11:00 PM EDT, Tablet, [facility]pharmacy #[id number], Partial fill upon patient request if the prescription is for a schedule II opioid drug., 178, cm, 02/18/24 7:36:00 EDT, Height, 73.1, kg, 02/17/24 20:04:00 EDT, Dry Weight Start Date: 07/01/24 Stop Date: 03/28/25 Status: Ordered Quantity: 90.0 Unit: tablet Repeat number: 3 Vitamin D3 50,000 intl units oral capsule 1 capsule = 1,250 mcg, By Mouth, Every week, # 8 capsule, 0 Refills, Maintenance, 02/26/24 7:39:00 AM EDT, Capsule, [id number], Partial fill upon patient request if the prescription is for a schedule II opioid drug., 178, cm, 02/18/24 7:36:00 EDT, Height, 73.1, kg, 02/17/24 20:04:00 EDT, DryWeight Start Date: 02/26/24 Stop Date: 04/22/24 Status: Ordered Quantity: 8.0 Unit: capsule Repeat number: 1 Vitamin D3 50,000 intl units oral capsule 1 capsule, By Mouth, Every week, X8 WEEK(S., # 8 capsule, 0 Refills, Maintenance, 03/26/24 10:56:00 AM EDT, [id number], 178, cm, 02/18/24 7:36:00 EDT, Height, 73.1, kg, 02/17/24 20:04:00 EDT, DryWeight Start Date: 03/26/24 Status: Ordered Quantity: 8.0 Unit: capsule Repeat number: 1 Problem List Condition Confirmation Course Effective Dates Status Health St atus Informant GERD (gastroesophageal reflux disease) Confirmed Active Hypertension Confirmed Active Colon cancer 1 Confirmed Active 1s/p R hemicolectomy 2006 Social History Social History Type Response Smoking Status Never (less than 100 in lifetime) entered on: 11/19/22 Sex Sex Representation Male (finding) Patient Care team information Care Team Personnel Name: Uziel RNNancy Position: S RN Member Role: Primary Care Nurse Name: Liz Justice RN Position: S RN Member Role: Primary Care Nurse Name: Elisabeth Hall RN Position: S RN Member Role: Primary Care Nurse Name: Js Allison MD Position: Reference Physician Member Role: PCP Address: [address] [place] [address] Telecom: Name: Thereas Dillard RN Position: S RN Member Role: Primary Care Nurse Name: Vignesh Ham RN Position: S RN Member Role: Primary Care Nurse Care Team Related Persons Name: REYES NOLASCO Name: GIVEN, REBA Name: GIVEN, NONE Insurance Providers Guarantor name: [employer] Health Plan Information #: 2 Payer: MEDEX Member Number: [id number] Policy Number: [employer] Group Number: [employer] Health Plan Information #: 1 Payer: MEDICARE PART B OUTPT Member Number: [id number] Policy Number: [employer] Group Number: [id number]
--- OUTSIDE RECORDS SUMMARY | 2024-09-25 08:54 | XMS_ITS ---
Author Organization [facility] Address [address] [place] [address] Care Team Providers Care Yarding Supervisor Name Role Phone Js Allison MD Primary Care Provider Samy Rivas Jr [phone] REASON FOR VISIT Pt no show Encounters Encounter Location Date Provider Diagnosis [facility] [address] [place] [address] 04/20/2024 Samy Payne Jr PLAN OF TREATMENT No Information
--- OUTSIDE RECORDS SUMMARY | 2024-09-25 08:54 | XMS_ITS | Continuity of Care Document ---
Author Organization [facility] Address [address] [place] [address]- Care Team Providers Care Local Superintendent Name Role Phone Po Js PALMER Primary Care Physician Encounter [facility] Date(s): 08/25/24 - 09/24/24 [facility] [address] [place] [address]- Attending Physician: Aaron Quispe Admitting Physician: Aaron Quispe Referring Physician: AdmtrAaron Encounter Type: Triage Allergies, Adverse Reactions, Alerts No Known Allergies [...] 02/19/24 3:28:00 PM EDT,Route to Pharmacy Electronically, [facility]/pharmacy #[id number], Partial fill upon patient request if [...] Refills, Maintenance, 02/19/24 3:29:00 PM EDT, Tablet, [facility]/pharmacy #[id number], Partial fill upon patient request if [...] tablet(12.5mg) By Mouth 2 times a day, [facility] note dose increase, # 60 tablet, Refills 2, Tot. Refills 2, Maintenance, 02/27/23 8:39:00 AM EDT, Instructions Replace Required Details, Route to Pharmacy Electronically, [facility]/pharmacy #[id number], Partial fill upon patient request if [...] 02/18/24 8:36:00 AM EDT,Route to Pharmacy Electronically, [facility], Partial fill upon patient request if [...] Maintenance, 03/26/24 10:56:00 AM EDT, [facility], 178, cm, 02/18/24 7:36:00 EDT, Height, 73.1, [...] Care team information Care Team Personnel Name: Nancy Triplett RN Position: S RN Member Role: Primary Care Nurse Name: Liz Justice RN Position: S RN Member Role: Primary Care Nurse Name: Elisabeth Hall RN Position: S RN Member Role: Primary Care Nurse Name: Js Allison MD Position: Reference Physician Member Role: PCP Address: [address] [place] [address] Telecom: Name: Theresa Dillard RN Position: S RN Member Role: Primary Care Nurse Name: Vignesh Ham RN Position: S RN Member Role: Primary Care Nurse Care Team Related Persons Name: REYES NOLASCO Name: BO, REBA Name: GIVEN, NONE Insurance Providers Guarantor name: LUDIVINA Health Plan Information #: 1 Payer: MEDICARE PART B OUTPT Member Number: NA Policy Number: NA Group Number: NA Health Plan Information #: 2 Payer: MEDEX Member Number: NA Policy Number: NA Group Number: NA
--- OUTSIDE RECORDS SUMMARY | 2024-09-25 08:55 | XMS_ITS | Patient Health Record ---
Author Organization [facility] Address [address] [place] [address] Care Team Providers Care Machine Rug Cleaner Name Role Phone Js Allison MD Primary Care Provider Samy Rivas Jr ALLERGIES No Known Allergies REASON FOR REFERRAL No Information MEDICATIONS Medication SIG (Take, Route, Fr equency, Duration) Notes Start Date End Date Status Tamsulosin HCl 0.4 MG as directed Orally Active Lisinopril 20 MG 1 tablet Orally Once a day Active Omeprazole 20 MG 1 capsule 30 minutes before morning meal Orally Once a day for 30 day(s) Active Carvedilol 6.25 MG TAKE 1 TABLET BY AMOS TH TWICE A DAY Oral for 90 Active Aspir-81 81 MG 1 tablet Orally Once a day Active Spironolactone 25 MG Oral for 90 Active IMMUNIZATIONS Vaccine Route Administration Date Status Comme nts Flu vaccine no Preserv 3 and > Unknown 06/28/2015 Admin istered Influenza Unknown 08/30/2021 Administered Influenza Unknown 09/04/2022 Administered SOCIAL HISTORY Sex Assigned At : Social History Observation Description Sex Assigned At Unknown PROBLEMS Problem Type ICD Code Onset Dates Problem Status W/U Status Risk SNOMED Code Notes Problem Colon cancer screening (Z12.11) Active confirmed 142680835 Problem residential current use of aspirin (Z79.82) Active confirmed 705813074 Problem Gastroesophageal reflux disease without esophagitis (K21.9) Active confirmed 203720797 Problem Adenocarcinoma of colon (C18.9) Active confirmed 718747059 Problem External hemorrhoids (K64.4) Active confirmed 54356868 Encounters Encounter Location Date Provider Diagnosis [facility] [address] [place] [address] 04/20/2024 Samy Payne Jr [facility] [address] [place] [address] 04/20/2024 Samy Payne Jr PLAN OF TREATMENT Future Test Test Name Order Date COLONOSCOPY 09/23/2015 Insurance Providers Payer Name Payer Address Payer Phone Subscriber Number Group Number Insured Name Patient Relationship to Insured Coverage Start Date Coverage End Date MEDICARE OF [place] [address] [place] [address] [id number] ROXANN MORRELL Self - patient is the insured MEDEX ATTN CLAIMS [address] [place] [address] [id number] ROXANN MORRELL Self - patient is the insured MEDICAL (GENERAL) HISTORY Medical History History ICD Code hypertension BPH Gastroesophageal reflux disease Heart failure with reduced ejection frac tion T3 N0 colon cancer, last col onoscopy 01/04/16, normal, five-year followup optional. Surgical History Surgery Date(Month/Year) cholecystectomy 2006 hernia repair right hemicolectomy for T3 N0 colon canc er 2006
== END 2024-09-25 09:40 | disposition home or self-care (01) ==
PROVIDERS: PCP Internal Medicine
DX: Z00.00 Encounter for general adult medical examination without abnormal findings (principal); I50.20 Unspecified systolic (congestive) heart failure; C18.9 Malignant neoplasm of colon, unspecified; G40.209 Localization-related (focal) (partial) symptomatic epilepsy and epileptic syndromes with complex partial seizures, not intractable, without status epilepticus; I95.9 Hypotension, unspecified; G45.9 Transient cerebral ischemic attack, unspecified; I25.10 Atherosclerotic heart disease of native coronary artery without angina pectoris; I25.5 Ischemic cardiomyopathy; D64.9 Anemia, unspecified; E78.00 Pure hypercholesterolemia, unspecified; I10 Essential (primary) hypertension; K21.9 Gastro-esophageal reflux disease without esophagitis

== ENCOUNTER → 2024-09-25 08:50 | Outpatient (BNVA) | payer MEDICARE, SELFPAY | PROVIDERS: PCP Internal Medicine ==

== ENCOUNTER → 2024-10-05 08:50 | Outpatient (REF) | payer MEDICARE, SELFPAY ==
--- NOTE | 2024-10-05 08:53 | CA_ITS ---
Transthoracic Echocardiogram Patient (Last, First, Middle): Andrés Garcia A Gender: Male Date of : 1935 Age: 89 Procedure Date: 10/05/2024 Procedure Type: Transthoracic Echocardiogram Location: OP Height: 175.26 cm Weight: 61.24 kg BSA: 1.75 m2 Heart Rate: bpm BP: 132 / 60 mmHg Hardness Tester: Referring MD: Edmundo Basurto MD Symptoms: I25.5 - Ischemic cardiomyopathy Study Quality: Fair ECG Rhythm: Sinus Conclusions: - The left ventricular systolic function is moderately decreased. The calculated ejection fraction is 33% by biplane method. - The inferolateral wall and basal inferior segment are akinetic. - No obvious valvular pathology seen on this study. Findings Left Ventricle Mildly increased left ventricular cavity size. There is mildly increased left ventricular wall thickness. The left ventricular systolic function is moderately decreased. The calculated ejection fraction is 33% by biplane method. There is evidence of regional wall motion abnormalities. Evidence suggests grade I (mild) diastolic dysfunction. Wall Motion Rest Echo Findings The inferolateral wall and basal inferior segment are akinetic. Right Ventricle Normal right ventricular cavity size and systolic function. Atria Both atria are normal in size. Aortic Valve There is mild calcification of the aortic valve. There is no aortic valve stenosis. There is trace (trivial) aortic valve regurgitation. Mitral Valve The mitral valve appears normal. There is trace mitral valve regurgitation. There is no mitral valve stenosis. Pulmonic Valve The pulmonic valve is likely normal. Tricuspid Valve There is trace tricuspid valve regurgitation. There is no evidence of pulmonary hypertension. Great Vessels The asc aorta is normal in size. Venous The inferior vena cava is mildly dilated and collapses greater than 50% with inspiration. Pericardium/Pleural There is no evidence of pericardial effusion. Prior Study Comparison No significant change compared to prior study dated: 01/20/2024. Reported EF is different, but visually no significant change. Recommendations, Care & Conclusions No obvious valvular pathology seen on this study. Measurements 2D Linear Measurements IVSd: 1.09 0.6-0.9/0.6-1.0 cm LVIDd: 4.71 3.9-5.3/4.2-5.9 cm LVIDd Index: 2.69 2.4-3.2/2.2-3.1 cm/m2 LVIDs: 3.84 2.0-3.6 cm LVPWd: 1.10 0.7-1.1 cm Ao Root: 3.30 2.1-3.5 cm LA Diam: 3.60 2.7-3.8/3.0-4.0 cm LAIDs Index: 2.06 1.5-2.3 cm/m2 LV Mass: 232.98 67-162/88-224 g LV Mass Index: 133.13 43-95/49-115 g/m2 LVOT Diam: 2.10 3.0+(-)1.3 cm 2D Systolic Function EF 4C: 34.10 >55% EF 2C: 35.00 >55% EF BiP: 33.30 >55% Mitral Valve MV Pk E: 0.66 MV PK A: 1.05 MV Decel Time: 149.00 E/A: 0.60 E'Lateral: 4.24 E'Medial: 4.68 E/E' Med: 14.00 E/E' Lat: 15.40 PHT: 44.00 MVA PHT: 5.00 Decel [place]: 4.39 Aortic Valve AoV Pk Toby: 1.13 AoV Mn Toby: 0.78 AoV VTI: 0.27 AoV Pk Grad: 5.00 Aov Mn Grad: 3.00 MARGARET Cont.VTI: 2.34 LVOT LVOT Pk Toby: 0.85 LVOT Mn Toby: 0.51 LVOT VTI: 0.19 LVOT Pk Grad: 3.00 LVOT Mn Grad: 1.00 LVOT Diam: 2.10 LVOT Area: 3.46 Diastolic Function MV Pk E: 0.66 MV Pk A: 1.05 E/A: 0.60 E'Medial: 4.68 E/E' Med: 14.00 E' Laterial: 4.24 E/E' Lat: 15.40 Right Ventricle TAPSE (mm): 19.00 Tricuspid Valve TR Pk Toby: 2.03 TR Pk Grad: 16.00 RA Press: 3.00 RVSP: 19.00 Great Vessels Aorta Ao Root-2D: 3.30 2.0-3.7 cm Ao Asc: 3.80 2.1-3.4 cm Pulmonary Valve PV Pk Toby: 0.71 Peak PV Grad: 2.00 Updated in Other Vendor System with Status of Final Edmundo Basurto MD electronically signed on 10/06/2024 10:24:55 AM with status of Final
--- OUTSIDE RECORDS SUMMARY | 2024-10-05 08:53 | XMS_ITS | Patient Health Record ---
Author Organization [facility] Address [address] [place] [address] Care Team Providers Care Hand Stonecutter Name Role Phone Js Allison MD Primary Care Provider Samy Rivas Jr [phone] ALLERGIES No Known Allergies REASON FOR REFERRAL [...] Problem Colon cancer screening (Z12.11) Active confirmed 773713607 Problem prison current use of aspirin (Z79.82) Active confirmed 341157331 Problem Gastroesophageal reflux disease without esophagitis (K21.9) Active confirmed 681674999 Problem Adenocarcinoma of colon (C18.9) Active confirmed 513037816 Problem External hemorrhoids (K64.4) Active confirmed 02995168 Encounters Encounter Location Date Provider Diagnosis [facility] [address] [place] [address] 04/20/2024 Samy Payne Jr [facility] [address] [place] [address] 04/20/2024 Samy Payne Jr PLAN OF TREATMENT Future Test Test Name Order Date COLONOSCOPY 09/23/2015 Insurance Providers Payer Name Payer Address Payer Phone Subscriber Number Group Number Insured Name Patient Relationship to Insured Coverage Start Date Coverage End Date MED[place]ARE OF [place] [address] [place] [id number] ROXANN MORRELL Self - patient is the insured MEDEX ATTN CLAIMS [address] [place] [address] [id number] ROXANN MORRELL Self - patient is the [...]
--- OUTSIDE RECORDS SUMMARY | 2024-10-05 08:53 | XMS_ITS ---
Author Organization [facility] Address [address] [place] [address] Care Team Providers Care Professor Of Latin American Studies Name Role Phone Js Allison MD Primary [...] Active Encounters Encounter Location Date Provider Diagnosis [facility] [address] [place] [address] 04/20/2024 Samy Payne Jr PLAN OF TREATMENT No Information
--- OUTSIDE RECORDS SUMMARY | 2024-10-05 08:53 | XMS_ITS ---
Author Organization [facility] Address [address] [place] [address] Care Team Providers Care Delivery Rn Name Role Phone Js Allison MD Primary Care Provider Samy Rivas Jr REASON FOR VISIT Pt no show Encounters Encounter Location Date Provider Diagnosis [facility] [address] [place] [address] 04/20/2024 Samy Payne Jr PLAN OF TREATMENT No Information
== END ==
LOC: HO.CARD 08:50
PROVIDERS: PCP Internal Medicine; Visit Provider Internal Medicine
DX: I25.5 Ischemic cardiomyopathy (principal)
CPT/HCPCS: 93306

== ENCOUNTER → 2024-10-05 08:53 | Outpatient (BNV) | payer MEDICARE, SELFPAY | PROVIDERS: PCP Internal Medicine; Visit Provider Internal Medicine | DX: I35.1 Nonrheumatic aortic (valve) insufficiency (principal); I35.8 Other nonrheumatic aortic valve disorders; I51.89 Other ill-defined heart diseases; I25.5 Ischemic cardiomyopathy | CPT/HCPCS: 93306 ==

== ENCOUNTER 2024-10-15 09:26 | Outpatient (AMB) | payer MEDICARE, SELFPAY ==
--- OUTSIDE RECORDS SUMMARY | 2024-10-15 09:28 | XMS_ITS | Continuity of Care Document ---
Author Organization [facility] Address [address] [place] [address]- Care Team Providers Care Sanitizer Name Role Phone Po Js PALMER Primary Care Physician Encounter [facility] Date(s): 09/03/24 - 10/09/[address] [address] Attending Physician: Parveen Weber MD Admitting Physician: Parveen Weber MD Referring Physician: Parveen Weber MD Encounter Type: Pre-Outpt Allergies, Adverse Reactions, Alerts No Known Allergies [...] 02/19/24 3:28:00 PM EDT,Route to Pharmacy Electronically, [facility]/pharmacy #[id number], Partial fill upon patient request if [...] Refills, Maintenance, 02/19/24 3:29:00 PM EDT, Tablet, [facility]/pharmacy #[id number], Partial fill upon patient request if [...] tablet(12.5mg) By Mouth 2 times a day, [facility] note dose increase, # 60 tablet, Refills 2, Tot. Refills 2, Maintenance, 02/27/23 8:39:00 AM EDT, Instructions Replace Required Details, Route to Pharmacy Electronically, [facility]/pharmacy #[id number], Partial fill upon patient request if the [...] 02/18/24 8:36:00 AM EDT,Route to Pharmacy Electronically, [facility], Partial fill upon patient [...] Maintenance, 03/26/24 10:56:00 AM EDT, [facility], 178, cm, 02/18/24 7:36:00 EDT, Height, 73.1, [...] Position: Reference Physician Member Role: PCP Address: [address] [place] [address] Telecom: Name: Theresa Dillard RN Position: S RN Member Role: Primary Care Nurse Name: Vignesh Ham RN Position: S RN Member Role: Primary Care Nurse Care Team Related Persons Name: REYES NOLASCO Name: REBA SORIANO Name: GIVEN, NONE Insurance Providers Guarantor name: LUDIVINA Health Plan Information #: 1 Payer: MEDICARE PART B OUTPT Member Number: [id number] Policy Number: LUDIVINA Group Number: Health Plan Information #: 2 Payer: MEDEX Member Number: [id number] Policy Number: Group Number: [id number]
--- OUTSIDE RECORDS SUMMARY | 2024-10-15 09:28 | XMS_ITS ---
Author Organization [facility] Address [address] [place] [address] Care Team Providers Care Medical Anthropology Director Name Role Phone Js Allison MD Primary Care Provider Samy Rivas Jr REASON FOR VISIT Pt no show Encounters Encounter Location Date Provider Diagnosis [facility] [address] [place] [address] 04/20/2024 Samy Payne Jr PLAN OF TREATMENT No Information
--- OUTSIDE RECORDS SUMMARY | 2024-10-15 09:29 | XMS_ITS | Patient Health Record ---
Author Organization [facility] Address [address] [place] [address] Care Team Providers Care Wet Milling Wheel Operator Name Role Phone Js Allison MD Primary Care Provider Samy Rivas Jr [phone] ALLERGIES No Known Allergies REASON FOR REFERRAL [...] Problem Colon cancer screening (Z12.11) Active confirmed 689165402 Problem rn long term care current use of aspirin (Z79.82) Active confirmed 173224240 Problem Gastroesophageal reflux disease without esophagitis (K21.9) Active confirmed 109222551 Problem Adenocarcinoma of colon (C18.9) Active confirmed 728448540 Problem External hemorrhoids (K64.4) Active confirmed 99860898 Encounters Encounter Location Date Provider Diagnosis [facility] [address] [place] [address] 04/20/2024 Samy Payne Jr [facility] [address] [place] [address] 04/20/2024 Samy Payne Jr PLAN OF TREATMENT Future Test Test Name Order Date COLONOSCOPY 09/23/2015 Insurance Providers Payer Name Payer Address Payer Phone Subscriber Number Group Number Insured Name Patient Relationship to Insured Coverage Start Date Coverage End Date MED[place]ARE OF [place] [address] [place] [id number] ROXANN MORRELL Self - patient is the insured MEDEX ATTN CLAIMS [address] [place] [address] [id number] ROXANN MORRELL Self - patient is the [...]
--- OUTSIDE RECORDS SUMMARY | 2024-10-15 09:29 | XMS_ITS ---
Author Organization [facility] Address [address] [place] [address] Care Team Providers Care Fly Finisher Name Role Phone Js Allison MD Primary [...] Active Encounters Encounter Location Date Provider Diagnosis [facility] [address] [place] [address] 04/20/2024 Samy Payne Jr PLAN OF TREATMENT No Information
--- NOTE | 2024-10-15 09:35 | MHC.PC.OV ---
Vital Signs 10/15/24 09:37 Height 5 ft 10 in Weight 141 lb 2 oz BMI 20.2 BP 112/72 Blood Pressure Location Lt brachial Position Sitting Intake Visit Reasons: ear flush Intake Note: Patient is here to follow up on Ear flush. Business Objects Required: No Access Lead: Not Required per policy Accompanied by: Self / Same As Patient Allergies No Known Allergies [No Known Allergies*] Allergy (Verified 10/15/24 09:36) Tobacco use date assessed: 10/15/24 Fall risk assessment: No Falls in past year Last assessed Fall Risk: 10/15/24 Dental Screening Dental Screen Date: 10/15/24 Did you have a dental visit in the last 12 months?: Yes Did you have a dental problem in the last 6 months where you did not have access to dental care?: No Was dental information given to patient?: Patient has dentist HPI ear flush HPI Details 89-year-old male with past medical history of hypertension, GERD, BPH, hypercholesterolemia, history of colon cancer, congestive heart failure with cardiomyopathy, coronary artery disease, history of CVA last seen 09/2024 coming in for ear flush. He tells us he feels ear clogged and decreased hearing. [facility] Medical History Medicare annual wellness visit, initial Atherosclerotic cardiovascular disease Heart failure with reduced ejection fraction Wheezing Vitamin D deficiency Thoracic cyst TIA (transient ischemic attack) Colon cancer Hypercholesterolemia BPH (benign prostatic hyperplasia) Hypertension GERD (gastroesophageal reflux disease) Surgical History History of colectomy History of cholecystectomy Family History Father Medical history unknown Mother Hypertension Sister Breast cancer Social History Household Members: Spouse Housing: House Do you presently have visiting nurse or other home services: No Alcohol intake: current Alcohol intake frequency: does not drink Patient Tobacco Use Status: Former Tobacco user Tobacco use type: Cigarette Years Smoked: Quit 21 years old e-Cigarette/Vaping Use: Never Used Second Hand Smoke Exposure: Yes service: No Current occupational status: retired Cognitive needs: No Hearing needs: No Vision needs: Yes Questionnaire PHQ-9 Over the last 2 weeks, how often have you been bothered by any of the following problems? 1. Little interest or pleasure in doing things: not at all 2. Feeling down, depressed, or hopeless: not at all 3. Trouble falling or staying asleep, or sleeping too much: not at all 4. Feeling tired or having little energy: not at all 5. Poor appetite or overeating: not at all 6. Feeling bad about yourself - or that you are a failure or have let yourself or your family down: not at all 7. Trouble concentrating on things, such as reading the newspaper or watching television: not at all 8. Moving or speaking so slowly that other people could have noticed. Or the opposite - being so fidgety or restless that you have been moving around a lot more than usual: not at all 9. Thoughts that you would be better off or of hurting yourself in some way: not at all Total score: 0 Depression Screening Interpretation: Negative Depression Screening Done: Yes Source: Developed by Drs. Walter Forrester, Nichole Amaral, Jaylen Morris and colleagues, with an educational kannan from [employer] Thrive Questionnaire Date Thrive assessed: 10/15/24 I am a: Patient What is your living situation today?: I have a steady place to live Within the past 12 months, did the food you bought not last and you didn't have the money to get more?: Never true Within the past 12 months, did you worry whether your food would run out before you got money to buy more?: Never true Do you have trouble paying for medicines?: No Do you have trouble getting transportation to medical appointments?: No Do you have trouble paying your heating and electricity bill?: No Do you have trouble taking care of your child, family member or friend?: No Do you have trouble with day-to-day activities such as bathing, preparing meals, shopping, managing finances, etc.?: No Are you currently unemployed and looking for a job?: No Are you interested in more education?: No Please select the resources that you would like help with: None Currently or been in a relationship where the following occur: No concerns reported THRIVE Score: 0 AUDIT C Alcohol Use Questionnaire (AUDIT-C) 1. How often do you have a drink containing alcohol?: 4 or more times a week 2. How many drinks containing alcohol do you have on a typical day when you are drinking?: 1 or 2 Total Score: 4 DAVID-7 AMB Questionnaire DAVID-7 Date DAVID - 7 assessed: 10/15/24 Feeling nervous, anxious, or on edge: 0 = Not at all Not being able to stop or control worryin = Not at all Worrying too much about different things: 0 = Not at all Trouble relaxin = Not at all Being so restless that it is hard to sit still: 0 = Not at all Becoming easily annoyed or irritable: 0 = Not at all Feeling afraid as if something awful might happen: 0 = Not at all Total DAVID-7 score (0-4 normal; 5-9 mild; 10-14 moderate; 15-21 severe): 0 Source: Developed by Drs. Walter Forrester, Nichole Amaral, Jaylen Morris and colleagues, with an educational aknnan from [employer] Review of Systems ENT Details: Decreased hearing bilaterally and ear clogged feeling Card Details: Denies any chest pain or shortness of breath Physical exam (Primary Care) Vital Signs: Last Vital Signs BP 112/72 10/15/24 09:37 BMI result Body Mass Index 20.2 Tobacco/Smoking Status: Tobacco use Status Tobacco use date assessed 10/15/24 10/15/24 09:44 Patient Tobacco Use Status Former Tobacco user 10/15/24 09:44 Tobacco use type Cigarette 10/15/24 09:44 e-Cigarette/Vaping Use Never Used 10/15/24 09:44 PHQ-9: PHQ-9 Score PHQ-9: Total score 0 10/15/24 09:44 Depression Screening Interpretation: Negative Thrive Assessment: Date of Thrive Assessment Date Thrive assessed 10/15/24 10/15/24 09:44 Currently or been in a relationship where the following occur: No concerns reported Const General: cooperative, healthy appearing, comfortable and no acute distress HENMT Head: Yes normocephalic Ears: hearing grossly normal bilaterally and Abnormal EAC present cerumen impaction on the left and excessive cerumen on the right General nose exam: Normal external nose present Resp Effort & Inspection: normal respiratory effort Cardio Rate: regular rate Psych Affect: normal affect Attitude: cooperative Insight: Good insight present (Psych) Judgement: Good judgement present (Psych) Office Procedures Cerumen Removal From which ear canal was the cerumen removed: bilateral Removal: irrigation and cerumen loop/spoon Notes: patient tolerated procedure well and no complications [id number] Irrigation/Lavage Coding Level of Care Code Est Pt Level 3 (26676) Diagnoses Decreased hearing H91.90 CPT Codes Office Procedure - CPT: 41855-Hfg Irrigation/Lavage ([id number]) Assessment & Plan Assessment & Plan (1) Decreased hearing: Code(s): H91.90 - Unspecified hearing loss, unspecified ear Category: Medical Plan: Patient was initially referred to speech and hearing but had excessive amounts of wax and he is to be cleared before his audiogram. Right ear completely cleaned with lighted curette. Left ear significant amounts of wax was removed using lighted curette and irrigation however ear canal was not completely clear. Patient began to feel dizzy and flushing was stopped at that time. Advised patient to use Debrox drops in the left ear and book additional appointment. Plan This note was constructed using voice recognition software. While every effort has been made to ensure accuracy and jetting machine operator, still areas may have been included sometimes these areas may affect the content or meeting of the given symptoms. Total time spent caring for the patient today was 20 minutes. This includes time spent before the visit reviewing the chart, time spent during the visit, and time spent after the visit and documentation.
[2024-10-15 09:37] VITALS: BP 112/72; BMI 20.2
== END 2024-10-15 10:26 | disposition home or self-care (01) ==
PROVIDERS: PCP Internal Medicine
DX: H91.93 Unspecified hearing loss, bilateral (principal)

== ENCOUNTER → 2024-10-15 09:26 | Outpatient (BNVA) | payer MEDICARE, SELFPAY | PROVIDERS: PCP Internal Medicine | DX: H61.23 Impacted cerumen, bilateral (principal) | CPT/HCPCS: 69210; 99212 ==

== ENCOUNTER 2024-10-19 10:33 | Outpatient (REF) | payer MEDICARE, SELFPAY ==
--- OUTSIDE RECORDS SUMMARY | 2024-10-19 11:43 | XMS_ITS ---
Author Organization [facility] Address [address] [place] [address] Care Team Providers Care Client Services Administrator Name Role Phone Js Allison MD Primary Care Provider Samy Rivas Jr REASON FOR VISIT Pt no show Encounters Encounter Location Date Provider Diagnosis [facility] [address] [place] [address] 04/20/2024 Samy Payne Jr PLAN OF TREATMENT No Information
--- OUTSIDE RECORDS SUMMARY | 2024-10-19 11:43 | XMS_ITS ---
Author Organization [facility] Address [address] [place] [address] Care Team Providers Care Rooming House Operator Name Role Phone Js Allison MD Primary Care Provider Samy Rivas Jr [phone] REASON FOR VISIT Patient presents today for [...] Active Encounters Encounter Location Date Provider Diagnosis [facility] [address] [place] [address] 04/20/2024 Samy Payne Jr PLAN OF TREATMENT No Information
--- OUTSIDE RECORDS SUMMARY | 2024-10-19 11:43 | XMS_ITS | Patient Health Record ---
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 current use of aspirin (Z79.82) Active confirmed 873396712 Problem Gastroesophageal reflux disease without esophagitis (K21.9) Active confirmed 209815333 Problem Adenocarcinoma of colon (C18.9) Active confirmed 896627947 Problem External hemorrhoids (K64.4) Active confirmed 99901798 Encounters Encounter Location Date Provider Diagnosis [facility] [address] [place] [address] 04/20/2024 Samy Payne Jr [facility] [address] [place] [address] 04/20/2024 Samy Payne Jr PLAN OF TREATMENT Future Test Test Name Order Date COLONOSCOPY 09/23/2015 Insurance Providers Payer Name Payer Address Payer Phone Subscriber Number Group Number Insured Name Patient Relationship to Insured Coverage Start Date Coverage End Date MED[place]ARE OF [place] [address] [place] [address] [id number] ROXANN MORRELL Self - patient is the insured MED[employer] ATTN CLAIMS [address] [place] [address] [id number] ROXANN MORRELL Self - patient is the [...]
== END 2024-10-19 10:34 | disposition home or self-care (01) ==
LOC: HO.SH 10:33
DX: H91.90 Unspecified hearing loss, unspecified ear (principal)
CPT/HCPCS: 92557

== ENCOUNTER 2024-10-26 10:39 | Outpatient (AMB) | payer MEDICARE, SELFPAY ==
--- NOTE | 2024-10-26 10:48 | MHC.OFFVIS ---
Vital Signs 10/26/24 10:49 Height 5 ft 10 in Weight 143 lb 4.807 oz BMI 20.6 BP 118/62 Blood Pressure Location Lt brachial Position Sitting Pulse 77 Pulse Source Pulse Oximeter Intake Visit Reasons: 3 mth s/p echo Allergies No Known Allergies [No Known Allergies*] Allergy (Verified 10/15/24 09:36) Medication List - Last Reconciled 10/26/24 by Edmundo Basurto MD acetaminophen (Tylenol) 650 mg (2 x 325 mg) PO Q6H PRN aspirin 81 mg PO DAILY atorvastatin 40 mg PO BEDTIME furosemide 20 mg PO DAILY levetiracetam 250 mg PO ONCE lisinopril 10 mg PO DAILY omeprazole 20 mg PO DAILY walker As directed HPI Comments Details: Andrés returns for follow-up regarding coronary artery disease. In the past, he had type 2 NSTEMI during pneumonia and was hospitalized at [facility]. Subsequently, started seeing us and underwent cardiac catheterization with PCI to left main into LAD. Since last seen, no new concerns. No cardiac symptoms whatsoever. No angina. Accompanied by daughter. Some memory issues/forgetfulness. [facility] Medical History Medicare annual wellness visit, initial Atherosclerotic cardiovascular disease Heart failure with reduced ejection fraction Wheezing Vitamin D deficiency Thoracic cyst TIA (transient ischemic attack) Colon cancer Hypercholesterolemia BPH (benign prostatic hyperplasia) Hypertension GERD (gastroesophageal reflux disease) Surgical History History of colectomy History of cholecystectomy Family History Father Medical history unknown Mother Hypertension Sister Breast cancer Social History Household Members: Spouse Housing: House Do you presently have visiting nurse or other home services: No Alcohol intake: current Alcohol intake frequency: does not drink Patient Tobacco Use Status: Former Tobacco user Tobacco use type: Cigarette Years Smoked: Quit 21 years old e-Cigarette/Vaping Use: Never Used Second Hand Smoke Exposure: Yes service: No Current occupational status: retired Cognitive needs: No Hearing needs: No Vision needs: Yes Review of Systems Const Denies weakness ENT Denies dizziness Card Denies chest pain, Denies chest pain with activity, Denies syncope, Denies rapid heart rate, Denies pedal edema, Denies edema, Denies leg edema, Denies lightheadedness, Denies palpitations, Denies dyspnea, Denies dyspnea on exertion and Denies orthopnea Resp Denies cough, Denies dyspnea and Denies dyspnea on exertion GI Denies hematochezia and Denies change in stool character Musc Denies abnormal gait, Denies muscle cramps, Denies muscle weakness, Denies numbness, Denies radiating pain into limb and Denies tingling Neuro Denies abnormal gait, Denies dizziness, Denies syncope, Denies numbness, Denies tingling and Denies weakness Endo Denies palpitations Physical Exam Vital Signs: Last Vital Signs Pulse 77 10/26/24 10:49 BP 118/62 10/26/24 10:49 BMI result Body Mass Index 20.6 Const General: comfortable and no acute distress Orientation/consciousness: patient oriented x3 HEENT Other: Unremarkable Head: Yes normal to inspection Neck Neck: Yes normal visual inspection Chest Chest palpation & inspection: normal inspection of the chest Resp Auscultation: clear to auscultation bilaterally Cardio Palpation: normal PMI Heart sounds: S1 normal heart sound present, S2 normal heart sound present, no gallops, no murmurs and no rubs GI Palpation (GI): Soft to palpation Back/Spine/Pelvis Other: unremarkable Skin General skin exam: no rashes or lesions noted Neuro General: patient oriented x3 Extrem General: Yes normal to inspection Psych Mental Status: mental status grossly normal Assessment & Plan Assessment & Plan (1) Atherosclerotic cardiovascular disease: Code(s): I25.10 - Atherosclerotic heart disease of [place] coronary artery without angina pectoris Category: Medical Plan: Cardiac catheterization 08/2023-PCI of left main to LAD. Occluded ostial circumflex with [id number] collaterals. Large 1st diagonal with 80% mid vessel stenosis. Ostial nondominant right coronary artery with 80-85% stenosis. Continue long-term aspirin. May stop Brilinta. Continue statins. Lipids well controlled. Clinically, no angina. (2) Cardiomyopathy: Code(s): I42.9 - Cardiomyopathy, unspecified Category: Medical Qualifiers: Cardiomyopathy type: ischemic Qualified Code(s): I25.5 - Ischemic cardiomyopathy Plan: Evidence of ischemic cardiomyopathy on echocardiogram but no heart failure symptoms or signs. Was on carvedilol in the past but not anymore. Remains on lisinopril. (3) Hypotension (arterial): Code(s): I95.9 - Hypotension, unspecified Category: Medical Plan: Off carvedilol. Lisinopril dose has also been cut back. No symptoms like syncope or presyncope. Plan Plan discussed with daughter. Coding Level of Care Code Est Pt Level 4 (60510) Diagnoses Atherosclerotic cardiovascular disease I25.10 Ischemic cardiomyopathy I25.5 Cardiomyopathy type: ischemic Hypotension (arterial) I95.9
[2024-10-26 10:49] VITALS: BP 118/62; PULSE 77; BMI 20.6
--- OUTSIDE RECORDS SUMMARY | 2024-10-26 12:20 | XMS_ITS | Patient Health Record ---
Author Organization [facility] Address [address] [place] [address] Care Team Providers Care Referral Management Liaison Name Role Phone Js Allison MD Primary Care Provider Samy Rivas Jr [phone] ALLERGIES No Known Allergies REASON FOR REFERRAL [...] Problem Colon cancer screening (Z12.11) Active confirmed [id number] Problem [facility] current use of aspirin (Z79.82) Active confirmed 448213707 Problem Gastroesophageal reflux disease without esophagitis (K21.9) Active confirmed 005650773 Problem Adenocarcinoma of colon (C18.9) Active confirmed 724634231 Problem External hemorrhoids (K64.4) Active confirmed 18289613 Encounters Encounter Location Date Provider Diagnosis [facility] [address] [place] [address] 04/20/[address] [facility] [address] [place] [address] 04/20/2024 Samy Payne Jr PLAN OF TREATMENT Future Test Test Name Order Date COLONOSCOPY 09/23/2015 Insurance Providers Payer Name Payer Address Payer Phone Subscriber Number Group Number Insured Name Patient Relationship to Insured Coverage Start Date Coverage End Date [place]ARE OF [place] [address] [place] [address] [id number] ROXANN MORRELL Self - patient is the insured MEDEX ATTN CLAIMS [address] [place] [address] [id number] ROXANN MORRELL Self - patient is the [...]
--- OUTSIDE RECORDS SUMMARY | 2024-10-26 12:20 | XMS_ITS | Continuity of Care Document ---
Author Organization [facility] Address [address], [address] [place] [address]- Care Team Providers Care Adhesive Primer Name Role Phone Po Js PALMER Primary Care Physician Encounter [facility] Date(s): 09/25/24 - 10/25/24 [facility] [address] [place], [place] [address] Encounter Type: Triage Allergies, Adverse Reactions, Alerts [...] 02/19/24 3:28:00 PM EDT,Route to Pharmacy Electronically, [facility]/pharmacy #[id number], Partial fill upon patient request [...] Refills, Maintenance, 02/19/24 3:29:00 PM EDT, Tablet, [facility]/pharmacy #[id number], Partial fill upon patient request [...] tablet(12.5mg) By Mouth 2 times a day, [facility] note dose increase, # 60 tablet, Refills 2, Tot. Refills 2, Maintenance, 02/27/23 8:39:00 AM EDT, Instructions Replace Required Details, Route to Pharmacy Electronically, [facility]/pharmacy #[id number], Partial fill upon patient request [...] 02/18/24 8:36:00 AM EDT,Route to Pharmacy Electronically, [facility], Partial fill upon patient [...] Maintenance, 03/26/24 10:56:00 AM EDT, [id number], 178, cm, 02/18/24 7:36:00 EDT, Height, 73.1, [...] Position: Reference Physician Member Role: PCP Address: [address] [place] [address] Telecom: Name: Theresa Dillard RN Position: S [...]
--- OUTSIDE RECORDS SUMMARY | 2024-10-26 12:20 | XMS_ITS ---
Author Organization [facility] Address [address] [place] [address] Care Team Providers Care Line O Scribe Operator Name Role Phone Js Allison MD Primary Care Provider Samy Rivas Jr [phone] REASON FOR VISIT Pt no show Encounters Encounter Location Date Provider Diagnosis [facility] [address] [place] [address] 04/20/2024 Samy Payne Jr PLAN OF TREATMENT No Information
--- OUTSIDE RECORDS SUMMARY | 2024-10-26 12:20 | XMS_ITS ---
Author Organization [facility] Address [address] [place] [address] Care Team Providers Care Surgical Processor Name Role Phone Js Allison MD Primary [...] Active Encounters Encounter Location Date Provider Diagnosis [facility] [address] [place] [address] 04/20/2024 Samy Payne Jr PLAN OF TREATMENT No Information
== END 2024-10-26 11:07 | disposition home or self-care (01) ==
PROVIDERS: PCP Internal Medicine; Visit Provider Internal Medicine
DX: I25.10 Atherosclerotic heart disease of native coronary artery without angina pectoris (principal); I25.5 Ischemic cardiomyopathy; I95.9 Hypotension, unspecified
CPT/HCPCS: 99214

== ENCOUNTER → 2024-10-26 10:39 | Outpatient (BNVA) | payer MEDICARE, SELFPAY | PROVIDERS: PCP Internal Medicine; Visit Provider Internal Medicine | DX: I25.10 Atherosclerotic heart disease of native coronary artery without angina pectoris (principal); I25.5 Ischemic cardiomyopathy; I95.9 Hypotension, unspecified | CPT/HCPCS: 99212 ==

== ENCOUNTER 2024-11-12 09:32 | Outpatient (AMB) | payer MEDICARE, SELFPAY ==
[2024-11-12 09:37] VITALS: BP 106/58; PULSE 74; BMI 22.3
--- NOTE | 2024-11-12 09:37 | MHC.PC.OV ---
Vital Signs 11/12/24 09:37 Height 5 ft 8 in Weight 147 lb BMI 22.3 BP 106/58 L Blood Pressure Location Lt brachial Position Sitting Pulse 74 Pulse Source Pulse Oximeter Intake Visit Reasons: Cardiomyopathy hypotension Allergies No Known Allergies [No Known Allergies*] Allergy (Verified 11/12/24 09:38) Tobacco use date assessed: 10/15/24 Fall risk assessment: No Falls in past year Last assessed Fall Risk: 11/12/24 Dental Screening Dental Screen Date: 10/15/24 HPI Cardiomyopathy hypotension HPI Details The patient is an 89-year-old male presenting with follow-up for Congestive Heart Failure and recent clifford pain. The patient has a history of heart failure with the last documented BNP level at 322, previously at 467. The patient is currently managed with diuretics and lisinopril; carvedilol was discontinued due to hypotension. The patient also has a history of high cholesterol managed with diet and medications, with recent levels at 64. The patient reported a suspected Transient Ischemic Attack when facial drooping occurred during dinner without further seizure activity confirmed by an EEG. The suspicion of a stroke emerged due to the sudden confusion and facial changes. Additionally, he has been experiencing clifford pain after a fall incident in late August, where he experienced trauma when he and his fell and were unable to stand for 12 hours. The pain is described as aching and occurs mainly at night, with no significant relief from current management. The patient denies associated redness or swelling, the pain does not exacerbate on walking, and there are no radiating symptoms. The patient has received influenza vaccination and has been advised precautionary measures during the flu season. The previous pneumonia episode and current respiratory virus precautions were discussed. Lifestyle and dietary recommendations emphasize salt reduction and balanced nutrition. [facility] Medical History Medicare annual wellness visit, initial Atherosclerotic cardiovascular disease Heart failure with reduced ejection fraction Wheezing Vitamin D deficiency Thoracic cyst TIA (transient ischemic attack) Colon cancer Hypercholesterolemia BPH (benign prostatic hyperplasia) Hypertension GERD (gastroesophageal reflux disease) Surgical History History of colectomy History of cholecystectomy Family History Father Medical history unknown Mother Hypertension Sister Breast cancer Social History Household Members: Spouse Housing: House Do you presently have visiting nurse or other home services: No Alcohol intake: current Alcohol intake frequency: does not drink Patient Tobacco Use Status: Former Tobacco user Tobacco use type: Cigarette Years Smoked: Quit 21 years old e-Cigarette/Vaping Use: Never Used Second Hand Smoke Exposure: Yes service: No Current occupational status: retired Cognitive needs: No Hearing needs: No Vision needs: Yes Questionnaire PHQ-9 Over the last 2 weeks, how often have you been bothered by any of the following problems? 1. Little interest or pleasure in doing things: not at all 2. Feeling down, depressed, or hopeless: not at all 3. Trouble falling or staying asleep, or sleeping too much: not at all 4. Feeling tired or having little energy: not at all 5. Poor appetite or overeating: not at all 6. Feeling bad about yourself - or that you are a failure or have let yourself or your family down: not at all 7. Trouble concentrating on things, such as reading the newspaper or watching television: not at all 8. Moving or speaking so slowly that other people could have noticed. Or the opposite - being so fidgety or restless that you have been moving around a lot more than usual: not at all 9. Thoughts that you would be better off or of hurting yourself in some way: not at all Total score: 0 Depression Screening Interpretation: Negative Depression Screening Done: Yes Source: Developed by Drs. Walter Forrester, Jaylen Martini and colleagues, with an educational kannan from [employer]. Thrive Questionnaire Date Thrive assessed: 10/15/24 DAVID-7 AMB Questionnaire DAVID-7 Date DAVID - 7 assessed: 10/15/24 Source: Developed by Nichole Marin Kurt Kroenke and colleagues, with an educational kannan from [employer]. Physical exam (Primary Care) Vital Signs: Last Vital Signs Pulse 74 11/12/24 09:37 BP 106/58 L 11/12/24 09:37 BMI result Body Mass Index 22.3 Tobacco/Smoking Status: Tobacco use Status Tobacco use date assessed 10/15/24 11/12/24 09:45 Patient Tobacco Use Status Former Tobacco user 11/12/24 09:45 Tobacco use type Cigarette 11/12/24 09:45 e-Cigarette/Vaping Use Never Used 11/12/24 09:45 PHQ-9: PHQ-9 Score PHQ-9: Total score 0 11/12/24 09:50 Depression Screening Interpretation: Negative Thrive Assessment: Date of Thrive Assessment Date Thrive assessed 10/15/24 11/12/24 09:45 Const General: alert; No acute distress Eyes Conjunctivae: conjunctivae normal Resp Auscultation: clear to auscultation bilaterally Cardio Rate: regular rate Rhythm: regular rhythm GI Inspection: Yes normal to inspection Extrem General: Yes normal to inspection and No edema Coding Level of Care Code Est Pt Level 4 (40975) Complex EM visit Add On G2211 Diagnoses Ischemic cardiomyopathy I25.5 Cardiomyopathy type: ischemic Heart failure with reduced ejection fraction I50.20 Atherosclerotic cardiovascular disease I25.10 TIA (transient ischemic attack) G45.9 Hypercholesterolemia E78.00 Essential hypertension I10 Hypertension type: essential hypertension Gastroesophageal reflux disease without esophagitis K21.9 Esophagitis presence: without esophagitis Benign prostatic hyperplasia without lower urinary tract symptoms N40.0 Lower urinary tract symptom presence: symptoms absent Leg pain, left M79.605 Assessment & Plan Assessment & Plan (1) Cardiomyopathy: Code(s): I42.9 - Cardiomyopathy, unspecified Category: Medical Qualifiers: Cardiomyopathy type: ischemic Qualified Code(s): I25.5 - Ischemic cardiomyopathy (2) Heart failure with reduced ejection fraction: Code(s): I50.20 - Unspecified systolic (congestive) heart failure Category: Medical (3) Atherosclerotic cardiovascular disease: Code(s): I25.10 - Atherosclerotic heart disease of [place] coronary artery without angina pectoris Category: Medical (4) TIA (transient ischemic attack): Comment: December 2023 right arm weakness Code(s): G45.9 - Transient cerebral ischemic attack, unspecified Category: Medical (5) Hypercholesterolemia: Code(s): E78.00 - Pure hypercholesterolemia, unspecified Category: Medical (6) Hypertension: Code(s): I10 - Essential (primary) hypertension Category: Medical Qualifiers: Hypertension type: essential hypertension Qualified Code(s): I10 - Essential (primary) hypertension (7) GERD (gastroesophageal reflux disease): Code(s): K21.9 - Gastro-esophageal reflux disease without esophagitis Category: Medical Qualifiers: Esophagitis presence: without esophagitis Qualified Code(s): K21.9 - Gastro-esophageal reflux disease without esophagitis (8) BPH (benign prostatic hyperplasia): Code(s): N40.0 - Benign prostatic hyperplasia without lower urinary tract symptoms Category: Medical Qualifiers: Lower urinary tract symptom presence: symptoms absent Qualified Code(s): N40.0 - Benign prostatic hyperplasia without lower urinary tract symptoms (9) Leg pain, left: Code(s): M79.605 - Pain in left leg Category: Medical Plan - Continue with diuretics for Congestive Heart Failure management; the current regimen is effective, but monitor BNP levels. - Maintain Lisinopril for Blood Pressure and Heart Failure; avoid Carvedilol due to hypotensive episodes. - Regular monitoring of kidney function recommended due to diuretic use. - Advise continuation of a low-sodium diet to manage hypertension and heart failure. - Discuss the low-dose aspirin for stroke prevention; reinforce the importance of adherence. - An x-ray of the affected clifford to rule out bone injury; recommend if pain persists or worsens. - Padder Cushion on influenza and pneumonia prevention focusing on avoiding large crowds and contact with sick individuals. - Reinforce lifestyle modifications, particularly dietary changes, for cholesterol management. - Schedule the patient for quarterly blood work to monitor cholesterol and kidney function. - Address the suspected recent TIA with continued preventative measures, including aspirin. Orders: Orders B Type Natriuretic Peptide Today I50.20 - Unspecified systolic (congestive) heart failure Comprehensive Met. Panel Today I50.20 - Unspecified systolic (congestive) heart failure Thyroid Stimulating Hormone Today I50.20 - Unspecified systolic (congestive) heart failure Free T4 (Free Thyroxine) Today I50.20 - Unspecified systolic (congestive) heart failure Lipid Panel Today E78.00 - Pure hypercholesterolemia, unspecified, I50.20 - Unspecified systolic (congestive) heart failure Complete Blood Count Auto Diff Today I50.20 - Unspecified systolic (congestive) heart failure Magnesium Today I50.20 - Unspecified systolic (congestive) heart failure XR tibia fibula LT 2V Today M79.605 - Pain in left leg
--- OUTSIDE RECORDS SUMMARY | 2024-11-12 12:36 | XMS_ITS ---
Author Organization [facility] Address [address] [place] [address] Care Team Providers Care Certified Substance Abuse Counselor Name Role Phone Js Allison MD Primary Care Provider Samy Rivas Jr [phone] REASON FOR VISIT Patient presents today [...] Active Encounters Encounter Location Date Provider Diagnosis [facility] [address] [place] [address] 04/20/2024 Samy Payne Jr PLAN OF TREATMENT No Information
--- OUTSIDE RECORDS SUMMARY | 2024-11-12 12:36 | XMS_ITS ---
Author Organization [facility] Address [address] [place] [address] Care Team Providers Care Veneer Jointer Offbearer Name Role Phone Js Allison MD Primary Care Provider Samy Rivas Jr REASON FOR VISIT Pt no show Encounters Encounter Location Date Provider Diagnosis [facility] [address] [place] [address] 04/20/2024 Samy Payne Jr PLAN OF TREATMENT No Information
--- OUTSIDE RECORDS SUMMARY | 2024-11-12 12:36 | XMS_ITS | Patient Health Record ---
Author Organization [facility] Address [address] [place] [address] Care Team Providers Care Nutrition Services Associate Name Role Phone Js Allison MD Primary Care Provider Samy Rivas Jr [phone] ALLERGIES No Known Allergies REASON FOR REFERRAL [...] Problem Colon cancer screening (Z12.11) Active confirmed 079639633 Problem alf current use of aspirin (Z79.82) Active confirmed [id number] Problem Gastroesophageal reflux disease without esophagitis (K21.9) Active confirmed [id number] Problem Adenocarcinoma of colon (C18.9) Active confirmed [id number] Problem External hemorrhoids (K64.4) Active confirmed [id number] Encounters Encounter Location Date Provider Diagnosis [facility] [address] [place] [address] 04/20/2024 Samy Payne Jr [facility] [address] [place] [address] 04/20/2024 Samy Payne Jr PLAN OF TREATMENT Future Test Test Name Order Date COLONOSCOPY 09/23/2015 Insurance Providers Payer Name Payer Address Payer Phone Subscriber Number Group Number Insured Name Patient Relationship to Insured Coverage Start Date Coverage End Date MEDICARE OF [place] [address] [place] [address] [id number] ROXANN MORRELL Self - patient is the insured MED[employer] ATTN CLAIMS [address] [place] [phone] [id number] ROXANN MORRELL Self - patient is the [...]
== END 2024-11-12 10:09 | disposition home or self-care (01) ==
PROVIDERS: PCP Internal Medicine; Visit Provider Internal Medicine
DX: I25.5 Ischemic cardiomyopathy (principal); I50.20 Unspecified systolic (congestive) heart failure; I25.10 Atherosclerotic heart disease of native coronary artery without angina pectoris; G45.9 Transient cerebral ischemic attack, unspecified; E78.00 Pure hypercholesterolemia, unspecified; I10 Essential (primary) hypertension; K21.9 Gastro-esophageal reflux disease without esophagitis; N40.0 Benign prostatic hyperplasia without lower urinary tract symptoms; M79.605 Pain in left leg

== ENCOUNTER → 2024-11-12 09:32 | Outpatient (BNVA) | payer MEDICARE, SELFPAY | PROVIDERS: PCP Internal Medicine; Visit Provider Internal Medicine | DX: I25.5 Ischemic cardiomyopathy (principal); I11.0 Hypertensive heart disease with heart failure; I50.20 Unspecified systolic (congestive) heart failure; I25.10 Atherosclerotic heart disease of native coronary artery without angina pectoris; G45.9 Transient cerebral ischemic attack, unspecified; K21.9 Gastro-esophageal reflux disease without esophagitis; M79.605 Pain in left leg; N40.0 Benign prostatic hyperplasia without lower urinary tract symptoms | CPT/HCPCS: 99212 ==

== ENCOUNTER 2024-12-08 10:38 | Outpatient (AMB) | payer MEDICARE, SELFPAY ==
[2024-12-08 10:45] VITALS: BP 106/60; PULSE 71; O2SAT 92; BMI 22.2
--- NOTE | 2024-12-08 10:45 | A.OFFPC_ITS ---
Vital Signs 12/08/24 10:45 Height 5 ft 8 in Weight 146 lb BMI 22.2 BP 106/60 Blood Pressure Location Lt brachial Position Sitting Pulse 71 Pulse Source Pulse Oximeter Pulse Oximetry (%) 92 Oxygen Delivery Method Room Air Intake Visit Reasons: Gain much weight in short time Allergies No Known Allergies [No Known Allergies*] Allergy (Verified 12/08/24 10:46) Tobacco use date assessed: 12/08/24 Fall risk assessment: No Falls in past year Last assessed Fall Risk: 12/08/24 Dental Screening Dental Screen Date: 10/15/24 [facility] Medical History Medicare annual wellness visit, initial Atherosclerotic cardiovascular disease Heart failure with reduced ejection fraction Wheezing Vitamin D deficiency Thoracic cyst TIA (transient ischemic attack) Colon cancer Hypercholesterolemia BPH (benign prostatic hyperplasia) Hypertension GERD (gastroesophageal reflux disease) Surgical History History of colectomy History of cholecystectomy Family History Father Medical history unknown Mother Hypertension Sister Breast cancer Social History Household Members: Spouse Housing: House Do you presently have visiting nurse or other home services: No Alcohol intake: current Alcohol intake frequency: does not drink Patient Tobacco Use Status: Former Tobacco user Tobacco use type: Cigarette Years Smoked: Quit 21 years old e-Cigarette/Vaping Use: Never Used Second Hand Smoke Exposure: Yes service: No Current occupational status: retired Cognitive needs: No Hearing needs: No Vision needs: Yes Questionnaire Thrive Questionnaire Date Thrive assessed: 10/15/24 AUDIT C Alcohol Use Questionnaire (AUDIT-C) 2. How many drinks containing alcohol do you have on a typical day when you are drinking?: 1 or 2 3. How often do you have six or more drinks on one occasion?: Never Total Score: 0 DAVID-7 AMB Questionnaire DAVID-7 Date DAVID - 7 assessed: 10/15/24 Source: Developed by Drs. Walter Forrester, Nichole Amaral, Jaylen Morris and colleagues, with an educational kannan from [employer]. Physical exam (Primary Care) Vital Signs: Last Vital Signs Pulse 71 12/08/24 10:45 BP 106/60 12/08/24 10:45 Pulse Ox 92 12/08/24 10:45 Oxygen Delivery Method Room Air 12/08/24 10:45 BMI result Body Mass Index 22.2 Tobacco/Smoking Status: Tobacco use Status Tobacco use date assessed 12/08/24 12/08/24 10:53 Patient Tobacco Use Status Former Tobacco user 12/08/24 10:53 Tobacco use type Cigarette 12/08/24 10:53 e-Cigarette/Vaping Use Never Used 12/08/24 10:53 Thrive Assessment: Date of Thrive Assessment Date Thrive assessed 10/15/24 12/08/24 10:53 Const General: alert; No acute distress Eyes Conjunctivae: conjunctivae normal Resp Auscultation: clear to auscultation bilaterally Cardio Rate: regular rate Rhythm: regular rhythm GI Inspection: Yes normal to inspection Extrem General: Yes normal to inspection and No edema Coding Level of Care Code Est Pt Level 4 (21847) Diagnoses TIA (transient ischemic attack) G45.9 Atherosclerotic cardiovascular disease I25.10 Ischemic cardiomyopathy I25.5 Cardiomyopathy type: ischemic Heart failure with reduced ejection fraction I50.20 Essential hypertension I10 Hypertension type: essential hypertension Gastroesophageal reflux disease without esophagitis K21.9 Esophagitis presence: without esophagitis Benign prostatic hyperplasia without lower urinary tract symptoms N40.0 Lower urinary tract symptom presence: symptoms absent Hypercholesterolemia E78.00 Assessment & Plan Assessment & Plan (1) TIA (transient ischemic attack): Comment: December 2023 right arm weakness Code(s): G45.9 - Transient cerebral ischemic attack, unspecified Category: Medical Plan: Patient on aspirin 81 mg once a day (2) Atherosclerotic cardiovascular disease: Code(s): I25.10 - Atherosclerotic heart disease of [place] coronary artery without angina pectoris Category: Medical Plan: Control the cholesterol, weight, blood pressure continuing with lisinopril. (3) Cardiomyopathy: Code(s): I42.9 - Cardiomyopathy, unspecified Category: Medical Qualifiers: Cardiomyopathy type: ischemic Qualified Code(s): I25.5 - Ischemic cardiomyopathy Plan: Continue with lisinopril (4) Heart failure with reduced ejection fraction: Code(s): I50.20 - Unspecified systolic (congestive) heart failure Category: Medical Plan: Patient on a diuretic but noted to have increase in weight. Looks to be euvolemic will continue to monitor for now but discussed about diet restrictions (5) Hypertension: Code(s): I10 - Essential (primary) hypertension Category: Medical Qualifiers: Hypertension type: essential hypertension Qualified Code(s): I10 - Essential (primary) hypertension Plan: Continue with blood pressure medication. Decrease salt intake and exercise on lisinopril and furosemide (6) GERD (gastroesophageal reflux disease): Code(s): K21.9 - Gastro-esophageal reflux disease without esophagitis Category: Medical Qualifiers: Esophagitis presence: without esophagitis Qualified Code(s): K21.9 - Gastro-esophageal reflux disease without esophagitis Plan: Avoid the foods that causes that usually spicy foods, tomato products, juices, coffee, soda and foods that your sensitive to. After eating do not lie down, allow 3-4 hours before in lie down. And keep the head of bed above 30 degrees to avoid the acid from going up. (7) BPH (benign prostatic hyperplasia): Code(s): N40.0 - Benign prostatic hyperplasia without lower urinary tract symptoms Category: Medical Qualifiers: Lower urinary tract symptom presence: symptoms absent Qualified Code(s): N40.0 - Benign prostatic hyperplasia without lower urinary tract symptoms Plan: Stable (8) Hypercholesterolemia: Code(s): E78.00 - Pure hypercholesterolemia, unspecified Category: Medical Plan: Avoid fried foods, chicken skin, eggs, butter margarine, pastries and meat. Be it pork or beef they have a lot of cholesterol on atorvastatin 40 mg once a Plan History of Present Illness The patient is an 89-year-old male presenting for a follow-up related to his extensive history of chronic medical conditions. Highlighted during this visit are his cardiovascular and neurological concerns. The patient is a long-term sufferer of essential hypertension, hypercholesterolemia, and cardiomyopathy associated with atherosclerotic cardiovascular disease. Notably, he also has a history of transient ischemic attack, with one incident reported of right arm weakness. A computed tomographic angiography (CTA) revealed 25% stenosis of the right internal carotid artery and 40% stenosis of the left internal carotid artery, though the most recent MRI showed no stroke evidence. Additionally, his medical history includes a diagnosis of congestive heart failure and a seizure disorder. Regarding his cancer history, the patient was treated successfully for colon cancer in 2007. Concerning his urological health, he suffers from benign prostatic hyperplasia. The patient has been subject to cognitive impairment, particularly with short-term memory issues, which he attributes to prior neurological events. He has been managed on aspirin, lisinopril, furosemide, and atorvastatin, with noted stability in GERD symptoms but a concern over weight gain potentially impacting his cardiac status. Review of Systems - Neurological: Reports cognitive impairment. - Cardiovascular: Denies additional weakness or stroke-like symptoms since last evaluation. - Gastrointestinal: Denies any exacerbation of GERD symptoms. Plan - Continue current aspirin 81 mg daily for cardiovascular protection. - Maintain lisinopril therapy to manage blood pressure. - Monitor weight and adjust furosemide as necessary to manage fluid retention. - Continue atorvastatin 40 mg daily for cholesterol management. - Follow-up with neurological evaluations for monitoring cognitive impairment. - Reassess symptoms of BPH and adjust management as needed. Patient was informed and verbally consented to the use of an ambient scribe for clinic note documentation during this visit. Discussion Notes During the consultation, I discussed the patient's complex cardiovascular profile, emphasizing ongoing treatment strategies to manage his hypertension, hypercholesterolemia, and congestive heart failure. We reviewed his prior TIA and the current status of his carotid stenosis, reaffirming the continuation of an antiplatelet regimen with aspirin. The potential link between cognitive impairment and his previous cerebrovascular incidents was evaluated, and reinforcement of the current therapeutic approach was confirmed. I advised periodic monitoring of his weight to evaluate diuretic efficacy, given the weight gain noted, which could impact his heart condition. Throughout the discussion, I ensured understanding and agreement with the outlined management plan. Patient Instructions - Continue taking your medications as prescribed: aspirin, lisinopril, furosemide, and atorvastatin. - Monitor your weight and report any significant changes. - Keep up with regular follow-up appointments to monitor your conditions. - Continue to manage your diet and activity level to support your cardiovascular health. - Report any new or concerning symptoms to my office immediately.
== END 2024-12-08 11:28 | disposition home or self-care (01) ==
PROVIDERS: PCP Internal Medicine; Visit Provider Internal Medicine
DX: G45.9 Transient cerebral ischemic attack, unspecified (principal); I25.10 Atherosclerotic heart disease of native coronary artery without angina pectoris; I25.5 Ischemic cardiomyopathy; I50.20 Unspecified systolic (congestive) heart failure; I10 Essential (primary) hypertension; K21.9 Gastro-esophageal reflux disease without esophagitis; N40.0 Benign prostatic hyperplasia without lower urinary tract symptoms; E78.00 Pure hypercholesterolemia, unspecified

== ENCOUNTER → 2024-12-08 10:38 | Outpatient (BNVA) | payer MEDICARE, SELFPAY | PROVIDERS: PCP Internal Medicine; Visit Provider Internal Medicine | DX: G45.9 Transient cerebral ischemic attack, unspecified (principal); I25.10 Atherosclerotic heart disease of native coronary artery without angina pectoris; I25.5 Ischemic cardiomyopathy; I11.0 Hypertensive heart disease with heart failure; I50.20 Unspecified systolic (congestive) heart failure; K21.9 Gastro-esophageal reflux disease without esophagitis; E78.00 Pure hypercholesterolemia, unspecified; N40.0 Benign prostatic hyperplasia without lower urinary tract symptoms | CPT/HCPCS: 99212 ==

== ENCOUNTER 2024-12-31 08:19 | Outpatient (REF) | payer MEDICARE, SELFPAY ==
--- NOTE | ~2024-12-31 | XR_ITS ---
CLINICAL HISTORY: M79.605 - Pain in left leg 2 view left tibia-fibula Comparison: None Findings No fractures or dislocations. No joint effusion. No significant arthritic change. No radiopaque foreign body. There is regional arterial calcification. IMPRESSION: 1. Normal left tibia-fibula This document has been electronically signed by: Guanako Lopez MD on 01/02/2025 07:45:09
--- NOTE | ~2024-12-31 | XR_ITS ---
CLINICAL HISTORY: M79.604 - Pain in right leg 2 view right tibia-fibula Comparison: None Findings No fractures or dislocations. No joint effusion. No significant arthritic change. No radiopaque foreign body. IMPRESSION: 1. Normal right tibia-fibula This document has been electronically signed by: Guanako Lopez MD on 01/02/2025 07:44:51
[2024-12-31 08:40] LABS: MANUAL DIFF FLAG NO
[2024-12-31 09:34] LABS: Basophils Absolute Auto 0.1 X10*3/uL (0.0-0.2); Basophils Percent Auto 1.1 % (0-2); Eosinophils Absolute Auto 0.4 X10*3/uL (0.0-0.4); Eosinophils Percent Auto 5.6 % (0-4); Hematocrit 33.1 % (42.0-52.0); Hemoglobin 11.2 g/dl (14.0-18.0); Imm Gran Abs Auto 0.02 X10*3/uL (0.00-0.03); Imm Gran Pct Auto 0.3 % (0.0-0.4); Lymphocytes Absolute Auto 1.6 X10*3/uL (1.2-4.9); Lymphocytes Percent Auto 20.9 % (20-40); Mean Corpuscular HGB Conc 33.8 g/dl (31.0-36.0); Mean Corpuscular Hemoglobin 31.3 pg (27.0-33.0); Mean Corpuscular Volume 92.5 fL (80.0-98.0); Mean Platelet Volume 10.3 fL (9.4-12.4); Monocytes Absolute Auto 0.8 X10*3/uL (0.1-1.2); Monocytes Percent Auto 10.1 % (2-11); Neutrophils Absolute Auto 4.7 x10*3/uL (2.0-8.3); Platelet Count 297 X10*3/uL (160-400); Red Blood Count 3.58 X10*6/uL (4.60-5.80); Red Cell Distribution Width 14.6 % (11.0-16.0); White Blood Count 7.6 X10*3/uL (4.8-10.8)
[2024-12-31 10:05] LABS: B Type Natriuretic Peptide 443 pg/mL (<100)
[2024-12-31 10:12] LABS: Alanine Aminotransferase 25 U/L (0-40); Albumin Level 3.9 g/dL (3.5-5.0); Alkaline Phosphatase 122 U/L (39-117); Anion Gap 10 (12-20); Aspartate Amino Transferase 29 U/L (5-37); Bilirubin Total 0.4 mg/dL (0.0-1.0); Blood Urea Nitrogen 23 mg/dL (9-16); Calcium 9.6 mg/dL (8.4-10.2); Carbon Dioxide 28 mmol/L (22-29); Chloride 107 mmol/L (96-108); Cholesterol 137 mg/dL (<200); Estimated Glomerular Filt Rate > 60; Glucose Random 88 mg/dL (60-115); HDL Cholesterol 66 mg/dL (>40); Iron 74 mcg/dL (45-160); LDL Cholesterol Calculated 65 mg/dL (<100); Percent Iron Saturation 22 % (15-50); Potassium 4.3 mmol/L (3.3-5.1); Sodium 141 mmol/L (135-145); Total Iron Binding Capacity 341 mcg/dL (228-428); Triglycerides 34 mg/dL (<150); Unsaturated Iron Binding 267 ug/dL
[2024-12-31 10:23] LABS: Free T4 (Free Thyroxine) 0.82 ng/dL (0.71-1.85)
[2024-12-31 10:31] LABS: Thyroid Stimulating Hormone 2.67 uIU/mL (0.32-4.0)
== END 2024-12-31 08:20 | disposition home or self-care (01) ==
LOC: HO.XRAY 08:19
PROVIDERS: Nurse Practitioner Family; PCP Internal Medicine; Visit Provider Internal Medicine
DX: I50.20 Unspecified systolic (congestive) heart failure (principal); D64.9 Anemia, unspecified; E78.00 Pure hypercholesterolemia, unspecified; M79.605 Pain in left leg; M79.604 Pain in right leg
CPT/HCPCS: 36415; 73590; 80053; 80061; 83540; 83735; 83880; 84439; 84443; 85025

== ENCOUNTER → 2024-12-31 08:40 | Outpatient (BNV) | payer MEDICARE, SELFPAY | PROVIDERS: PCP Internal Medicine; Visit Provider Specialist | DX: M79.604 Pain in right leg (principal); M79.605 Pain in left leg | CPT/HCPCS: 73590 ==

== ENCOUNTER 2025-02-17 09:49 | Outpatient (AMB) | payer MEDICARE, SELFPAY ==
[2025-02-17 09:52] VITALS: BP 108/58; PULSE 70; O2SAT 96; BMI 23.1
--- NOTE | 2025-02-17 09:52 | MHC.PC.OV ---
Vital Signs 02/17/25 09:52 Height 5 ft 8 in Weight 152 lb BMI 23.1 BP 108/58 L Blood Pressure Location Lt brachial Position Sitting Pulse 70 Pulse Source Pulse Oximeter Pulse Oximetry (%) 96 Oxygen Delivery Method Room Air Intake Visit Reasons: 3 month f/u Allergies No Known Allergies [No Known Allergies*] Allergy (Verified 02/17/25 09:53) Tobacco use date assessed: 12/08/24 Fall risk assessment: No Falls in past year Last assessed Fall Risk: 02/17/25 Dental Screening Dental Screen Date: 10/15/24 [facility] Medical History Medicare annual wellness visit, initial Atherosclerotic cardiovascular disease Heart failure with reduced ejection fraction Wheezing Vitamin D deficiency Thoracic cyst TIA (transient ischemic attack) Colon cancer Hypercholesterolemia BPH (benign prostatic hyperplasia) Hypertension GERD (gastroesophageal reflux disease) Surgical History History of colectomy History of cholecystectomy Family History Father Medical history unknown Mother Hypertension Sister Breast cancer Social History Household Members: Spouse Housing: House Do you presently have visiting nurse or other home services: No Alcohol intake: current Alcohol intake frequency: does not drink Patient Tobacco Use Status: Former Tobacco user Tobacco use type: Cigarette Years Smoked: Quit 21 years old e-Cigarette/Vaping Use: Never Used Second Hand Smoke Exposure: Yes service: No Current occupational status: retired Cognitive needs: No Hearing needs: No Vision needs: Yes Questionnaire PHQ-9 Over the last 2 weeks, how often have you been bothered by any of the following problems? 1. Little interest or pleasure in doing things: not at all 2. Feeling down, depressed, or hopeless: not at all 3. Trouble falling or staying asleep, or sleeping too much: not at all 4. Feeling tired or having little energy: not at all 5. Poor appetite or overeating: not at all 6. Feeling bad about yourself - or that you are a failure or have let yourself or your family down: not at all 7. Trouble concentrating on things, such as reading the newspaper or watching television: not at all 8. Moving or speaking so slowly that other people could have noticed. Or the opposite - being so fidgety or restless that you have been moving around a lot more than usual: not at all 9. Thoughts that you would be better off or of hurting yourself in some way: not at all Total score: 0 Depression Screening Interpretation: Negative Depression Screening Done: Yes Source: Developed by Drs. Walter Forrester, Nichole Amaral, Jaylen Morris and colleagues, with an educational kannan from [employer]. Thrive Questionnaire Date Thrive assessed: 02/11/25 I am a: Parent/Caregiver What is your living situation today?: I have a steady place to live Within the past 12 months, did the food you bought not last and you didn't have the money to get more?: Never true Within the past 12 months, did you worry whether your food would run out before you got money to buy more?: Never true Do you have trouble paying for medicines?: No Do you have trouble getting transportation to medical appointments?: No Do you have trouble paying your heating and electricity bill?: No Do you have trouble taking care of your child, family member or friend?: No Do you have trouble with day-to-day activities such as bathing, preparing meals, shopping, managing finances, etc.?: No Are you currently unemployed and looking for a job?: No Are you interested in more education?: No Please select the resources that you would like help with: None Currently or been in a relationship where the following occur: No concerns reported THRIVE Score: 0 AUDIT C Alcohol Use Questionnaire (AUDIT-C) 1. How often do you have a drink containing alcohol?: 2-3 times a week Total Score: 3 DAVID-7 AMB Questionnaire DAVID-7 Date DAVID - 7 assessed: 10/15/24 Feeling nervous, anxious, or on edge: 0 = Not at all Not being able to stop or control worryin = Not at all Worrying too much about different things: 0 = Not at all Trouble relaxin = Not at all Being so restless that it is hard to sit still: 0 = Not at all Becoming easily annoyed or irritable: 0 = Not at all Feeling afraid as if something awful might happen: 0 = Not at all Total DAVID-7 score (0-4 normal; 5-9 mild; 10-14 moderate; 15-21 severe): 0 Source: Developed by Drs. Walter Forrester, Nichole Amaral, Jaylen Morris and colleagues, with an educational kannan from [employer]. Physical exam (Primary Care) Vital Signs: Last Vital Signs Pulse 70 02/17/25 09:52 BP 108/58 L 02/17/25 09:52 Pulse Ox 96 02/17/25 09:52 Oxygen Delivery Method Room Air 02/17/25 09:52 BMI result Body Mass Index 23.1 Tobacco/Smoking Status: Tobacco use Status Tobacco use date assessed 12/08/24 02/17/25 09:54 Patient Tobacco Use Status Former Tobacco user 02/17/25 09:54 Tobacco use type Cigarette 02/17/25 09:54 e-Cigarette/Vaping Use Never Used 02/17/25 09:54 PHQ-9: PHQ-9 Score PHQ-9: Total score 0 02/17/25 10:38 Depression Screening Interpretation: Negative Thrive Assessment: Date of Thrive Assessment Date Thrive assessed 02/11/25 02/17/25 09:54 Currently or been in a relationship where the following occur: No concerns reported Const General: alert; No acute distress Eyes Conjunctivae: conjunctivae normal Resp Auscultation: clear to auscultation bilaterally Cardio Rate: regular rate Rhythm: regular rhythm GI Inspection: Yes normal to inspection Extrem General: Yes normal to inspection and No edema Coding Level of Care Code Est Pt Level 4 (52638) Complex EM visit Add On G2211 Diagnoses Atherosclerotic cardiovascular disease I25.10 Ischemic cardiomyopathy I25.5 Cardiomyopathy type: ischemic Heart failure with reduced ejection fraction I50.20 Hypercholesterolemia E78.00 Essential hypertension I10 Hypertension type: essential hypertension Gastroesophageal reflux disease without esophagitis K21.9 Esophagitis presence: without esophagitis Benign prostatic hyperplasia without lower urinary tract symptoms N40.0 Lower urinary tract symptom presence: symptoms absent Assessment & Plan Assessment & Plan (1) Atherosclerotic cardiovascular disease: Code(s): I25.10 - Atherosclerotic heart disease of [place] coronary artery without angina pectoris Category: Medical Plan: Control the cholesterol, weight, blood pressure, continue with aspirin 81 mg once a day (2) Cardiomyopathy: Code(s): I42.9 - Cardiomyopathy, unspecified Category: Medical Qualifiers: Cardiomyopathy type: ischemic Qualified Code(s): I25.5 - Ischemic cardiomyopathy Plan: Control the cholesterol, weight, blood pressure, antihypertensives are limited to blood pressure (3) Heart failure with reduced ejection fraction: Code(s): I50.20 - Unspecified systolic (congestive) heart failure Category: Medical Plan: Discussed my concerns about elevated BNP and weight gain. Patient has indiscriminate eating also. Advised to increase the diuretic alternating 20 and 40 mg and weigh daily and record. (4) Hypercholesterolemia: Code(s): E78.00 - Pure hypercholesterolemia, unspecified Category: Medical Plan: Avoid fried foods, chicken skin, eggs, butter margarine, pastries and meat. Be it pork or beef they have a lot of cholesterol LDL goal of less than 70 and triglyceride of less than 150 on atorvastatin 40 mg once a day (5) Hypertension: Code(s): I10 - Essential (primary) hypertension Category: Medical Qualifiers: Hypertension type: essential hypertension Qualified Code(s): I10 - Essential (primary) hypertension Plan: Continue with blood pressure medication. Decrease salt intake and exercise continuing with lisinopril 10 mg once a day (6) GERD (gastroesophageal reflux disease): Code(s): K21.9 - Gastro-esophageal reflux disease without esophagitis Category: Medical Qualifiers: Esophagitis presence: without esophagitis Qualified Code(s): K21.9 - Gastro-esophageal reflux disease without esophagitis Plan: Avoid the foods that causes that usually spicy foods, tomato products, juices, coffee, soda and foods that your sensitive to. After eating do not lie down, allow 3-4 hours before in lie down. And keep the head of bed above 30 degrees to avoid the acid from going up. (7) BPH (benign prostatic hyperplasia): Code(s): N40.0 - Benign prostatic hyperplasia without lower urinary tract symptoms Category: Medical Qualifiers: Lower urinary tract symptom presence: symptoms absent Qualified Code(s): N40.0 - Benign prostatic hyperplasia without lower urinary tract symptoms Plan: Stable Plan History of Present Illness The patient is an 89-year-old male presenting with a follow-up for congestive heart failure and weight management concerns. His heart condition is underscored by an increasing BMP level, signifying possible progression of heart failure, despite normal blood pressure ranges and routine medications. His weight increased from 146 to 152 pounds. The patient reports persistent tiredness and drinks a significant amount of water, attributing it to leg cramps relief. His fluid intake may exacerbate symptoms by increasing circulatory fluid load, challenging heart function due to weakened myocardium. Dietary patterns rich in sugars and carbohydrates could be affecting weight maintenance efforts. Previous imaging of the left lower limb was unremarkable, ruling out any significant structural abnormalities contributing to reported leg discomfort. These historical details stress the importance of managing fluid retention while maintaining cardiovascular stability and appropriate dietary modifications to prevent further heart failure complications. Health Maintenance - LDL cholesterol target <70 mg/dL, managed with atorvastatin 40 mg daily. - Regular assessment of blood parameters; thyroid function and liver enzymes were within normal limits. - Avoidance of excessive fluid intake to prevent volume overload in congestive heart failure. - Continuation of low-dose aspirin for coronary artery disease. Social History - Consumes Swedish pastries, blueberry muffins, and other high-sugar foods regularly. - Drinks wine nightly, approximately two glasses per day. - Describes recent weight gain, possibly influenced by dietary habits and fluid retention. - Reports family dynamics where spouse influences clothing choices and manages household activities related to health awareness. Review of Systems - Cardiovascular: Reports persistent fatigue; Denies shortness of breath. - Gastrointestinal: Denies changes in reflux symptoms under current regimen. - Musculoskeletal: Reports left leg cramps resolved with increased water intake. - Neurological: Denies new neurological deficits, history of TIA noted. Physical Exam - General- Objective observations regarding weight taken (weight increased from 146 to 152 pounds). Results - Labs: Hemoglobin 11.2, Hematocrit 33.1, BMP 443, LDL 65. - Tests and Diagnostics: Tibial fibula X-ray negative for structural abnormalities. Plan I will adjust the diuretic regimen, alternating 20 mg and 40 mg doses of furosemide, to better control fluid retention and help mitigate the weight gain associated with congestive heart failure. The patient should engage in consistent daily weight monitoring to assess the need for further therapy adjustments. Limiting water intake will help manage fluid overloading that taxes cardiac function. Dietary changes reducing sugar-laden foods are advised to aid in comprehensive weight and symptom management. Follow-up laboratory evaluations are planned for three months, in alignment with the patient's cardiology consultation. Medication for coronary artery disease and cholesterol management, including atorvastatin and aspirin, will continue unchanged as part of his chronic disease management plan. Patient was informed and verbally consented to the use of an ambient scribe for clinic note documentation during this visit. Discussion Notes During this visit, I addressed the concerns of increased weight, potentially exacerbating heart failure, alongside elevated BMP levels indicating fluid retention. We reviewed the importance of managing dietary intake and fluid balance to minimize cardiac workload. I recommended alternating doses of diuretics to manage fluid status, emphasizing potential side effects, including changes in blood pressure, electrolyte imbalances, and fatigue due to fluid removal. I advocated for reducing water intake at night to mitigate nocturia and improve rest, and discussion centered on dietary influence on cardiovascular health, mainly focusing on reducing sugary and high-calorie food consumption. I scheduled a reevaluation of his condition with laboratory follow-up and coordinated care with cardiology to ensure comprehensive heart failure management. We discussed aspirated interventions and mutually planned for progressive adjustments in treatment to ensure stable heart function monitoring, using weight and symptom tracking as guides. Patient Instructions - Weigh yourself daily in the morning and write down the numbers. - Take 20 mg furosemide in the morning on one day, and 40 mg on the next day. Do not take it in the evening. - Monitor your weight at home and aim to lose about 2 to 4 pounds gradually. - Drink smaller amounts of water, aiming for moderation to avoid straining your heart. - Limit sugary and high-calorie foods like pastries and muffins. - Follow up with your drop count associate as scheduled in April. - Report any new symptoms, like worsening shortness of breath or increased fatigue, promptly. Orders: Orders Complete Blood Count Auto Diff 3 Months I50.20 - Unspecified systolic (congestive) heart failure B Type Natriuretic Peptide 3 Months I50.20 - Unspecified systolic (congestive) heart failure Magnesium 3 Months I50.20 - Unspecified systolic (congestive) heart failure Comprehensive Met. Panel 3 Months I50.20 - Unspecified systolic (congestive) heart failure
--- OUTSIDE RECORDS SUMMARY | 2025-02-17 10:47 | XMS_ITS ---
Author Organization [facility] Address [address] [place] [id number] Care Team Providers Care Curriculum Director Name Role Phone Js Allison MD Primary Care Provider Samy Rivas Jr [phone] REASON FOR VISIT Pt no show Encounters Encounter Location Date Provider Diagnosis [facility] [address] [place] [id number] 04/20/2024 Samy Payne Jr Plan Of Treatment No Information Progress Notes * ROXANN MORRELL ADOB: [birth year] (89 yo M)Acc No.[id number]:04/20/2024 Patient:?ROXANN MORRELL :1935???Age:89 Y???Sex:Male Address:[address] [place] [address] * true * Date:? Generated for Tito freeman/Errol/eTransmitting on:?02/17/2025 10:47 AM EDT
--- OUTSIDE RECORDS SUMMARY | 2025-02-17 10:48 | XMS_ITS | Patient Health Record ---
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 Name Role Phone Js Allison MD Primary Care Provider Samy Rivas Jr Allergies No Known Allergies Reason For Referral No Information Medications Medication SIG (Take, Route, Fr equency, Duration) Notes Start Date End Date Status Tamsulosin HCl 0.4 MG as directed Orally Active Lisinopril 20 MG 1 tablet Orally Once a day Active Omeprazole 20 MG 1 capsule 30 minutes before morning meal Orally Once a day for 30 day(s) Active Carvedilol 6.25 MG TAKE 1 TABLET BY AMOS TWICE A DAY Oral for 90 Active Aspir-81 81 MG 1 tablet Orally Once a day Active Spironolactone 25 MG Oral for 90 Active Immunizations Vaccine Route Administration Date Status Comme nts Flu vaccine no Preserv 3 and > Unknown 06/28/2015 Admin istered Influenza Unknown 08/30/2021 Administered Influenza Unknown 09/04/2022 Administered Problems Problem Type SNOMED Code ICD Code Onset Dates Problem Status W/U Status Risk Notes Problem 906077458 Colon cancer screening (Z12.11) Active confirmed Problem 711754247 [facility] curren t use of aspirin (Z79.82) Active confirmed Problem 439887559 Gastroesophageal reflux disease without esophagitis (K21.9) Active confirmed Problem 393387718 Adenocarcinoma o f colon (C18.9) Active confirmed Problem 86005844 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) Active confirmed Encounters Encounter Location Date Provider Diagnosis [facility] [address] [place] [address] 04/20/2024 Samy Payne Jr Plan Of Treatment Future Test Test Name Order Date COLONOSCOPY 09/23/2015 Insurance Providers Payer Name Payer Address Payer Phone Subscriber Number Group Number Insured Name Patient Relationship to Insured Coverage Start Date Coverage End Date MEDICARE OF [place] [address] [place] [address] [id number] MORRELL ROXANN Self - patient is the insured [employer] ATT[employer] CLAIMS [address] [place] [address] [phone] [id number] PETROS ROXANN Self - patient is the insured Medical (General) History Medical History History ICD Code hypertension BPH Gastroesophageal reflux disease Heart failure with reduced ejection frac tion T3 N0 colon cancer, last col onoscopy 01/04/16, normal, five-year followup optional. Surgical History Surgery Date(Month/Year) cholecystectomy 2006 hernia repair right hemicolectomy for T3 N0 colon canc er 2006
--- OUTSIDE RECORDS SUMMARY | 2025-02-17 10:48 | XMS_ITS ---
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 Patient presents today for gerd. * Medical History:? * Medications:?Taking Tamsulos in HCl 0.4 MG Capsule Extended Release as [...] Spironolactone 25 MG Tablet Oral Objective: * Vitals:? Assessment: Plan: * Treatment: * * The named appointment provid er may or may not be the originator of this progress note, and it is not deemed complete until electronically signed by the appointment provider. Sign off status: Pending * Provider:?Samy Payne MD Date:?0 04/20/2024 Generated for Tito freeman/Errol/Paulitting on:?02/17/2025 10:47 AM EDT
== END 2025-02-17 11:04 | disposition home or self-care (01) ==
LOC: HO.HMCH 09:51
PROVIDERS: PCP Internal Medicine; Visit Provider Internal Medicine
DX: I25.10 Atherosclerotic heart disease of native coronary artery without angina pectoris (principal); I25.5 Ischemic cardiomyopathy; I50.20 Unspecified systolic (congestive) heart failure; E78.00 Pure hypercholesterolemia, unspecified; I10 Essential (primary) hypertension; K21.9 Gastro-esophageal reflux disease without esophagitis; N40.0 Benign prostatic hyperplasia without lower urinary tract symptoms

== ENCOUNTER → 2025-02-17 09:49 | Outpatient (BNVA) | payer MEDICARE, SELFPAY | PROVIDERS: PCP Internal Medicine; Visit Provider Internal Medicine | DX: I25.10 Atherosclerotic heart disease of native coronary artery without angina pectoris (principal); I25.5 Ischemic cardiomyopathy; I11.0 Hypertensive heart disease with heart failure; I50.20 Unspecified systolic (congestive) heart failure; E78.00 Pure hypercholesterolemia, unspecified; K21.9 Gastro-esophageal reflux disease without esophagitis; N40.0 Benign prostatic hyperplasia without lower urinary tract symptoms | CPT/HCPCS: 99212 ==

== ENCOUNTER 2025-03-12 12:32 | Outpatient (AMB) | payer MEDICARE, SELFPAY ==
[2025-03-12 12:41] VITALS: BP 106/52; PULSE 86; O2SAT 98; BMI 23.1
--- NOTE | 2025-03-12 12:41 | A.OFFPC_ITS ---
Vital Signs 03/12/25 12:41 Height 5 ft 8 in Weight 152 lb BMI 23.1 BP 106/52 L Blood Pressure Location Lt brachial Position Sitting Pulse 86 Pulse Source Pulse Oximeter Pulse Oximetry (%) 98 Oxygen Delivery Method Room Air Intake Visit Reasons: Congestive heart failure, cardiomyopathy, Fatigue Allergies No Known Allergies [No Known Allergies*] Allergy (Verified 03/12/25 12:41) Tobacco use date assessed: 12/08/24 Fall risk assessment: No Falls in past year Last assessed Fall Risk: 03/12/25 Dental Screening Dental Screen Date: 10/15/24 [facility] Medical History Medicare annual wellness visit, initial Atherosclerotic cardiovascular disease Heart failure with reduced ejection fraction Wheezing Vitamin D deficiency Thoracic cyst TIA (transient ischemic attack) Colon cancer Hypercholesterolemia BPH (benign prostatic hyperplasia) Hypertension GERD (gastroesophageal reflux disease) Surgical History History of colectomy History of cholecystectomy Family History Father Medical history unknown Mother Hypertension Sister Breast cancer Social History Household Members: Spouse Housing: House Do you presently have visiting nurse or other home services: No Alcohol intake: current Alcohol intake frequency: does not drink Patient Tobacco Use Status: Former Tobacco user Tobacco use type: Cigarette Years Smoked: Quit 21 years old e-Cigarette/Vaping Use: Never Used Second Hand Smoke Exposure: Yes service: No Current occupational status: retired Cognitive needs: No Hearing needs: No Vision needs: Yes Questionnaire Thrive Questionnaire Date Thrive assessed: 02/11/25 I am a: Parent/Caregiver What is your living situation today?: I have a steady place to live Within the past 12 months, did the food you bought not last and you didn't have the money to get more?: Never true Within the past 12 months, did you worry whether your food would run out before you got money to buy more?: Never true Do you have trouble paying for medicines?: No Do you have trouble getting transportation to medical appointments?: No Do you have trouble paying your heating and electricity bill?: No Do you have trouble taking care of your child, family member or friend?: No Do you have trouble with day-to-day activities such as bathing, preparing meals, shopping, managing finances, etc.?: No Are you currently unemployed and looking for a job?: No Are you interested in more education?: No Please select the resources that you would like help with: None Currently or been in a relationship where the following occur: No concerns reported THRIVE Score: 0 DAVID-7 AMB Questionnaire DAVID-7 Date DAVID - 7 assessed: 10/15/24 Source: Developed by Drs. Walter Forrester, Nichole Amaral, Jaylen Morris and colleagues, with an educational kannan from [employer]. Physical exam (Primary Care) Vital Signs: Oxygen Delivery Method Room Air 03/12/25 12:41 Tobacco/Smoking Status: Tobacco use Status Tobacco use date assessed 12/08/24 03/12/25 12:42 Patient Tobacco Use Status Former Tobacco user 03/12/25 12:42 Tobacco use type Cigarette 03/12/25 12:42 e-Cigarette/Vaping Use Never Used 03/12/25 12:42 Thrive Assessment: Date of Thrive Assessment Date Thrive assessed 02/11/25 03/12/25 12:42 Currently or been in a relationship where the following occur: No concerns reported Const General: alert; No acute distress Eyes Conjunctivae: conjunctivae normal Resp Auscultation: clear to auscultation bilaterally Cardio Rate: regular rate Rhythm: regular rhythm GI Inspection: Yes normal to inspection Extrem General: Yes normal to inspection and No edema Coding Level of Care Code Est Pt Level 4 (12352) Diagnoses Ischemic cardiomyopathy I25.5 Cardiomyopathy type: ischemic Atherosclerotic cardiovascular disease I25.10 Heart failure with reduced ejection fraction I50.20 Essential hypertension I10 Hypertension type: essential hypertension Gastroesophageal reflux disease without esophagitis K21.9 Esophagitis presence: without esophagitis 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 Assessment & Plan Assessment & Plan (1) Cardiomyopathy: Code(s): I42.9 - Cardiomyopathy, unspecified Category: Medical Qualifiers: Cardiomyopathy type: ischemic Qualified Code(s): I25.5 - Ischemic cardiomyopathy Plan: continue with diuretics furosemide and lisinopril (2) Atherosclerotic cardiovascular disease: Code(s): I25.10 - Atherosclerotic heart disease of [place] coronary artery without angina pectoris Category: Medical Plan: Control the cholesterol, weight, blood pressure patient on aspirin 81 mg once a day (3) Heart failure with reduced ejection fraction: Code(s): I50.20 - Unspecified systolic (congestive) heart failure Category: Medical Plan: continue with diuretics with weight monitoring (4) Hypertension: Code(s): I10 - Essential (primary) hypertension Category: Medical Qualifiers: Hypertension type: essential hypertension Qualified Code(s): I10 - Essential (primary) hypertension Plan: Continue with blood pressure medication. Decrease salt intake and exercise on lisinopril 10 mg once a day (5) GERD (gastroesophageal reflux disease): Code(s): K21.9 - Gastro-esophageal reflux disease without esophagitis Category: Medical Qualifiers: Esophagitis presence: without esophagitis Qualified Code(s): K21.9 - Gastro-esophageal reflux disease without esophagitis Plan: Avoid the foods that causes that usually spicy foods, tomato products, juices, coffee, soda and foods that your sensitive to. After eating do not lie down, allow 3-4 hours before in lie down. And keep the head of bed above 30 degrees to avoid the acid from going up. 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 His medical history includes essential hypertension, hypercholesterolemia, GERD, previously treated colon cancer, congestive heart failure with cardiomyopathy, atherosclerotic heart disease, TIA, and seizures. Recent management involved diuretic dose adjustments and routine laboratory monitoring. An echocardiogram showed a decreased ejection fraction of 33%, and laboratory studies identified anemia and elevated BUN levels. The current regimen includes diuretics, aspirin, and lisinopril, with emphasis on monitoring weight and blood pressure. Health Maintenance - Blood work conducted in December 2024 demonstrated anemia with hemoglobin 11.2 - Echocardiogram in September showed an ejection fraction of 33% - Blood pressure and weight monitoring discussions Social History Review of Systems - Cardiovascular: Reports congestive heart failure and a history of TIA - Neurological: Reports history of seizures, denies current seizure activity - Gastrointestinal: Reports GERD, denies acute gastrointestinal symptoms - General: Reports history of colon cancer Physical Exam Results - Labs: Hemoglobin at 11.2 g/dL (indicating anemia), electrolytes within normal limits, BUN at 44 mg/dL - Tests and Diagnostics: Echocardiogram evidenced ejection fraction of 33% Plan Continue with diuretics and lisinopril as prescribed, alongside aspirin for cardiovascular protection. Monitor weight and blood pressure regularly to effectively manage hypertension and fluid balance. Anemia will be monitored with subsequent labs. Referral to cardiology may be necessary if cardiovascular status further deteriorates. GERD management remains unchanged due to stability in symptoms. Patient was informed and verbally consented to the use of an ambient scribe for clinic note documentation during this visit. Discussion Notes During the visit, we discussed the importance of adherence to medication regimens to manage hypertension and heart failure effectively. I emphasized the need for regular monitoring of weight and blood pressure to detect any changes that might indicate worsening heart failure symptoms. The risks and benefits of continued aspirin therapy in preventing thrombotic events were also discussed. We agreed to monitor anemia through regular blood work, and I explained that any significant changes in cardiac function or symptoms might warrant referral to cardiology for further assessment. I informed the patient about the significance of maintaining GERD stability and encouraged reporting any new or worsening symptoms. Patient Instructions - Keep taking all medications as prescribed. - Check weight and blood pressure regularly. - Report any increases in weight or blood pressure or any new symptoms. - Continue current management for reflux unless symptoms change. - Come back for follow-up blood work as advised. - Stay hydrated and maintain a balanced diet. - Seek immediate help if experiencing chest pain, significant shortness of breath, or signs of a stroke. Orders: Orders B Type Natriuretic Peptide Today I50.20 - Unspecified systolic (congestive) heart failure Complete Blood Count Auto Diff Today I50.20 - Unspecified systolic (congestive) heart failure Comprehensive Met. Panel Today I50.20 - Unspecified systolic (congestive) heart failure Magnesium Today I50.20 - Unspecified systolic (congestive) heart failure
--- OUTSIDE RECORDS SUMMARY | 2025-03-12 12:56 | XMS_ITS ---
Author Organization [facility] Address [address] [place] [id number] Care Team Providers Care Associate Merchant Name Role Phone Js Allison MD Primary Care Provider Samy Rivas Jr REASON FOR VISIT Pt no show Encounters Encounter Location Date Provider Diagnosis [facility] [address] [place] [phone] 04/20/2024 Samy Payne Jr Plan Of Treatment No Information Progress Notes * ROXANN MORRELL ADOB: [birth year] (89 yo M)Acc No.[id number]:04/20/2024 Patient:?ROXANN MORRELL :1935???Age:89 Y???Sex:Male Address:[address] [place] [address] * true * Date:? Generated for Tito freeman/Errol/eTransmitting on:?03/12/2025 12:56 PM EDT
== END 2025-03-12 12:54 | disposition home or self-care (01) ==
LOC: HO.HMCH 12:33
PROVIDERS: PCP Internal Medicine; Visit Provider Internal Medicine
DX: I10 Essential (primary) hypertension (principal); I50.20 Unspecified systolic (congestive) heart failure; G40.209 Localization-related (focal) (partial) symptomatic epilepsy and epileptic syndromes with complex partial seizures, not intractable, without status epilepticus; I25.5 Ischemic cardiomyopathy; I25.10 Atherosclerotic heart disease of native coronary artery without angina pectoris; K21.9 Gastro-esophageal reflux disease without esophagitis

== ENCOUNTER → 2025-03-12 12:32 | Outpatient (BNVA) | payer MEDICARE, SELFPAY | PROVIDERS: PCP Internal Medicine; Visit Provider Internal Medicine | DX: I25.5 Ischemic cardiomyopathy (principal); I25.10 Atherosclerotic heart disease of native coronary artery without angina pectoris; I11.0 Hypertensive heart disease with heart failure; I50.20 Unspecified systolic (congestive) heart failure; K21.9 Gastro-esophageal reflux disease without esophagitis; G40.209 Localization-related (focal) (partial) symptomatic epilepsy and epileptic syndromes with complex partial seizures, not intractable, without status epilepticus | CPT/HCPCS: 99212 ==

== ENCOUNTER 2025-05-04 10:36 | Outpatient (AMB) | payer MEDICARE, SELFPAY ==
--- OUTSIDE RECORDS SUMMARY | 2024-04-20 07:20 | XMS_ITS ---
Author Organization [facility] Address [address] [place] [phone] Care Team Providers Care Ssis Ssrs Developer Name Role Phone Js Allison MD Primary [...] Active Encounters Encounter Location Date Provider Diagnosis [facility] [address] [phone] 04/20/2024 Samy Payne Jr Plan Of Treatment No Information Progress Notes * ROXANN MORRELL ADOB: [birth year] (89 yo M)Acc No.[id number]:04/20/2024 Progress Notes Patient: ROXANN MAX Provider: Ivis Payne MD :1935 A ge:89 Y S ex:Male Date:04/20/2024 Address:[address] [place] [address] [place] [facility] Pcp:Js Allison MD Subjective: * Chief Complaints: [...] Date: 04/20/2024 Generated for Tito freeman/Errol/Talya on: 05/04/2025 11:48 AM EDT
--- NOTE | 2025-05-04 10:44 | A.OFFVIS_ITS ---
Vital Signs 05/04/25 10:45 Height 5 ft 8 in Weight 150 lb BMI 22.8 BP 120/68 Blood Pressure Location Lt brachial Position Sitting Pulse 73 Pulse Source Monitor Intake Visit Reasons: 6m follow up Allergies No Known Allergies (No Known Allergies*) Allergy (Verified 03/12/25 12:41) Medication List - Last Reconciled 05/04/25 by Edmundo Basurto MD acetaminophen (Tylenol) 650 mg (2 x 325 mg) PO Q6H PRN aspirin 81 mg PO DAILY atorvastatin 40 mg PO BEDTIME coenzyme Q10 (Ultra CoQ10) 75 mg PO DAILY furosemide 20 mg PO DAILY lisinopril 10 mg PO DAILY multivitamin 1 tab PO DAILY omeprazole 20 mg PO DAILY HPI Comments Details: Andrés returns for follow-up regarding coronary artery disease. In the past, he had type 2 NSTEMI during pneumonia and was hospitalized at [facility]. Subsequently, started seeing us and underwent cardiac catheterization with PCI to left main into LAD. Overall, no clear-cut concerns like angina but family state that he is just tired frequently. Memory issues, forgetfulness and probably some dementia. [facility] Medical History Medicare annual wellness visit, initial Atherosclerotic cardiovascular disease Heart failure with reduced ejection fraction Wheezing Vitamin D deficiency Thoracic cyst TIA (transient ischemic attack) Colon cancer Hypercholesterolemia BPH (benign prostatic hyperplasia) Hypertension GERD (gastroesophageal reflux disease) Surgical History History of colectomy History of cholecystectomy Family History Father Medical history unknown Mother Hypertension Sister Breast cancer Social History Household Members: Spouse Housing: House Do you presently have visiting nurse or other home services: No Alcohol intake: current Alcohol intake frequency: does not drink Patient Tobacco Use Status: Former Tobacco user Tobacco use type: Cigarette Years Smoked: Quit 21 years old e-Cigarette/Vaping Use: Never Used Second Hand Smoke Exposure: Yes service: No Current occupational status: retired Cognitive needs: No Hearing needs: No Vision needs: Yes Review of Systems Const Denies weakness ENT Denies dizziness Card Denies chest pain, Denies chest pain with activity, Denies syncope, Denies rapid heart rate, Denies pedal edema, Denies edema, Denies leg edema, Denies lig htheadedness, Denies palpitations, Denies dyspnea, Denies dyspnea on exertion and Denies orthopnea Resp Denies cough, Denies dyspnea and Denies dyspnea on exertion GI Denies hematochezia and Denies change in stool character Musc Denies abnormal gait, Denies muscle cramps, Denies muscle weakness, Denies numbness, Denies radiating pain into limb and Denies tingling Neuro Denies abnormal gait, Denies dizziness, Denies syncope, Denies numbness, Denies tingling and Denies weakness Endo Denies palpitations Physical Exam Vital Signs: Last Vital Signs Pulse 73 05/04/25 10:45 BP 120/68 05/04/25 10:45 BMI result Body Mass Index 22.8 Const General: comfortable and no acute distress Orientation/consciousness: patient oriented x3 HEENT Other: Unremarkable Head: Yes normal to inspection Neck Neck: Yes normal visual inspection Chest Chest palpation & inspection: normal inspection of the chest Resp Auscultation: clear to auscultation bilaterally Cardio Palpation: normal PMI Heart sounds: S1 normal heart sound present, S2 normal heart sound present, no gallops, no murmurs and no rubs GI Palpation (GI): Soft to palpation Back/Spine/Pelvis Other: unremarkable Skin General skin exam: no rashes or lesions noted Neuro General: patient oriented x3 Extrem General: Yes normal to inspection Psych Mental Status: mental status grossly normal Office Procedures EKG Details: EKG with underlying sinus rhythm at 73/Min; right bundle-branch block; old inferior/lateral infarct; normal VT/[place]. [id number], Complete Assessment & Plan Assessment & Plan (1) Atherosclerotic cardiovascular disease: Code(s): I25.10 - Atherosclerotic heart disease of [place] coronary artery without angina pectoris Category: Medical Plan: Cardiac catheterization 08/2023-PCI of left main to LAD. Occluded ostial circu mflex with [id number] collaterals. Large 1st diagonal with 80% mid vessel stenosis. Ostial nondominant right coronary artery with 80-85% stenosis. Clinically stable with no angina. Continue aspirin and statins. Continue long-term aspirin. (2) Cardiomyopathy: Code(s): I42.9 - Cardiomyopathy, unspecified Category: Medical Qualifiers: Cardiomyopathy type: ischemic Qualified Code(s): I25.5 - Ischemic cardiomyopathy Plan: Evidence of ischemic cardiomyopathy on echocardiogram but no heart failure symptoms or signs. Has taken carvedilol/lisinopril in the past but not anymore. Has had lowish blood pressures. (3) Hypotension (arterial): Code(s): I95.9 - Hypotension, unspecified Category: Medical Plan: Off carvedilol/lisinopril. (4) Fatigue: Code(s): R53.83 - Other fatigue Category: Medical Plan: Suspect this could be related to dementia. Cardiomyopathy may also play a role. Recommend formal Neurology evaluation. Family is quite interested in evaluating this further. Plan Discussion Notes I discussed with the patient and family the potential causes of fatigue and cognitive impairment, including dementia. We talked about the importance of seeing a neurologist for further evaluation and potential treatment options. I explained that the neurologist might perform a comprehensive assessment to determine the extent of cognitive decline. We also reviewed the patient's current medications and the adjustments made to address low blood pressure and fatigue. Patient was informed and verbally consented to the use of an ambient scribe for clinic note documentation during this visit. Orders: Referrals Neurology Referral F03.90 - Unspecified dementia, unspecified severity, without behavioral disturbance, psychotic disturbance, mood disturbance, and anxiety Patient Instructions: - Follow up with a neurologist for further evaluation of memory issues. - Continue monitoring heart health and report any new symptoms. - Review current medications with your healthcare provider to ensure optimal management. Coding Level of Care Code Est Pt Level 4 (94610) Complex EM visit Add On G2211 Diagnoses Atherosclerotic cardiovascular disease I25.10 Ischemic cardiomyopathy I25.5 Cardiomyopathy type: ischemic Hypotension (arterial) I95.9 Fatigue R53.83 CPT Codes EKG - CPT: [id number], Complete ([id number])
[2025-05-04 10:45] VITALS: BP 120/68; PULSE 73; BMI 22.8
== END 2025-05-04 11:09 | disposition home or self-care (01) ==
LOC: HO.HCS 10:37
PROVIDERS: PCP Internal Medicine; Visit Provider Internal Medicine
DX: I25.10 Atherosclerotic heart disease of native coronary artery without angina pectoris (principal); I25.5 Ischemic cardiomyopathy; I95.9 Hypotension, unspecified; R53.83 Other fatigue
CPT/HCPCS: 93010; 99214; G2211

== ENCOUNTER → 2025-05-04 10:36 | Outpatient (BNVA) | payer MEDICARE, SELFPAY | PROVIDERS: PCP Internal Medicine; Visit Provider Internal Medicine | DX: I25.10 Atherosclerotic heart disease of native coronary artery without angina pectoris (principal); I25.5 Ischemic cardiomyopathy; I95.9 Hypotension, unspecified; R53.83 Other fatigue; I45.10 Unspecified right bundle-branch block; R94.31 Abnormal electrocardiogram [ECG] [EKG] | CPT/HCPCS: 93005; 99212 ==

== ENCOUNTER 2025-06-18 09:27 | Outpatient (AMB) | payer MEDICARE, SELFPAY ==
--- OUTSIDE RECORDS SUMMARY | 2024-04-20 07:20 | XMS_ITS ---
Author Organization [facility] Address [address] [place] [phone] Care Team Providers Care Commercial Collections Specialist Name Role Phone Js Allison MD Primary Care Provider Samy Rivas Jr REASON FOR VISIT Patient presents today for gerd Medications Medication SIG (Take, Route, Fr equency, Duration) Notes Start Date End Date Status Lisinopril 20 MG 1 tablet Orally Once a day Active Omeprazole 20 MG 1 capsule 30 minutes before morning meal Orally Once a day for 30 day(s) Active Carvedilol 6.25 MG TAKE 1 TABLET BY AMOS TH TWICE A DAY Oral for 90 Active Aspir-81 81 MG 1 tablet Orally Once a day Active Spironolactone 25 MG Oral for 90 Active Tamsulosin HCl 0.4 MG as directed Orally Active Encounters Encounter Location Date Provider Diagnosis [facility] [address] [phone] 04/20/2024 Samy Payne Jr Plan Of Treatment No Information Progress Notes * ROXANN MORRELL ADOB: [birth year] (89 yo M)Acc No.[id number]:04/20/2024 Progress Notes Patient: ROXANN MAX Provider: Ivis Payne MD :1935 A ge:89 Y S ex:Male Date:04/20/2024 Address:[address] [place] [address] [place] [id number] Pcp:Js Allison MD Subjective: * Chief Complaints: [...] MD Date: 0 04/20/2024 Generated for Tito freeman/Errol/Paulitting on: 06/18/2025 10:08 AM EDT
[2025-06-18 09:33] VITALS: BP 112/68; PULSE 78; O2SAT 97; BMI 23.4
--- NOTE | 2025-06-18 09:33 | A.OFFPC_ITS ---
Vital Signs 06/18/25 09:33 Height 5 ft 8 in Weight 154 lb BMI 23.4 BP 112/68 Blood Pressure Location Lt brachial Position Sitting Pulse 78 Pulse Source Pulse Oximeter Pulse Oximetry (%) 97 Oxygen Delivery Method Room Air Intake Visit Reasons: 3 month f/u Allergies No Known Allergies (No Known Allergies*) Allergy (Verified 06/18/25 09:34) Medication List - Last Reconciled 06/18/25 by Js Allison MD acetaminophen (Tylenol) 650 mg (2 x 325 mg) PO Q6H PRN aspirin 81 mg PO DAILY atorvastatin 40 mg PO BEDTIME coenzyme Q10 (Ultra CoQ10) 75 mg PO DAILY furosemide 20 mg PO DAILY lisinopril 10 mg PO DAILY multivitamin 1 tab PO DAILY omeprazole 20 mg PO DAILY Tobacco use date assessed: 12/08/24 Fall risk assessment: No Falls in past year Last assessed Fall Risk: 06/18/25 Dental Screening Dental Screen Date: 10/15/24 [facility] Medical History Medicare annual wellness visit, initial Atherosclerotic cardiovascular disease Heart failure with reduced ejection fraction Wheezing Vitamin D deficiency Thoracic cyst TIA (transient ischemic attack) Colon cancer Hypercholesterolemia BPH (benign prostatic hyperplasia) Hypertension GERD (gastroesophageal reflux disease) Surgical History History of colectomy History of cholecystectomy Family History Father Medical history unknown Mother Hypertension Sister Breast cancer Social History Household Members: Spouse Housing: House Do you presently have visiting nurse or other home services: No Alcohol intake: current Alcohol intake frequency: does not drink Patient Tobacco Use Status: Former Tobacco user Tobacco use type: Cigarette Years Smoked: Quit 21 years old e-Cigarette/Vaping Use: Never Used Second Hand Smoke Exposure: Yes service: No Current occupational status: retired Cognitive needs: No Hearing needs: No Vision needs: Yes Questionnaire PHQ-9 Over the last 2 weeks, how often have you been bothered by any of the following problems? 1. Little interest or pleasure in doing things: not at all 2. Feeling down, depressed, or hopeless: not at all 3. Trouble falling or staying asleep, or sleeping too much: not at all 4. Feeling tired or having little energy: not at all 5. Poor appetite or overeating: not at all 6. Feeling bad about yourself - or that you are a failure or have let yourself or your family down: not at all 7. Trouble concentrating on things, such as reading the newspaper or watching television: not at all 8. Moving or speaking so slowly that other people could have noticed. Or the opposite - being so fidgety or restless that you have been moving around a lot more than usual: not at all 9. Thoughts that you would be better off or of hurting yourself in some way: not at all Total score: 0 Depression Screening Interpretation: Negative Depression Screening Done: Yes Source: Developed by Drs. Walter Forrester, Nichole Amaral, Jaylen Morris and colleagues, with an educational kannan from [employer]. Thrive Questionnaire Date Thrive assessed: 02/11/25 I am a: Parent/Caregiver What is your living situation today?: I have a steady place to live Within the past 12 months, did the food you bought not last and you didn't have the money to get more?: Never true Within the past 12 months, did you worry whether your food would run out before you got money to buy more?: Never true Do you have trouble paying for medicines?: No Do you have trouble getting transportation to medical appointments?: No Do you have trouble paying your heating and electricity bill?: No Do you have trouble taking care of your child, family member or friend?: No Do you have trouble with day-to-day activities such as bathing, preparing meals, shopping, managing finances, etc.?: No Are you currently unemployed and looking for a job?: No Are you interested in more education?: No Please select the resources that you would like help with: None Currently or been in a relationship where the following occur: No concerns reported THRIVE Score: 0 AUDIT C Alcohol Use Questionnaire (AUDIT-C) 1. How often do you have a drink containing alcohol?: 2-3 times a week 2. How many drinks containing alcohol do you have on a typical day when you are drinking?: 1 or 2 3. How often do you have six or more drinks on one occasion?: Never Total Score: 3 DAVID-7 AMB Questionnaire DAVID-7 Date DAVID - 7 assessed: 10/15/24 Source: Developed by Drs. Walter Forrester, Nichole Amaral, Jaylen Morris and colleagues, with an educational kannan from [employer]. Physical exam (Primary Care) Vital Signs: Last Vital Signs Pulse 78 06/18/25 09:33 BP 112/68 06/18/25 09:33 Pulse Ox 97 06/18/25 09:33 Oxygen Delivery Method Room Air 06/18/25 09:33 BMI result Body Mass Index 23.4 Tobacco/Smoking Status: Tobacco use Status Tobacco use date assessed 12/08/24 06/18/25 09:39 Patient Tobacco Use Status Former Tobacco user 06/18/25 09:39 Tobacco use type Cigarette 06/18/25 09:39 e-Cigarette/Vaping Use Never Used 06/18/25 09:39 PHQ-9: PHQ-9 Score PHQ-9: Total score 0 06/18/25 09:41 Depression Screening Interpretation: Negative Thrive Assessment: Date of Thrive Assessment Date Thrive assessed 02/11/25 06/18/25 09:39 Currently or been in a relationship where the following occur: No concerns reported Const General: alert; No acute distress Eyes Conjunctivae: conjunctivae normal Resp Auscultation: clear to auscultation bilaterally Cardio Rate: regular rate Rhythm: regular rhythm GI Inspection: Yes normal to inspection Extrem General: Yes normal to inspection and No edema Coding Level of Care Code Est Pt Level 4 (76599) New Pt Prev Care 40-64y(47813) Diagnoses Essential hypertension I10 Hypertension type: essential hypertension Heart failure with reduced ejection fraction I50.20 Ischemic cardiomyopathy I25.5 Cardiomyopathy type: ischemic Atherosclerotic cardiovascular disease I25.10 Hypercholesterolemia E78.00 Gastroesophageal reflux disease without esophagitis K21.9 Esophagitis presence: without esophagitis Benign prostatic hyperplasia without lower urinary tract symptoms N40.0 Lower urinary tract symptom presence: symptoms absent Anemia, unspecified type D64.9 Anemia type: unspecified type Assessment & Plan Assessment & Plan (1) Hypertension: Code(s): I10 - Essential (primary) hypertension Category: Medical Qualifiers: Hypertension type: essential hypertension Qualified Code(s): I10 - Essential (primary) hypertension Plan: Continue with blood pressure medication. Decrease salt intake and exercise patient is on lisinopril 10 mg once a day beta rishi held due to low blood pressure (2) Heart failure with reduced ejection fraction: Code(s): I50.20 - Unspecified systolic (congestive) heart failure Category: Medical Plan: Weigh daily on furosemide 20 mg once a day. (3) Cardiomyopathy: Code(s): I42.9 - Cardiomyopathy, unspecified Category: Medical Qualifiers: Cardiomyopathy type: ischemic Qualified Code(s): I25.5 - Ischemic cardiomyopathy Plan: Continue with furosemide and lisinopril (4) Atherosclerotic cardiovascular disease: Code(s): I25.10 - Atherosclerotic heart disease of [place] coronary artery without angina pectoris Category: Medical Plan: Control the cholesterol, weight, blood pressure, continue with aspirin (5) Hypercholesterolemia: Code(s): E78.00 - Pure hypercholesterolemia, unspecified Category: Medical Plan: Avoid fried foods, chicken skin, eggs, butter margarine, pastries and meat. Be it pork or beef they have a lot of cholesterol LDL goal of less than 70 and triglyceride of less than 150 on atorvastatin 40 mg (6) GERD (gastroesophageal reflux disease): Code(s): K21.9 - Gastro-esophageal reflux disease without esophagitis Category: Medical Qualifiers: Esophagitis presence: without esophagitis Qualified Code(s): K21.9 - Gastro-esophageal reflux disease without esophagitis Plan: Avoid the foods that causes that usually spicy foods, tomato products, juices, coffee, soda and foods that your sensitive to. After eating do not lie down, allow 3-4 hours before in lie down. And keep the head of bed above 30 degrees to avoid the acid from going up. (7) BPH (benign prostatic hyperplasia): Code(s): N40.0 - Benign prostatic hyperplasia without lower urinary tract symptoms Category: Medical Qualifiers: Lower urinary tract symptom presence: symptoms absent Qualified Code(s): N40.0 - Benign prostatic hyperplasia without lower urinary tract symptoms Plan: Stable (8) Anemia: Code(s): D64.9 - Anemia, unspecified Category: Medical Qualifiers: Anemia type: unspecified type Qualified Code(s): D64.9 - Anemia, unspecified Plan: Chronic and stable Plan History of Present Illness The patient is an 89-year-old male presenting for a follow-up visit. The patient has a history of hypertension, which has been managed with carvedilol and lisinopril, although lisinopril was discontinued due to low blood pressure. He is currently on lisinopril 10 mg once daily, with the beta-rishi held due to hypotension. The patient has a history of gastroesophageal reflux disease (GERD), which is stable and managed with omeprazole. The patient has benign prostatic hyperplasia (BPH) and has not reported any nocturia or urinary frequency issues recently. The patient has hypercholesterolemia, with an LDL cholesterol level of 65 mg/dL, which is at goal. He is on atorvastatin 40 mg for cholesterol management. The patient has a history of colon cancer diagnosed in 2007, with no current issues reported. The patient has congestive heart failure with cardiomyopathy and coronary artery disease. His last echocardiogram in September showed an ejection fraction of 33%, with akinetic segments noted in the inferior lateral wall and basal inferior segment. He continues on aspirin and statins for atherosclerosis management. The patient has a history of transient ischemic attack (TIA) and seizures, with a neurology evaluation advised. The patient has mild chronic anemia with hemoglobin at 11.2 g/dL and hematocrit at 33.1%, with normal platelet and white blood cell counts. The patient reports cognitive decline, with concerns about memory and tiredness, and a neurology referral has been made. Health Maintenance - Vaccinations: Discussed flu and shingles vaccinations, with flu shots recommended for July and shingles available at the pharmacy. - Cardiovascular Risk Reduction: Continued use of aspirin and statins for atherosclerosis management. - Lifestyle: Advised healthy eating and maintaining physical activity to support cardiovascular and cognitive health. Social History - Nutrition: Patient consumes pastries, donuts, and muffins regularly, contributing to weight gain. - Weight Management: Patient has gained 20 pounds over the past year, currently weighing 154 pounds. - Functional Status: Patient no longer drives due to safety concerns. Review of Systems - Cardiovascular: Denies symptoms of heart failure. - Neurological: Reports cognitive decline and tiredness; denies frequent forgetfulness. - Genitourinary: Denies nocturia or urinary frequency. Physical Exam Results - Labs: Mild anemia with hemoglobin at 11.2 g/dL and hematocrit at 33.1%. Normal platelet and white blood cell counts. Electrolytes and renal function normal. - Echocardiogram: Ejection fraction of 33% with akinetic segments in the inferior lateral wall and basal inferior segment. Plan Patient was informed and verbally consented to the use of an ambient scribe for clinic note documentation during this visit. 1. Hypertension The patient is currently on lisinopril 10 mg once daily, with the beta-rishi held due to hypotension. 2. Gastroesophageal Reflux Disease (Gerd) The patient's GERD is stable and managed with omeprazole. 3. Benign Prostatic Hyperplasia (Bph) The patient has not reported any nocturia or urinary frequency issues recently. 4. Hypercholesterolemia The patient is on atorvastatin 40 mg for cholesterol management, with an LDL cholesterol level of 65 mg/dL, which is at goal. 5. Congestive Heart Failure With Cardiomyopathy The patient continues on aspirin and statins for atherosclerosis management, with no symptoms of heart failure reported. 6. Coronary Artery Disease The patient continues on aspirin and statins for atherosclerosis management. 7. Cognitive Decline The patient reports cognitive decline and tiredness, with a neurology referral made for further evaluation. Discussion Notes During the visit, we discussed the patient's current medication regimen, including the continuation of lisinopril and atorvastatin, and the holding of the beta-rishi due to low blood pressure. We also reviewed the importance of maintaining a healthy lifestyle, including diet and exercise, to support cardiovascular and cognitive health. The patient was advised to follow up with neurology for further evaluation of cognitive decline and to continue with regular blood work and vaccinations as recommended. Patient Instructions - Continue taking lisinopril 10 mg once daily and atorvastatin 40 mg as prescribed. - Maintain a healthy diet and exercise regularly to support heart and brain health. - Follow up with neurology for cognitive evaluation as scheduled. - Schedule and complete blood work and vaccinations as recommended. 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 Refilled lisinopril 10 mg PO DAILY 90 tabs 2RF 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
--- OUTSIDE RECORDS SUMMARY | 2025-06-18 10:09 | XMS_ITS | Patient Health Record ---
Author Organization [facility] Address [address] [place] [address] Care Team Providers Care Retail Seasonal Specialist Name Role Phone Js Allison MD Primary Care Provider Samy Rivas Jr Unavailable [phone] Allergies No Known Allergies Reason For Referral [...] Problem Status W/U Status Risk Notes Problem [id number] Colon cancer screening (Z12.11) Active confirmed Problem [id number] [facility] curren t use of aspirin (Z79.82) Active confirmed Problem [id number] Gastroesophageal reflux disease without esophagitis (K21.9) Active confirmed Problem [id number] Adenocarcinoma o f colon (C18.9) Active confirmed Problem [id number] 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) Active confirmed Plan Of Treatment Future Test Test Name Order Date COLONOSCOPY 09/23/2015 Insurance Providers Payer Name Payer Address Payer Phone Subscriber Number Group Number Insured Name Patient Relationship to Insured Coverage Start Date Coverage End Date MEDICARE OF [place] [address] [place] [id number] PETROS ROXANN Self - patient is the insured [employer] CLAIMS [address] [place] [address] [id number] ROXANN MORRELL Self - patient is the insured Medical (General) History Medical History History ICD Code hypertension BPH Gastroesophageal reflux disease Heart failure with reduced ejection frac tion T3 N0 colon cancer, last col onoscopy 01/04/16, normal, five-year followup optional. Surgical History Surgery Date(Month/Year) cholecystectomy 2006 hernia repair right hemicolectomy for T3 N0 colon canc er 2006
== END 2025-06-18 10:07 | disposition home or self-care (01) ==
LOC: HO.HMCH 09:28
PROVIDERS: PCP Internal Medicine; Visit Provider Internal Medicine
DX: I10 Essential (primary) hypertension (principal); I50.20 Unspecified systolic (congestive) heart failure; I25.5 Ischemic cardiomyopathy; I25.10 Atherosclerotic heart disease of native coronary artery without angina pectoris; E78.00 Pure hypercholesterolemia, unspecified; K21.9 Gastro-esophageal reflux disease without esophagitis; N40.0 Benign prostatic hyperplasia without lower urinary tract symptoms; D64.9 Anemia, unspecified

== ENCOUNTER → 2025-06-18 09:27 | Outpatient (BNVA) | payer MEDICARE, SELFPAY | PROVIDERS: PCP Internal Medicine; Visit Provider Internal Medicine | DX: I11.0 Hypertensive heart disease with heart failure (principal); I50.20 Unspecified systolic (congestive) heart failure; I25.5 Ischemic cardiomyopathy; I25.10 Atherosclerotic heart disease of native coronary artery without angina pectoris; E78.00 Pure hypercholesterolemia, unspecified; K21.9 Gastro-esophageal reflux disease without esophagitis; N40.0 Benign prostatic hyperplasia without lower urinary tract symptoms; D64.9 Anemia, unspecified; G40.209 Localization-related (focal) (partial) symptomatic epilepsy and epileptic syndromes with complex partial seizures, not intractable, without status epilepticus; R30.0 Dysuria | CPT/HCPCS: 96127; 99212 ==

== ENCOUNTER 2025-06-30 21:38 | Emergency (ER) | payer MEDICARE, SELFPAY ==
--- OUTSIDE RECORDS SUMMARY | 2024-04-20 07:20 | XMS_ITS ---
Author Organization [facility] Address [address] [place] [phone] Care Team Providers Care Motor Runner Name Role Phone Js Allison MD Primary [...] Active Encounters Encounter Location Date Provider Diagnosis [facility] [address] [address] 04/20/2024 Samy Payne Jr Plan Of Treatment No Information Progress Notes * ROXANN MORRELL ADOB: [birth year] (89 yo M)Acc No.[id number]:04/20/2024 Progress Notes Patient: ROXANN MAX Provider: Ivis Payne MD :1935 A ge:89 Y S ex:Male Date:04/20/2024 Address:[address] [place] [address] [place] [facility] Pcp:Js Allison MD Subjective: * Chief Complaints: [...] 0 04/20/2024 Generated for Tito freeman/Errol/Paulitting on: 0 06/30/2025 10:22 PM EDT
[2025-06-30 21:48] VITALS: BP 121/61; PULSE 86; PULSE 90; RESP 17; TEMP 36.6; O2SAT 97; O2SAT 98; BMI 21.5
--- NOTE | 2025-06-30 21:51 | ED.GENADULT ---
HPI - General Adult General Chief complaint: Urogenital-Male Stated complaint: DYSURIA, GROIN PAIN Time Seen by Provider: 06/30/25 21:51 History of Present Illness ED Provider: Og CONTEH narrative: The patient is an 89-year-old male who says that he has been unable to urinate for the last 2 days. He has had no fever, sweats, chills. No burning with urination. No back pain. No other symptoms. The patient says that he had an episode of inability to urinate a couple of years ago. He says he needed a catheter at that time. He says that he had the catheter taken out about a week later at the urology office. Related Data Home Medications ?Medication ?Instructions ?Recorded ?Confirmed coenzyme Q10 75 mg capsule (Ultra 75 mg PO DAILY 12/08/24 06/18/25 CoQ10) multivitamin 1 tab PO DAILY 12/08/24 06/18/25 Previous Rx's ?Medication ?Instructions ?Recorded acetaminophen 325 mg capsule 650 mg (2 x 325 mg) PO Q6H PRN 05/04/24 (Tylenol) pain #30 caps aspirin 81 mg tablet,delayed 81 mg PO DAILY #90 tabs 06/18/25 release atorvastatin 40 mg tablet 40 mg PO BEDTIME #90 tabs 06/18/25 furosemide 20 mg tablet 20 mg PO DAILY #90 tabs 06/18/25 lisinopril 10 mg tablet 10 mg PO DAILY #90 tabs 06/18/25 omeprazole 20 mg capsule,delayed 20 mg PO DAILY #90 caps 06/18/25 release tamsulosin 0.4 mg capsule 0.4 mg PO BEDTIME #10 caps 06/30/25 Allergies Allergy/AdvReac Type Severity Reaction Status Date / Time No Known Allergies (No Known Allergy Verified 06/30/25 21:51 Allergies*) Review of Systems Review of Systems: Yes all other systems are reviewed and are negative ON LICENSE OF [facility] Past Medical History Medical History Medicare annual wellness visit, initial Atherosclerotic cardiovascular disease Heart failure with reduced ejection fraction Wheezing Vitamin D deficiency Thoracic cyst TIA (transient ischemic attack) Colon cancer Hypercholesterolemia BPH (benign prostatic hyperplasia) Hypertension GERD (gastroesophageal reflux disease) Surgical History History of colectomy History of cholecystectomy Family History Family History Father Medical history unknown Mother Hypertension Sister Breast cancer Social History Social History Household Members: Spouse Housing: House Do you presently have visiting nurse or other home services: No Alcohol intake: current Alcohol intake frequency: 0-2 drinks per day Alcohol type: wine Patient Tobacco Use Status: Former Tobacco user Tobacco use type: Cigarette Years Smoked: Quit 21 years old Smoked in Last 30 Days: No e-Cigarette/Vaping Use: Never Used Second Hand Smoke Exposure: Yes Use of substances other than those prescribed or required for medical reasons: No Advance Directives: No Advance Directives Information Provided: No Do you have a plan to hurt others: No Plan service: No Current occupational status: retired Cognitive needs: No Hearing needs: No Vision needs: Yes Physical Exam ED Vital Signs: Vital Signs - 24 hr 06/30/25 21:48 06/30/25 22:30 Temperature 97.8 F Pulse Rate 86 84 Respiratory Rate 17 18 Blood Pressure 125/62 Pulse Oximetry 97 100 Oxygen Delivery Method Room Air Room Air BMI result Body Mass Index 21.5 Const Other: The patient is a slim 89-year-old male who looks as though he is in fairly good health for his age. I saw him after the placement of urinary catheter. He did not appear uncomfortable or toxic. HENMT Other: The face is symmetrical. ?Mucous membranes moist. Eyes Other: Pupils are round equal, conjunctivae are clear, extraocular movements intact Neck Neck: Yes normal visual inspection, Yes full ROM, Yes no lymphadenopathy and Yes no JVD Resp Effort & Inspection: normal respiratory effort Auscultation: clear to auscultation bilaterally Cardio Rate: regular rate Rhythm: regular rhythm Heart sounds: S1 normal heart sound present and S2 normal heart sound present GI Other: Abdomen is soft and nontender Skin Other: The skin is dry and unremarkable Neuro General: gait normal, tone normal, moves all extremities, no focal motor deficits and CN's II-XI intact bilaterally Extrem Other: There is no calf swelling or tenderness. No asymmetry. No peripheral edema. Medications Administered Discontinued Medications Generic Name Dose Route Start Last Admin Trade Name Freq PRN Reason Stop Dose Admin Lidocaine HCl 10 ml 06/30/25 22:02 06/30/25 22:57 Lidocaine Hcl 2 % Urojet 10 Ml Jel.Pf.Shanika TOPICAL 06/30/25 22:03 Not Given ONCE ONE Medical Decision Making Medical Decision Making [facility] Narrative: The patient is an 89-year-old male who presents with a 2 day history of inability to urinate. He had over 500 mL of urine in his bladder. He was therefore given urinary catheter with a release of over 500 mL of urine. He then had less lower abdominal discomfort. He has not had any fever any other symptoms. He looks clinically well. His vital signs are stable. His CBC shows a chronic anemia but no other concerning findings. His renal function is similar to his renal function in December of this year. Urinalysis shows no signs of infection. Clinically the patient looks well enough for discharge with his catheter. He has been through this process before. The patient will be started on tamsulosin at bedtime. He will be referred to Urology. Lab Data 06/30/25 22:53 06/30/25 22:53 Labs: Lab Results 06/30/25 06/30/25 Range/Units 22:53 23:00 WBC 10.1 (4.8-10.8) X10*3/uL RBC 3.67 L (4.60-5.80) X10*6/uL Hgb 11.8 L (14.0-18.0) g/dl Hct 33.7 L (42.0-52.0) % MCV 91.8 (80.0-98.0) fL MCH 32.2 (27.0-33.0) pg MCHC 35.0 (31.0-36.0) g/dl RDW 14.7 (11.0-16.0) % Plt Count 235 (160-400) X10*3/uL MPV 10.0 (9.4-12.4) fL Immature Gran % (Auto) 0.2 (0.0-0.4) % Neut % (Auto) 78.3 H (45-73) % Lymph % (Auto) 12.0 L (20-40) % [place] % (Auto) 8.6 (2-11) % Eos % (Auto) 0.5 (0-4) % Baso % (Auto) 0.4 (0-2) % Lymph # (Auto) 1.2 (1.2-4.9) X10*3/uL [place] # (Auto) 0.9 (0.1-1.2) X10*3/uL Eos # (Auto) 0.1 (0.0-0.4) X10*3/uL Baso # (Auto) 0.0 (0.0-0.2) X10*3/uL Abs Immat Gran (auto) 0.02 (0.00-0.03) X10*3/uL Absolute Neuts (auto) 7.9 (2.0-8.3) x10*3/uL Absolute Nucleated RBC 0.000 (0.0-0.012) X10*3/uL Nucleated RBC % (auto) 0.0 (0.0-0.2) /100WBC Sodium 140 (135-145) mmol/L Potassium 4.0 (3.3-5.1) mmol/L Chloride 105 (96-108) mmol/L Carbon Dioxide 24 (22-29) mmol/L Anion Gap 15 (12-20) BUN 23 H (9-16) mg/dL Creatinine 0.84 (0.5-1.4) mg/dL Estim Creat Clear Calc 58.4 Estimated GFR > 60 Random Glucose 104 (60-115) mg/dL Calcium 9.7 (8.4-10.2) mg/dL Urine Color Yellow Urine Appearance Clear Urine pH 5.5 (5.0-9.0) Ur Specific [place] 1.015 (1.005-1.025) Urine Protein Negative (Neg-Trace) mg/dL Urine Glucose (UA) Negative (Negative) mg/dL Urine Ketones 15 (Negative) mg/dL Urine Blood Negative (Negative) Urine Nitrite Negative (Negative) Ur Leukocyte Esterase Negative (Negative) Discharge Plan Discharge Clinical Impression: Acute urinary retention Patient Disposition: Home, Self-Care Instructions: Urinary Retention in Men (ED), Guy Catheter Placement and Care (ED) Additional Instructions: You seemed to be in urinary retention and so you were given a urinary catheter. Please read the instructions regarding managing a urinary catheter at home. Additionally I have sent a prescription for a medication called tamsulosin which may help shrink your prostate a little bit so that you might be able to get the catheter out sooner. Please call the urology office in the morning to set up a follow up appointment to discuss the catheter further. Return to the emergency room if any complications or if you are significantly worse. Prescriptions: New tamsulosin 0.4 mg capsule 0.4 mg PO BEDTIME Qty: 10 0RF No Action acetaminophen [Tylenol] 325 mg capsule 650 mg PO Q6H PRN (Reason: pain) Qty: 30 0RF aspirin 81 mg tablet,delayed release (DR/EC) 81 mg PO DAILY Qty: 90 3RF atorvastatin 40 mg tablet 40 mg PO BEDTIME Qty: 90 3RF furosemide 20 mg tablet 20 mg PO DAILY Qty: 90 2RF lisinopril 10 mg tablet 10 mg PO DAILY Qty: 90 2RF omeprazole 20 mg capsule,delayed release(DR/EC) 20 mg PO DAILY Qty: 90 3RF multivitamin Tablet 1 tab PO DAILY Ultra CoQ10 75 mg capsule 75 mg PO DAILY Referrals: [facility] [Provider Group, Urology] Keegan,Js Carrero MD [Primary Care Provider, Internal Medicine] Print Language: Malay
--- OUTSIDE RECORDS SUMMARY | 2025-06-30 22:23 | XMS_ITS | Patient Health Record ---
Author Organization [facility] Address [address] [place] [address] Care Team Providers Care Apparel Sales Associate Name Role Phone Js Allison MD Primary Care Provider Samy Rivas Jr Unavailable Allergies No Known Allergies Reason For Referral [...] Problem Status W/U Status Risk Notes Problem 894938041 Colon cancer screening (Z12.11) Active confirmed Problem 593594387 care home curren t use of aspirin (Z79.82) Active confirmed Problem 656983084 Gastroesophageal reflux disease without esophagitis (K21.9) Active confirmed Problem 140129112 Adenocarcinoma o f colon (C18.9) Active confirmed Problem 79792943 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
[2025-06-30 22:30] VITALS: BP 125/62; PULSE 84; RESP 18; O2SAT 100
[2025-06-30 22:59] LABS: MANUAL DIFF FLAG NO
[2025-06-30 23:01] LABS: Hematocrit 33.7 % (42.0-52.0); Hemoglobin 11.8 g/dl (14.0-18.0); Imm Gran Abs Auto 0.02 X10*3/uL (0.00-0.03); Imm Gran Pct Auto 0.2 % (0.0-0.4); Lymphocytes Absolute Auto 1.2 X10*3/uL (1.2-4.9); Mean Corpuscular HGB Conc 35.0 g/dl (31.0-36.0); Mean Corpuscular Hemoglobin 32.2 pg (27.0-33.0); Mean Corpuscular Volume 91.8 fL (80.0-98.0); NRBC Abs Auto 0.000 X10*3/uL (0.0-0.012); NRBC Pct Auto 0.0 /100WBC (0.0-0.2); Platelet Count 235 X10*3/uL (160-400); Red Blood Count 3.67 X10*6/uL (4.60-5.80); White Blood Count 10.1 X10*3/uL (4.8-10.8)
[2025-06-30 23:08] LABS: Appearance Urine Clear; Glucose Urine UA Negative (Negative); PH 5.5 (5.0-9.0); Specific Gravity - Urine 1.015 (1.005-1.025)
[2025-06-30 23:17] LABS: Anion Gap 15 (12-20); Blood Urea Nitrogen 23 mg/dL (9-16); Calcium 9.7 mg/dL (8.4-10.2); Carbon Dioxide 24 mmol/L (22-29); Chloride 105 mmol/L (96-108); Creatinine Clr Calc Pharmacy 58.4; Estimated Glomerular Filt Rate > 60; Potassium 4.0 mmol/L (3.3-5.1); Sodium 140 mmol/L (135-145)
[2025-07-01 00:39] VITALS: BP 125/72; PULSE 82; RESP 16; TEMP 36.5; O2SAT 100
== END 2025-07-01 00:40 | disposition home or self-care (01) ==
PROVIDERS: Emergency Provider Emergency Medicine; PCP Internal Medicine
DX: R33.9 Retention of urine, unspecified (principal); R30.0 Dysuria; Z79.899 Other long term (current) drug therapy; Z87.891 Personal history of nicotine dependence
CPT/HCPCS: 36415; 80048; 81003; 85025; 99283; 99285

== ENCOUNTER 2025-07-10 06:13 | Emergency (ER) | payer MEDICARE, SELFPAY ==
--- OUTSIDE RECORDS SUMMARY | 2024-04-20 07:20 | XMS_ITS ---
Author Organization [facility] Address [address] [place] [phone] Care Team Providers Care County Director Name Role Phone Js Allison MD Primary Care Provider Samy Rivas Jr [phone] REASON FOR VISIT Patient presents today for [...] Active Encounters Encounter Location Date Provider Diagnosis [facility] [address] [address] 04/20/2024 Samy Payne Jr Plan Of Treatment No Information Progress Notes * ROXANN MORRELL ADOB: [birth year] (89 yo M)Acc No.[id number]:04/20/2024 Progress Notes Patient: ROXANN MAX Provider: Ivis Payne MD :1935 A ge:89 Y S ex:Male Date:04/20/2024 Address:[address] [place] [address] [facility] Pcp:Js Allison MD Subjective: * Chief Complaints: [...] Pending * Provider: Ivis Payne MD Date: 04/20/2024 Generated for Tito freeman/Errol/Talya on: 07/10/2025 07:35 AM EDT
[2025-07-10 06:18] VITALS: BP 111/67; PULSE 76; O2SAT 99; BMI 21.7
[2025-07-10 07:03] LABS: MANUAL DIFF FLAG NO
[2025-07-10 07:14] LABS: Hematocrit 31.2 % (42.0-52.0); Hemoglobin 10.8 g/dl (14.0-18.0); Imm Gran Abs Auto 0.06 X10*3/uL (0.00-0.03); Imm Gran Pct Auto 0.5 % (0.0-0.4); Lymphocytes Absolute Auto 1.5 X10*3/uL (1.2-4.9); Mean Corpuscular HGB Conc 34.6 g/dl (31.0-36.0); Mean Corpuscular Hemoglobin 32.4 pg (27.0-33.0); Mean Corpuscular Volume 93.7 fL (80.0-98.0); NRBC Abs Auto 0.000 X10*3/uL (0.0-0.012); NRBC Pct Auto 0.0 /100WBC (0.0-0.2); Platelet Count 241 X10*3/uL (160-400); Red Blood Count 3.33 X10*6/uL (4.60-5.80); White Blood Count 11.7 X10*3/uL (4.8-10.8)
[2025-07-10 07:15] LABS: Appearance Urine Turbid; Glucose Urine UA Negative (Negative); PH 6.0 (5.0-9.0); Specific Gravity - Urine 1.025 (1.005-1.025); UMIC TRIGGER UACC YES
[2025-07-10 07:21] LABS: UACC Culture Trigger YES
[2025-07-10 07:24] LABS: Alanine Aminotransferase 20 U/L (0-40); Albumin Level 3.7 g/dL (3.5-5.0); Alkaline Phosphatase 96 U/L (39-117); Anion Gap 14 (12-20); Aspartate Amino Transferase 33 U/L (5-37); Blood Urea Nitrogen 15 mg/dL (9-16); Calcium 9.2 mg/dL (8.4-10.2); Carbon Dioxide 25 mmol/L (22-29); Chloride 106 mmol/L (96-108); Creatinine Clr Calc Pharmacy 64.3; Estimated Glomerular Filt Rate > 60; Potassium 3.7 mmol/L (3.3-5.1); Sodium 141 mmol/L (135-145); Total Protein 6.9 g/dL (6.5-8.0)
--- NOTE | 2025-07-10 07:32 | PC.NURSE ---
Addendum entered by Liz Izaguirre RN 07/10/25 08:30: Pt bladder scanned for 0mL, rollins cath flushed per PA- no resistance noted. Pt tolaterated well. Original Note: Assumed care of pt approx 0700, pt resting in bed alert and answering questions appropriately. New bag in place for rollins cath with 100cc of CYU noted. Denies any complaints at this time, call wang placed within reach.
--- OUTSIDE RECORDS SUMMARY | 2025-07-10 07:36 | XMS_ITS | Patient Health Record ---
Author Organization [facility] Address [address] [place] [address] Care Team Providers Care Leisure Studies Professor Name Role Phone Js Allison MD Primary Care Provider Samy Rivas Jr Unavailable [phone] Allergies No Known Allergies Reason For Referral [...] Problem Status W/U Status Risk Notes Problem [id number] Colon cancer screening (Z12.11) Active confirmed Problem 697260917 long-term curren t use of aspirin (Z79.82) Active confirmed Problem 353994919 Gastroesophageal reflux disease without esophagitis (K21.9) Active confirmed Problem 707427497 Adenocarcinoma o f colon (C18.9) Active confirmed Problem 37243320 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
[2025-07-10 07:37] VITALS: BP 110/46; PULSE 70; RESP 14; TEMP 36.9; O2SAT 97
--- NOTE | 2025-07-10 07:37 | ED.MALEGU ---
HPI - Male Genitourinary General Chief complaint: Urogenital-Male Stated complaint: Blockage in catheter Time Seen by Provider: 07/10/25 07:33 Source: patient, family (Family member at bedside), EMS and RN notes reviewed Mode of arrival: EMS Limitations: no limitations History of Present Illness ED Provider: DHAVAL Jernigan HPI Narrative: 89 year old male with medical history of TIA, partial complex seizure disorder, arteriosclerotic cardiovascular disease, cardiomyopathy, heart failure with reduced ejection fraction, anemia, colon cancer, BPH, GERD, HTN presents to ED for concerns of blocked rollins and urine retention due to lower abdominal pain that he noticed this morning after waking up. Denies nausea, vomiting, fevers, chills, hematuria, Related Data Home Medications ?Medication ?Instructions ?Recorded ?Confirmed coenzyme Q10 75 mg capsule (Ultra 75 mg PO DAILY 12/08/24 06/18/25 CoQ10) multivitamin 1 tab PO DAILY 12/08/24 06/18/25 Previous Rx's ?Medication ?Instructions ?Recorded acetaminophen 325 mg capsule 650 mg (2 x 325 mg) PO Q6H PRN 05/04/24 (Tylenol) pain #30 caps aspirin 81 mg tablet,delayed 81 mg PO DAILY #90 tabs 06/18/25 release atorvastatin 40 mg tablet 40 mg PO BEDTIME #90 tabs 06/18/25 furosemide 20 mg tablet 20 mg PO DAILY #90 tabs 06/18/25 lisinopril 10 mg tablet 10 mg PO DAILY #90 tabs 06/18/25 omeprazole 20 mg capsule,delayed 20 mg PO DAILY #90 caps 06/18/25 release tamsulosin 0.4 mg capsule 0.4 mg PO BEDTIME #10 caps 06/30/25 cefuroxime axetil 500 mg tablet 500 mg PO BID 10 days #20 tabs 07/10/25 Allergies Allergy/AdvReac Type Severity Reaction Status Date / Time No Known Allergies (No Known Allergy Verified 07/10/25 06:26 Allergies*) Review of Systems Review of Systems: CONST: Negative for fever, body aches and chills. HENT: Negative for neck pain/stiffness, headache, congestion, sore throat, swelling. EYES: Negative for discharge/pain or vision changes. RESP: Negative for cough/hemoptysis and shortness of breath. CV: Negative chest pain, difficulty breathing, palpitations. ABD: Negative pain, nausea, vomiting. POS suprapubic pressure : Negative increase frequency, dysuria, blood in urine or stool. MUSC: Negative for muscle aches, edema. SKIN: Negative rash, lesions/sores. NEURO: Negative headache, dizziness, weakness. Yes all other systems are reviewed and are negative [facility] Past Medical History Attestation statement: The following information was validated with the patient. Source: old records reviewed and nursing notes reviewed Medical History Medicare annual wellness visit, initial Atherosclerotic cardiovascular disease Heart failure with reduced ejection fraction Wheezing Vitamin D deficiency Thoracic cyst TIA (transient ischemic attack) Colon cancer Hypercholesterolemia BPH (benign prostatic hyperplasia) Hypertension GERD (gastroesophageal reflux disease) Surgical History History of colectomy History of cholecystectomy Family History Family History Father Medical history unknown Mother Hypertension Sister Breast cancer Social History Social History Household Members: Spouse Housing: House Do you presently have visiting nurse or other home services: No Alcohol intake: current Alcohol intake frequency: a few times a week Alcohol type: wine Patient Tobacco Use Status: Former Tobacco user Tobacco use type: Cigarette Years Smoked: Quit 21 years old Smoked in Last 30 Days: No e-Cigarette/Vaping Use: Never Used Second Hand Smoke Exposure: Yes Use of substances other than those prescribed or required for medical reasons: No Advance Directives: Yes Advance Directives on File: Yes Advance Directives Date on File: 04/27/24 service: No Current occupational status: retired Cognitive needs: No Hearing needs: No Vision needs: Yes Physical Exam Vital Signs: Vital Signs: Last Vital Signs Temp 98.2 F 07/10/25 08:44 Pulse 71 07/10/25 08:44 Resp 18 07/10/25 08:44 BP 109/47 L 07/10/25 08:44 Pulse Ox 97 07/10/25 08:44 O2 Del Method Room Air 07/10/25 08:44 BMI result Body Mass Index 21.7 GENERAL APPEARANCE: ?AxOx4, no acute distress, nontoxic appearing. HEENT: ?NC, AT. MMM. EOMI, clear conjunctiva, oropharynx clear. NECK: ?Supple without lymphadenopathy.? No stiffness or restricted ROM. HEART:? Normal rate and regular rhythm, normal S1/S2, no m/r/g LUNGS:? CTAB, moving air well. No crackles or wheezes are heard. ABDOMEN: ?Soft, nondistended, no rigidity, no rebound tenderness, no overlying skin changes, mild TTP over lower suprapubic region BACK: No CVAT, no obvious deformity. : indwelling Rollins catheter in place without discharge or blood from meatus, no evidence of blood in tubing or urine bag. EXTREMITIES: ?Without cyanosis, clubbing or edema. NEUROLOGICAL: ?Grossly nonfocal. Alert and oriented, moving all 4 extremities. Skin: ?Warm and dry without any rash. Medical Decision Making Medical Decision Making MDM Narrative: 89 year old male with medical history of TIA, partial complex seizure disorder, arteriosclerotic cardiovascular disease, cardiomyopathy, heart failure with reduced ejection fraction, anemia, colon cancer, BPH, GERD, HTN presents to ED for concerns of blocked rollins and urine retention due to lower abdominal pain that he noticed this morning after waking up. Denies nausea, vomiting, fevers, chills, hematuria On physical exam, lower suprapubic region mildly TTP, Rollins catheter is placed appropriately, no blood or discharge coming from meatus, no blood noted in Rollins tubing or in urine bag. Patient was bladder scanned with 0 mL of retained urine. Rollins bag was flushed and noted to be patent, no blood clots present, bladder scan after flushing without evidence of retained urine. Labs reveal leukocytosis of 11.7, with a normocytic anemia with a hemoglobin of 10.8, and hematocrit of 31.2, no electrolyte abnormality. UA reveals turbid urine with 3+ protein, 3+ urine blood, positive urine nitrites, 3+ leukocyte esterase, >20 RBC, >50WBC, 4+ bacteria, 0-2 squamous epithelial cells. Patient has suprapubic pain most likely due to cystitis, no evidence of blood clots or retained urine. We will treat with 10 day course of cefuroxime for cystitis. Patient has follow up with Urology on Zackary 9/29. Patient was counseled on strict return precautions. Patient feels well to go home for self-care and is in agreement with the plan. Differential Diagnosis Differential Diagnoses: The differential diagnosis associated with the presentation includes Hematuria Retained urine Rollins catheter blockage UTI Admission/Observation Consideration of admission/observation: Escalation of care including admission/observation considered Lab Data MDM Lab Attestation statement: I reviewed the patient's lab results. 07/10/25 06:58 07/10/25 06:58 Labs: Lab Results 07/10/25 Range/Units 06:58 WBC 11.7 H (4.8-10.8) X10*3/uL RBC 3.33 L (4.60-5.80) X10*6/uL Hgb 10.8 L (14.0-18.0) g/dl Hct 31.2 L (42.0-52.0) % MCV 93.7 (80.0-98.0) fL MCH 32.4 (27.0-33.0) pg MCHC 34.6 (31.0-36.0) g/dl RDW 14.8 (11.0-16.0) % Plt Count 241 (160-400) X10*3/uL MPV 10.0 (9.4-12.4) fL Immature Gran % (Auto) 0.5 H (0.0-0.4) % Neut % (Auto) 73.2 H (45-73) % Lymph % (Auto) 12.7 L (20-40) % [place] % (Auto) 9.5 (2-11) % Eos % (Auto) 3.5 (0-4) % Baso % (Auto) 0.6 (0-2) % Lymph # (Auto) 1.5 (1.2-4.9) X10*3/uL [place] # (Auto) 1.1 (0.1-1.2) X10*3/uL Eos # (Auto) 0.4 (0.0-0.4) X10*3/uL Baso # (Auto) 0.1 (0.0-0.2) X10*3/uL Abs Immat Gran (auto) 0.06 H (0.00-0.03) X10*3/uL Absolute Neuts (auto) 8.6 H (2.0-8.3) x10*3/uL Absolute Nucleated RBC 0.000 (0.0-0.012) X10*3/uL Nucleated RBC % (auto) 0.0 (0.0-0.2) /100WBC Sodium 141 (135-145) mmol/L Potassium 3.7 (3.3-5.1) mmol/L Chloride 106 (96-108) mmol/L Carbon Dioxide 25 (22-29) mmol/L Anion Gap 14 (12-20) BUN 15 (9-16) mg/dL Creatinine 0.77 (0.5-1.4) mg/dL Estim Creat Clear Calc 64.3 Estimated GFR > 60 Random Glucose 87 (60-115) mg/dL Calcium 9.2 (8.4-10.2) mg/dL Total Bilirubin 0.8 (0.0-1.0) mg/dL AST 33 (5-37) U/L ALT 20 (0-40) U/L Alkaline Phosphatase 96 (39-117) U/L Total Protein 6.9 (6.5-8.0) g/dL Albumin 3.7 (3.5-5.0) g/dL Urine Color Dark Yellow Urine Appearance Turbid Urine pH 6.0 (5.0-9.0) Ur Specific [place] 1.025 (1.005-1.025) Urine Protein 300 (3+) H (Neg-Trace) mg/dL Urine Glucose (UA) Negative (Negative) mg/dL Urine Ketones 15 (Negative) mg/dL Urine Blood Large (3+) H (Negative) Urine Nitrite Positive H (Negative) Ur Leukocyte Esterase Large (3+) H (Negative) Urine RBC >20 H (0-2) /HPF Urine WBC >50 H (0-5) /HPF Ur Squamous Epith Cells 0-2 (0-2) /HPF Urine Bacteria 4+ (None Seen) Hyaline Casts 3-5 (0-2) /LPF Independent Historian Clinical information obtained from an independent historian. History obtained from or confirmed by: Other (Family member at bedside corroborating history) External Record Review External record reviewed: Inpatient record, Office record and Outpatient record Chronic Conditions Patient?s care impacted by: Hypertension and Other (TIA, partial complex seizure disorder, ACD, cardiomyopathy, heart failure with reduced ejection fraction, anemia, colon cancer, BPH, GERD,) Discharge Plan Discharge Clinical Impression: UTI (urinary tract infection) Patient Disposition: Home, Self-Care Instructions: Urinary Tract Infection in Men (DC), Catheter-associated Urinary Tract Infection (ED) Additional Instructions: You were evaluated in the ED today after experiencing some issues with your indwelling Rollins catheter. Your catheter was extensively irrigated in the department and did not have any blockages. Your bladder scan did not show any evidence of retained urine. Your physical exam was reassuring as you did not have a distended abdomen, or significant pain when pushing on the belly. Your blood work today does have evidence of a mild infection with an increased white blood cell count of 11.7, and your urine showed evidence of infection. You will be discharged with a 10 day course of cefuroxime which is an antibiotic to cover for urinary tract infection. Additionally to manage pain, you can take 500 mg of Tylenol, and 400 mg of ibuprofen every 6 hours. You stated you have follow up with Urology on Thursday 07/12, please make sure to go to this appointment to ensure proper placement and function of the Rollins catheter an improvement of UTI. Please return to the emergency department if you experience fevers over 100.4? that are not controlled by Tylenol or Motrin, abdominal pain, distention of the abdomen, if the Rollins bag is not filling with urine, blood in the tubing or Rollins bag, or any new/worsening/concerning symptoms. Prescriptions: New cefuroxime axetil 500 mg tablet 500 mg PO BID 10 Days Qty: 20 0RF No Action acetaminophen [Tylenol] 325 mg capsule 650 mg PO Q6H PRN (Reason: pain) Qty: 30 0RF tamsulosin 0.4 mg capsule 0.4 mg PO BEDTIME Qty: 10 0RF aspirin 81 mg tablet,delayed release (DR/EC) 81 mg PO DAILY Qty: 90 3RF atorvastatin 40 mg tablet 40 mg PO BEDTIME Qty: 90 3RF furosemide 20 mg tablet 20 mg PO DAILY Qty: 90 2RF lisinopril 10 mg tablet 10 mg PO DAILY Qty: 90 2RF omeprazole 20 mg capsule,delayed release(DR/EC) 20 mg PO DAILY Qty: 90 3RF multivitamin Tablet 1 tab PO DAILY Ultra CoQ10 75 mg capsule 75 mg PO DAILY Interventions: ED Discharge Assessment Last Done: 07/10/25 08:44 Discharge Date/Time: 07/10/25 08:45 Print Language: Lao
[2025-07-10 08:44] VITALS: BP 109/47; PULSE 71; RESP 18; TEMP 36.8; O2SAT 97
== END 2025-07-10 08:45 | disposition home or self-care (01) ==
PROVIDERS: Emergency Provider Emergency Medicine Emergency Medical Services; PCP Internal Medicine
DX: T83.511A Infection and inflammatory reaction due to indwelling urethral catheter, initial encounter (principal); I11.0 Hypertensive heart disease with heart failure; I50.22 Chronic systolic (congestive) heart failure; D64.9 Anemia, unspecified; Z85.038 Personal history of other malignant neoplasm of large intestine; Z79.899 Other long term (current) drug therapy
CPT/HCPCS: 36415; 80053; 81001; 85025; 87086; 87088; 87186; 99283; 99284

== ENCOUNTER 2025-07-12 10:23 | Outpatient (AMB) | payer MEDICARE, SELFPAY ==
--- OUTSIDE RECORDS SUMMARY | 2024-04-20 07:20 | XMS_ITS ---
Author Organization [facility] Address [address] [place] [phone] Care Team Providers Care Food Bagging Machine Operator Name Role Phone Js Allison MD Primary Care Provider Samy Rivas Jr [phone] REASON FOR VISIT Patient presents today [...] Active Encounters Encounter Location Date Provider Diagnosis [facility] [address] [address] 04/20/2024 Samy Payne Jr Plan Of Treatment No Information Progress Notes * ROXANN MORRELL ADOB: [birth year] (89 yo M)Acc No.[id number]:04/20/2024 Progress Notes Patient: ROXANN MAX Provider: Ivis Payne MD :1935 A ge:89 Y S ex:Male Date:04/20/2024 Address:[address] [place] [address] [place] [facility] Pcp:Js Allison MD Subjective: * Chief Complaints: [...] 0 04/20/2024 Generated for Tito freeman/Errol/Paulitting on: 07/12/2025 11:35 AM EDT
--- NOTE | 2025-07-12 10:35 | MHC.OFFVIS ---
Intake Visit Reasons: urinary retention (VT) Intake Note: New patient presents today for initial visit for urinary retention Urology Medication:Tamsulosin Blood Thinner:Aspirin Antibiotic Allergies:None Allergies No Known Allergies (No Known Allergies*) Allergy (Verified 07/12/25 10:35) Medication List - Last Reconciled 07/12/25 by Osmel Womack MD acetaminophen (Tylenol) 650 mg (2 x 325 mg) PO Q6H PRN aspirin 81 mg PO DAILY atorvastatin 40 mg PO BEDTIME cefuroxime axetil 500 mg PO BID 10 days coenzyme Q10 (Ultra CoQ10) 75 mg PO DAILY finasteride (Proscar) 5 mg PO DAILY furosemide 20 mg PO DAILY lisinopril 10 mg PO DAILY multivitamin 1 tab PO DAILY omeprazole 20 mg PO DAILY tamsulosin 0.4 mg PO BEDTIME HPI HPI urinary retention (VT): Details: Patient did not have voiding trial at appt. Per Dr. Quigley patient was to have catheter removed and will schedule an appointment this afternoon to come back for PVR. Removed 16fr rollins catheter 10ml balloon with large urine bag. Patient tolerated removal well. Patient penis appeared to be without any signs of infection, or injruy. Dr. Quigley updated on patient as well. Patient will make appt at checkout to come back this afternoon for PVR. Patient is agreeable with plan. HPI Comments Details: Andrés is an 89-year-old male here as a new patient evaluation for urinary retention he currently has a catheter in place. History of Present Illness The patient is an 89-year-old male presenting with urinary retention. He is here with his daughter, Jessica. The urinary retention began a few weeks ago when the patient experienced pain and inability to urinate, leading to a hospital visit on 06/30/25 where a catheter was placed due to urinary retention. The patient was started on tamsulosin at that time. Two days prior to this visit, the patient again experienced difficulty urinating and burning sensation, prompting another hospital visit where a urinary tract infection was diagnosed. The catheter was retained, and antibiotics were prescribed. The patient has been on tamsulosin since the initial hospital visit and he denies prior issues with urination before this episode. Results - Urine culture on 07/10/25 showed gram-negative rods, organism pending Plan 1. Urinary Retention - The Rollins catheter was removed, and the patient was advised to return at 3:30 for a bladder scan to ensure proper voiding. - The patient was instructed to drink plenty of water to facilitate urination. 2. Benign Prostatic Hyperplasia - Continue tamsulosin and start Proscar 5 mg daily. Will check US retroperitoneal. 3. Urinary Tract Infection - The patient is currently on Ceftin 500 mg twice a day for the urinary tract infection. [facility] Medical History Medicare annual wellness visit, initial Atherosclerotic cardiovascular disease Heart failure with reduced ejection fraction Wheezing Vitamin D deficiency Thoracic cyst TIA (transient ischemic attack) Colon cancer Hypercholesterolemia BPH (benign prostatic hyperplasia) Hypertension GERD (gastroesophageal reflux disease) Surgical History History of colectomy History of cholecystectomy Family History Father Medical history unknown Mother Hypertension Sister Breast cancer Social History Household Members: Spouse Housing: House Do you presently have visiting nurse or other home services: No Alcohol intake: current Alcohol intake frequency: a few times a week Alcohol type: wine Patient Tobacco Use Status: Former Tobacco user Tobacco use type: Cigarette Years Smoked: Quit 21 years old e-Cigarette/Vaping Use: Never Used Second Hand Smoke Exposure: Yes Advance Directives Date on File: 04/27/24 service: No Current occupational status: retired Cognitive needs: No Hearing needs: No Vision needs: Yes Review of Systems Const All systems reviewed & are unremarkable except as noted in HPI and below Reports no additional complaints Eyes Reports no additional complaints ENT Reports no additional complaints Card Reports no additional complaints Resp Reports no additional complaints GI Reports no additional complaints Reports as per HPI Musc Reports no additional complaints Skin/Breast Reports system reviewed and no additional complaints, except as documented Neuro Reports no additional complaints Psych Reports no additional complaints Endo Reports no additional complaints Romie/Lymph Reports no additional complaints Aller/Immun Reports no additional complaints Physical Exam Const General: healthy appearing, no acute distress and well developed Orientation/consciousness: patient oriented x3 HEENT Head: Yes normocephalic and Yes atraumatic Eyes Conjunctivae: conjunctivae normal Neck Neck: Yes normal visual inspection Chest Chest palpation & inspection: normal inspection of the chest Resp Effort & Inspection: normal respiratory effort GI Inspection: Yes normal to inspection Penis: normal penis Neuro General: patient oriented x3 Psych Appearance: grossly normal Affect: normal affect Assessment & Plan Assessment & Plan (1) Urinary retention: Code(s): R33.9 - Retention of urine, unspecified Category: Medical (2) UTI (urinary tract infection): Code(s): N39.0 - Urinary tract infection, site not specified Category: Medical (3) BPH loc w urin obs/LUTS: Code(s): N40.1 - Benign prostatic hyperplasia with lower urinary tract symptoms Category: Medical Plan Plan 1. Urinary Retention - The Rollins catheter was removed, and the patient was advised to return at 3:30 for a bladder scan to ensure proper voiding. - The patient was instructed to drink plenty of water to facilitate urination. 2. Benign Prostatic Hyperplasia - Continue tamsulosin and start Proscar 5 mg daily. Will check US retroperitoneal. 3. Urinary Tract Infection - The patient is currently on Ceftin 500 mg twice a day for the urinary tract infection. Medications: New finasteride (Proscar) 5 mg PO DAILY 90 tabs 3RF Refilled tamsulosin 0.4 mg PO BEDTIME 90 caps 3RF Patient Instructions: The patient had an opportunity to ask questions regarding treatment plan. The patient expressed understanding and agreement with the above treatment plan. The patient is aware they should contact our office by phone for worsening of their current condition or the appearance of new symptoms. Compliance is encouraged with any medications and followup testing that is ordered. It is a privilege to be allowed the opportunity to participate in the urologic care of your patient. If you have any questions or concerns regarding treatment for the above conditions please do not hesitate to contact me. The office telephone contact is [phone]. This note is constructed in part using voice recognition software. While every effort has been made to ensure accuracy financial reporting accountant errors may have been included. Yours sincerely, Osmel Womack MD Scribe Plan - Not visible on output: Patient was informed and verbally consented to the use of an ambient scribe for clinic note documentation during this visit. Coding Level of Care Code New Pt Level 4 (61742) Diagnoses Urinary retention R33.9 UTI (urinary tract infection) N39.0 BPH loc w urin obs/LUTS N40.1
--- OUTSIDE RECORDS SUMMARY | 2025-07-12 11:36 | XMS_ITS | Patient Health Record ---
Author Organization [facility] Address [address] [place] [address] Care Team Providers Care Station Jailer Name Role Phone Js Allison MD Primary Care Provider Samy Rivas Jr Unavailable [phone] Allergies No Known Allergies Reason For Referral [...] Problem Status W/U Status Risk Notes Problem 717589013 Colon cancer screening (Z12.11) Active confirmed Problem 404831645 [facility] curren t use of aspirin (Z79.82) Active confirmed Problem 004556940 Gastroesophageal reflux disease without esophagitis (K21.9) Active confirmed Problem 301224211 Adenocarcinoma o f colon (C18.9) Active confirmed Problem 74087158 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
== END 2025-07-12 11:19 | disposition home or self-care (01) ==
LOC: HO.HUSH 10:24
PROVIDERS: PCP Internal Medicine; Visit Provider Urology
DX: R33.9 Retention of urine, unspecified (principal); N39.0 Urinary tract infection, site not specified; N40.1 Benign prostatic hyperplasia with lower urinary tract symptoms
CPT/HCPCS: 51702; 99204

== ENCOUNTER → 2025-07-12 10:23 | Outpatient (BNVA) | payer MEDICARE, SELFPAY | PROVIDERS: PCP Internal Medicine; Visit Provider Urology | DX: R33.9 Retention of urine, unspecified (principal); N39.0 Urinary tract infection, site not specified; N40.1 Benign prostatic hyperplasia with lower urinary tract symptoms | CPT/HCPCS: 51702; 99202 ==

== ENCOUNTER 2025-08-09 14:51 | Outpatient (AMB) | payer MEDICARE, SELFPAY ==
--- OUTSIDE RECORDS SUMMARY | 2024-04-20 07:20 | XMS_ITS ---
Author Organization [facility] Address [address] [place] [phone] Care Team Providers Care Occupational Nurse Name Role Phone sJ Allison MD Primary Care Provider Samy Rivas Jr [phone] REASON FOR VISIT Patient presents today for [...] Active Encounters Encounter Location Date Provider Diagnosis [facility] [address] [place] [phone] 04/20/2024 Samy Payne Jr Plan Of Treatment No Information Progress Notes * ROXANN MORRELL ADOB: [birth year] (89 yo M)Acc No.[id number]:04/20/2024 Progress Notes Patient: ROXANN MAX Provider: Ivis Payne MD :1935 A ge:89 Y S ex:Male Date:04/20/2024 Address:[address] [place] [address] [id number] Pcp:Js Allison MD Subjective: * Chief Complaints: [...] 04/20/2024 Generated for Tito freeman/Errol/Talya on: 1 06:16 PM EDT
--- NOTE | 2025-08-09 15:19 | MHC.OFFVIS ---
Intake Visit Reasons: CYSTO Intake Note: Patient presents today for a cystoscopy Urology Medication:Tamsulosin Blood Thinner:Aspirin Antibiotic Allergies:None Lot#:[id number] Exp:03/22/28 Allergies No Known Allergies (No Known Allergies*) Allergy (Verified 08/09/25 15:21) [facility] Medical History Medicare annual wellness visit, initial Atherosclerotic cardiovascular disease Heart failure with reduced ejection fraction Wheezing Vitamin D deficiency Thoracic cyst TIA (transient ischemic attack) Colon cancer Hypercholesterolemia BPH (benign prostatic hyperplasia) Hypertension GERD (gastroesophageal reflux disease) Surgical History History of colectomy History of cholecystectomy Family History Father Medical history unknown Mother Hypertension Sister Breast cancer Social History Household Members: Spouse Housing: House Do you presently have visiting nurse or other home services: No Alcohol intake: current Alcohol intake frequency: a few times a week Alcohol type: wine Patient Tobacco Use Status: Former Tobacco user Tobacco use type: Cigarette Years Smoked: Quit 21 years old e-Cigarette/Vaping Use: Never Used Second Hand Smoke Exposure: Yes Advance Directives Date on File: 04/27/24 service: No Current occupational status: retired Cognitive needs: No Hearing needs: No Vision needs: Yes Assessment & Plan Assessment & Plan Orders: Orders AMB Cystoscopy Today N40.1 - Benign prostatic hyperplasia with lower urinary tract symptoms, R33.9 - Retention of urine, unspecified Medications: New lidocaine HCl 2% 10 mL intra-urethral ONCE 20 mL 0RF N40.1 - Benign prostatic hyperplasia with lower urinary tract symptoms, R33.9 - Retention of urine, unspecified ciprofloxacin HCl 500 mg PO ONCE 1 tab 0RF N40.1 - Benign prostatic hyperplasia with lower urinary tract symptoms, R33.9 - Retention of urine, unspecified phenazopyridine 200 mg PO ONCE 1 tab 0RF N40.1 - Benign prostatic hyperplasia with lower urinary tract symptoms, R33.9 - Retention of urine, unspecified Coding
--- NOTE | 2025-08-09 15:26 | MHC.OFFVIS ---
Intake Visit Reasons: CYSTO Allergies No Known Allergies (No Known Allergies*) Allergy (Verified 08/19/25 02:00) HPI Comments Details: 08/09/25--Andrés is an 89-year-old male being followed for urinary retention; he is here for his cystoscopy. Cystoscopy findings: prostatic urethra trilobar enlargement, bulbous urethra WNL, bladder wall thickening with cellulitic changes and erythematous changes consistent with chronic catheter Discussed resection of prostate for outlet obstruction. Urine sent for c/s. Empirical Abx tx-Cipro. 30 minutes spent in review of records pertaining to this visit and including [id number] discussion with the patient and documentation of this visit. Plan 1. Urinary Retention - Plan for TURP and SP tube placement discussed. - Medical clearance required prior to procedure. - Discontinue aspirin for 10 to 14 days before surgery. 2. UTI - Cipro 250 mg bid for 7 days 07/12/25--Andrés is an 89-year-old male here as a new patient evaluation for urinary retention he currently has a catheter in place. History of Present Illness The patient is an 89-year-old male presenting with urinary retention. He is here with his daughter, Jessica. The urinary retention began a few weeks ago when the patient experienced pain and inability to urinate, leading to a hospital visit on 06/30/25 where a catheter was placed due to urinary retention. The patient was started on tamsulosin at that time. Two days prior to this visit, the patient again experienced difficulty urinating and burning sensation, prompting another hospital visit where a urinary tract infection was diagnosed. The catheter was retained, and antibiotics were prescribed. The patient has been on tamsulosin since the initial hospital visit and he denies prior issues with urination before this episode. Results - Urine culture on 07/10/25 showed gram-negative rods, organism pending Plan 1. Urinary Retention - The Rollins catheter was removed, and the patient was advised to return at 3:30 for a bladder scan to ensure proper voiding. - The patient was instructed to drink plenty of water to facilitate urination. 2. Benign Prostatic Hyperplasia - Continue tamsulosin and start Proscar 5 mg daily. Will check US retroperitoneal. 3. Urinary Tract Infection - The patient is currently on Ceftin 500 mg twice a day for the urinary tract infection. [facility] Medical History Medicare annual wellness visit, initial Atherosclerotic cardiovascular disease Heart failure with reduced ejection fraction Wheezing Vitamin D deficiency Thoracic cyst TIA (transient ischemic attack) Colon cancer Hypercholesterolemia BPH (benign prostatic hyperplasia) Hypertension GERD (gastroesophageal reflux disease) Surgical History History of colectomy History of cholecystectomy Family History Father Medical history unknown Mother Hypertension Sister Breast cancer Social History Household Members: Spouse Housing: House Do you presently have visiting nurse or other home services: No Alcohol intake: current Alcohol intake frequency: does not drink Alcohol type: wine Patient Tobacco Use Status: Former Tobacco user Tobacco use type: Cigarette Years Smoked: Quit 21 years old e-Cigarette/Vaping Use: Never Used Second Hand Smoke Exposure: Yes Advance Directives Date on File: 04/27/24 service: No Current occupational status: retired Cognitive needs: No Hearing needs: No Vision needs: Yes Office Procedures Cystoscopy Consent Discussed risk and benefit or proposed procedure with the patient. Information consent for procedure given to the patient. Discussed technical aspects, risks, benefits and alternatives in full. Addressed all of the patient's questions and concerns regarding the procedure. The patient demonstrated knowledge and understanding. They wish to proceed with this procedure. Preparation The patient was prepped in the usual manner. A police guard was present and in the room. Genitalia was prepped with betadine solution in a sterile manner. Lidocaine Jelly 2% was placed into the urethra and 16Fr flexible Olympus cystoscope was inserted into the meatus after adequate lubrication. Procedure Time out per protocol performed. The flexible cystoscope is passed transurethrally: The bladder was inspected in its entirety with utilization retroflexion displaying: Tumor(s): no suspicious bladder lesions visualized Trabeculation: Moderate with cellule changes, and diverticuli Mucosal Erthema: mild to moderate Orifices: normal shape and position Urethra: normal Cystoscopy findings: prostatic urethra trilobar enlargement, bulbous urethra WNL, bladder wall thickening with cellulitic changes and erythematous changes consistent with chronic catheter. Once cystoscopy finished new 16Fr rollins catheter with 10ml and with night bag inserted. Patient tolerated insertion. [id number] DISPOSABLE SCOPE URO-G FLEXIBLE SCOPE Procedure code (CPT) selection complete Office Meds lidocaine HCl 2 % mucosal jelly in applicator Performing Provider: Osmel Womack MD [facility]forming [facility] [place] [facility] Administered by: Devin Heck LPN on 08/09/25 15:26 Dose Route Admin Location Dispensed Lot Number Expiration Date [employer] Manager 10 mL intra-urethral 20 mL ciprofloxacin HCl 500 mg tablet Performing Provider: Osmel Womack MD Performing Location: [facility] [place] [facility] Administered by: Devin Heck LPN on 08/09/25 15:26 Dose Route Admin Location Dispensed Lot Number Expiration Date [employer] Manager 500 mg PO 1 tab phenazopyridine 200 mg tablet Performing Provider: Osmel Womack MD Performing Location: [facility] [place] [facility] Administered by: Devin Heck LPN on 08/09/25 15:26 Dose Route Admin Location Dispensed Lot Number Expiration Date [employer] Manager 200 mg PO 1 tab Results Reviewed Results Reviewed: Date of Service: 05/04/24 EXAM: Contrast-enhanced CT scan of the chest, abdomen, and pelvis. INDICATION: Fall. Rib and abdominal trauma. COMPARISON: CT chest, abdomen and pelvis 04/27/2024 TECHNIQUE: Multidetector helical imaging of the chest, abdomen, and pelvis was obtained from the thoracic inlet through the pubic symphysis following administration of 85 cc of Omnipaque 300 IV contrast. Coronal and sagittal reformatted images that were obtained were also reviewed. This CT examination was performed using dose optimization techniques as appropriate, variously including the following: *Automated exposure control *Adjustment of mA and/or kV according to patient size (this includes techniques or standardized protocols for targeted exams where dose is matched to indication/reason for exam; i.e. extremities or head) *Use of iterative reconstruction technique DLP: 833 mGy-cm FINDINGS: CHEST: Central airways are patent. Small filling defect along the right tracheal wall is nonspecific but statistically represents mucus. The lungs are adequately aerated. Emphysematous changes are noted. Azygous fissure is again incidentally noted. There is mild posterior pleural thickening bilaterally without gross effusion. There is mild biapical architectural distortion/scarring. There is some mild dependent atelectasis present. There is no lobar consolidation. No pleural effusion or pneumothorax. No suspicious pulmonary nodules. The heart is normal in size. Coronary artery calcifications are present. There is no pericardial effusion. Normal caliber thoracic aorta. No gross mediastinal or hilar lymphadenopathy. No pathologically enlarged axillary lymph nodes. ABDOMEN/PELVIS: The liver is normal in size. The gallbladder is surgically absent. The pancreas, spleen and adrenal glands are unremarkable. Symmetrically enhancing kidneys. There is no hydronephrosis of either kidney. Small to moderate-sized hiatal hernia is present. The stomach is decompressed. Normal caliber loops of small and large bowel. Unremarkable surgical changes consistent with partial right hemicolectomy. Normal caliber abdominal aorta demonstrating mild to moderate atherosclerotic disease. Retroaortic left renal vein. No gross retroperitoneal lymphadenopathy. The bladder is normal in appearance. The prostate gland is at the upper limits of normal in size. Small fat-containing right inguinal hernia present. No gross free pelvic fluid. No inguinal lymphadenopathy. OSSEOUS STRUCTURES Diffuse osteopenia. Degenerative changes of the spine. No compression deformity. No rib fracture. IMPRESSION: No CT evidence for acute abnormality within the chest, abdomen or pelvis. Assessment & Plan Assessment & Plan (1) Urinary retention: Code(s): R33.9 - Retention of urine, unspecified Category: Medical (2) UTI (urinary tract infection): Code(s): N39.0 - Urinary tract infection, site not specified Category: Medical (3) BPH loc w urin obs/LUTS: Code(s): N40.1 - Benign prostatic hyperplasia with lower urinary tract symptoms Category: Medical Plan Plan 1. Urinary Retention - Plan for TURP and SP tube placement discussed. - Medical clearance required prior to procedure. - Discontinue aspirin for 10 to 14 days before surgery. Orders: Orders AMB Cystoscopy 08/09/25 N40.1 - Benign prostatic hyperplasia with lower urinary tract symptoms, R33.9 - Retention of urine, unspecified Urine Culture 08/09/25 N39.0 - Urinary tract infection, site not specified Medications: New ciprofloxacin HCl (Cipro) 250 mg PO BID 14 tabs 0RF Patient Instructions: The patient had an opportunity to ask questions regarding treatment plan. The patient expressed understanding and agreement with the above treatment plan. The patient is aware they should contact our office by phone for worsening of their current condition or the appearance of new symptoms. Compliance is encouraged with any medications and followup testing that is ordered. It is a privilege to be allowed the opportunity to participate in the urologic care of your patient. If you have any questions or concerns regarding treatment for the above conditions please do not hesitate to contact me. The office telephone contact is [phone]. This note is constructed in part using voice recognition software. While every effort has been made to ensure accuracy mold yard crane operator errors may have been included. Yours sincerely, Osmel Womack MD Scribe Plan - Not visible on output: Patient was informed and verbally consented to the use of an ambient scribe for clinic note documentation during this visit. Coding Level of Care Code Est Pt Level 4 (64994) Diagnoses Urinary retention R33.9 UTI (urinary tract infection) N39.0 BPH loc w urin obs/LUTS N40.1 CPT Codes Cystoscopy - CPT: [id number] ([id number])
--- OUTSIDE RECORDS SUMMARY | 2025-08-09 18:17 | XMS_ITS | Patient Health Record ---
Author Organization [facility] Address [address] [place] [address] Care Team Providers Care Garnett Machine Operator Helper Name Role Phone Js Allison MD Primary Care Provider Samy Rivas Jr Unavailable [phone] Allergies No Known Allergies Reason For Referral [...] Spironolactone 25 MG Oral; Duration: 90 Active Immunizations Vaccine Route Administration Date Status Comme nts Flu vaccine no Preserv 3 and > Unknown 06/28/2015 Admin istered Influenza Unknown 08/30/2021 Administered Influenza Unknown 09/04/2022 Administered Problems Problem Type SNOMED Code ICD Code Onset Dates Problem Status W/U Status Risk Notes Problem Colon cancer screening (381441704) Colon cancer screening (Z12.11) Active confirmed Problem Already on aspirin (885286071) manager staffing current use of aspirin (Z79.82) Active confirmed Problem Gastroesophageal reflux disease without esophagitis (553312186) Gastroesophageal reflux disease without esophagitis (K21.9) Active confirmed Problem Malignant neoplasm of colon (521735610) Adenocarcinoma of colon (C18.9) Active confirmed Problem External hemorrhoids (56293753) 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
== END 2025-08-09 16:42 | disposition home or self-care (01) ==
LOC: HO.HUSH 14:52
PROVIDERS: PCP Internal Medicine; Visit Provider Urology
DX: N40.1 Benign prostatic hyperplasia with lower urinary tract symptoms (principal); R33.9 Retention of urine, unspecified
CPT/HCPCS: 52000

== ENCOUNTER 2025-08-09 14:51 | Outpatient (REF) | payer MEDICARE, SELFPAY | END 2025-08-09 14:52 | disposition home or self-care (01) | LOC: HO.LAB 14:51 | PROVIDERS: PCP Internal Medicine; Visit Provider Urology | DX: N40.1 Benign prostatic hyperplasia with lower urinary tract symptoms (principal); N13.8 Other obstructive and reflux uropathy; R33.8 Other retention of urine; N39.0 Urinary tract infection, site not specified | CPT/HCPCS: 52000; 87086; 99212 ==

== ENCOUNTER 2025-08-19 01:41 | Emergency (ER) | payer MEDICARE, SELFPAY ==
--- OUTSIDE RECORDS SUMMARY | 2024-04-20 06:20 | XMS_ITS ---
Author Organization [facility] Address [address] [place] [phone] Care Team Providers Care Jewel Hole Driller Name Role Phone Js Allison MD Primary Care Provider Samy Rivas Jr REASON FOR VISIT Patient presents today for gerd Medications Medication SIG (Take, Route, Fr equency, Duration) Notes Start Date End Date Status Lisinopril 20 MG 1 tablet Orally Once a day Active Omeprazole 20 MG 1 capsule 30 minutes before morning meal Orally Once a day; Duration: 30 day(s) Active Carvedilol 6.25 MG TAKE 1 TABLET BY TWICE A DAY Oral; Duration: 90 Active Aspir-81 81 MG 1 tablet Orally Once a day Active Spironolactone 25 MG Oral; Duration: 90 Active Tamsulosin HCl 0.4 MG as directed Orally Active Encounters Encounter Location Date Provider Diagnosis [facility] [address] [place] [phone] 04/20/2024 Samy Payne Jr Plan Of Treatment No Information Progress Notes * ROXANN MORRELL ADOB: [birth year] (89 yo M)Acc No.[id number]:04/20/2024 Progress Notes Patient: ROXANN MAX Provider: Ivis Payne MD :1935 A ge:89 Y S ex:Male Date:04/20/2024 Address:[address] [place] [address] [id number] Pcp:Js Allison MD Subjective: * Chief Complaints: * 1 . Patient presents today for gerd. * Medical History: * Medications: T aking Tamsulosin HCl 0.4 MG Capsule Extended Release as directed Orally , Taking Omeprazole 20 MG Capsule Delayed Release 1 capsule 30 minutes before morning meal Orally Once a day , Taking Lisinopril 20 MG Tablet 1 tablet Orally Once a day , Taking Aspir-81 81 MG Tablet Delayed Release 1 tablet Orally Once a day , Taking Carvedilol 6.25 MG Tablet TAKE 1 TABLET BY MOUTH TWICE A DAY Oral , Taking Spironolactone 25 MG Tablet Oral Objective: * Vitals: Assessment: Plan: * Treatment: * * The named appointment provid er may or may not be the originator of this progress note, and it is not deemed complete until electronically signed by the appointment provider. Sign off status: Pending * Provider: Ivis Payne MD Date: 0 04/20/2024 Generated for Tito freeman/Errol/Talya on: 10/19/2024 03:15 AM EST
[2025-08-19 01:57] VITALS: BP 100/62; BP 107/48; PULSE 67; PULSE 70; RESP 16; TEMP 36.1; O2SAT 98; BMI 24.8
--- OUTSIDE RECORDS SUMMARY | 2025-08-19 03:15 | XMS_ITS | Patient Health Record ---
Author Organization [facility] Address [address] [place] [address] Care Team Providers Care Linen Controller Name Role Phone Js Allison MD Primary [...] Status Risk Notes Problem Colon cancer screening (820786379) Colon cancer screening (Z12.11) Active confirmed Problem Already on aspirin (683626266) terminal operator current use of aspirin (Z79.82) Active confirmed Problem Gastroesophageal reflux disease without esophagitis (595882213) Gastroesophageal reflux disease without esophagitis (K21.9) Active confirmed Problem Malignant neoplasm of colon (308918242) Adenocarcinoma of colon (C18.9) Active confirmed Problem External hemorrhoids (83094027) External hemorrhoids (K64.4) Active confirmed Plan Of Treatment Future Test Test Name Order Date COLONOSCOPY 09/23/2015 Insurance Providers Payer Name Payer Address Payer Phone Subscriber Number Group Number Insured Name Patient Relationship to Insured Coverage Start Date Coverage End Date MEDICARE OF [place] [address] [place]ONAN [address] [phone] [id number] ROXANN MORRELL Self - patient is the insured MEDEX ATTN CLAIMS [address] [place] [address] [id number] ROXANN MORRELL Self - patient is the [...]
[2025-08-19 04:00] VITALS: BP 126/58; PULSE 72; RESP 14; TEMP 36.6; O2SAT 98
--- NOTE | 2025-08-19 04:01 | PC.NURSE ---
pt a&o, replace rollins per provider 16 [place].
--- NOTE | 2025-08-19 04:03 | PC.NURSE ---
removed pt Rollins, Rollins intact, 100cc output from pt rollins
--- NOTE | 2025-08-19 04:04 | ED.MALEGU ---
HPI - Male Genitourinary General Chief complaint: Urogenital-Male Stated complaint: Blocked Catheter Time Seen by Provider: 08/19/25 03:56 Source: patient and EMS Mode of arrival: ambulatory Limitations: no limitations History of Present Illness ED Provider: DR. Caba HPI Narrative: 89-year-old male with pertinent history of CAD status post PCI, ischemic cardiomyopathy, CHF, GERD, HTN, colon cancer s/p hemicolectomy in 2017, urinary retention, needed Guy catheter for the past 2 months, patient already seen and evaluated by Dr. Quigley had upper cystoscopy revealed bladder neck obstruction secondary to enlarged prostate with tubular enlargement. Patient will be scheduled for TURP and suprapubic tube placement to be followed with urologist. patient returned today for blocked Guy catheter could not be and felt suprapubic distention. No fever, no chills. Related Data Home Medications ?Medication ?Instructions ?Recorded ?Confirmed coenzyme Q10 75 mg capsule (Ultra 75 mg PO DAILY 12/08/24 07/12/25 CoQ10) multivitamin 1 tab PO DAILY 12/08/24 07/12/25 Previous Rx's ?Medication ?Instructions ?Recorded acetaminophen 325 mg capsule 650 mg (2 x 325 mg) PO Q6H PRN 05/04/24 (Tylenol) pain #30 caps aspirin 81 mg tablet,delayed 81 mg PO DAILY #90 tabs 06/18/25 release atorvastatin 40 mg tablet 40 mg PO BEDTIME #90 tabs 06/18/25 furosemide 20 mg tablet 20 mg PO DAILY #90 tabs 06/18/25 lisinopril 10 mg tablet 10 mg PO DAILY #90 tabs 06/18/25 omeprazole 20 mg capsule,delayed 20 mg PO DAILY #90 caps 06/18/25 release cefuroxime axetil 500 mg tablet 500 mg PO BID 10 days #20 tabs 07/10/25 finasteride 5 mg tablet (Proscar) 5 mg PO DAILY #90 tabs 07/12/25 tamsulosin 0.4 mg capsule 0.4 mg PO BEDTIME #90 caps 07/12/25 mirtazapine 7.5 mg tablet 7.5 mg PO BEDTIME #90 tabs 07/21/25 ciprofloxacin HCl 250 mg tablet 250 mg PO BID #14 tabs 08/09/25 (Cipro) levetiracetam 500 mg tablet 500 mg PO BID #60 tabs 08/15/25 cefuroxime axetil 250 mg tablet 250 mg PO BID #14 tabs 08/19/25 Allergies Allergy/AdvReac Type Severity Reaction Status Date / Time No Known Allergies (No Known Allergy Verified 08/19/25 02:00 Allergies*) Review of Systems Review of Systems: all other systems are reviewed and are negative Constitutional: Reports as per HPI and Reports no additional constitutional complaints Eyes: Reports as per HPI and Reports no additional eye complaints Reports system reviewed and no additional complaints, except as documented Cardiovascular: Reports as per HPI and Reports no additional cardiovascular complaints Respiratory: Reports as per HPI and Reports no additional respiratory complaints Gastrointestinal: Reports as per HPI and Reports no additional gastrointestinal complaints Genitourinary: Reports no additional female genitourinary complaints Musculoskeletal: Reports no additional musculoskeletal complaints Skin/Breast: Reports system reviewed and no additional complaints, except as docu Psychiatric: Reports no additional psychiatric complaints Endocrine: Reports no additional endocrine complaints Hematologic/Lymphatic: Reports no additional hematologic/lymphatic complaints Allergic/Immunologic: Reports no additional allergic/immunologic complaints Reports system reviewed and no additional complaints, except as documented and Reports Abnormal speech present [facility] Past Medical History Medical History Medicare annual wellness visit, initial Atherosclerotic cardiovascular disease Heart failure with reduced ejection fraction Wheezing Vitamin D deficiency Thoracic cyst TIA (transient ischemic attack) Colon cancer Hypercholesterolemia BPH (benign prostatic hyperplasia) Hypertension GERD (gastroesophageal reflux disease) Surgical History History of colectomy History of cholecystectomy Family History Family History Father Medical history unknown Mother Hypertension Sister Breast cancer Social History Social History Household Members: Spouse Housing: House Do you presently have visiting nurse or other home services: No Alcohol intake: current Alcohol intake frequency: does not drink Alcohol type: wine Patient Tobacco Use Status: Former Tobacco user Tobacco use type: Cigarette Years Smoked: Quit 21 years old Smoked in Last 30 Days: No e-Cigarette/Vaping Use: Never Used Second Hand Smoke Exposure: Yes Use of substances other than those prescribed or required for medical reasons: No Advance Directives: Yes Advance Directives on File: Yes Advance Directives Date on File: 04/27/24 Do you have a plan to hurt others: No Plan service: No Current occupational status: retired Cognitive needs: No Hearing needs: No Vision needs: Yes Physical Exam Vital Signs: Vital Signs: Last Vital Signs Temp 97.8 F 08/19/25 04:00 Pulse 72 08/19/25 04:00 Resp 14 08/19/25 04:00 BP 126/58 L 08/19/25 04:00 Pulse Ox 98 08/19/25 04:00 O2 Del Method Room Air 08/19/25 04:00 BMI result Body Mass Index 24.8 Vital signs have been reviewed and appear to be correct. Blood pressure elevated. Heart rate normal. Respiratory rate normal. Temperature normal. Oxygen saturation normal. Appearance: Alert. Oriented X3. No acute distress. Head: Normal external exam. Normocephalic. Atraumatic. No Schmid signs noted. No raccoon eyes noted Eyes: PERRLA. EOMI. Conjunctiva and sclera normal. Eyelids normal. ENT: TM's Normal. Pharynx normal. Uvula midline. Moist mucous membranes. No trismus noted. No drooling noted. No muffled voice noted. Neck: Normal inspection. Neck supple. FROM. No adenopathy. Thyroid Normal. No meningeal signs. No neck mass noted. CVS: Normal heart rate and rhythm. Heart sound normal. No murmurs noted. Pulses normal throughout. Respiratory: No respiratory distress. Painless inspiration. Breath sounds normal. No wheezes/rales/rhonchi noted. Chest nontender. No accessory muscle usage noted or decreased air movement noted. Abdomen: Soft and nontender. Bowel sounds normal in all 4 quadrants. No distention noted. No organomegaly noted. No visible injury noted. Back: No CVA tenderness. Full range of motion noted. Skin: Skin warm and dry. Normal skin color. Normal skin turgor. No rashes/lesions/lacerations noted. Extremities: No lower extremity edema. Extremities exhibit normal range of motion. Extremities nontender. Neuro: Oriented X 3. Cranial nerve exam: II-XII are grossly intact No motor deficit. No sensory deficit. Reflexes normal. Course Reevaluation(s) Reevaluation #1: obstructed Guy catheter, Guy catheter was changed in the ED. UTI start on cefuroxime 250 mg b.i.d.. Labs at baseline no evidence of BARRETT. Time: 04:10 Medications Administered Discontinued Medications Generic Name Dose Route Start Last Admin Trade Name Jolanta PRN Reason Stop Dose Admin Cefuroxime Axetil 250 mg 08/19/25 04:29 08/19/25 04:50 Cefuroxime Axetil 250 Mg Tablet PO 08/19/25 04:30 250 mg ONCE ONE Administration Medical Decision Making Differential Diagnosis Differential Diagnoses: The differential diagnosis associated with the presentation includes ( Malfunctioning Guy catheter, UTI, BARRETT, electrolyte derangement.) Admission/Observation Consideration of admission/observation: Escalation of care including admission/observation considered Lab Data 08/19/25 04:33 08/19/25 04:33 Labs: Lab Results 08/19/25 08/19/25 Range/Units 04:03 04:33 WBC 7.7 (4.8-10.8) X10*3/uL RBC 3.46 L (4.60-5.80) X10*6/uL Hgb 11.0 L (14.0-18.0) g/dl Hct 34.1 L (42.0-52.0) % MCV 98.6 H (80.0-98.0) fL MCH 31.8 (27.0-33.0) pg MCHC 32.3 (31.0-36.0) g/dl RDW 14.7 (11.0-16.0) % Plt Count 216 (160-400) X10*3/uL MPV 9.5 (9.4-12.4) fL Immature Gran % (Auto) 0.3 (0.0-0.4) % Neut % (Auto) 66.6 (45-73) % Lymph % (Auto) 19.3 L (20-40) % Leslie % (Auto) 9.3 (2-11) % Eos % (Auto) 3.7 (0-4) % Baso % (Auto) 0.8 (0-2) % Lymph # (Auto) 1.5 (1.2-4.9) X10*3/uL Leslie # (Auto) 0.7 (0.1-1.2) X10*3/uL Eos # (Auto) 0.3 (0.0-0.4) X10*3/uL Baso # (Auto) 0.1 (0.0-0.2) X10*3/uL Abs Immat Gran (auto) 0.02 (0.00-0.03) X10*3/uL Absolute Neuts (auto) 5.1 (2.0-8.3) x10*3/uL Absolute Nucleated RBC 0.000 (0.0-0.012) X10*3/uL Nucleated RBC % (auto) 0.0 (0.0-0.2) /100WBC Sodium 139 (135-145) mmol/L Potassium 3.8 (3.3-5.1) mmol/L Chloride 108 (96-108) mmol/L Carbon Dioxide 23 (22-29) mmol/L Anion Gap 12 (12-20) BUN 19 H (9-16) mg/dL Creatinine 0.77 (0.5-1.4) mg/dL Estim Creat Clear Calc 68.4 Estimated GFR > 60 Random Glucose 96 (60-115) mg/dL Calcium 9.1 (8.4-10.2) mg/dL Urine Color Yellow Urine Appearance Clear Urine pH 5.0 (5.0-9.0) Ur Specific [place] 1.025 (1.005-1.025) Urine Protein Trace (Neg-Trace) mg/dL Urine Glucose (UA) Negative (Negative) mg/dL Urine Ketones Negative (Negative) mg/dL Urine Blood Negative (Negative) Urine Nitrite Negative (Negative) Ur Leukocyte Esterase Small (1+) H (Negative) Urine RBC 0-2 (0-2) /HPF Urine WBC 21-50 H (0-5) /HPF Ur Squamous Epith Cells 3-5 (0-2) /HPF Urine Bacteria None Seen (None Seen) Hyaline Casts 6-10 (0-2) /LPF Discharge Plan Discharge Clinical Impression: Acute urinary retention, Complication of Guy catheter, Acute UTI Patient Disposition: Home, Self-Care Instructions: Guy Catheter Placement and Care (ED) Prescriptions: New cefuroxime axetil 250 mg tablet 250 mg PO BID Qty: 14 0RF No Action mirtazapine 7.5 mg tablet 7.5 mg PO BEDTIME Qty: 90 2RF levetiracetam 500 mg tablet 500 mg PO BID Qty: 60 0RF cefuroxime axetil 500 mg tablet 500 mg PO BID 10 Days Qty: 20 0RF acetaminophen [Tylenol] 325 mg capsule 650 mg PO Q6H PRN (Reason: pain) Qty: 30 0RF aspirin 81 mg tablet,delayed release (DR/EC) 81 mg PO DAILY Qty: 90 3RF atorvastatin 40 mg tablet 40 mg PO BEDTIME Qty: 90 3RF furosemide 20 mg tablet 20 mg PO DAILY Qty: 90 2RF lisinopril 10 mg tablet 10 mg PO DAILY Qty: 90 2RF omeprazole 20 mg capsule,delayed release(DR/EC) 20 mg PO DAILY Qty: 90 3RF ciprofloxacin HCl [Cipro] 250 mg tablet 250 mg PO BID Qty: 14 0RF multivitamin Tablet 1 tab PO DAILY Ultra CoQ10 75 mg capsule 75 mg PO DAILY finasteride [Proscar] 5 mg tablet 5 mg PO DAILY Qty: 90 3RF tamsulosin 0.4 mg capsule 0.4 mg PO BEDTIME Qty: 90 3RF Referrals: Po,Js Carrero MD [Primary Care Provider, Internal Medicine] Print Language: Albanian
[2025-08-19 04:08] LABS: Appearance Urine Clear; Glucose Urine UA Negative (Negative); PH 5.0 (5.0-9.0); Specific Gravity - Urine 1.025 (1.005-1.025); UMIC TRIGGER UACC YES
--- NOTE | 2025-08-19 04:14 | PC.NURSE ---
notified of pt deposition, awaiting ua results
[2025-08-19 04:16] LABS: UACC Culture Trigger YES
[2025-08-19 04:37] LABS: Hematocrit 34.1 % (42.0-52.0); Hemoglobin 11.0 g/dl (14.0-18.0); Imm Gran Abs Auto 0.02 X10*3/uL (0.00-0.03); Imm Gran Pct Auto 0.3 % (0.0-0.4); Lymphocytes Absolute Auto 1.5 X10*3/uL (1.2-4.9); MANUAL DIFF FLAG NO; Mean Corpuscular HGB Conc 32.3 g/dl (31.0-36.0); Mean Corpuscular Hemoglobin 31.8 pg (27.0-33.0); Mean Corpuscular Volume 98.6 fL (80.0-98.0); NRBC Abs Auto 0.000 X10*3/uL (0.0-0.012); NRBC Pct Auto 0.0 /100WBC (0.0-0.2); Platelet Count 216 X10*3/uL (160-400); Red Blood Count 3.46 X10*6/uL (4.60-5.80); White Blood Count 7.7 X10*3/uL (4.8-10.8)
--- NOTE | 2025-08-19 04:51 | PC.NURSE ---
medicated per mar.
[2025-08-19 04:55] LABS: Anion Gap 12 (12-20); Blood Urea Nitrogen 19 mg/dL (9-16); Calcium 9.1 mg/dL (8.4-10.2); Carbon Dioxide 23 mmol/L (22-29); Chloride 108 mmol/L (96-108); Creatinine Clr Calc Pharmacy 68.4; Estimated Glomerular Filt Rate > 60; Potassium 3.8 mmol/L (3.3-5.1); Sodium 139 mmol/L (135-145)
--- NOTE | 2025-08-19 05:45 | PC.NURSE ---
Notified pt okay for discharge, daughter will be coming to get him. Waiting his ride home.
[2025-08-19 06:52] VITALS: BP 126/58; PULSE 72; RESP 14; TEMP 36.6; O2SAT 98
--- NOTE | 2025-08-19 07:02 | PC.NURSE ---
Education on rollins care, pt brought out to car in wheel chair, daughter transported home, reviewed discharge instructions with pt. pt verbalized understanding.
== END 2025-08-19 07:04 | disposition home or self-care (01) ==
PROVIDERS: Emergency Provider Emergency Medicine; PCP Internal Medicine
DX: R33.9 Retention of urine, unspecified (principal); I10 Essential (primary) hypertension; N39.0 Urinary tract infection, site not specified; Y84.6 Urinary catheterization as the cause of abnormal reaction of the patient, or of later complication, without mention of misadventure at the time of the procedure; Y82.9 Unspecified medical devices associated with adverse incidents
CPT/HCPCS: 36415; 80048; 81001; 85025; 87086; 99283; 99284

== ENCOUNTER 2025-09-21 08:26 | Day surgery (SDC) | payer MEDICARE, SELFPAY ==
--- OUTSIDE RECORDS SUMMARY | 2024-04-20 06:20 | XMS_ITS ---
Author Organization [facility] Address [address] [place] [phone] Care Team Providers Care Hydro Pneumatic Tester Name Role Phone Js Allison MD Primary Care Provider Samy Rivas Jr REASON FOR VISIT Patient presents today for gerd Medications Medication SIG (Take, Route, Frequency, Duration) Notes Start Date End Date Status Lisinopril 20 MG Tablet 1 tablet Orally Once a day Active Omeprazole 20 MG Capsule Delayed Release 1 capsule 30 minutes before morning meal Orally Once a day; Duration: 30 day(s) Active Carvedilol 6.25 MG Tablet TAKE 1 TABLET BY MOUTH TWICE A DAY Oral; Duration: 90 Active Aspir-81 81 MG Tablet Delayed Release 1 tablet Orally Once a day Active Spironolactone 25 MG Tablet Oral; Duration: 90 Active Tamsulosin HCl 0.4 MG Capsule Extended Release as directed Orally Active Encounters Encounter Location Date Provider Diagnosis [facility] [address] [place] [phone] 04/20/2024 Samy Payne Jr Plan Of Treatment No Information Progress Notes * ROXANN MORRELL ADOB: [birth year] (89 yo M)Acc No.[id number]:04/20/2024 Progress Notes Patient: ROXANN MAX Provider: Ivis Payne MD :1935 A ge:89 Y S ex:Male Date:04/20/2024 Address:[address] [place] [address] [place] [facility] Pcp:Js Allison MD Subjective: * Chief Complaints: * P atient presents today for gerd * Medications: T akingTamsulosin HCl 0.4 MG Capsule Extended Release as directed Orally Omeprazole 20 MG Capsule Delayed Release 1 capsule 30 minutes before morning meal Orally Once a day Lisinopril 20 MG Tablet 1 tablet Orally Once a day Aspir-81 81 MG Tablet Delayed Release 1 tablet Orally Once a day Carvedilol 6.25 MG Tablet TAKE 1 TABLET BY MOUTH TWICE A DAY Oral Spironolactone 25 MG Tablet Oral Taking Tamsulosin HCl 0.4 MG Capsule Extended Release as directed Orally Taking Omeprazole 20 MG Capsule Delayed Release 1 capsule 30 minutes before morning meal Orally Once a day Taking Lisinopril 20 MG Tablet 1 tablet Orally Once a day Taking Aspir-81 81 MG Tablet Delayed Release 1 tablet Orally Once a day Taking Carvedilol 6.25 MG Tablet TAKE 1 TABLET BY MOUTH TWICE A DAY Oral Taking Spironolactone 25 MG Tablet Oral Billing Information: * Procedure Codes: * The named appointment provid er may or may not be the originator of this progress note, and it is not deemed complete until electronically signed by the appointment provider. Sign off status: Pending * Provider: Ivis Payne MD Date: 0 04/20/2024 Generated for Tito freeman/Errol/Talya on: 11/01/2024 11:29 PM EST
--- OUTSIDE RECORDS SUMMARY | 2025-09-01 23:30 | XMS_ITS | Patient Health Record ---
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 Name Role Phone Js Allison MD Primary Care Provider Samy Rivas Jr Unavailable [phone] Allergies No Known Allergies Reason For Referral No Information Medications Medication SIG (Take, Route, Frequency, Duration) Notes Start Date End Date Status Tamsulosin HCl 0.4 MG Capsule Extended Release as directed Orally Active Lisinopril 20 MG Tablet 1 tablet Orally [...] 25 MG Tablet Oral; Duration: 90 Active Immunizations Vaccine Route Administration Date Status Comme nts Flu vaccine no Preserv 3 and > Unknown 06/28/2015 Admin istered Influenza Unknown 08/30/2021 Administered Influenza Unknown 09/04/2022 Administered Social History Social History Additional Details Category Social Info Options Details Miscellaneous: Marital status: Occupation: retired Section Notes: Tobacco use is negative. Alc ohol use is one to 2 glasses of wine per day. Tobacco use is negative. Alc ohol use is one to 2 glasses of wine per day. Tobacco use is negative. Alc ohol use is one to 2 glasses of wine per day. Tobacco use is negative. Alc ohol use is one to 2 glasses of wine per day. Problems Problem Type SNOMED Code ICD Code Onset Dates Problem Status W/U Status Risk Notes Problem Colon cancer screening (875621397) Colon cancer screening (Z12.11) Active confirmed Problem Already on aspirin (462039594) [facility] current use of aspirin (Z79.82) Active confirmed Problem Gastroesophageal reflux disease without esophagitis (679779962) Gastroesophageal reflux disease without esophagitis (K21.9) Active confirmed Problem Malignant neoplasm of colon (652994343) Adenocarcinoma of colon (C18.9) Active confirmed Problem External hemorrhoids (69385702) External hemorrhoids (K64.4) Active confirmed Plan Of Treatment Future Test Test Name Order Date COLONOSCOPY 09/23/2015 Insurance Providers Payer Name Payer Address Payer Phone Subscriber Number Group Number Insured Name Patient Relationship to Insured Coverage Start Date Coverage End Date MEDICARE OF [place] [address] [place] [id number] ROXANN MORRELL Self - patient is the insured MEDEX ATTN CLAIMS [address] [place] [address] [phone] [id number] ROXANN MORRELL Self - patient is the [...]
[2025-09-17 09:04] VITALS: BMI 23.4
--- NOTE | 2025-09-17 09:14 | HO.ANESPROP2 ---
Documented by User: No Silva NP 09/17/25 09:25 HPI - Anesthesia Eval Consult details Narrative: 89 yr old male for TUR Prostate; Insertion Suprapubic Tube CAD: H/O NSTEMI x2; follows [facility] cards, last visit 04/2025, reported no angina symptoms; had cardiac cath 08/2023, s/p PCI of left main to LAD. Occluded ostial circuflex with left to left collaterals. Large 1st diagonal with 80% mid vessel stenosis. Ostial nondominant right coronary artery with 80-85% stenosis. *Cardiology clearance addendum 08/29/25 states: Discussed with Dr. Keith. No further options for revascularization. May procced with TURP. Intermediate cardiac risk. Ischemic cardiomyopathy: evidence on echo but no HF symptoms or signs per April 2025 cards note. 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 (Acute) Shoulder pain, right (Acute) Right leg weakness (Acute) Cardiomyopathy (Acute) Adult general medical exam (Acute) Chest discomfort (Acute) Anemia (Acute) TIA (transient ischemic attack) (Acute) Atherosclerotic cardiovascular disease (Acute) Heart failure with reduced ejection fraction (Acute) Colon cancer (Acute) Hypercholesterolemia (Acute) BPH (benign prostatic hyperplasia) (Acute) Hypertension (Acute) GERD (gastroesophageal reflux disease) (Acute) Past Medical History Medical History NSTEMI (non-ST elevated myocardial infarction) Atherosclerotic cardiovascular disease Heart failure with reduced ejection fraction Wheezing Vitamin D deficiency Thoracic cyst TIA (transient ischemic attack) Colon cancer Hypercholesterolemia BPH (benign prostatic hyperplasia) Hypertension GERD (gastroesophageal reflux disease) Family History Family History Father Medical history unknown Mother Hypertension Sister Breast cancer Surgical History Surgical History Hx of cardiac catheterization History of colectomy History of cholecystectomy Social History Social History Household Members: Spouse Housing: House Do you presently have visiting nurse or other home services: No Alcohol intake: current Alcohol intake frequency: holidays/special occasions only Alcohol type: wine Patient Tobacco Use Status: Former Tobacco user Tobacco use type: Cigarette Years Smoked: Quit 21 years old e-Cigarette/Vaping Use: Never Used Second Hand Smoke Exposure: Yes Have you been hit, kicked, punched, or otherwise hurt by someone within the past year? If so, by whom?: No Are you DNR?: No Advance Directives: No Advance Directives Information Provided: Yes Advance Directives Date on File: 04/27/24 service: No Current occupational status: retired Cognitive needs: No Hearing needs: No Vision needs: Yes Meds Allergies Allergy/AdvReac Type Severity Reaction Status Date / Time No Known Allergies (No Known Allergy Verified 08/19/25 02:00 Allergies*) Home Medications ?Medication ?Instructions ?Recorded ?Confirmed ?Last Taken ?Type coenzyme Q10 75 mg capsule (Ultra 75 mg PO DAILY 12/08/24 09/17/25 09/20/25 History CoQ10) multivitamin 1 tab PO DAILY 12/08/24 09/17/25 09/20/25 History ticagrelor 90 mg tablet (Brilinta) 90 mg PO BID 09/21/25 09/21/25 Unknown History Exam Height,Weight and Vital Signs: Height 5 ft 8 in Weight 69.853 kg Pertinent Lab Results Pertinent Lab Results: Laboratory Tests 08/19/25 04:33 WBC 7.7 RBC 3.46 L Hgb 11.0 L Hct 34.1 L Plt Count 216 Sodium 139 Potassium 3.8 BUN 19 H Creatinine 0.77 Narrative Narrative: ECHO 09/2024 Conclusions: - The left ventricular systolic function is moderately decreased. The calculated ejection fraction is 33% by biplane method. - The inferolateral wall and basal inferior segment are akinetic. - No obvious valvular pathology seen on this study. EKG as documented by cardiology at 04/2025 visit EKG with underlying sinus rhythm at 73/min; right bundle branch block; old interior/lateral infarct; normal OK/corrected QT Documented by User: Ashley Gutierres MD 09/21/25 09:58 PMFSH Past Medical History Medical History NSTEMI (non-ST elevated myocardial infarction) Atherosclerotic cardiovascular disease Heart failure with reduced ejection fraction Wheezing Vitamin D deficiency Thoracic cyst TIA (transient ischemic attack) Colon cancer Hypercholesterolemia BPH (benign prostatic hyperplasia) Hypertension GERD (gastroesophageal reflux disease) Family History Family History Father Medical history unknown Mother Hypertension Sister Breast cancer Surgical History Surgical History Hx of cardiac catheterization History of colectomy History of cholecystectomy History of Problems with Anesthesia: No Social History Social History Household Members: Spouse Housing: House Do you presently have visiting nurse or other home services: No Alcohol intake: current Alcohol intake frequency: holidays/special occasions only Alcohol type: wine Patient Tobacco Use Status: Former Tobacco user Tobacco use type: Cigarette Years Smoked: Quit 21 years old e-Cigarette/Vaping Use: Never Used Second Hand Smoke Exposure: Yes Have you been hit, kicked, punched, or otherwise hurt by someone within the past year? If so, by whom?: No Are you DNR?: No Advance Directives: No Advance Directives Information Provided: Yes Advance Directives Date on File: 04/27/24 service: No Current occupational status: retired Cognitive needs: No Hearing needs: No Vision needs: Yes Meds Allergies Allergy/AdvReac Type Severity Reaction Status Date / Time No Known Allergies (No Known Allergy Verified 08/19/25 02:00 Allergies*) Home Medications ?Medication ?Instructions ?Recorded ?Confirmed ?Last Taken ?Type coenzyme Q10 75 mg capsule (Ultra 75 mg PO DAILY 12/08/24 09/17/25 09/20/25 History CoQ10) multivitamin 1 tab PO DAILY 12/08/24 09/17/25 09/20/25 History ticagrelor 90 mg tablet (Brilinta) 90 mg PO BID 09/21/25 09/21/25 Unknown History Exam Airway Mallampati Class: III TM Dist: >3cm Neck ROM: Limited Loose/Missing/Broken Teeth: No Heart: RRR Lungs: CTA Assessment and Plan Assessment Anesthesia Assessment: Anesthesia Plan Discussed and Chart Reviewed Final Anesthetic Review History of Problems with Anesthesia: No NPO: Yes ASA Class: III Final Preanesthetic Review: Meds/Allgs Chart Reviewed, Consent Obtained/Reviewed and Anes Risks/Benef Reviewed Patient Risk: Intermediate Procedure Risk: Low Anesthetic Plan Anesthetic Plan: GA Disposition: Standard PACU
[2025-09-21] VITALS (15 sets, daily range): BP systolic 104–121; BP diastolic 42–65; PULSE 84–99; RESP 14–24; TEMP 36.3–36.6; O2SAT 94–100; BMI 23.6; BMI 25.8
[2025-09-21] MEDS: Lactated Ringers 1,000 ML 100 ML IVCONT (08:50)
--- NOTE | 2025-09-21 09:36 | MHC.SHP ---
Pre-Procedural Eval Section A - 24 Hr Update-Section A only Date of Service: 09/21/25 The patient is an INPATIENT: No The patient has been examined within 24 hours of the surgical procedure. The History & Physical has been completed within 30 days and I have reviewed it.: Yes Section B - Complete if H&P > 30 days Chief Complaint: Retention of urine, unspecified Allergies: Allergies Allergy/AdvReac Type Severity Reaction Status Date / Time No Known Allergies (No Known Allergy Verified 08/19/25 02:00 Allergies*) Plan Diagnosis/Plan: Unchanged I have reviewed the history and physical and performed a pertinent physical examination on my patient. No changes have occurred unless specified. Cystoscopy, cystotomy, suprapubic tube insertion, transurethral resection of prostate tissue. Time Spent With Patient Time: Total time managing care of this patient today ____ minutes.
--- NOTE | 2025-09-21 09:49 | P.OP_ITS ---
Operative Note Operative Note Date of Service: 09/21/25 Narrative: PREOP DIAGNOSIS: Bladder outlet obstruction, enlarged prostate, POSTOP DIAGNOSIS: Bladder outlet obstruction, enlarged prostate, PROCEDURE: CYSTOSCOPY TRANSURETHRAL RESECTION OF Prostate Cystotomy, Suprapubic tube insertion Anesthesia: General Details of procedure: The patient was brought into the operating room placed on the OR table in supine position. Gentamycin 160 mg, 2 g of Ancef IV. General anesthesia was administered. The patient was repositioned into lithotomy position, rollins removed, the patient was prepped and draped in the usual sterile fashion. Time-out was done per protocol. A 22 fr cystoscope was placed transurethrally into the bladder. The entire bladder was visualized. There were erythematous changes noted consistent with prior chronic catheter. The cystoscope was removed. Attention was taken to the abdomen. Palpation of the pubic bone and local injected, a spinal needle used to identify the bladder, A small incision was made 2 fingerbreaths above the pubic bone in the midline, the Subcutaneous tissue was dissected down to the fascia with blunt dissection. Initially the trocar was used however the catheter did not enter the bladder, next the lowsley retractor was then placed transurethrally and was palpated thru the abdominal incision, using a knife an incision was made into the bladder over the lowsley and a 20 fr rollins catheter was than attached to the lowsley and brought into the bladder. the lowsley retractor was removed and 10 mL was placed in the rollins balloon. The incision was closed and the SP rollins catheter secured. The 24 Ecuadorean resectoscope was passed transurethrally into the bladder. The bulbous urethra was within normal limits. The prostatic urethra - bilobar enlargement. The loop resectoscope was used to resect the prostate tissue, care was taken to preserve the Veru, the Ellik was used to irrigate out the prostatic chips, adequate hemostatsis was obtained. Once there was good hemostasis the resectoscope was removed. A [address] catheter 30 cc balloon was passed without difficulty. 40 mL H20 injected into the balloon, rollins placed on tension. CBI with Normal Saline was started in OR. The patient was brought out of anesthesia and taken to recovery in stable condition. Complications: None Drains: [address] catheter 30 cc balloon, 20 fr catheter for SP tube clamped
--- NOTE | 2025-09-21 12:32 | PHA.MEDREC ---
Pharmacy Consult ? Medication Reconciliation Pharmacy has reviewed the medication reconciliation completed by nursing.
[2025-09-21] MEDS: 0.9 % Sodium Chloride Flush 3 ML SYRINGE IVFLUSH (15:29)
[2025-09-22] VITALS: BP 102/56; PULSE 86; RESP 16; TEMP 36.4; O2SAT 98
[2025-09-22 04:00] VITALS: BP 129/58; PULSE 84; RESP 16; TEMP 36; O2SAT 97
[2025-09-22 08:00] VITALS: BP 129/58; PULSE 87; RESP 18; TEMP 36.1; O2SAT 97
--- NOTE | 2025-09-22 08:28 | HO.POSTANES ---
Post Anesthesia Evaluation Post Anesthesia Evaluation Date of Service: 09/22/25 Vital Signs: Vital Signs Temp Pulse Resp BP Pulse Ox O2 Del Method 09/22/25 04:00 96.8 F 84 16 129/58 L 97 Room Air 09/22/25 00:00 97.5 F 86 16 102/56 L 98 Room Air Anesthesia: General Mental Status: Awake (sleeping at evaluation; nurse said pt had no concerns over night) Pain Control: Satisfactory Nausea/Vomiting: None Hydration: Adequate Anesthesia-Related Issues: No Anes. Related Issues
[2025-09-22] MEDS: 0.9 % Sodium Chloride Flush 3 ML SYRINGE IVFLUSH ×3 (08:59→22:03)
--- NOTE | 2025-09-22 10:33 | MHC.CM.PN ---
IMM 09/22/25, Pt. lives with family, he does not use home health services, PCP confirmed: Dr. Allison, HCP on file and confirmed: [facility]. DCP: home, self care, family to transport, CM to follow for DC needs.
--- NOTE | 2025-09-22 15:43 | P.CONHOSP_ITS ---
History of Present Illness Data of Consult Service Date: 09/22/25 Primary Care Provider: Js Allison MD HPI Reason for consult: medical management 89yo M with BPH, HTN, GERD, HFrEF, CAD s/p[ PCI x2, partial complex seizure, and hx TIA who is POD1 from cystoscopy/TURP for bladder outlet obstruction from enlarged prostate; hospitalist consultation requested for management of comorbid medical conditions. Has Guy in place. Denies any pain or hematuria. Tolerating diet. No chest pain or dyspnea. No leg swelling. Review of Systems Review of Systems: Yes all other systems are reviewed and are negative [facility] Medical History NSTEMI (non-ST elevated myocardial infarction) Atherosclerotic cardiovascular disease Heart failure with reduced ejection fraction Wheezing Vitamin D deficiency Thoracic cyst TIA (transient ischemic attack) Colon cancer Hypercholesterolemia BPH (benign prostatic hyperplasia) Hypertension GERD (gastroesophageal reflux disease) Family History Father Medical history unknown Mother Hypertension Sister Breast cancer Surgical History Hx of cardiac catheterization History of colectomy History of cholecystectomy Social History Household Members: Spouse Housing: House Do you presently have visiting nurse or other home services: No Alcohol intake: current Alcohol intake frequency: holidays/special occasions only Alcohol type: wine Patient Tobacco Use Status: Former Tobacco user Tobacco use type: Cigarette Years Smoked: Quit 21 years old e-Cigarette/Vaping Use: Never Used Second Hand Smoke Exposure: Yes Currently Displaying Signs/Symptoms of Drug Intoxication Withdrawal: No Have you been hit, kicked, punched, or otherwise hurt by someone within the past year? If so, by whom?: No Do you feel safe in your current relationship?: Yes Is there a partner from a previous relationship who is making you feel unsafe now?: No Are you made to feel afraid or neglected: No Are you DNR?: No Advance Directives: No Advance Directives Information Provided: Yes Advance Directives Date on File: 04/27/24 Do you have a plan to hurt others: No Plan Recently lost weight without trying: No Nutrition Risks: No Nutritional Risk service: No Current occupational status: retired Cognitive needs: No Hearing needs: No Vision needs: Yes Meds Allergies Allergy/AdvReac Type Severity Reaction Status Date / Time No Known Allergies (No Known Allergy Verified 08/19/25 02:00 Allergies*) Active Medications: Current Medications Acetaminophen (Acetaminophen 325 Mg Tablet) 650 mg PO Q6H PRN PRN Reason: Pain, Mild 1-3,fever,headache Atorvastatin Calcium (Atorvastatin Calcium 40 Mg Tablet) 40 mg PO BEDTIME IVY Last Admin: 09/21/25 21:07 Dose: 40 mg Calcium Carbonate (Calcium Carbonate 750 Mg Tab.Chew) 750 mg PO Q4H PRN PRN Reason: Heartburn Finasteride (Finasteride 5 Mg Tablet) 5 mg PO DAILY [facility] Last Admin: 09/22/25 08:53 Dose: 5 mg Furosemide (Furosemide 20 Mg Tablet) 20 mg PO DAILY [facility]; Protocol Last Admin: 09/22/25 08:53 Dose: 20 mg Hydromorphone HCl (Hydromorphone Hcl 1 Mg/Ml Syringe) 0.5 mg IVPUSH Q4H PRN; Protocol PRN Reason: Pain, Severe (Pain Scale 8-10) Cefepime HCl 1 gm/ Sodium (Chloride) 50 mls @ 100 mls/hr IV Q12H [facility] Last Infusion: 09/22/25 06:18 Dose: Infused Levetiracetam (Levetiracetam 500 Mg Tablet) 500 mg PO BID IVY Last Admin: 09/22/25 08:52 Dose: 500 mg Lisinopril (Lisinopril 10 Mg Tablet) 10 mg PO DAILY [facility]; Protocol Last Admin: 09/22/25 08:53 Dose: 10 mg Magnesium Hydroxide (Milk Of Magnesia 30 Ml Oral.Susp) 30 ml PO DAILY PRN PRN Reason: Constipation Melatonin (Melatonin 3 Mg Tablet) 6 mg PO BEDTIME PRN PRN Reason: Insomnia Mirtazapine (Mirtazapine 7.5 Mg Tablet) 7.5 mg PO BEDTIME IVY Last Admin: 09/21/25 21:06 Dose: 7.5 mg Multivitamins/Vitamin C (Multivitamin Tablet) 1 tab PO DAILY IVY Naloxone HCl (Naloxone Hcl 0.4 Mg/Ml Vial) 0.04 mg IVPUSH Q5M PRN PRN Reason: Excessive sedation or RR < 8 Omeprazole (Omeprazole 20 Mg Capsule.) 20 mg PO DAILY@0630 [facility] Last Admin: 09/22/25 06:47 Dose: Not Given Ondansetron HCl (Ondansetron Hcl 4 Mg/2 Ml Vial) 4 mg IVPUSH Q8H PRN PRN Reason: Nausea and Vomiting Oxycodone HCl (Oxycodone Hcl Immed Release 5 Mg Tablet) 5 mg PO Q6H PRN PRN Reason: Pain, Severe (Pain Scale 4-8) Sodium Chloride (0.9 % Sodium Chloride Flush 3 Ml Syringe) 3 ml IVFLUSH QSHIFT [facility] Last Admin: 09/22/25 08:59 Dose: 3 ml Home Medications ?Medication ?Instructions ?Recorded ?Confirmed ?Last Taken ?Type coenzyme Q10 75 mg capsule (Ultra 75 mg PO DAILY 12/0809/17/25 09/20/25 History CoQ10) multivitamin 1 tab PO DAILY 12/08/24 120 03/0709/20/25 History Physical Exam Vital Signs and Narrative: Vital Signs: Last Vital Signs Temp 96.9 F 09/22/25 08:00 Pulse 87 09/22/25 08:00 Resp 18 09/22/25 08:00 BP 129/58 L 09/22/25 08:00 Pulse Ox 97 09/22/25 08:00 O2 Del Method Room Air 09/22/25 08:00 BMI result Body Mass Index 25.8 Gen: in no acute distress HEENT: sclera anicteric, moist mucus membranes Neck: supple Lungs: clear to auscultation bilaterally Heart: regular rate and rhythm, no murmurs Abd: soft, non-tender, non-distended : Guy Ext: no edema Skin: warm/well-perfused Neuro: alert and oriented x3, no focal findings Psych: appropriate affect Assessment and Plan (1) Atherosclerotic cardiovascular disease: Status: Acute 89yo M with BPH, HTN, GERD, HFrEF, CAD s/p PCI x2, partial complex seizure, and hx TIA who is POD1 from cystoscopy/TURP for bladder outlet obstruction from enlarged prostate; hospitalist consultation requested for management of comorbid medical conditions. CAD: statin, OK to resume ASA per Urology; seen by Cardiology Apr 2025 and deemed intermediate-risk for surgery chronic HFrEF [33% Sep 2024]: furosemide, lisinopril seizure disorder: Keppra GERD: PPI prostatism: finasteride VTE ppx: SCDs Thank you for this consultation. We are signing off the case at this time. Please communicate with us if any new medical questions arise.
[2025-09-22 16:00] VITALS: BP 139/63; PULSE 81; RESP 18; TEMP 36.3; O2SAT 98
--- NOTE | 2025-09-22 16:02 | PM.UROPN ---
Subjective Subjective Date of Service: 09/22/25 Interval history: s/p TURP, SP tube, some pain SP tube site, states feels weak Physical Exam Vital Signs: Vital Signs: Last Vital Signs Temp 96.9 F 09/22/25 08:00 Pulse 87 09/22/25 08:00 Resp 18 09/22/25 08:00 BP 129/58 L 09/22/25 08:00 Pulse Ox 97 09/22/25 08:00 O2 Del Method Room Air 09/22/25 08:00 BMI result Body Mass Index 25.8 GI: Other: dressing intact Progress Note: A&P Assessment and plan (1) Urinary retention: Status: Acute (2) Hematuria: Status: Acute (3) Status post transurethral resection of prostate: Status: Acute Plan urine clear on CBI. DC rollins, Voiding trial Hospitalist to see, Physicial therapy Time Spent With Patient Time: Total time managing care of this patient today ____ minutes.
[2025-09-22 19:45] VITALS: BP 134/62; PULSE 91; RESP 16; TEMP 36.8; O2SAT 94
--- NOTE | 2025-09-22 23:52 | PC.NURSE ---
Assumed care of this patient with med-surg orders 19:00 hour. VSS. Handoff report given to Receiving S3 RN ~23:30. Patient lost IV access, replaced ~23:45 due to scheduled abx. Update provided to RN. Patient transferred in stable condition with all belongings at 23:55.
[2025-09-23 00:09] VITALS: BP 132/63; PULSE 92; RESP 16; TEMP 36; O2SAT 96
[2025-09-23 03:13] VITALS: BP 143/63; PULSE 95; RESP 16; TEMP 36; O2SAT 98
[2025-09-23 07:45] VITALS: BP 133/61; PULSE 91; RESP 17; TEMP 36.4; O2SAT 96
[2025-09-23] MEDS: 0.9 % Sodium Chloride Flush 3 ML SYRINGE IVFLUSH (09:07)
--- NOTE | 2025-09-23 15:06 | P.F2F_ITS ---
Service Date Service Date: 09/23/25 Encounter Date of encounter: 09/23/25 Reasons for Services Signs and symptoms assessed: Pt is s/p TURP and suprapubic tube insertion on 09/21/25, seen by PT, uses walker at baseline, has some weakness, would benefit from therapy Reason for detention: wound care and postoperative assessment and/or care Reason for physical therapy: home safety and mobility and therapeutic exercises Homebound: Leaving the home is medically contraindicated at this time without the asist of a device and/or another person due th the listed conditions above and below. Reason homebound: unsteady gait / fall risk Certification: Based on the above findings, I certify that this patient is confined to the home and needs intermittent detention care, physical therapy and/or speech therapy, or continues to need occupational therapy. The patient is under my care, and I have initiated the establishment of the plan of care. The patient will be followed by a physician who will periodically review the plan of care. Time Spent With Patient Time: Total time managing care of this patient today ____ minutes.
--- NOTE | 2025-09-23 15:06 | P.DS_ITS ---
DS: Providers Provider Date of admission: 09/21/25 Date of discharge: 09/23/25 Primary care physician: Js Allison MD Attending physician on admission: Osmel Womack Consults: 09/22/25 15:14 Consult to Hospitalist Stat Comment: Consulting Provider: [facility] Hospitalists Reason For Exam: post op TURP, hx of CAD, med management Attending physician on discharge: Osmel Womack DS: Diagnosis Discharge Diagnosis (1) Urinary retention: Status: Acute (2) Hematuria: Status: Acute (3) Status post transurethral resection of prostate: Status: Acute DS: Summary Hospital Course Hospital Course: Andrés is an 89yo male with BPH, HTN, GERD, HFrEF, CAD s/p[ PCI x2, partial complex seizure, and hx TIA with urinary retention, status post cystoscopy/TURP and suprapubic insertion on 09/21/25; hospitalist consultation requested for management of comorbid medical conditions. He was placed no CBI post op for expected hematuria. Urine was clear and Urethral catheter removed on POD#1, pt had urinary incontinence with incomplete bladder emptying, thus SP tube was placed to gravity drainage. He is Tolerating diet. No chest pain or dyspnea. No leg swelling. PT evaluated patient, he has some deconditioning and Outpatient PT ordered as well and VNA for wound assessmnet of SP tube site. Status at Discharge Cognitive/behavioral status at discharge: at baseline Functional status at discharge: uses cane/walker Overall status at discharge: patient is progressing back to baseline Time Attestation Total time managing care of this patient today: 45 mintues. Discharge Coordination Time (in mins): 45 minutes Quality: Safe Use of Opioids Does Pt have an Active Cancer Diagnosis on the Problem List?: No Quality: Stroke Does the patient have a stroke diagnosis?: No Physical Exam Vital Signs: Vital Signs: Last Vital Signs Temp 97.5 F 09/23/25 07:45 Pulse 91 09/23/25 07:45 Resp 17 09/23/25 07:45 BP 133/61 09/23/25 07:45 Pulse Ox 96 09/23/25 07:45 O2 Del Method Room Air 09/23/25 07:45 BMI result Body Mass Index 25.8 DS: Data Data Completed and Pending Completed studies during hospitalization [Text1]: Pending at discharge 09/21/25 11:25 Surgical [PTH] Routine Discharge Plan Discharge Patient Disposition: Home Health Service Referrals: Latha DAMON [Outside] - 1 Week Po,Js Carrero MD [Primary Care Provider, Internal Medicine] - 1 Week Discharge Medications: New cefuroxime axetil 250 mg tablet 250 mg PO BID 5 Days Qty: 10 0RF ibuprofen 400 mg tablet 400 mg PO TID PRN (Reason: pain) Qty: 20 0RF Continued mirtazapine 7.5 mg tablet 7.5 mg PO BEDTIME Qty: 90 2RF levetiracetam 500 mg tablet 500 mg PO BID Qty: 60 0RF acetaminophen [Tylenol] 325 mg capsule 650 mg PO Q6H PRN (Reason: pain) Qty: 30 0RF aspirin 81 mg tablet,delayed release (DR/EC) 81 mg PO DAILY Qty: 90 3RF atorvastatin 40 mg tablet 40 mg PO BEDTIME Qty: 90 3RF furosemide 20 mg tablet 20 mg PO DAILY Qty: 90 2RF lisinopril 10 mg tablet 10 mg PO DAILY Qty: 90 2RF omeprazole 20 mg capsule,delayed release(DR/EC) 20 mg PO DAILY Qty: 90 3RF multivitamin Tablet 1 tab PO DAILY Ultra CoQ10 75 mg capsule 75 mg PO DAILY finasteride [Proscar] 5 mg tablet 5 mg PO DAILY Qty: 90 3RF Discontinued tamsulosin 0.4 mg capsule 0.4 mg PO BEDTIME Qty: 90 3RF Discharge Orders: Discharge Order (Routine); Ordered 09/23/25 Ordered By: Osmel Womack Diet: Advance to usual diet Activity on Discharge: As tolerated Print Language: Portuguese
[2025-09-23 16:00] VITALS: BP 109/58; PULSE 88; RESP 19; TEMP 36.4; O2SAT 98
--- NOTE | 2025-09-23 16:01 | MHC.CM.PN ---
CM MET WITH PT AND DAUGHTER TO DISCUSS DCP THEY UNDERSTAND STR WAS RECOMMENDED BY PT, HOWEVER PT WAS SDC SO MCR WOULD NOT COVER PTS DAUGHTER REPORTS SHE CAN ASSIST AND IS NOT WORRIED ABOUT TAKING HIM HOME HE DOES NOT AMBULATE MUCH DUE TO HER MOTHER BEING W/C BOUND, SHE SAYS HE MOSTLY JUST SITS WITH HER SHE UNDERSTANDS A VNA WILL CONTACT THEM DIRECTLY FOR SOC SHE WILL PROVIDE TRANSPORT
== END 2025-09-23 17:28 | disposition home health service (06) ==
LOC: HO.SSS 08:27 → HO.IMC 14:26 → HO.S3 09-22 23:40
PROVIDERS: PCP Internal Medicine; Visit Provider Urology
PROC: 0VT08ZZ Resection of Prostate, Via Natural or Artificial Opening Endoscopic (ICD-10-PCS; CPT 52601; principal; 2025-09-21 10:00)
PROC: (CPT 51102; 2025-09-21 10:00)
DX: N40.1 Benign prostatic hyperplasia with lower urinary tract symptoms (principal); N13.8 Other obstructive and reflux uropathy; R33.8 Other retention of urine; R31.9 Hematuria, unspecified; I25.10 Atherosclerotic heart disease of native coronary artery without angina pectoris; Z95.5 Presence of coronary angioplasty implant and graft; I11.0 Hypertensive heart disease with heart failure; I50.20 Unspecified systolic (congestive) heart failure; I25.2 Old myocardial infarction; E78.00 Pure hypercholesterolemia, unspecified; K21.9 Gastro-esophageal reflux disease without esophagitis; G40.209 Localization-related (focal) (partial) symptomatic epilepsy and epileptic syndromes with complex partial seizures, not intractable, without status epilepticus; Z85.038 Personal history of other malignant neoplasm of large intestine; Z90.49 Acquired absence of other specified parts of digestive tract; Z86.73 Personal history of transient ischemic attack (TIA), and cerebral infarction without residual deficits; Z79.82 Long term (current) use of aspirin; Z79.899 Other long term (current) drug therapy; Z87.891 Personal history of nicotine dependence
CPT/HCPCS: 52601; 87086; 88305; 97162; J0690; J0692; J1580; J2003; J2371; J2405; J2704; J2795; J3010

== ENCOUNTER → 2025-09-21 08:26 | Outpatient (BNV) | payer MEDICARE, SELFPAY | PROVIDERS: PCP Internal Medicine; Visit Provider Family Medicine | DX: I25.10 Atherosclerotic heart disease of native coronary artery without angina pectoris (principal) | CPT/HCPCS: 99222 ==

== ENCOUNTER → 2025-09-21 08:26 | Outpatient (BNV) | payer MEDICARE, SELFPAY | PROVIDERS: PCP Internal Medicine; Visit Provider Urology | DX: R33.9 Retention of urine, unspecified (principal); R31.9 Hematuria, unspecified; Z90.79 Acquired absence of other genital organ(s) | CPT/HCPCS: 99232; 99239; G0180 ==

== ENCOUNTER 2025-09-26 03:54 | Emergency (ER) | payer MEDICARE, SELFPAY ==
--- OUTSIDE RECORDS SUMMARY | 2024-04-20 06:20 | XMS_ITS ---
Author Organization [facility] Address [address] [place] [phone] Care Team Providers Care Rubber Flap Cutter Name Role Phone Js Allison MD Primary [...] Active Encounters Encounter Location Date Provider Diagnosis [facility] [address] [place] [phone] 04/20/2024 Samy Payne Jr Plan Of Treatment No Information Progress Notes * ROXANN MORRELL ADOB: [birth year] (89 yo M)Acc No.[id number]:04/20/2024 Progress Notes Patient: ROXANN MAX Provider: Ivis Payne MD :1935 A ge:89 Y S ex:Male Date:04/20/2024 Address:[address] [place] [address], [place] [facility] Pcp:Js Allison MD Subjective: * Chief Complaints: [...] 04/20/2024 Generated for Tito freeman/Errol/Talya on: 1 11/27/2024 06:00 AM EST
--- NOTE | ~2025-09-26 | CT_ITS ---
CLINICAL HISTORY: pain lower abdomen, has suprapubic cath CT abdomen and pelvis with contrast Comparison: 05/04/2024 Findings: The lung bases are clear. There is a sliding hiatal hernia. Solid organs are within normal limits. There are no abnormal findings in the gallbladder fossa. No renal stones. No bowel obstruction, pneumoperitoneum, or pneumatosis. Suprapubic catheter is in position. Urinary bladder wall is thickened, possible cystitis. There is subcutaneous emphysema, possibly iatrogenic. Pelvic contents otherwise unremarkable. Normal appendix. The bones are intact. IMPRESSION: Urinary bladder wall changes, possible cystitis. Correlate clinically. This document has been electronically signed by: Guanako Lopez MD on 09/26/2025 06:20:37
[2025-09-26 04:03] VITALS: BP 124/77; BP 126/51; PULSE 65; PULSE 85; RESP 16; TEMP 36.5; O2SAT 100; O2SAT 99; BMI 22.6
[2025-09-26 05:05] LABS: Hematocrit 32.8 % (42.0-52.0); Hemoglobin 10.9 g/dl (14.0-18.0); Imm Gran Abs Auto 0.01 X10*3/uL (0.00-0.03); Imm Gran Pct Auto 0.1 % (0.0-0.4); Lymphocytes Absolute Auto 1.7 X10*3/uL (1.2-4.9); MANUAL DIFF FLAG NO; Mean Corpuscular HGB Conc 33.2 g/dl (31.0-36.0); Mean Corpuscular Hemoglobin 31.6 pg (27.0-33.0); Mean Corpuscular Volume 95.1 fL (80.0-98.0); NRBC Abs Auto 0.000 X10*3/uL (0.0-0.012); NRBC Pct Auto 0.0 /100WBC (0.0-0.2); Platelet Count 326 X10*3/uL (160-400); Red Blood Count 3.45 X10*6/uL (4.60-5.80); White Blood Count 9.1 X10*3/uL (4.8-10.8)
[2025-09-26 05:07] LABS: Appearance Urine Cloudy; Glucose Urine UA Negative (Negative); PH 5.5 (5.0-9.0); Specific Gravity - Urine 1.025 (1.005-1.025); UMIC TRIGGER UACC YES
[2025-09-26 05:17] LABS: UACC Culture Trigger YES
[2025-09-26 05:21] LABS: Alanine Aminotransferase 27 U/L (0-40); Albumin Level 4.0 g/dL (3.5-5.0); Alkaline Phosphatase 122 U/L (39-117); Anion Gap 13 (12-20); Aspartate Amino Transferase 32 U/L (5-37); Blood Urea Nitrogen 25 mg/dL (9-16); Calcium 9.6 mg/dL (8.4-10.2); Carbon Dioxide 25 mmol/L (22-29); Chloride 106 mmol/L (96-108); Creatinine Clr Calc Pharmacy 67.7; Estimated Glomerular Filt Rate > 60; Magnesium 2.1 mg/dL (1.6-2.6); Potassium 4.1 mmol/L (3.3-5.1); Sodium 140 mmol/L (135-145); Total Protein 7.2 g/dL (6.5-8.0)
[2025-09-26] MEDS: iohexoL 350 MG/ML 100 ML INFUS..BTL 85 ML IV (05:42)
--- NOTE | 2025-09-26 05:52 | ED.GENADULT ---
HPI - General Adult General Chief complaint: Abdominal Pain Stated complaint: URINARY RETENTION Time Seen by Provider: 09/26/25 04:49 Source: patient Limitations: no limitations History of Present Illness ED Provider: Juana Guy PA-C HPI narrative: 89-year-old male with a history of BPH with subsequent urinary retention, status both TURP and suprapubic catheter last month, hypertension, hyperlipidemia, known coronary artery disease, prior NSTEMI, cardiomyopathy, systolic heart failure with reduced EF of 33% on ECHO 09/2024, who presents with abdominal pain. Patient states he developed lower abdominal discomfort overnight, surrounding the suprapubic catheter. He thought he was retaining urine. Denies nausea vomiting diarrhea or constipation. Related Data Home Medications ?Medication ?Instructions ?Recorded ?Confirmed coenzyme Q10 75 mg capsule (Ultra 75 mg PO DAILY 12/08/24 09/17/25 CoQ10) multivitamin 1 tab PO DAILY 12/08/24 09/17/25 Previous Rx's ?Medication ?Instructions ?Recorded acetaminophen 325 mg capsule 650 mg (2 x 325 mg) PO Q6H PRN 05/04/24 (Tylenol) pain #30 caps aspirin 81 mg tablet,delayed 81 mg PO DAILY #90 tabs 06/18/25 release atorvastatin 40 mg tablet 40 mg PO BEDTIME #90 tabs 06/18/25 furosemide 20 mg tablet 20 mg PO DAILY #90 tabs 06/18/25 lisinopril 10 mg tablet 10 mg PO DAILY #90 tabs 06/18/25 omeprazole 20 mg capsule,delayed 20 mg PO DAILY #90 caps 06/18/25 release finasteride 5 mg tablet (Proscar) 5 mg PO DAILY #90 tabs 07/12/25 mirtazapine 7.5 mg tablet 7.5 mg PO BEDTIME #90 tabs 07/21/25 levetiracetam 500 mg tablet 500 mg PO BID #60 tabs 08/15/25 cefuroxime axetil 250 mg tablet 250 mg PO BID 5 days #10 tabs 09/23/25 ibuprofen 400 mg tablet 400 mg PO TID PRN pain #20 tabs 09/23/25 ciprofloxacin HCl 500 mg tablet 500 mg PO Q12H #19 tabs 09/26/25 Allergies Allergy/AdvReac Type Severity Reaction Status Date / Time No Known Allergies (No Known Allergy Verified 09/26/25 04:10 Allergies*) Review of Systems Review of Systems: Yes all other systems are reviewed and are negative Constitutional: Constitutional: Denies fatigue and Denies fever(s) Cardiovascular: Cardiovascular: Denies chest pain and Denies dyspnea Respiratory: Respiratory: Denies dyspnea Gastrointestinal: Gastrointestinal: Reports abdominal pain, Denies constipation, Denies diarrhea, Denies nausea and Denies vomiting Musculoskeletal: Musculoskeletal: Denies back pain Endocrine: Endocrine: Denies fatigue [facility] Past Medical History Attestation statement: The following information was validated with the patient. Medical History NSTEMI (non-ST elevated myocardial infarction) Atherosclerotic cardiovascular disease Heart failure with reduced ejection fraction Wheezing Vitamin D deficiency Thoracic cyst TIA (transient ischemic attack) Colon cancer Hypercholesterolemia BPH (benign prostatic hyperplasia) Hypertension GERD (gastroesophageal reflux disease) Surgical History Hx of cardiac catheterization History of colectomy History of cholecystectomy Family History Family History Father Medical history unknown Mother Hypertension Sister Breast cancer Social History Social History Household Members: Spouse Housing: House Do you presently have visiting nurse or other home services: No Alcohol intake: current Alcohol intake frequency: holidays/special occasions only Alcohol type: wine Comment: camera placed as pt is impulsive Patient Tobacco Use Status: Former Tobacco user Tobacco use type: Cigarette Years Smoked: Quit 21 years old Smoked in Last 30 Days: No e-Cigarette/Vaping Use: Never Used Second Hand Smoke Exposure: Yes Use of substances other than those prescribed or required for medical reasons: No Advance Directives: Yes Advance Directives on File: Yes Advance Directives Date on File: 04/27/24 service: No Current occupational status: retired Cognitive needs: No Hearing needs: No Vision needs: Yes Physical Exam ED Vital Signs: Vital Signs - 24 hr 09/26/25 06:14 09/26/25 07:41 09/26/25 11:06 Temperature 97 F 97 F Pulse Rate 83 83 83 Respiratory Rate 16 18 18 Blood Pressure 145/67 H 134/64 134/64 Pulse Oximetry 97 95 95 Oxygen Delivery Method Room Air Room Air Room Air BMI result Body Mass Index 22.6 Const Other: Alert Orientation/consciousness: patient oriented x3 Resp Effort & Inspection: normal respiratory effort Cardio Other: Normal peripheral perfusion GI Other: Abdomen is soft, nondistended, mild to moderate tenderness across entire lower abdomen, most pronounced in relation to the suprapubic catheter Skin Other: Warm dry no rash Neuro General: patient oriented x3, no focal motor deficits and CN's II-XI intact bilaterally Psych Other: Cooperative Course Course Course Narrative: Signed out to day team pending imaging and final disposition Reevaluation(s) Reevaluation #1: CT abdomen pelvis: The lung bases are clear. There is a sliding hiatal hernia. Solid organs are within normal limits. There are no abnormal findings in the gallbladder fossa. No renal stones. No bowel obstruction, pneumoperitoneum, or pneumatosis. Suprapubic catheter is in position. Urinary bladder wall is thickened, possible cystitis. There is subcutaneous emphysema, possibly iatrogenic. Pelvic contents otherwise unremarkable. Normal appendix. The bones are intact.. DR. Caba's note, patient is asymptomatic no abdominal pain and CT abdomen pelvis is showing no acute pathology, patient will be discharged on antibiotic for UTI Time: 07:28 Reevaluation #2: On discharge patient found to have a blood in the suprapubic bag and blood coming out of the penis, suprapubic catheter was replaced by a 20 gauge catheter with slightly pink urine out. Patient will be observed until urine output is clear. Time: 09:18 Reevaluation #3: After suprapubic catheter was replaced patient was monitored in the ED with clear urine output from the suprapubic catheter. Patient now can be discharged on antibiotic and follow-up with PCP. Patient is hemodynamically stable with VSS, no abdominal pain at discharge. Time: 11:00 Medications Administered Discontinued Medications Generic Name Dose Route Start Last Admin Trade Name Freq PRN Reason Stop Dose Admin Ciprofloxacin 400 mg in 200 mls @ 200 mls/hr 09/26/25 06:07 09/26/25 07:25 Cipro IV 09/26/25 07:06 Infused ONCE ONE Infusion Iohexol 85 ml 09/26/25 05:42 09/26/25 05:42 Iohexol 350 Mg/Ml 100 Ml Infus..Btl IV 09/26/25 05:43 85 ml ONCE ONE Administration Medical Decision Making Medical Decision Making [facility] Narrative: 89-year-old male with a history of BPH with subsequent urinary retention, status both TURP and suprapubic catheter last month, hypertension, hyperlipidemia, known coronary artery disease, prior NSTEMI, cardiomyopathy, systolic heart failure with reduced EF of 33% on ECHO 09/2024, who presents with abdominal pain. Patient states he developed lower abdominal discomfort overnight, surrounding the suprapubic catheter. He thought he was retaining urine. Denies nausea vomiting diarrhea or constipation. Problem: Age, vascular disease, known suprapubic catheter History: Per patient I have considered the following differential diagnoses: Urinary retention, suprapubic catheter dysfunction, urinary tract infection, other acute intra-abdominal pathology Plan: Patient here with vague abdominal pain, he thought he was retaining that the catheter was dysfunctioning, it is not. He had no urine in the bladder per bladder scan. The bag was exchanged, he is freely draining urine. He does have palpable tenderness of the lower abdomen, he could simply have a urinary tract infection, we will add screening labs and a UA. However given his age, we will scan his abdomen. I have independently reviewed the following tests: Labs: No leukocytosis, not anemic, no electrolyte abnormality, urine does appear infected, although he may be colonized...... In review of last urine culture from June of this year, the patient is susceptible to ciprofloxacin CT abdomen and pelvis: Pending at the time of sign-out Differential Diagnosis Differential Diagnoses: The differential diagnosis associated with the presentation includes See [facility] Admission/Observation Consideration of admission/observation: Escalation of care including admission/observation considered Lab Data [facility] Lab Attestation statement: I reviewed the patient's lab results. 09/26/25 05:00 09/26/25 05:00 Labs: Lab Results 09/26/25 Range/Units 05:00 WBC 9.1 (4.8-10.8) X10*3/uL RBC 3.45 L (4.60-5.80) X10*6/uL Hgb 10.9 L (14.0-18.0) g/dl Hct 32.8 L (42.0-52.0) % MCV 95.1 (80.0-98.0) fL MCH 31.6 (27.0-33.0) pg MCHC 33.2 (31.0-36.0) g/dl RDW 14.6 (11.0-16.0) % Plt Count 326 D (160-400) X10*3/uL MPV 9.5 (9.4-12.4) fL Immature Gran % (Auto) 0.1 (0.0-0.4) % Neut % (Auto) 65.1 (45-73) % Lymph % (Auto) 18.5 L (20-40) % [place] % (Auto) 10.7 (2-11) % Eos % (Auto) 4.9 H (0-4) % Baso % (Auto) 0.7 (0-2) % Lymph # (Auto) 1.7 (1.2-4.9) X10*3/uL [place] # (Auto) 1.0 (0.1-1.2) X10*3/uL Eos # (Auto) 0.5 H (0.0-0.4) X10*3/uL Baso # (Auto) 0.1 (0.0-0.2) X10*3/uL Abs Immat Gran (auto) 0.01 (0.00-0.03) X10*3/uL Absolute Neuts (auto) 5.9 (2.0-8.3) x10*3/uL Absolute Nucleated RBC 0.000 (0.0-0.012) X10*3/uL Nucleated RBC % (auto) 0.0 (0.0-0.2) /100WBC Sodium 140 (135-145) mmol/L Potassium 4.1 (3.3-5.1) mmol/L Chloride 106 (96-108) mmol/L Carbon Dioxide 25 (22-29) mmol/L Anion Gap 13 (12-20) BUN 25 H (9-16) mg/dL Creatinine 0.76 (0.5-1.4) mg/dL Estim Creat Clear Calc 67.7 Estimated GFR > 60 Random Glucose 103 (60-115) mg/dL Calcium 9.6 (8.4-10.2) mg/dL Magnesium 2.1 (1.6-2.6) mg/dL Total Bilirubin 0.2 (0.0-1.0) mg/dL AST 32 (5-37) U/L ALT 27 (0-40) U/L Alkaline Phosphatase 122 H (39-117) U/L Total Protein 7.2 (6.5-8.0) g/dL Albumin 4.0 (3.5-5.0) g/dL Urine Color Dark Yellow Urine Appearance Cloudy Urine pH 5.5 (5.0-9.0) Ur Specific [place] 1.025 (1.005-1.025) Urine Protein 300 (3+) H (Neg-Trace) mg/dL Urine Glucose (UA) Negative (Negative) mg/dL Urine Ketones Trace (Negative) mg/dL Urine Blood Large (3+) H (Negative) Urine Nitrite Negative (Negative) Ur Leukocyte Esterase Moderate (2+) H (Negative) Urine RBC >20 H (0-2) /HPF Urine WBC >50 H (0-5) /HPF Ur Squamous Epith Cells 0-2 (0-2) /HPF Urine Bacteria Trace (None Seen) Hyaline Casts 3-5 (0-2) /LPF Discharge Plan Discharge Clinical Impression: Suprapubic pain, Urinary tract infection Patient Disposition: Home, Self-Care Instructions: Catheter-associated Urinary Tract Infection (ED) Additional Instructions: You were found to have a urinary tract infection. Take the ciprofloxacin as directed. Complete the course of this antibiotic. Your suprapubic catheter was fully functional. You were not retaining urine. Follow up with your primary care provider and urologist as needed. Prescriptions: New ciprofloxacin HCl 500 mg tablet 500 mg PO Q12H Qty: 19 0RF No Action mirtazapine 7.5 mg tablet 7.5 mg PO BEDTIME Qty: 90 2RF levetiracetam 500 mg tablet 500 mg PO BID Qty: 60 0RF acetaminophen [Tylenol] 325 mg capsule 650 mg PO Q6H PRN (Reason: pain) Qty: 30 0RF cefuroxime axetil 250 mg tablet 250 mg PO BID 5 Days Qty: 10 0RF ibuprofen 400 mg tablet 400 mg PO TID PRN (Reason: pain) Qty: 20 0RF aspirin 81 mg tablet,delayed release (DR/EC) 81 mg PO DAILY Qty: 90 3RF atorvastatin 40 mg tablet 40 mg PO BEDTIME Qty: 90 3RF furosemide 20 mg tablet 20 mg PO DAILY Qty: 90 2RF lisinopril 10 mg tablet 10 mg PO DAILY Qty: 90 2RF omeprazole 20 mg capsule,delayed release(DR/EC) 20 mg PO DAILY Qty: 90 3RF multivitamin Tablet 1 tab PO DAILY Ultra CoQ10 75 mg capsule 75 mg PO DAILY finasteride [Proscar] 5 mg tablet 5 mg PO DAILY Qty: 90 3RF Interventions: ED Discharge Assessment Last Done: 09/26/25 11:06 Discharge Date/Time: 09/26/25 11:06 Print Language: Yi
--- OUTSIDE RECORDS SUMMARY | 2025-09-26 06:01 | XMS_ITS | Patient Health Record ---
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 Name Role Phone Js Allison MD Primary [...] Status Risk Notes Problem Colon cancer screening (704488050) Colon cancer screening (Z12.11) Active confirmed Problem Already on aspirin (823451752) long-term current use of aspirin (Z79.82) Active confirmed Problem Gastroesophageal reflux disease without esophagitis (797791332) Gastroesophageal reflux disease without esophagitis (K21.9) Active confirmed Problem Malignant neoplasm of colon (994690212) Adenocarcinoma of colon (C18.9) Active confirmed Problem External hemorrhoids (70972622) External hemorrhoids (K64.4) Active confirmed Plan Of Treatment Future Test Test Name Order Date COLONOSCOPY 09/23/2015 Insurance Providers Payer Name Payer Address Payer Phone Subscriber Number Group Number Insured Name Patient Relationship to Insured Coverage Start Date Coverage End Date MEDICARE OF [place] [address] [place] [address] [id number] ROXANN MORRELL Self - patient is the insured [employer] ATT[employer] CLAIMS [address] [place] [phone] [id number] ROXANN MORRELL Self - patient is the [...]
[2025-09-26 06:14] VITALS: BP 145/67; PULSE 83; RESP 16; O2SAT 97
[2025-09-26 07:41] VITALS: BP 134/64; PULSE 83; RESP 18; TEMP 36.1; O2SAT 95
[2025-09-26 11:06] VITALS: BP 134/64; PULSE 83; RESP 18; TEMP 36.1; O2SAT 95
== END 2025-09-26 11:06 | disposition home or self-care (01) ==
PROVIDERS: Physician Assistant Medical; Emergency Provider Emergency Medicine
DX: R10.24 Suprapubic pain (principal); N39.0 Urinary tract infection, site not specified; Z96.0 Presence of urogenital implants
CPT/HCPCS: 36415; 74177; 80053; 81001; 83735; 85025; 87086; 96365; 99284; 99285; J0744; Q9967

== ENCOUNTER → 2025-09-26 04:49 | Outpatient (BNV) | payer MEDICARE, SELFPAY | PROVIDERS: Emergency Provider Emergency Medicine; Visit Provider Specialist | DX: R10.30 Lower abdominal pain, unspecified (principal) | CPT/HCPCS: 74177 ==

== ENCOUNTER 2025-09-27 13:41 | Outpatient (AMB) | payer MEDICARE, SELFPAY ==
--- OUTSIDE RECORDS SUMMARY | 2024-04-20 06:20 | XMS_ITS ---
Author Organization [facility] Address [address] [place] [phone] Care Team Providers Care Grain Operations Manager Name Role Phone Js Allison MD Primary [...] Active Encounters Encounter Location Date Provider Diagnosis [facility] [address] [place] [phone] 04/20/2024 Samy Payne Jr Plan Of Treatment No Information Progress Notes * ROXANN MORRELL ADOB: [birth year] (89 yo M)Acc No.[id number]:04/20/2024 Progress Notes Patient: ROXANN MAX Provider: Ivis Payne MD :1935 A ge:89 Y S ex:Male Date:04/20/2024 Address:[address] [place] [address], [place] [facility] Pcp:Js Allison MD Subjective: * Chief Complaints: [...] 0 04/20/2024 Generated for Tito freeman/Errol/Talya on: 1 11/28/2024 07:55 PM EST
--- NOTE | 2025-09-27 13:52 | A.OFFPC_ITS ---
Vital Signs 09/27/25 13:59 Height 5 ft 10 in Weight 73.028 kg BMI 23.1 BP 82/50 L Respiration 16 Pulse 80 Pulse Source Pulse Oximeter Temp 97.1 F Temp Source Temporal Artery Scan Pulse Oximetry (%) 99 Oxygen Delivery Method Room Air Intake Visit Reasons: SHANIA [id number] [place] Physiotherapist Required: No Accompanied by: Son in Law Allergies No Known Allergies (No Known Allergies*) Allergy (Verified 09/27/25 13:53) Tobacco use date assessed: 12/08/24 Dental Screening Dental Screen Date: 10/15/24 [facility] Medical History NSTEMI (non-ST elevated myocardial infarction) Atherosclerotic cardiovascular disease Heart failure with reduced ejection fraction Wheezing Vitamin D deficiency Thoracic cyst TIA (transient ischemic attack) Colon cancer Hypercholesterolemia BPH (benign prostatic hyperplasia) Hypertension GERD (gastroesophageal reflux disease) Surgical History Hx of cardiac catheterization History of colectomy History of cholecystectomy Family History Father Medical history unknown Mother Hypertension Sister Breast cancer Social History Household Members: Spouse Housing: House Do you presently have visiting nurse or other home services: No Alcohol intake: current Alcohol intake frequency: holidays/special occasions only Alcohol type: wine Comment: camera placed as pt is impulsive Patient Tobacco Use Status: Former Tobacco user Tobacco use type: Cigarette Years Smoked: Quit 21 years old e-Cigarette/Vaping Use: Never Used Second Hand Smoke Exposure: Yes Advance Directives Date on File: 04/27/24 service: No Current occupational status: retired Cognitive needs: No Hearing needs: No Vision needs: Yes Questionnaire Thrive Questionnaire Date Thrive assessed: 09/22/25 I am a: Parent/Caregiver What is your living situation today?: I have a steady place to live Within the past 12 months, did the food you bought not last and you didn't have the money to get more?: Never true Within the past 12 months, did you worry whether your food would run out before you got money to buy more?: Never true Do you have trouble paying for medicines?: No Do you have trouble getting transportation to medical appointments?: No Do you have trouble paying your heating and electricity bill?: No Do you have trouble taking care of your child, family member or friend?: No Do you have trouble with day-to-day activities such as bathing, preparing meals, shopping, managing finances, etc.?: No Are you currently unemployed and looking for a job?: No Are you interested in more education?: No Please select the resources that you would like help with: None Currently or been in a relationship where the following occur: No concerns reported THRIVE Score: 0 DAVID-7 AMB Questionnaire DAVID-7 Date DAVID - 7 assessed: 10/15/24 Source: Developed by Drs. Walter Forrester, Nichole Amaral, Jaylen Morris and colleagues, with an educational kannan from [facility]. Physical exam (Primary Care) Vital Signs: Last Vital Signs Temp 97.1 F 09/27/25 13:59 Pulse 80 09/27/25 13:59 Resp 16 09/27/25 13:59 BP 82/50 L 09/27/25 13:59 Pulse Ox 99 09/27/25 13:59 Oxygen Delivery Method Room Air 09/27/25 13:59 BMI result Body Mass Index 23.1 Tobacco/Smoking Status: Tobacco use Status Tobacco use date assessed 12/08/24 09/27/25 14:05 Patient Tobacco Use Status Former Tobacco user 09/27/25 14:05 Tobacco use type Cigarette 09/27/25 14:05 e-Cigarette/Vaping Use Never Used 09/27/25 14:05 Thrive Assessment: Date of Thrive Assessment Date Thrive assessed 09/22/25 09/27/25 14:05 Currently or been in a relationship where the following occur: No concerns reported Coding
[2025-09-27 13:59] VITALS: BP 82/50; PULSE 80; RESP 16; TEMP 36.2; O2SAT 99; BMI 23.1
--- NOTE | 2025-09-27 14:07 | AM.OFFVISMDC ---
Intake Vital Signs 09/27/25 13:59 Height 5 ft 10 in Weight 161 lb BMI 23.1 BP 82/50 L Respiration 16 Pulse 80 Pulse Source Pulse Oximeter Temp 97.1 F Temp Source Temporal Artery Scan Pulse Oximetry (%) 99 Oxygen Delivery Method Room Air Intake Visit Reasons: SWV [id number] Allergies No Known Allergies (No Known Allergies*) Allergy (Verified 09/27/25 13:53) Medication List - Last Reconciled 09/27/25 by Js Allison MD acetaminophen (Tylenol) 650 mg (2 x 325 mg) PO Q6H PRN aspirin 81 mg PO DAILY atorvastatin 40 mg PO BEDTIME cefuroxime axetil 250 mg PO BID 5 days ciprofloxacin HCl 500 mg PO Q12H coenzyme Q10 (Ultra CoQ10) 75 mg PO DAILY finasteride (Proscar) 5 mg PO DAILY furosemide 20 mg PO DAILY levetiracetam 500 mg PO BID lisinopril 10 mg PO DAILY multivitamin 1 tab PO DAILY omeprazole 20 mg PO DAILY HPI SWV G0439 HPI Details [facility] urology [facility] Cardiology [facility] Neurology [facility] Neurology [facility] Medical History NSTEMI (non-ST elevated myocardial infarction) Atherosclerotic cardiovascular disease Heart failure with reduced ejection fraction Wheezing Vitamin D deficiency Thoracic cyst TIA (transient ischemic attack) Colon cancer Hypercholesterolemia BPH (benign prostatic hyperplasia) Hypertension GERD (gastroesophageal reflux disease) Surgical History Hx of cardiac catheterization History of colectomy History of cholecystectomy Family History Father Medical history unknown Mother Hypertension Sister Breast cancer Social History (Updated 09/27/25 @ 14:25 by Js Allison MD) Household Members: Spouse Housing: House Do you presently have visiting nurse or other home services: No Alcohol intake: current Alcohol intake frequency: holidays/special occasions only Alcohol type: wine Comment: camera placed as pt is impulsive, 3x a week glass Patient Tobacco Use Status: Former Tobacco user Tobacco use type: Cigarette Years Smoked: Quit 21 years old e-Cigarette/Vaping Use: Never Used Second Hand Smoke Exposure: Yes Advance Directives Date on File: 04/27/24 service: No Current occupational status: retired Cognitive needs: No Hearing needs: No Vision needs: Yes Questionnaire Medicare Wellness Checkup What is your age?: 82 or older What gender do you identify with?: male During the past 4 weeks, how much have you been bothered by emotional problems such as feeling anxious, depressed, irritable, sad or downhearted, and blue?: slightly During the past 4 weeks, has your physical & emotional health limited your social activities with family, friends, neighbors, or groups?: not at all During the past 4 weeks, how much bodily pain have you generally had?: mild pain During the past 4 weeks, was someone available to help you if you needed & wanted help?: yes, as much as I wanted During the past 4 weeks, what was the hardest physical activity you could do for at least 2 minutes?: very light Can you get to places out of walking distance without help? (For eg., can you travel alone on buses, taxis or drive your car?): No Can you go shopping for groceries or clothes without someone's help?: No Can you prepare your own meals?: Yes Can you do your housework without help?: Yes Because of any health problems, do you need the help of another person with your personal care needs such as eating, bathing, dressing or getting around the house?: No Can you handle your own money without help?: Yes During the past 4 weeks, how would you rate your health in general?: very good During the past 4 weeks how have things been going for you?: good & bad parts about equal Are you having difficulties driving your car?: not applicable, I don't use a car Do you always fasten your seat belt when you are in a car?: yes, usually During past 4 weeks, have you been bothered by the following: never: Sexual problems?, Trouble eating well?, Teeth or denture problems? and Problems using the telephone? and seldom: Falling or dizzy when standing up and Tiredness or fatigue? Have you fallen 2 or more times in the past year?: No Are you afraid of falling?: No Are you a smoker?: no During the past 4 weeks, how many drinks of wine, beer, or other alcoholic beverages did you have?: 2-5 drinks per week Do you exercise for about 20 minutes 3 or more times a week?: no, I usually do not exercise this much Have you been given information to help with the following?: yes: Hazards in your house that might hurt you? and yes: Keeping track of your medications? How often do you have trouble taking medicines the way you have been told to take them?: sometimes I take medicine as prescribed How confident are you that you can control & manage most of your health problems?: somewhat confident What is your race?: White PHQ-9 Over the last 2 weeks, how often have you been bothered by any of the following problems? 1. Little interest or pleasure in doing things: not at all 2. Feeling down, depressed, or hopeless: not at all 3. Trouble falling or staying asleep, or sleeping too much: not at all 4. Feeling tired or having little energy: several days 5. Poor appetite or overeating: not at all 6. Feeling bad about yourself - or that you are a failure or have let yourself or your family down: not at all 7. Trouble concentrating on things, such as reading the newspaper or watching television: not at all 8. Moving or speaking so slowly that other people could have noticed. Or the opposite - being so fidgety or restless that you have been moving around a lot more than usual: not at all 9. Thoughts that you would be better off or of hurting yourself in some way: not at all Total score: 1 Depression Screening Interpretation: Negative Depression Screening Done: Yes 49675 - PHQ-9 Billing: Yes Source: Developed by Drs. Walter Forrester, Nichole Amaral, Jaylen Morris and colleagues, with an educational kannan from [employer]. PHQ-2/PHQ-9 PHQ-2 Over the last 2 weeks, how often have you been bothered by any of the following problems? 1. Little interest or pleasure in doing things: not at all 2. Feeling down, depressed, or hopeless: not at all Total score: 0 If score is 3 or greater, continue 3. Trouble falling or staying asleep, or sleeping too much: not at all 4. Feeling tired or having little energy: several days 5. Poor appetite or overeating: not at all 6. Feeling bad about yourself - or that you are a failure or have let yourself or your family down: not at all 7. Trouble concentrating on things, such as reading the newspaper or watching television: not at all 8. Moving or speaking so slowly that other people could have noticed. Or the opposite - being so fidgety or restless that you have been moving around a lot more than usual: not at all 9. Thoughts that you would be better off or of hurting yourself in some way: not at all Total score: 1 0-4 None-Minimal, 5-9 Mild, 10-14 Moderate, 15-19 Moderately Severe, 20-27 Severe Source: Developed by Drs. Walter Forrester, Nichole Amaral, Jaylen Morris and colleagues, with an educational kannan from [employer]. Thrive Questionnaire Date Thrive assessed: 09/22/25 I am a: Parent/Caregiver What is your living situation today?: I have a steady place to live Within the past 12 months, did the food you bought not last and you didn't have the money to get more?: Never true Within the past 12 months, did you worry whether your food would run out before you got money to buy more?: Never true Do you have trouble paying for medicines?: No Do you have trouble getting transportation to medical appointments?: No Do you have trouble paying your heating and electricity bill?: No Do you have trouble taking care of your child, family member or friend?: No Do you have trouble with day-to-day activities such as bathing, preparing meals, shopping, managing finances, etc.?: No Are you currently unemployed and looking for a job?: No Are you interested in more education?: No Please select the resources that you would like help with: None Currently or been in a relationship where the following occur: No concerns reported THRIVE Score: 0 DAVID-7 AMB Questionnaire DAVID-7 Date DAVID - 7 assessed: 10/15/24 Source: Developed by Drs. Walter Forrester, Nichole Amaral, Jaylen Morris and colleagues, with an educational kannan from [employer]. Review of Systems Const Denies poor appetite and Denies weakness Eyes Denies no additional complaints ENT Reports Normal hearing present, Denies dizziness, Denies nasal congestion, Denies tinnitus and Denies sore throat Card Denies chest pain, Denies syncope, Denies rapid heart rate and Denies dyspnea Resp Denies cough and Denies dyspnea GI Denies change in stool character, Reports constipation, Denies diarrhea, Denies nausea and Denies vomiting Denies dysuria and Denies urinary frequency Neuro Reports Normal hearing present, Denies confusion, Denies dizziness, Denies syncope and Denies weakness Psych Denies confusion Physical Exam Vital Signs: Last Vital Signs Temp 97.1 F 09/27/25 13:59 Pulse 80 09/27/25 13:59 Resp 16 09/27/25 13:59 BP 82/50 L 09/27/25 13:59 Pulse Ox 99 09/27/25 13:59 Oxygen Delivery Method Room Air 09/27/25 13:59 BMI result Body Mass Index 23.1 Const General: No confusion Orientation/consciousness: No confusion HEENT Head: Yes normocephalic Ears: external ears normal and TM's normal bilaterally Face and sinus: Yes normal facial exam Mouth: moist mucous membranes Throat: Yes tonsils normal Eyes Conjunctivae: conjunctivae normal Pupils: Equal, round and reactive pupils present and Pupil accommodation reflex normal Direct Ophthalmoscopy: normal light reflex Neck Neck: No lymphadenopathy Thyroid: Thyroid normal Chest Chest palpation & inspection: normal inspection of the chest Resp Effort & Inspection: normal respiratory effort and no audible wheezes Auscultation: clear to auscultation bilaterally, no crackles, no wheezes and lung sounds not diminished Cardio Rate: regular rate Rhythm: regular rhythm Peripheral pulses: radial pulses present and dorsalis pedis present GI Palpation (GI): no masses Auscultation: normal bowel sounds and normoactive bowel sounds Rectal Exam - Male: Yes deferred Skin General skin exam: no rashes or lesions noted Rashes: no rashes Neuro General: No confusion Cranial nerves: Yes Equal, round and reactive pupils present and Yes Normal hearing present Cognition (Neuro): normal cognition Gait exam (Neuro): Normal gait present Motor exam (neuro): 5/5 motor strength present throughout Deep tendon reflexes (DTR's): Right brachioradialis reflex intensity grade: 2+, Left brachioradialis reflex intensity grade: 2+, Right patellar reflex intensity grade: 2+ and Left patellar reflex intensity grade: 2+ Extrem General: No edema Office Procedures Flu Questionnaire Does the patient have a severe egg allergy?: No Does the patient have severe life threatening allergies?: No Does the patient have a fever or illness today?: No Has the patient ever had Guillain-Lizton Syndrome?: No Has the patient ever had any past reaction to a flu shot?: No Immunizations Fluarix [id number] (PF) 45 mcg (15 mcg x 3)/0.5 mL IM syringe Performing Provider: Js Allison MD [facility] Administered by: BEN Hutchins on 09/27/25 14:51 Dose Route Admin Location Dispensed Lot Number Expiration Date NDC [employer] 0.5 mL IM Left Deltoid 0.5 mL [id number] 04/12/26 [id number] [employer] VIS Given Date VIS Provided VIS Publication Date 09/27/25 Single Vaccine 24 Eligibility Eligibility Date Funding Source Not [facility] Eligible 09/27/25 Private Assessment & Plan Assessment & Plan (1) Annual wellness visit: Code(s): Z00.00 - Encounter for general adult medical examination without abnormal findings Plan: Patient is advised to eat healthy, keep well hydrated, keep active and have adequate sleep. (2) Hypertension: Code(s): I10 - Essential (primary) hypertension Qualifiers: Hypertension type: essential hypertension Qualified Code(s): I10 - Essential (primary) hypertension Plan: Continue with blood pressure medication. Decrease salt intake and exercise patient on lisinopril 10 mg once a day (3) Cardiomyopathy: Code(s): I42.9 - Cardiomyopathy, unspecified Qualifiers: Cardiomyopathy type: ischemic Qualified Code(s): I25.5 - Ischemic cardiomyopathy Plan: Continue with aspirin furosemide at 20 mg once a day (4) Heart failure with reduced ejection fraction: Code(s): I50.20 - Unspecified systolic (congestive) heart failure Plan: Weigh daily on furosemide (5) Atherosclerotic cardiovascular disease: Code(s): I25.10 - Atherosclerotic heart disease of [place] coronary artery without angina pectoris Plan: Control the cholesterol, weight, blood pressure, on aspirin 81 mg once a day (6) Hypercholesterolemia: Code(s): E78.00 - Pure hypercholesterolemia, unspecified Plan: Avoid fried foods, chicken skin, eggs, butter margarine, pastries and meat. Be it pork or beef they have a lot of cholesterol LDL goal of less than 70 and triglyceride of less than 150 December 2024 last blood work (7) GERD (gastroesophageal reflux disease): Code(s): K21.9 - Gastro-esophageal reflux disease without esophagitis Qualifiers: Esophagitis presence: without esophagitis Qualified Code(s): K21.9 - Gastro-esophageal reflux disease without esophagitis Plan: Avoid the foods that causes that usually spicy foods, tomato products, juices, coffee, soda and foods that your sensitive to. After eating do not lie down, allow 3-4 hours before in lie down. And keep the head of bed above 30 degrees to avoid the acid from going up. 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 Panel 3 Months I10 - Essential (primary) hypertension Ferritin 3 Months I10 - Essential (primary) hypertension Hemoglobin A1c 3 Months I10 - Essential (primary) hypertension Magnesium 3 Months I10 - Essential (primary) hypertension Influenza [id number] Immunization Today Z23 - Encounter for immunization Free T4 (Free Thyroxine) 3 Months I10 - Essential (primary) hypertension Thyroid Stimulating Hormone 3 Months I10 - Essential (primary) hypertension Lipid Panel 3 Months E78.00 - Pure hypercholesterolemia, unspecified, I10 - Essential (primary) hypertension IRON PROFILE 3 Months I10 - Essential (primary) hypertension Vitamin B12 and Folate 3 Months I10 - Essential (primary) hypertension Vitamin D 25-OH Total 3 Months I10 - Essential (primary) hypertension UA CC w/rflx Micro + Cult 3 Months I10 - Essential (primary) hypertension, R30.0 - Dysuria Medications: Changed From lisinopril 10 mg PO DAILY 90 tabs 2RF 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 To lisinopril 5 mg (1/2 x 10 mg) PO DAILY 14 tabs 2RF 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 Quality Reporting (2019) Depression/Bipolar (159/160/161/177) PHQ-9: Total score: 1 Coding Level of Care Code Medicare Subsequent (G0439) Diagnoses Annual wellness visit Z00.00 Essential hypertension I10 Hypertension type: essential hypertension Ischemic cardiomyopathy I25.5 Cardiomyopathy type: ischemic Heart failure with reduced ejection fraction I50.20 Atherosclerotic cardiovascular disease I25.10 Hypercholesterolemia E78.00 Gastroesophageal reflux disease without esophagitis K21.9 Esophagitis presence: without esophagitis Urinary retention R33.9 BPH loc w urin obs/LUTS N40.1 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
--- OUTSIDE RECORDS SUMMARY | 2025-09-27 19:56 | XMS_ITS | Patient Health Record ---
Author Organization 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 Name Role Phone Js Allison MD [...] Status Risk Notes Problem Colon cancer screening (448844230) Colon cancer screening (Z12.11) Active confirmed Problem Already on aspirin (688639891) longterm current use of aspirin (Z79.82) Active confirmed Problem Gastroesophageal reflux disease without esophagitis (679218370) Gastroesophageal reflux disease without esophagitis (K21.9) Active confirmed Problem Malignant neoplasm of colon (813640331) Adenocarcinoma of colon (C18.9) Active confirmed Problem External hemorrhoids (65337237) External hemorrhoids (K64.4) Active confirmed Plan Of Treatment Future Test Test Name Order Date COLONOSCOPY 09/23/2015 Insurance Providers Payer Name Payer Address Payer Phone Subscriber Number Group Number Insured Name Patient Relationship to Insured Coverage Start Date Coverage End Date MEDICARE OF [place] [address] [place] [address] [phone] [id number] ROXANN MORRELL Self - patient is the insured [employer] ATT[employer] CLAIMS [address] [place] [address] [id number] ROXANN MORRELL Self - patient is the [...]
== END 2025-09-27 14:52 | disposition home or self-care (01) ==
LOC: HO.HMCH 13:42
PROVIDERS: PCP Internal Medicine; Visit Provider Internal Medicine
DX: Z00.00 Encounter for general adult medical examination without abnormal findings (principal); I50.20 Unspecified systolic (congestive) heart failure; I11.0 Hypertensive heart disease with heart failure; G40.209 Localization-related (focal) (partial) symptomatic epilepsy and epileptic syndromes with complex partial seizures, not intractable, without status epilepticus; I25.5 Ischemic cardiomyopathy; I25.10 Atherosclerotic heart disease of native coronary artery without angina pectoris; E78.00 Pure hypercholesterolemia, unspecified; K21.9 Gastro-esophageal reflux disease without esophagitis; R33.9 Retention of urine, unspecified; N40.1 Benign prostatic hyperplasia with lower urinary tract symptoms; Z23 Encounter for immunization

== ENCOUNTER → 2025-09-27 13:41 | Outpatient (BNVA) | payer MEDICARE, SELFPAY | PROVIDERS: PCP Internal Medicine; Visit Provider Internal Medicine | DX: Z13.31 Encounter for screening for depression (principal); Z23 Encounter for immunization | CPT/HCPCS: 90471; 90656; 96127 ==

== ENCOUNTER 2025-10-11 09:36 | Outpatient (REF) | payer MEDICARE, SELFPAY ==
--- OUTSIDE RECORDS SUMMARY | 2024-04-20 06:20 | XMS_ITS ---
Author Organization [facility] Address [address] [place] [phone] Care Team Providers Care Diver Assistant Name Role Phone Js Allison MD Primary [...] Active Encounters Encounter Location Date Provider Diagnosis [facility] [address] [place] [phone] 04/20/2024 Samy Payne Jr Plan Of Treatment No Information Progress Notes * ROXANN MORRELL ADOB: [birth year] (89 yo M)Acc No.[id number]:04/20/2024 Progress Notes Patient: ROXANN MAX Provider: Ivis Payne MD :1935 A ge:89 Y S ex:Male Date:04/20/2024 Address:[address] [place] [address] [place] [facility] Pcp:Js Allison MD Subjective: * Chief Complaints: [...] 04/20/2024 Generated for Tito freeman/Errol/Talya on: 1 10:13 AM EST
--- NOTE | ~2025-10-11 | US_ITS ---
CLINICAL HISTORY: R33.9 - Retention of urine, unspecified US kidneys and bladder Comparison: None provided Findings: Right kidney 10.2 cm length. No significant focal abnormality. Left kidney 11.4 cm length. No significant focal abnormality. No bilateral hydronephrosis. Normal bilateral renal echogenicity. Guy catheter in urinary bladder. Bladder is not fully distended. Urinary bladder is grossly unremarkable. Prevoid volume 43 mL. Post void volume not obtained. Bilateral ureteral jets visualized. Impression: No significant abnormalities Ultrasound prostate Comparison: None provided Findings: Prostate 3.3 x 2.4 x 3.9 cm. Is heterogeneous without focal abnormality. Calcification is noted. Prostate volume 15.9 mL. Impression: No significant abnormality This document has been electronically signed by: Hector Foreman MD on 10/11/2025 21:16:33
--- OUTSIDE RECORDS SUMMARY | 2025-10-11 10:14 | XMS_ITS | Patient Health Record ---
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 [employer] Name Role Phone Js Allison MD Primary Care Provider Samy Rivas Jr Unavailable [phone] Allergies No Known Allergies Reason For [...] Status Risk Notes Problem Colon cancer screening (814639282) Colon cancer screening (Z12.11) Active confirmed Problem Already on aspirin (144581752) assisted current use of aspirin (Z79.82) Active confirmed Problem Gastroesophageal reflux disease without esophagitis (942390436) Gastroesophageal reflux disease without esophagitis (K21.9) Active confirmed Problem Malignant neoplasm of colon (704638076) Adenocarcinoma of colon (C18.9) Active confirmed Problem External hemorrhoids (95948570) External hemorrhoids (K64.4) Active confirmed Plan Of Treatment Future Test Test Name Order Date COLONOSCOPY 09/23/2015 Insurance Providers Payer Name Payer Address Payer Phone Subscriber Number Group Number Insured Name Patient Relationship to Insured Coverage Start Date Coverage End Date MEDICARE OF [place] [address] [place] [id number] ROXANN MORRELL Self - patient is the insured MED[employer] ATTN CLAIMS [address] [place] [address] [id number] ROXANN MORRELL Self - patient is the [...]
[2025-10-11 10:32] LABS: MANUAL DIFF FLAG NO
[2025-10-11 11:05] LABS: Hematocrit 35.1 % (42.0-52.0); Hemoglobin 11.7 g/dl (14.0-18.0); Imm Gran Abs Auto 0.02 X10*3/uL (0.00-0.03); Imm Gran Pct Auto 0.2 % (0.0-0.4); Lymphocytes Absolute Auto 1.8 X10*3/uL (1.2-4.9); Mean Corpuscular HGB Conc 33.3 g/dl (31.0-36.0); Mean Corpuscular Hemoglobin 32.1 pg (27.0-33.0); Mean Corpuscular Volume 96.2 fL (80.0-98.0); NRBC Abs Auto 0.000 X10*3/uL (0.0-0.012); NRBC Pct Auto 0.0 /100WBC (0.0-0.2); Platelet Count 276 X10*3/uL (160-400); Red Blood Count 3.65 X10*6/uL (4.60-5.80); Reticulocytes Absolute 0.030 X10*6/uL (0.026-0.095); White Blood Count 8.4 X10*3/uL (4.8-10.8)
[2025-10-11 11:24] LABS: Appearance Urine Hazy; Glucose Urine UA Negative (Negative); PH 6.0 (5.0-9.0); Specific Gravity - Urine >= 1.030 (1.005-1.025); UMIC TRIGGER UACC YES
[2025-10-11 11:38] LABS: UACC Culture Trigger YES
[2025-10-11 11:53] LABS: Alanine Aminotransferase 25 U/L (0-40); Albumin Level 4.1 g/dL (3.5-5.0); Alkaline Phosphatase 123 U/L (39-117); Anion Gap 12 (12-20); Aspartate Amino Transferase 32 U/L (5-37); Blood Urea Nitrogen 31 mg/dL (9-16); Calcium 9.8 mg/dL (8.4-10.2); Carbon Dioxide 27 mmol/L (22-29); Chloride 108 mmol/L (96-108); Cholesterol 133 mg/dL (<200); Estimated Glomerular Filt Rate > 60; Free T4 (Free Thyroxine) 0.94 ng/dL (0.71-1.85); HDL Cholesterol 62 mg/dL (>40); Iron 60 mcg/dL (45-160); Magnesium 2.1 mg/dL (1.6-2.6); Percent Iron Saturation 21 % (15-50); Potassium 4.6 mmol/L (3.3-5.1); Sodium 142 mmol/L (135-145); Thyroid Stimulating Hormone 3.06 uIU/mL (0.32-4.0); Total Iron Binding Capacity 288 mcg/dL (228-428); Total Protein 7.5 g/dL (6.5-8.0); Triglycerides 36 mg/dL (<150); Unsaturated Iron Binding 228 ug/dL
[2025-10-11 12:06] LABS: Folate 13.4 ng/mL (> or = 4.0); Vitamin B12 683 pg/mL (200-900)
== END 2025-10-11 09:37 | disposition home or self-care (01) ==
LOC: HO.US 09:36
PROVIDERS: Absent Provider Internal Medicine; PCP Internal Medicine; Visit Provider Urology
DX: N40.1 Benign prostatic hyperplasia with lower urinary tract symptoms (principal); I25.10 Atherosclerotic heart disease of native coronary artery without angina pectoris; I50.20 Unspecified systolic (congestive) heart failure; E78.00 Pure hypercholesterolemia, unspecified; I95.9 Hypotension, unspecified; R33.8 Other retention of urine
CPT/HCPCS: 36415; 76770; 80053; 80061; 81001; 82607; 82746; 83540; 83735; 84439; 84443; 85025; 85045; 87086

== ENCOUNTER → 2025-10-11 09:38 | Outpatient (BNV) | payer MEDICARE, SELFPAY | PROVIDERS: Absent Provider Internal Medicine; PCP Internal Medicine; Visit Provider Radiology Diagnostic Radiology | DX: R33.9 Retention of urine, unspecified (principal) | CPT/HCPCS: 76770 ==